=== PATIENT | female | born 1935 | race Caucasian/White ===

== ENCOUNTER → 2017-04-13 15:51 | Outpatient (CLI) | payer MEDICARE, OTHER, SELFPAY ==
--- NOTE | 2017-04-13 11:15 | LES_PTH ---
PATIENT: NELSON STROUD LOC: [facility] U#:[id number] AGE/SX: 89/F ROOM: RE04/13/[address]: Dr. Casey Smith MD : 1935 BED: DIS: SPEC #: [id number] RECD: 04/13/17 15:44 STATUS: JATINDER REGINE #: [id number] LONNY: 04/13/17 11:[address]: Casey Smith DEPT: SURGICAL PATHOLOGY RECD BY: Raul Chacon Tissues: Skin of eyelid, NOS Procedures: Surgery Specimen Level IV HEADER OPERATION: Elliptical excision biopsy, left upper arm PRE-OP DIAGNOSIS: Changing skin neoplasm TISSUE SUBMITTED: Left upper arm lesion biopsy MICROSCOPIC DIAGNOSIS Left upper arm lesion, biopsy: Basal cell carcinoma with focal area of ulceration and associated inflammation, incompletely excised. See comment. JEAN:roma 04/17/17 COMMENT The tumor is present at peripheral and deep margins of the specimen. Case has been reviewed in consultation with Dr. Mendez who concurs with the above diagnosis. IDC:AM MICROSCOPIC DESCRIPTION Slides are reviewed. GROSS DESCRIPTION Received is one container labeled with the patient's name and not further designated. The specimen consists of an irregular piece of velasco-white skin measuring 1.1 x 1 x 0.2 cm. The specimen is inked and submitted entirely in one cassette. It will be serially sectioned at the time of embedding. / SJ:rg 04/16/17 TC:0 CPT: 57661
== END ==
PROVIDERS: Family Provider Family Medicine; PCP Family Medicine; Visit Provider Family Medicine
DX: C44.619 Basal cell carcinoma of skin of left upper limb, including shoulder (principal)
CPT/HCPCS: 88305

== ENCOUNTER → 2017-09-18 08:11 | Outpatient (CLI) | payer MEDICARE, OTHER, SELFPAY ==
[2017-09-18 10:27] LABS: Hemoglobin A1c 7.4 % (4.2-6.3)
[2017-09-18 10:32] LABS: AST(SGOT) 23 U/L (15-37); Alanine Aminotransfer ALT/SGPT 29 U/L (13-56); Albumin, Serum 3.4 g/dL (3.2-5.0); Alkaline Phosphatase 76 U/L (45-117); Anion Gap 9 (5-15); BUN 17 mg/dL (7-18); BUN/Creat Ratio 20.1 RATIO (10-20); Bilirubin, Direct 0.13 mg/dL (0.00-0.30); Calcium,Total 9.1 mg/dL (8.5-10.1); Chloride 105 mmol/L (98-107); Cholesterol 246 mg/dL (200); Creatinine, Serum 0.84 mg/dL (0.55-1.02); EST Glomerular Filtration Rate 69 mL/min (>60); Est Glom Filt Rate - Afr Amer 83 mL/min (>60); Globulin 4.3 g/dL (2.2-4.2); Glucose 138 mg/dL (74-106); High Density Lipoprotein 37 mg/dL; Potassium 3.8 mmol/L (3.5-5.1); Protein, Total 7.7 g/dL (6.4-8.2); Sodium Level 139 mmol/L (136-145); Triglycerides 267 mg/dL; Very Low Density Lipoprotein 53 mg/dL (5-40)
[2017-09-18 14:37] LABS: Microalbumin,Random Urine 12.8 mg/L (NO RANGE EST.); Microalbumin:Creatinine Ratio 10.1 mg/g CRE (<30 mg/g CRE)
== END ==
PROVIDERS: Family Provider Family Medicine; PCP Family Medicine; Visit Provider Family Medicine
DX: E11.9 Type 2 diabetes mellitus without complications (principal); E78.5 Hyperlipidemia, unspecified; I10 Essential (primary) hypertension
CPT/HCPCS: 36415; 80048; 80061; 80076; 82043; 82570; 83036

== ENCOUNTER → 2018-03-18 08:52 | Outpatient (CLI) | payer MEDICARE, OTHER, SELFPAY ==
[2017-02-14 12:54] VITALS: BMI 33.6
[2018-03-18 10:44] LABS: Anion Gap 10 (5-15); BUN 18 mg/dL (7-18); BUN/Creat Ratio 22.2 RATIO (10-20); Calcium,Total 9.1 mg/dL (8.5-10.1); Chloride 106 mmol/L (98-107); Cholesterol 255 mg/dL (200); Creatinine, Serum 0.81 mg/dL (0.55-1.02); EST Glomerular Filtration Rate 72 mL/min (>60); Est Glom Filt Rate - Afr Amer 87 mL/min (>60); Glucose 173 mg/dL (74-106); High Density Lipoprotein 37 mg/dL; Potassium 3.8 mmol/L (3.5-5.1); Sodium Level 140 mmol/L (136-145); Triglycerides 272 mg/dL; Very Low Density Lipoprotein 54 mg/dL (5-40)
[2018-03-18 10:48] LABS: Hemoglobin A1c 8.1 % (4.2-6.3)
== END ==
PROVIDERS: Family Provider Family Medicine; PCP Family Medicine; Visit Provider Family Medicine
DX: E11.9 Type 2 diabetes mellitus without complications (principal); E78.5 Hyperlipidemia, unspecified; I10 Essential (primary) hypertension
CPT/HCPCS: 36415; 80048; 80061; 83036

== ENCOUNTER 2018-05-20 09:30 | Inpatient (IN) | payer MEDICARE, OTHER, SELFPAY ==
[2018-05-20] VITALS (34 sets, daily range): BP systolic 105–174; BP diastolic 58–83; PULSE 46–86; RESP 10–17; TEMP 36.7–36.8; O2SAT 97–100; BMI 34.7
--- NOTE | 2018-05-20 08:34 | PCM.PROGNOTE ---
Subjective: The patient is a 82-year-old female with a past medical history of hypertension, diabetes mellitus type 2, elevated cholesterol on new medication and hx of hysterectomy who presented to the stress lab this AM for an OP stress test. A code STEMI was called after the test started and the EKG showed changes in the inferior leads. She was transferred to the matlab developer for emergent cardiac catheterization by Dr. Heard. She is a life long non-smoker and there is a + FH of CAD in her father. Medical Necessity - Tobacco Use Smoking Status: Never smoker
--- NOTE | 2018-05-20 08:38 | PN_ITS ---
Subjective: The patient is a 82-year-old female with a past medical history of hypertension, diabetes mellitus type 2, elevated cholesterol on new medication and hx of hysterectomy who presented to the stress lab this AM for an OP stress test. A code STEMI was called after the test started and the EKG showed changes in the inferior leads. She was transferred to the cardiac cath rn for emergent cardiac catheterization by Dr. Heard. She is a life long non-smoker and there is a + FH of CAD in her father. Medical Necessity - Tobacco Use Smoking Status: Never smoker
--- NOTE | 2018-05-20 09:14 | EKG12_ITS ---
Test Reason : POST STEMI Blood Pressure : / mmHG Vent. Rate : 059 BPM Atrial Rate : 059 BPM P-R Int : 190 ms QRS Dur : 098 ms QT Int : 450 ms P-R-T Axes : 073 046 -31 degrees QTc Int : [address] & T wave abnormality, consider inferior ischemia Abnormal ECG No previous ECGs available Confirmed by ADRIANA YANES, LISANDRA ([id number]), mapping editor HARRIET SALAZAR ([id number]) on 05/24/2018 9:22:30 AM Referred By: Floyd Salazar Confirmed By:LISANDRA WRIGHT MD
--- NOTE | 2018-05-20 09:22 | PCM.CONS.C ---
Reason for Consult Date of Consultation: 05/20/18 Reason for Consultation: Acute EKG changes History of Present Illness: The patient is a 82 year old F with a history of hypertension who was sent by her primary physician for a routine stress test. She apparently had been having some throat discomfort which did not necessarily appear with exertion. She also had some shortness of breath when she bent forward. She did not have any dizziness or diaphoresis near syncope or syncope and did not have any exertional chest discomfort. She was evaluated prior to her undergoing the stress test and I reviewed her electrocardiogram with a nurse which demonstrated some nonspecific inferior changes. 2 minutes into her stress testing she developed ST elevation and the STEMI was called. The patient was placed back in the recumbent position and subsequently developed resolution of her EKG changes. The decision was made to take her to the cardiac catheterization lab immediately. [] Past Medical History Allergies/Adverse Reactions: Allergies Penicillins Allergy (Verified 02/14/17 12:53) Rash Tetanus Vaccines and Toxoid Allergy (Verified 02/14/17 12:53) Hives Home Medications: Ambulatory Orders Medication Instructions Recorded Hydrocodone Bitart/Apap 5-325 1 tab PO Q6H PRN PRN #10 tab 02/14/17 [Lohman 5MG-325MG] Surgical History: no surgical history Lives: Spouse/ Significant Other Smoking Status: Never smoker Alcohol: None Drugs: None Review of Systems - Review of Systems General: Denies: Fever, Night Sweats, Fatigue HEENT: Denies: Vision Change Cardiovascular: Reports: - - Throat discomfort. Denies: Chest Discomfort, Shortness of Breath, Orthopnea, PND, Peripheral Edema, Palpitations, Lightheadedness, Dizziness, Near Syncope, Syncope Respiratory: Denies: Cough, Sputum Production, Hemoptysis Gastrointestinal: Denies: Hematemesis, Hematochezia, Melena Genitourinary: Denies: Dysuria, Hematuria Muscoloskeletal: Denies: Myalgias Skin: Denies: Rash Neurological: Denies: Dizziness Psychiatric: Denies: Anxiety Endocrine: Denies: Unexplained Weight Loss Hematologic/ Lymphatic: Denies: Anemia Subjectve: Patient seen and evaluated. General: Awake, Alert, Oriented x 3 HEENT: PERRL, EOMI, Sclera Non Icteric Neck: Supple, Good ROM, No Lymph Node Enlargement Lungs: Clear to auscultation Cardiovascular: Regular Rhythm, Normal S1, Normal S2, No Murmurs, No Rubs, No Gallops Vascular: No Carotid Bruits, Normal Femoral Pulses, Normal Radial Pulses, Normal Dorsalis Pedal Pulse, Normal Posterior Tibial Pulses Abdomen: Bowel Sounds Present, Soft, Non Tender, No HSM, No Organomegaly Extremities: No Cyanosis, No Clubbing, No edema Musculoskeletal: No Erythema Skin: No Rashes Lymphatic: No Lymph Node Enlargement Neurological: No Focal Motor or Sensory Deficit Psych/Mental Status: Appropriate Rhythm: EKG: ECHO: Stress Test: Cardiac Cath: PCI: CT Surgery: Holter monitor: EPS: PPM: CXR: Chest CT Scan: Assessment/Plan 1. ST elevation myocardial infarction Patient presented to the noninvasive lab for an exercise stress test and developed an ST elevation myocardial infarction during the stress testing. The stress testing was aborted. The EKG pattern resolved. The patient was taken immediately to the cardiac catheterization lab. Patient was administered aspirin as well as Brilinta urgently The patient underwent cardiac catheterization which demonstrated a high-grade right coronary artery lesion which was the culprit and moderate disease noted in the left anterior descending artery. She underwent angioplasty and stenting of the right coronary artery dictated under separate cover. We will continue aggressive medical therapy with aspirin Continue Brilinta High intensity statin Low-dose beta-brynn Gera inhibitors Will address the left anterior descending artery lesion at a later date. Cardiac rehabilitation 2. Hypertension Controlled continue with the current medical therapy. Thank you for allowing me to participate in the care of your patient. Please don't hesitate to call if any issues arise
[2018-05-20 09:26] LABS: ACT Activated Clotting Time 324 sec (74-137)
--- NOTE | 2018-05-20 09:27 | CL.I_ITS ---
Patient Name: NELSON STROUD Study Date: 05/20/2018 Performing: Armin Heard MD Ht: 64 inches 162.56 cm : 1935 Wt: 190.2 lbs 86.18 kg Age: 82 Gender: female BSA: 1.91 PROCEDURE(S) PERFORMED WF10-JOT/COR/LV ZM19-UEP, JUJU AND/OR PTCA, ARTERY OR GRAFT, SINGLE VESSEL CLINICAL PROFILE AND CO-MORBIDITIES Heart Failure: None CAD Presentations: STEMI. Symptom onset Date/Time: 05/20/2018 08:04:00 CONCLUSIONS 99% Prox RCA 70% Prox Mid LAD LVEF 60% RECOMMENDATIONS ASA Indefinitley Brilinta for at least 12 months Possible staged PCI to LAD DESCRIPTION OF PROCEDURE The patient arrived to the procedure lab. The risks and benefits of the procedure as well as a full d escription of our services here and lack of surgical backup were fully explained to the patient and/o r their significant other prior to the catheterization. The Timeout was completed, verifying the claudia ect patient and procedure. The patient's procedural site was prepped and draped in the usual fashion. Local anesthetic was given subcutaneously to right radial region with Lidocaine 2%. Using a modified Seldinger technique, arterial access was obtained via the right radial artery, a 6Fr sheath was inse rted.. Left Coronary Artery selective angiography was performed in multiple views using a 5 Fr. 4.0 [place] catheter. Right Coronary Artery selective angiography was then performed in multiple views usin g a 5 Fr. 4.0 [place] catheter. Left Ventriculography was performed in BARKER projection using a 5 Fr. Pig tail catheter. LV to AO pullback pressures were then recorded Cortis JR4 Guide catheter was inserted and engaged into the RCA. Runthrough Guide wire was advanc ed to the RCA. Emerge 3.50 x 12 Balloon catheter was inserted. PTCA balloon inflated at 6 atms for 10 secs. PTCA balloon inflated at 10 atms for 15 secs. Angiogram performed post balloon dilatation. Res olute 4.0 x 18 Drug Eluting stent was inserted. Drug Eluting stent was advanced across the lesion in the right coronary, proximal. Angiogram performed pre stent deployment. Angiogram performed post sten t deployment. NC Emerge 4.5 x 15 Balloon catheter was inserted. Balloon catheter was advanced across lesion in the right coronary, proximal. Angiogram performed pre balloon dilatation. Angiogram perform ed post balloon dilatation. NC Emerge 5.0 x 8 Balloon catheter was inserted. Balloon catheter was adv anced across lesion in the right coronary, proximal. Angiogram performed pre balloon dilatation. Kaley ogram performed post balloon dilatation. Resolute 4.0 x 15 Drug Eluting stent was inserted. Drug Eluting stent was advanced across the lesion in the right coronary, mid. Angiogram per formed pre stent deployment. Angiogram performed post stent deployment. NC Emerge 5.0 x 8 Balloon cat heter was reinserted Balloon catheter was advanced across lesion in the right coronary, mid. Angiogra m performed post balloon dilatation. The arterial sheath was pulled and a TR Band was applied for h emostasis CORONARY ANGIOGRAPHY DOMINANCE: Right Dominant LEFT HEART ASSESSMENT Left Ventricular Ejection Fraction: by LV Gram 60 % LVEDP: 14 mmHg LEFT MAIN: Angiographically normal LEFT ANTERIOR DECENDING ARTERY: 70% Proximal Mid CIRCUMFLEX ARTERY: Mild luminal irregularities RIGHT CORONARY ARTERY: 99% Prox INTERVENTION INFORMATION LESION SITE: RCA (Proximal) Lesion Complexity: High/C, culprit lesion: Yes Pre Stenosis: 99 % Pre intervention CARRIE flow: 3 PROCEDURE: Drug Eluting Stent with pre and post dilatation Post Stenosis: 0 % Post intervention CARRIE flow: 3 Lesion Devices: Cordis 6 Fr JR4 100cm Guide Catheter Medtronic 6 Fr JR4.0 100cm Guide Catheter Terumo .014 Runthrough Extra Floppy 180cm straight Hong Sci EMERGE MR 3.50x12 BALLOON Medtronic Resolute RX JUJU 4.0x18 Hong Sci NC EMERGE MR 4.50x15 BALLOON Hong Sci NC EMERGE MR 5.00x08 BALLOON LESION SITE: RCA (Mid) Lesion Devices: Cordis 6 Fr JR4 100cm Guide Catheter Terumo .014 Runthrough Extra Floppy 180cm straight Hong Sci NC EMERGE MR 5.00x08 BALLOON Medtronic Resolute RX JUJU 4.0x15 COMPLICATIONS No Complications PROCEDURE MEDICATIONS Oxygen: 2 L/min via nasal cannula Angiomax 12.8 ml's bolus 05/20/2018 08:23:11 Angiomax 29.8 ml/hr @ 05/20/2018 08:28:26 Heparin given IA 05/20/2018 08:15:53 Nitro 200 mcg IC 05/20/2018 08:32:09 Verapamil 2.5mg, Ntg 100mcgs, 2000 units of Heparin given IA 05/20/2018 08:15:53 SUMMARY OF HEMODYNAMIC DATA Time AIR REST ECG 08:11:50 AO 143/74 (104) SA 08:17:53 LV 167/-3, 12 09:01:00 LV 179/-10, 14 09:01:07 LVp 132/30, 30 09:01:57 AOp 140/78 (66) 09:02:02 Signed By Armin Heard MD On 05/20/2018 09:26:59 Armin Heard MD
--- NOTE | 2018-05-20 09:28 | CON.PCM_ITS ---
Reason for Consult Date of Consultation: 05/20/18 Reason for Consultation: Acute EKG changes History of Present Illness: The patient is a 82 year old F with a history of hypertension who was sent by her primary physician for a routine stress test. She apparently had been having some throat discomfort which did not necessarily appear with exertion. She also had some shortness of breath when she bent forward. She did not have any dizziness or diaphoresis near syncope or syncope and did not have any exertional chest discomfort. She was evaluated prior to her undergoing the stress test and I reviewed her electrocardiogram with a nurse which demonstrated some nonspecific inferior changes. 2 minutes into her stress testing she developed ST elevation and the STEMI was called. The patient was placed back in the recumbent position and subsequently developed resolution of her EKG changes. The decision was made to take her to the cardiac catheterization lab immediately. [] Past Medical History Allergies/Adverse Reactions: Allergies Penicillins Allergy (Verified 02/14/17 12:53) Rash Tetanus Vaccines and Toxoid Allergy (Verified 02/14/17 12:53) Hives Home Medications: Ambulatory Orders Medication Instructions Recorded Hydrocodone Bitart/Apap 5-325 1 tab PO Q6H PRN PRN #10 tab 02/14/17 [Jarales 5MG-325MG] Surgical History: no surgical history Lives: Spouse/ Significant Other Smoking Status: Never smoker Alcohol: None Drugs: None Review of Systems - Review of Systems General: Denies: Fever, Night Sweats, Fatigue HEENT: Denies: Vision Change Cardiovascular: Reports: - - Throat discomfort. Denies: Chest Discomfort, Shortness of Breath, Orthopnea, PND, Peripheral Edema, Palpitations, Lightheadedness, Dizziness, Near Syncope, Syncope Respiratory: Denies: Cough, Sputum Production, Hemoptysis Gastrointestinal: Denies: Hematemesis, Hematochezia, Melena Genitourinary: Denies: Dysuria, Hematuria Muscoloskeletal: Denies: Myalgias Skin: Denies: Rash Neurological: Denies: Dizziness Psychiatric: Denies: Anxiety Endocrine: Denies: Unexplained Weight Loss Hematologic/ Lymphatic: Denies: Anemia Subjectve: Patient seen and evaluated. General: Awake, Alert, Oriented x 3 HEENT: PERRL, EOMI, Sclera Non Icteric Neck: Supple, Good ROM, No Lymph Node Enlargement Lungs: Clear to auscultation Cardiovascular: Regular Rhythm, Normal S1, Normal S2, No Murmurs, No Rubs, No Gallops Vascular: No Carotid Bruits, Normal Femoral Pulses, Normal Radial Pulses, Normal Dorsalis Pedal Pulse, Normal Posterior Tibial Pulses Abdomen: Bowel Sounds Present, Soft, Non Tender, No HSM, No Organomegaly Extremities: No Cyanosis, No Clubbing, No edema Musculoskeletal: No Erythema Skin: No Rashes Lymphatic: No Lymph Node Enlargement Neurological: No Focal Motor or Sensory Deficit Psych/Mental Status: Appropriate Rhythm: EKG: ECHO: Stress Test: Cardiac Cath: PCI: CT Surgery: Holter monitor: EPS: PPM: CXR: Chest CT Scan: Assessment/Plan 1. ST elevation myocardial infarction Patient presented to the noninvasive lab for an exercise stress test and developed an ST elevation myocardial infarction during the stress testing. The stress testing was aborted. The EKG pattern resolved. The patient was taken immediately to the cardiac catheterization lab. Patient was administered aspirin as well as Brilinta urgently The patient underwent cardiac catheterization which demonstrated a high-grade right coronary artery lesion which was the culprit and moderate disease noted in the left anterior descending artery. * She underwent angioplasty and stenting of the right coronary artery dictated under separate cover. * We will continue aggressive medical therapy with aspirin * Continue Brilinta * High intensity statin * Low-dose beta-brynn * Gera inhibitors * Will address the left anterior descending artery lesion at a later date. * Cardiac rehabilitation 2. Hypertension * Controlled continue with the current medical therapy. * * Thank you for allowing me to participate in the care of your patient. Please don't hesitate to call if any issues arise
[2018-05-20] MEDS: 0.9% Normal Saline 1,000 ML 150 ML IV (09:30)
--- NOTE | 2018-05-20 10:21 | PCM.HP.STD ---
Problem List (1) ST elevation (STEMI) myocardial infarction Status: Acute Qualifiers: Involved coronary artery: right coronary artery Qualified Code(s): I21.11 - ST elevation (STEMI) myocardial infarction involving right coronary artery (2) CAD (coronary artery disease) Status: Acute Qualifiers: Coronary Disease-Associated Artery/Lesion type: [place] artery (3) Post PTCA Status: Acute Comment: 2 stents to the RCA (4) DM type 2 (diabetes mellitus, type 2) Status: Chronic (5) HLD (hyperlipidemia) Status: Chronic (6) HTN (hypertension) Status: Chronic (7) Obesity (BMI 30.0-34.9) Status: Chronic History of Present Illness Date of Admission: 05/20/18 Chief Complaint: neck and throat pain with exertion radiating to the BL ears ans associated with SOB. The patient is a 82-year-old female with a past medical history of hypertension, diabetes mellitus type 2, HLD(takes Lipitor sporadically), venous insufficiency and hx of hysterectomy who presented to the stress lab this AM for an OP stress test. A code STEMI was called after the test started and the EKG showed changes in the inferior leads. She was transferred to the laboratory coordinator for emergent cardiac catheterization by Dr. Heard. She is a life long non-smoker and there is a + FH of CAD in her father. She has been getting pain in the neck/throat area for the past few months that starts when she walks outside.....she associates the pain with cold air but, the pain does not start until she has walked a piece and it is associated with SOB. The pain at times radiates to her ears. LVEF is 60% on the left ventriculogram Past Medical History Past Medical History (Chronic Problems): Chronic Problems DM type 2 (diabetes mellitus, type 2) (Chronic) HLD (hyperlipidemia) (Chronic) HTN (hypertension) (Chronic) Obesity (BMI 30.0-34.9) (Chronic) Allergies Penicillins Allergy (Verified 02/14/17 12:53) Rash Tetanus Vaccines and Toxoid Allergy (Verified 02/14/17 12:53) Hives Home Medications: Ambulatory Orders Medication Instructions Recorded Hydrocodone Bitart/Apap 5-325 1 tab PO Q6H PRN PRN #10 tab 02/14/17 [[place] 5MG-325MG] Surgical History: hysterectomy, tonsillectomy Psychiatric History: No pertinent psych hx INVENTORY REPRESENTATIVE History: No pertinent INVENTORY REPRESENTATIVE history Lives: Spouse/ Significant Other Smoking Status: Never smoker Tobacco Use: Non-smoker Alcohol: None Drugs: None - *Family History Paternal History Items: Heart Disease Review of Systems Constitutional: Denies: Chills, Fever, Weight Change Eyes: Denies: Blurred vision HEENT: Denies: Head Aches, Sinus Congestion, Sinus Drainage Cardiovascular: Reports: Edema, - - neck pain with exertion. Denies: Chest Pain, Heaviness, Light Headedness, Orthopnea, Palpitations, Paroxysmal Noc. Dyspnea, Syncope Respiratory: Reports: Shortness of breath upon exertion. Denies: Cough, Shortness of breath at rest, Sputum production Gastrointestinal: Denies: Abdominal Pain, Constipation, Diarrhea, Nausea, Vomiting Genitourinary: Denies: Dysuria Musculoskeletal: Denies: Arm Pain, Joint Pain, Joint Tenderness, Shoulder Pain Skin: Reports: Dryness. Denies: Jaundice, Rash, Wounds Neurological: Denies: Numbness, Tingling, Focal weakness Psychiatric: Denies: Anxiety, Depression, Homicidal Ideations, Suicidal Ideations Endocrine: Denies: Change in Body Habitus Hematologic/ Lymphatic: Denies: Easy Bruising, Easy Bleeding, Hx of blood clot VTE Information - Inpt Only VTE Present on Admission: No VTE Mechan Device Prophylaxis: SCD's, Knee High RISA Hose VTE Pharm Prophylaxis ordered?: Yes Patient Problems: Active and Suspected Problems ST elevation (STEMI) myocardial infarction (Acute) CAD (coronary artery disease) (Acute) Post PTCA (Acute) 2 stents to the RCA - Physical Exam General: Alert, Oriented x3, Cooperative, No apparent distress, Well developed, Well nourished HEENT: Atraumatic, PERRLA, EOMI, Normocephalic Oral: Dry Mucosa Neck: Supple, No JVD, Negative Carotid Bruits, No Nodes, Trachea Midline Lungs: Clear to auscultation, Normal air movement, No rhonchi, No wheeze, No rales Cardiovascular: Regular rate, No murmurs, Bradycardic - 56 on the monitor with SR Abdomen: Bowel Sounds Present, Soft, Non Tender, Non-Distended, - - No Bruits Extremities: No clubbing, No cyanosis, No edema, Capillary Refill Less than 3 Seconds, No Calf Tenderness, Peripheral Pulses Normal Skin: No rashes, No breakdown Musculoskeletal: No Tenderness to Palpation of Joints or Extremities Neurological: Cranial nerves II-XII grossly intact, Neuro grossly intact Psych/Mental Status: Normal Affect, Appropriate Vital Signs Temp Pulse Resp BP Pulse Ox 98.3 F 59 L 13 155/78 H 100 05/20/18 09:30 05/20/18 10:00 05/20/18 10:00 05/20/18 10:00 05/20/18 10:00 Oxygen Flow Rate (L/min) 2 Oxygen Delivery Method Nasal Cannula Weight: 196 lb 6.91 oz Body Mass Index (BMI) 34.7 Laboratory Tests Past 24 Hrs 05/20/18 08:01 Activated Clotting Time 324 H Assessment/Plan All Active Problems ST elevation (STEMI) myocardial infarction (Acute) CAD (coronary artery disease) (Acute) Post PTCA (Acute) Impressions 1. STEMI -inferior wall 2. 95% occlusion of the right coronary artery-status post PCI with 2 stents placed 3. DM II 4. HLD-noncompliant with Lipitor 5. HTN 6. Obesity Admitted to ICU post cath CMP, CBC and lipid panel ordered and not resulted yet. Check a mag. Continue dual antiplatelet agents for at least 1 year Continue Lipitor - pt is agreeable to daily usage and will consider a change to Crestor if any adverse effects Continue Metoprolol Add an JENNI if BP tolerates cardiac rehab consult check a HGBA1C Obtain recent lab and progress notes from Dr. Luis cordoba SSI Code Visit Inpatient E&M: 57486 Init Hosp L3
--- NOTE | 2018-05-20 10:26 | HP.PCM_ITS ---
Problem List (1) ST elevation (STEMI) myocardial infarction Status: Acute Qualifiers: Involved coronary artery: right coronary artery Qualified Code(s): I21.11 - ST elevation (STEMI) myocardial infarction involving right coronary artery (2) CAD (coronary artery disease) Status: Acute Qualifiers: Coronary Disease-Associated Artery/Lesion type: [place] artery (3) Post PTCA Status: Acute Comment: 2 stents to the RCA (4) DM type 2 (diabetes mellitus, type 2) Status: Chronic (5) HLD (hyperlipidemia) Status: Chronic (6) HTN (hypertension) Status: Chronic (7) Obesity (BMI 30.0-34.9) Status: Chronic History of Present Illness Date of Admission: 05/20/18 Chief Complaint: neck and throat pain with exertion radiating to the BL ears ans associated with SOB. The patient is a 82-year-old female with a past medical history of hypertension, diabetes mellitus type 2, HLD(takes Lipitor sporadically), venous insufficiency and hx of hysterectomy who presented to the stress lab this AM for an OP stress test. A code STEMI was called after the test started and the EKG showed changes in the inferior leads. She was transferred to the laborer demolition for emergent cardiac catheterization by Dr. Heard. She is a life long non-smoker and there is a + FH of CAD in her father. She has been getting pain in the neck/throat area for the past few months that starts when she walks outside.....she associates the pain with cold air but, the pain does not start until she has walked a piece and it is associated with SOB. The pain at times radiates to her ears. LVEF is 60% on the left ventriculogram Past Medical History Past Medical History (Chronic Problems): Chronic Problems DM type 2 (diabetes mellitus, type 2) (Chronic) HLD (hyperlipidemia) (Chronic) HTN (hypertension) (Chronic) Obesity (BMI 30.0-34.9) (Chronic) Allergies Penicillins Allergy (Verified 02/14/17 12:53) Rash Tetanus Vaccines and Toxoid Allergy (Verified 02/14/17 12:53) Hives Home Medications: Ambulatory Orders Medication Instructions Recorded Hydrocodone Bitart/Apap 5-325 1 tab PO Q6H PRN PRN #10 tab 02/14/17 [Agar 5MG-325MG] Surgical History: hysterectomy, tonsillectomy Psychiatric History: No pertinent psych hx FILER AND SANDER History: No pertinent FILER AND SANDER history Lives: Spouse/ Significant Other Smoking Status: Never smoker Tobacco Use: Non-smoker Alcohol: None Drugs: None - *Family History Paternal History Items: Heart Disease Review of Systems Constitutional: Denies: Chills, Fever, Weight Change Eyes: Denies: Blurred vision HEENT: Denies: Head Aches, Sinus Congestion, Sinus Drainage Cardiovascular: Reports: Edema, - - neck pain with exertion. Denies: Chest Pain, Heaviness, Light Headedness, Orthopnea, Palpitations, Paroxysmal Noc. Dyspnea, Syncope Respiratory: Reports: Shortness of breath upon exertion. Denies: Cough, Shortness of breath at rest, Sputum production Gastrointestinal: Denies: Abdominal Pain, Constipation, Diarrhea, Nausea, Vomiting Genitourinary: Denies: Dysuria Musculoskeletal: Denies: Arm Pain, Joint Pain, Joint Tenderness, Shoulder Pain Skin: Reports: Dryness. Denies: Jaundice, Rash, Wounds Neurological: Denies: Numbness, Tingling, Focal weakness Psychiatric: Denies: Anxiety, Depression, Homicidal Ideations, Suicidal Ideations Endocrine: Denies: Change in Body Habitus Hematologic/ Lymphatic: Denies: Easy Bruising, Easy Bleeding, Hx of blood clot VTE Information - Inpt Only VTE Present on Admission: No VTE Mechan Device Prophylaxis: SCD's, Knee High RISA Hose VTE Pharm Prophylaxis ordered?: Yes Patient Problems: Active and Suspected Problems ST elevation (STEMI) myocardial infarction (Acute) CAD (coronary artery disease) (Acute) Post PTCA (Acute) 2 stents to the RCA - Physical Exam General: Alert, Oriented x3, Cooperative, No apparent distress, Well developed, Well nourished HEENT: Atraumatic, PERRLA, EOMI, Normocephalic Oral: Dry Mucosa Neck: Supple, No JVD, Negative Carotid Bruits, No Nodes, Trachea Midline Lungs: Clear to auscultation, Normal air movement, No rhonchi, No wheeze, No rales Cardiovascular: Regular rate, No murmurs, Bradycardic - 56 on the monitor with SR Abdomen: Bowel Sounds Present, Soft, Non Tender, Non-Distended, - - No Bruits Extremities: No clubbing, No cyanosis, No edema, Capillary Refill Less than 3 Seconds, No Calf Tenderness, Peripheral Pulses Normal Skin: No rashes, No breakdown Musculoskeletal: No Tenderness to Palpation of Joints or Extremities Neurological: Cranial nerves II-XII grossly intact, Neuro grossly intact Psych/Mental Status: Normal Affect, Appropriate Vital Signs Temp Pulse Resp BP Pulse Ox 98.3 F 59 L 13 155/78 H 100 05/20/18 09:30 05/20/18 10:00 05/20/18 10:00 05/20/18 10:00 05/20/18 10:00 Oxygen Flow Rate (L/min) 2 Oxygen Delivery Method Nasal Cannula Weight: 196 lb 6.91 oz Body Mass Index (BMI) 34.7 Laboratory Tests Past 24 Hrs 05/20/18 08:01 Activated Clotting Time 324 H Assessment/Plan All Active Problems ST elevation (STEMI) myocardial infarction (Acute) CAD (coronary artery disease) (Acute) Post PTCA (Acute) Impressions 1. STEMI -inferior wall 2. 95% occlusion of the right coronary artery-status post PCI with 2 stents placed 3. DM II 4. HLD-noncompliant with Lipitor 5. HTN 6. Obesity Admitted to ICU post cath CMP, CBC and lipid panel ordered and not resulted yet. Check a mag. Continue dual antiplatelet agents for at least 1 year Continue Lipitor - pt is agreeable to daily usage and will consider a change to Crestor if any adverse effects Continue Metoprolol Add an JENNI if BP tolerates cardiac rehab consult check a HGBA1C Obtain recent lab and progress notes from Dr. Luis cordoba SSI Code Visit Inpatient E&M: 07598 Init Hosp L3
[2018-05-20 11:15] LABS: Bedside Glucose 184 mg/dL (70-110)
--- NOTE | 2018-05-20 11:28 | CRPHASE1 ---
Patient Data/Charges End Finder Forming Department:: Armin Heard PCP:: Casey Smith Date/Diagnosis #1:: 05/20/2018 PCI Refer Phase II:: Yes Phase II Referral:: [facility] Phase I Charge:: Level I - Education Risk Factors/Lifestyle Smoking Status: Never smoker Hx Hypertension: Yes Hx Diabetes Mellitus Type 2: Yes Hx Dyslipidemia: Yes Hx Obesity: Yes Height: 5 ft 3 in Weight:: 196 lb BMI: 34.7 Post-Menopausal: Yes ETOH: No Substance Abuse: No Phase I Education Given On:: [place], Nutrition, Antiplatelet medication, CHF, Smoking cessation, Diabetes - Type I, Diabetes - Type II Issues Affecting Care:: None Hospital Course Presenting Symptoms:: THROAT AD EAR PAIN Medical/Surgical History [place]:: Yes CAD:: Yes Pulmonary:: No COPD:: No Asthma:: No Diabetes Type II:: Yes Hypertension:: Yes Dyslipidemia:: Yes Arrhythmias:: No PE:: No DVT:: No PVD:: No Arthritis:: Yes - SOME GERD:: No Renal:: No Thyroid:: No Depression:: No Anxiety:: No CABG: No Discharge/Home/Social Eval Discharge Disposition: Home Marital Status:
--- NOTE | 2018-05-20 11:33 | CRPHASE1_ITS ---
Patient Data/Charges Print Decorator:: Armin Heard PCP:: Casey Smith Date/Diagnosis #1:: 05/20/2018 PCI Refer Phase II:: Yes Phase II Referral:: [facility] Phase I Charge:: Level I - Education Risk Factors/Lifestyle Smoking Status: Never smoker Hx Hypertension: Yes Hx Diabetes Mellitus Type 2: Yes Hx Dyslipidemia: Yes Hx Obesity: Yes Height: 5 ft 3 in Weight:: 196 lb BMI: 34.7 Post-Menopausal: Yes ETOH: No Substance Abuse: No Phase I Education Given On:: [place], Nutrition, Antiplatelet medication, CHF, Smoking cessation, Diabetes - Type I, Diabetes - Type II Issues Affecting Care:: None Hospital Course Presenting Symptoms:: THROAT AD EAR PAIN Medical/Surgical History [place]:: Yes CAD:: Yes Pulmonary:: No COPD:: No Asthma:: No Diabetes Type II:: Yes Hypertension:: Yes Dyslipidemia:: Yes Arrhythmias:: No PE:: No DVT:: No PVD:: No Arthritis:: Yes - SOME GERD:: No Renal:: No Thyroid:: No Depression:: No Anxiety:: No CABG: No Discharge/Home/Social Eval Discharge Disposition: Home Marital Status:
--- NOTE | 2018-05-20 11:34 | CRPH1.INSTRU ---
General Education CAD and cardiac anatomy and function:: Not instructed Explanation of diagnoses and procedures:: Not instructed Sign/Symptoms of HI:: Needs reinforcement Antiplatelet therapy: Patient communicates acknowledgment, Needs reinforcement Proper use of NTG-SL: Not instructed Emergency procedures and activation of EMS: Patient communicates acknowledgment, Family communicates acknowledgment Compliance of all prescribed medications: Patient communicates acknowledgment Smoking Patient Nicotine/Smoking Risk Factors Are:: Never smoked Dyslipidemia Patient Dyslipidemia Risk Factors Are:: Total Cholesterol - 255, Triglycerides - 272, HDL - 37, LDL - 164 Recommendations Include:: Lipid profile provided Dyslipidemia Response Code:: Not instructed Overweight/Obesity Patient Overweight/Obesity Risk Factors Are:: Obesity - > or = 30 Recommendations Include:: Weight loss of 5-10%, Reduced calorie diet, Exercise 5-7 times/week Overweight/Obesity:: Not instructed Hypertension Recommendations Include:: Maintain BP <130/85, BP <130/80 if diabetic, DASH dietary guidelines, Decrease/maintain normal body weight Hypertension:: Not instructed Heart Disease Heart Disease Response Code:: Not instructed Diabetes Patient Diabetes Risk Factors Are:: Elevated blood sugars Recommendations Include:: Maintain fasting blood sugars 70-110 md/dL, Maintain HgbA1c of 6% or less, Monitor blood sugar as prescribed, Diabetic dietary guidelines, Decrease/maintain body weight Diabetes:: Not instructed Metabolic Syndrome Patient Metabolic Syndrome Risk Factors Are [3 of 5]:: Waist circumference > 35 [female] or 40 [male], High triglyceride >150, Hypertension, Low HDL <40 [male] or < 50 [female] Metabolic Syndrome Response Code:: Not instructed Sedentary Sedentary Response Code:: Not instructed Stress Stress Response Code:: Not instructed
[2018-05-20 11:43] LABS: Hemoglobin A1c 7.6 % (4.2-6.3)
[2018-05-20] MEDS: Metoprolol Tartrate 25 MG Tablet 12.5 MG PO ×2 (12:53→21:05)
[2018-05-20] MEDS: Isosorbide Mononitrate 30 MG Tablet PO (12:54)
[2018-05-20] MEDS: Insulin Lispro 100 UNIT/ML INSULN.PEN SC ×3 (12:54→21:11)
[2018-05-20 16:11] LABS: Bedside Glucose 236 mg/dL (70-110)
--- NOTE | 2018-05-20 19:44 | STRESSREP_ITS ---
Stress Test Report Exercise myocardial perfusion stress test. 82-year-old lady with a history of intermittent chest pain. Medications: Hydrochlorothiazide and Actos. Resting EKG demonstrates normal sinus rhythm with a rate of [address] changes noted especially in the inferior leads. The patient exercised according to the regular Jeffy protocol for total duration of 1 minute and 49 seconds. There was intermittent nonsustained ventricular tachyarrhythmia noted the test was then terminated. The heart rate went [address] elevation now present in leads II, III and aVF V5 and V6 with reciprocal ST depression noted in 1 and aVL. The above was suggestive of an acute inferior wall myocardial infarction. An ST elevation myocardial infarction emergency was called and the patient was rushed emergently to the cardiac catheterization lab. The resting blood pressure 130/82 mmHg with a maximum blood pressure of 204/90 mmHg. At approximately 6 minutes into recovery the STs returned back to baseline with hyperacute T waves present in the inferolateral leads. Patient was chest pain- free when taken to the cardiac catheterization lab. Myocardial perfusion images. 11.9 mCi of technetium 99m sestamibi was injected at rest. Images were obtained. The resting images demonstrate a normal cardiac silhouette size with moderately reduced perfusion noted in the inferior wall. Conclusion: Reduced perfusion noted in the inferior wall Acute ST elevation myocardial injury pattern noted with spontaneous resolution.
[2018-05-20] MEDS: Atorvastatin Calcium 20 MG Tablet PO (21:12)
[2018-05-20] MEDS: TICAGRELOR 90 MG TABLET PO (21:12)
[2018-05-20 21:21] LABS: Bedside Glucose 196 mg/dL (70-110)
[2018-05-21] VITALS (30 sets, daily range): BP systolic 116–158; BP diastolic 53–81; PULSE 51–84; RESP 12–21; TEMP 36.4–36.8; O2SAT 93–100
[2018-05-21] MEDS: 0.9% NaCl Peripheral Flush Adult/Peds IV (04:09)
[2018-05-21 04:39] LABS: Hematocrit 38.5 % (37-47); Hemoglobin 12.4 g/dl (12.0-15.0); Mean Corp Hgb Conc 32.2 g/gl (32-36); Mean Corpuscular Hgb 30.1 pg (27.0-32.0); Mean Corpuscular Volume 93.4 fL (81-99); Mean Platelet Vol. 9.6 fl (6.2-12.0); Platelet Count 230 K/mm3 (150-450); RBC Distribution Width CV 14.6 % (11.6-14.6); RBC Distribution Width SD 47.7 fl (35.1-43.9); Red Blood Count 4.12 M/mm3 (4.2-5.4); White Blood Count 9.9 K/mm3 (4.4-11.0)
[2018-05-21 04:52] LABS: Scan Indicated on CBC? Y/N NO
[2018-05-21 05:11] LABS: ALB/GLOB Ratio 0.9 RATIO (0.9-2.4); AST(SGOT) 21 U/L (15-37); Alanine Aminotransfer ALT/SGPT 26 U/L (13-56); Albumin, Serum 3.1 g/dL (3.2-5.0); Alkaline Phosphatase 65 U/L (45-117); Anion Gap 10 (5-15); BUN 12 mg/dL (7-18); Calcium,Total 8.5 mg/dL (8.5-10.1); Chloride 106 mmol/L (98-107); Cholesterol 212 mg/dL (200); Creatinine, Serum 0.71 mg/dL (0.55-1.02); EST Glomerular Filtration Rate 84 mL/min (>60); Est Glom Filt Rate - Afr Amer 102 mL/min (>60); Globulin 3.6 g/dL (2.2-4.2); Glucose 141 mg/dL (74-106); High Density Lipoprotein 35 mg/dL; Potassium 2.8 mmol/L (3.5-5.1); Protein, Total 6.7 g/dL (6.4-8.2); Sodium Level 142 mmol/L (136-145); Triglycerides 301 mg/dL; Very Low Density Lipoprotein 60 mg/dL (5-40)
[2018-05-21 06:55] LABS: Bedside Glucose 150 mg/dL (70-110)
--- NOTE | 2018-05-21 07:20 | PCM.PROGNOTE ---
Patient Problems: Active and Suspected Problems ST elevation (STEMI) myocardial infarction (Acute) CAD (coronary artery disease) (Acute) Post PTCA (Acute) 2 stents to the RCA Subjective: The patient is an 82-year-old female who had an inferior wall ST elevation myocardial infarction on 05/20/2018 while on the treadmill. She was immediately taken to the [facility] and had 2 stents placed in the RCA. Postprocedure she was admitted to the intensive care unit. All events of the past 24 hours have been reviewed. Afebrile since admission Blood pressures are mildly elevated and since 3 AM have ranged from 139/62 156/55. She is 98-99% saturated on room air. CBC is unremarkable. Potassium is low at 2.8 today. Hemoglobin A1c was 7.6%. Triglycerides were 301 and the total cholesterol was 212 with an LDL of 117 and an HDL of 35. TELEMETRY: NSR with a rare PAC She reports that she had some shortness of breath last night that was transient. She is not coughing. She denies chest or neck pain. She has no nausea. Would like to get up and take a walk. Systolic blood pressures are mildly increased. - Physical Exam General: Alert, Oriented x3, Cooperative, No apparent distress Oral: Moist Mucosa Neck: Supple, No JVD, Trachea Midline Lungs: Clear to auscultation, No rhonchi, No wheeze, No rales, Diminished Cardiovascular: Regular rate, Regular Rhythm, Normal S1, Normal S2, No rub noted, No Gallop Abdomen: Bowel Sounds Present, Soft, Non Tender, Non-Distended Extremities: No clubbing, No cyanosis, No edema Skin: No rashes Psych/Mental Status: Normal Affect, Appropriate Vital Signs Temp Pulse Resp BP Pulse Ox 98.2 F 51 L 13 156/55 H 99 05/21/18 04:00 05/21/18 06:00 05/21/18 06:00 05/21/18 06:00 05/21/18 06:00 Oxygen Flow Rate (L/min) 2 Oxygen Delivery Method Room Air Weight: 187 lb 13.341 oz Body Mass Index (BMI) 34.7 Intake and Output for Last 24 Hours 05/19/18 05/20/18 05/21/18 23:59 23:59 23:59 Intake Total 2390 / 2390 110 / 110 Output Total 1450 / 1450 Balance 940 / 940 110 / 110 Laboratory Tests Past 24 Hrs 05/20/18 05/20/18 05/20/18 08:01 11:00 11:10 WBC RBC Hgb Hct MCV MCH MCHC RDW RDW Differential Plt Count MPV Activated Clotting Time 324 H Sodium Potassium Chloride Carbon Dioxide Anion Gap BUN Creatinine Estim Creat Clear Calc Est GFR (MDRD) Af Amer Est GFR (MDRD) Non-Af BUN/Creatinine Ratio Glucose Hemoglobin A1c 7.6 H Calcium Magnesium 2.0 Total Bilirubin AST ALT Alkaline Phosphatase Total Protein Albumin Globulin Albumin/Globulin Ratio Triglycerides Cholesterol LDL Cholesterol VLDL Cholesterol HDL Cholesterol 05/21/18 05/21/18 04:05 04:05 WBC 9.9 RBC 4.12 L Hgb 12.4 Hct 38.5 MCV 93.4 MCH 30.1 MCHC 32.2 RDW 14.6 RDW Differential 47.7 H Plt Count 230 MPV 9.6 Activated Clotting Time Sodium 142 Potassium 2.8 L Chloride 106 Carbon Dioxide 26.0 Anion Gap 10 BUN 12 Creatinine 0.71 Estim Creat Clear Calc 36.50 Est GFR (MDRD) Af Amer 102 Est GFR (MDRD) Non-Af 84 BUN/Creatinine Ratio 17.0 Glucose 141 H Hemoglobin A1c Calcium 8.5 Magnesium Total Bilirubin 0.70 AST 21 ALT 26 Alkaline Phosphatase 65 Total Protein 6.7 Albumin 3.1 L Globulin 3.6 Albumin/Globulin Ratio 0.9 Triglycerides 301 H Cholesterol 212 H LDL Cholesterol 117 VLDL Cholesterol 60 H HDL Cholesterol 35 L POC Glucose 05/21/18 05/20/18 05/20/18 06:45 21:11 15:51 POC Glucose 150 H 196 H 236 H 05/20/18 11:08 POC Glucose 184 H Medical Necessity - Tobacco Use Smoking Status: Never smoker Tobacco Use: Non-smoker Assessment/Plan All Active Problems ST elevation (STEMI) myocardial infarction (Acute) CAD (coronary artery disease) (Acute) Post PTCA (Acute) Impressions 1. STEMI -inferior wall 2. 95% occlusion of the right coronary artery-status post PCI with 2 stents placed 3. DM II 4. HLD-noncompliant with Lipitor 5. HTN 6. Obesity 7. Hypokalemia Supplement potassium Get a list of the meds she was taking at home Add an JENNI for better BP control Continue Brilinta, beta-brynn, nitrate atorvastatin. Ambulate today. Transfer to PCU Check BMP in the a.m. possible DC in the AM if everything remains stable still waiting for the medication reconciliation to start whatever she is taking for DM II
[2018-05-21] MEDS: Isosorbide Mononitrate 30 MG Tablet PO ×2 (09:39→12:50)
[2018-05-21] MEDS: Metoprolol Tartrate 25 MG Tablet 12.5 MG PO (09:39)
[2018-05-21] MEDS: TICAGRELOR 90 MG TABLET PO ×2 (09:39→21:10)
[2018-05-21] MEDS: Aspirin E.C. 81 MG Tablet PO (09:40)
--- NOTE | 2018-05-21 10:22 | CASEMGMT ---
RN CM Assessment Presentation: STEMI, 2 sents to RCA Intro role of CM and purpose of RN CM assessment. Pt is awake and able to participate in assessment. PCP: Dr. Smith Specialists: Cardiology Preferred Pharmacy: [facility] for this discharge. Pt may transfer scripts to [facility] in [place] later. Insurance: [facility]/[employer] Prescription Benefit: : BC/BS. Called to [facility]. Per their rep. Brillinta cost will be $24.00 for 90 day supply, and $28.00 for 30 day supply. Brillinta savings card given to pt for free 30 day supply. GRP: DODA BIN [id number] N A4 ID [id number] PH: LNOK: , Israel Chen Living Arrangements: Lives in condo @ independent living @ [facility]. No stairs. Pt states she is independent, takes care of her who has macular degeneration and is [place]. Pt drives, able to do own cooking, cleaning. Transportation: pt drives DME:none HHC: none DC PLAN: Home on discharge
[2018-05-21] MEDS: Insulin Lispro 100 UNIT/ML INSULN.PEN SC ×2 (11:29→16:56)
[2018-05-21 11:35] LABS: Bedside Glucose 188 mg/dL (70-110)
--- NOTE | 2018-05-21 11:43 | PCM.PN.CARD ---
Subjectve: No complaints. No chest or jaw pain. No neck pain. Ambulated this morning. Objective: Vital Signs Temp Pulse Resp BP Pulse Ox 98.1 F 63 19 H 158/74 H 99 05/21/18 08:00 05/21/18 10:00 05/21/18 10:00 05/21/18 10:00 05/21/18 10:00 Oxygen Flow Rate (L/min) 2 Oxygen Delivery Method Room Air Weight: 85.2 kg Body Mass Index (BMI) 34.7 Intake and Output for Last 24 Hours 05/19/18 05/20/18 05/21/18 23:59 23:59 23:59 Intake Total 2390 / 2390 110 / 110 Output Total 1450 / 1450 Balance 940 / 940 110 / 110 General: Healthy Appearing, Awake, Alert, Oriented x 3, No Acute Distress HEENT: Atraumatic, Normocephalic Oral: Moist Mucosa Neck: Supple Lungs: Clear to auscultation Cardiovascular: Regular Rhythm, Normal S1, Normal S2 Vascular: - - Right radial pulse 2+. Abdomen: Bowel Sounds Present, Soft Extremities: No edema Neurological: No Focal Motor or Sensory Deficit 05/20/18 11:10: Hemoglobin A1c 7.6 H 05/21/18 04:05: WBC 9.9, RBC 4.12 L, Hgb 12.4, Hct 38.5, MCV 93.4, MCH 30.1, MCHC 32.2, RDW 14.6, RDW Differential 47.7 H, Plt Count 230, MPV 9.6 05/21/18 04:05: Sodium 142, Potassium 2.8 L, Chloride 106, Carbon Dioxide 26.0, Anion Gap 10, BUN 12, Creatinine 0.71, Est GFR (MDRD) Af Amer 102, Est GFR (MDRD) Non-Af 84, BUN/Creatinine Ratio 17.0, Glucose 141 H, Calcium 8.5, Total Bilirubin 0.70, Triglycerides 301 H, Cholesterol 212 H, LDL Cholesterol 117, VLDL Cholesterol 60 H, HDL Cholesterol 35 L Rhythm: Normal sinus rhythm EKG: Normal sinus rhythm. Changes consistent with her recent inferior myocardial infarction ECHO: Stress Test: Cardiac Cath: PCI: CT Surgery: Holter monitor: EPS: PPM: CXR: Chest CT Scan: Medical Necessity - Tobacco Use Smoking Status: Never smoker Tobacco Use: Non-smoker Assessment/Plan 1. Acute inferior ST elevation myocardial infarction status post drug-eluting stent placement to the RCA. Stable. Asymptomatic. Continue medications. 2. Hypertension. Started on mahogany inhibitors today. Increase Imdur and metoprolol. 3. Coronary artery disease. See #1 above. Patient has residual lesion in her mid left anterior descending artery. Any medical treatment for now. Reevaluate as outpatient. 4. Dyslipidemia. Statins. 5. Diabetes mellitus. Transfer to stepdown. Discharge home in the morning if she continues to be stable. Follow-up with Dr. Umanzor in 1-2 weeks time after discharge home.
[2018-05-21] MEDS: Lisinopril 2.5 MG Tablet PO (12:50)
[2018-05-21 16:55] LABS: Bedside Glucose 187 mg/dL (70-110)
[2018-05-21] MEDS: Atorvastatin Calcium 20 MG Tablet 40 MG PO (21:10)
[2018-05-21] MEDS: Metoprolol Tartrate 25 MG Tablet PO (21:11)
[2018-05-21 21:21] LABS: Bedside Glucose 146 mg/dL (70-110)
[2018-05-22 01:00] VITALS: BP 156/118; PULSE 55; RESP 17; TEMP 37.1; O2SAT 96
[2018-05-22 04:00] VITALS: PULSE 52
[2018-05-22] MEDS: 0.9% NaCl Peripheral Flush Adult/Peds IV (05:22)
[2018-05-22 05:45] LABS: Anion Gap 10 (5-15); BUN 12 mg/dL (7-18); BUN/Creat Ratio 16.9 RATIO (10-20); Calcium,Total 8.6 mg/dL (8.5-10.1); Chloride 109 mmol/L (98-107); Creatinine, Serum 0.71 mg/dL (0.55-1.02); EST Glomerular Filtration Rate 84 mL/min (>60); Est Glom Filt Rate - Afr Amer 101 mL/min (>60); Estimated Creatinine Clearance 35.88 ml/min; Glucose 146 mg/dL (74-106); Potassium 3.9 mmol/L (3.5-5.1); Sodium Level 144 mmol/L (136-145)
[2018-05-22 06:36] LABS: Bedside Glucose 140 mg/dL (70-110)
[2018-05-22 06:49] VITALS: BP 183/71; PULSE 58; RESP 14; TEMP 36.9; O2SAT 98
--- NOTE | 2018-05-22 07:38 | PCM.DC ---
- Discharge Diagnoses Current Active Problems: Current Active and Chronic Problems ST elevation (STEMI) myocardial infarction (Acute) CAD (coronary artery disease) (Acute) Post PTCA (Acute) 2 stents to the RCA DM type 2 (diabetes mellitus, type 2) (Chronic) HLD (hyperlipidemia) (Chronic) HTN (hypertension) (Chronic) Obesity (BMI 30.0-34.9) (Chronic) You will use the following diet at home:: Calorie/Carbohydrate Controlled (specify 1200, 1400, etc), Cardiac Your food should be the consistency of: Regular Your liquids should be the consistency of: Regular/Thin Discharge Activity: - - It is OK to start a waqlking program and work up to 30 minutes 5-6 times a week. No hills initially May resume sexual activity in: 2 weeks Lifting Restrictions: no more than 10 pounds Call your doctor if your incision/area has: - - bleeding from the cath site, Discharge from the puncture site, Redness or increased warmth to touch around the puncture site at the wrist Call your doctor if you observe: Fever of 101 or Higher, Shortness of breath, Dizziness, Fainting spells, Swelling in the ankles, Chest pain Instructions: Ticagrelor Oral tablet Additional Instructions: 1. Take you medications exactly how they are prescribed. 2. The right coronary artery was 99% occluded and the applications coordinator placed 2 stents in the right coronary artery. There is also a 70% area of narrowing in the mid left anterior descending artery. To prevent further cardiac events in the future he will need to keep your blood pressure, blood sugars and cholesterol controlled. 3. you will need to have the cholesterol and a lipid panel checked in about 6 weeks since you will be taking a lipid lowering agent every night now. Pending Tests on Discharge: none Allergies/Adverse Reactions: Allergies Penicillins Allergy (Verified 02/14/17 12:53) Rash Tetanus Vaccines and Toxoid Allergy (Verified 02/14/17 12:53) Hives Medications to take at Discharge Hydrocodone Bitart/Apap 5-325 [Mobile 5/325] 1 tab PO Q6H PRN PRN #10 tab 02/14/17 Aspirin E.C. [Ecotrin] 81 mg PO DAILY@0800 tablet 05/22/18 Atorvastatin Calcium [Lipitor] 40 mg PO QHS #30 tablet 05/22/18 Isosorbide Mononitrate [Imdur] 60 mg PO DAILY #30 tablet 05/22/18 Lisinopril [Zestril] 5 mg PO DAILY #30 tablet 05/22/18 Metformin HCl [Glucophage] 500 mg PO BID #60 tablet 05/22/18 Metoprolol Tartrate [Lopressor (beta brynn)] 25 mg PO BID #60 tablet 05/22/18 Ticagrelor [Brilinta] 90 mg PO BID #60 tablet 05/22/18 The following prescriptions were given: Atorvastatin Calcium [Lipitor] 40 mg PO QHS #30 tablet Isosorbide Mononitrate [Imdur] 60 mg PO DAILY #30 tablet Lisinopril [Zestril] 5 mg PO DAILY #30 tablet Metformin HCl [Glucophage] 500 mg PO BID #60 tablet Metoprolol Tartrate [Lopressor (beta brynn)] 25 mg PO BID #60 tablet Ticagrelor [Brilinta] 90 mg PO BID #60 tablet Primary Care Physician: Casey Smith MD [Primary Care Provider] - Please follow up with your Primary Care Physician in: 5-7 days Test Results: Test results from this visit will be discussed in further detail at your follow-up appointment, if applicable. Please Follow Up With: Gregorio Umanzor MD When: 2 weeks Proposed Discharge Date: 05/22/18
--- NOTE | 2018-05-22 07:43 | DCINST_ITS ---
- Discharge Diagnoses Current Active Problems: Current Active and Chronic Problems ST elevation (STEMI) myocardial infarction (Acute) CAD (coronary artery disease) (Acute) Post PTCA (Acute) 2 stents to the RCA DM type 2 (diabetes mellitus, type 2) (Chronic) HLD (hyperlipidemia) (Chronic) HTN (hypertension) (Chronic) Obesity (BMI 30.0-34.9) (Chronic) You will use the following diet at home:: Calorie/Carbohydrate Controlled (specify 1200, 1400, etc), Cardiac Your food should be the consistency of: Regular Your liquids should be the consistency of: Regular/Thin Discharge Activity: - - It is OK to start a waqlking program and work up to 30 minutes 5-6 times a week. No hills initially May resume sexual activity in: 2 weeks Lifting Restrictions: no more than 10 pounds Call your doctor if your incision/area has: - - bleeding from the cath site, Discharge from the puncture site, Redness or increased warmth to touch around the puncture site at the wrist Call your doctor if you observe: Fever of 101 or Higher, Shortness of breath, Dizziness, Fainting spells, Swelling in the ankles, Chest pain Instructions: Ticagrelor Oral tablet Additional Instructions: 1. Take you medications exactly how they are prescribed. 2. The right coronary artery was 99% occluded and the ship laborer placed 2 stents in the right coronary artery. There is also a 70% area of narrowing in the mid left anterior descending artery. To prevent further cardiac events in the future he will need to keep your blood pressure, blood sugars and cholesterol controlled. 3. you will need to have the cholesterol and a lipid panel checked in about 6 weeks since you will be taking a lipid lowering agent every night now. Pending Tests on Discharge: none Allergies/Adverse Reactions: Allergies Penicillins Allergy (Verified 02/14/17 12:53) Rash Tetanus Vaccines and Toxoid Allergy (Verified 02/14/17 12:53) Hives Medications to take at Discharge Hydrocodone Bitart/Apap 5-325 [[place] 5/325] 1 tab PO Q6H PRN PRN #10 tab 02/14/17 Aspirin E.C. [Ecotrin] 81 mg PO DAILY@0800 tablet 05/22/18 Atorvastatin Calcium [Lipitor] 40 mg PO QHS #30 tablet 05/22/18 Isosorbide Mononitrate [Imdur] 60 mg PO DAILY #30 tablet 05/22/18 Lisinopril [Zestril] 5 mg PO DAILY #30 tablet 05/22/18 Metformin HCl [Glucophage] 500 mg PO BID #60 tablet 05/22/18 Metoprolol Tartrate [Lopressor (beta brynn)] 25 mg PO BID #60 tablet 05/22/18 Ticagrelor [Brilinta] 90 mg PO BID #60 tablet 05/22/18 The following prescriptions were given: Atorvastatin Calcium [Lipitor] 40 mg PO QHS #30 tablet Isosorbide Mononitrate [Imdur] 60 mg PO DAILY #30 tablet Lisinopril [Zestril] 5 mg PO DAILY #30 tablet Metformin HCl [Glucophage] 500 mg PO BID #60 tablet Metoprolol Tartrate [Lopressor (beta brynn)] 25 mg PO BID #60 tablet Ticagrelor [Brilinta] 90 mg PO BID #60 tablet Primary Care Physician: Casey Smith MD [Primary Care Provider] - Please follow up with your Primary Care Physician in: 5-7 days Test Results: Test results from this visit will be discussed in further detail at your follow- up appointment, if applicable. Please Follow Up With: Gregorio Umanzor MD When: 2 weeks Proposed Discharge Date: 05/22/18
[2018-05-22 07:47] VITALS: BP 173/71; PULSE 66; RESP 16; O2SAT 98
--- NOTE | 2018-05-22 07:48 | PCM.DC.SUM ---
Discharge Date and Diagnosis - Problem List Patient Problems: Active and Suspected Problems ST elevation (STEMI) myocardial infarction (Acute) CAD (coronary artery disease) (Acute) Post PTCA (Acute) 2 stents to the RCA Date of Admission: 05/20/18 Date of Discharge: 05/22/18 - Primary Discharge Diagnosis Active and Suspected Problems ST elevation (STEMI) myocardial infarction (Acute)- inferior wall CAD (coronary artery disease) (Acute)99% RCA and a 70% mid LAD Post PTCA (Acute) 2 stents to the RCA Hypokalemia - Secondary Discharge Diagnosis Chronic Problems DM type 2 (diabetes mellitus, type 2) (Chronic) HLD (hyperlipidemia) (Chronic) HTN (hypertension) (Chronic) Obesity (BMI 30.0-34.9) (Chronic) non-compliance with medications Hospital Course and Treatment Imaging Results: Laboratory Results - last 24 hr 05/21/18 05/21/18 05/21/18 11:26 16:50 21:06 Sodium Potassium Chloride Carbon Dioxide Anion Gap BUN Creatinine Estim Creat Clear Calc Est GFR (MDRD) Af Amer Est GFR (MDRD) Non-Af BUN/Creatinine Ratio Glucose Calcium POC Glucose 188 H 187 H 146 H 05/22/18 05/22/18 05:25 06:29 Sodium 144 Potassium 3.9 Chloride 109 H Carbon Dioxide 25.0 Anion Gap 10 BUN 12 Creatinine 0.71 Estim Creat Clear Calc 35.88 Est GFR (MDRD) Af Amer 101 Est GFR (MDRD) Non-Af 84 BUN/Creatinine Ratio 16.9 Glucose 146 H Calcium 8.6 POC Glucose 140 H [facility] Operations: None Procedures: Cardiac catheterization Summary of Care Provided: The patient is a 82-year-old female with a past medical history of hypertension, diabetes mellitus type 2, HLD(takes Lipitor sporadically), venous insufficiency and hx of hysterectomy who presented to the stress lab on 05/20/18 for an OP stress test. A code STEMI was called after the test started and the EKG showed changes/ST elevation in the inferior leads. She was transferred to the laborer tin can for emergent cardiac catheterization by Dr. Heard. Cardiac catheterization revealed a 99% occlusion of the proximal RCA and a 70% occlusion of the mid LAD. The left ventriculogram showed a 60% EF. 2 stents were placed in the right coronary artery and the patient was subsequently transferred to the intensive care unit. A lipid panel showed triglycerides of 301, total cholesterol of 212, LDL of 117 and HDL of 35. Hemoglobin A1c was 7.6%. She had no significant reperfusion dysrhythmia had an uneventful post-cath course. She was discharged home on 05/22/2018 with prescriptions for a beta-geovany, GERA inhibitor, nitrate, aspirin, Brilinta and Atorvastatin. She will follow up with Dr. Casey Smith in 5-[address] Umanzor in 2 weeks. She was seen by cardiac rehab prior to discharge. She may require a staged intervention to the mid LAD in the future PHYSICAL EXAM: GENERAL: alert, oriented X 3, Cooperative, NAD ORAL: moist mucosa, no mucosal lesions NECK: No JVD, supple, trachea midline LUNGS: CTA, symmetric chest expansion HEART: RRR, Normal S1 and S2, no rub, no gallop ABDOMEN: soft, NT, ND, BS present, no guarding with palpation EXTREMITIES: no edema, no cyanosis, no calf tenderness SKIN: No rashes, no breakdown NEUROLOGIC: no focal neurologic deficits PSYCH: appropriate, normal affect, pleasant This note was generated with d[employer]Hait[employer] dictation software. It may contain incorrect words, spelling, and punctuation that were not noted in checking the note before signing. Patient Problems: Active and Suspected Problems ST elevation (STEMI) myocardial infarction (Acute) CAD (coronary artery disease) (Acute) Post PTCA (Acute) 2 stents to the RCA - Physical Exam Vital Signs Temp Pulse Resp BP Pulse Ox 98.4 F 58 L 14 183/71 H 98 05/22/18 06:49 05/22/18 06:49 05/22/18 06:49 05/22/18 06:49 05/22/18 06:49 Oxygen Flow Rate (L/min) 2 Oxygen Delivery Method Room Air Weight: 188 lb 7.924 oz Body Mass Index (BMI) 34.7 Intake and Output for Last 24 Hours 05/20/18 05/21/18 05/22/18 23:59 23:59 23:59 Intake Total 2390 / 2390 810 / 810 240 / 240 Output Total 1450 / 1450 Balance 940 / 940 810 / 810 240 / 240 Laboratory Tests Past 24 Hrs 05/22/18 05:25 Sodium 144 Potassium 3.9 Chloride 109 H Carbon Dioxide 25.0 Anion Gap 10 BUN 12 Creatinine 0.71 Estim Creat Clear Calc 35.88 Est GFR (MDRD) Af Amer 101 Est GFR (MDRD) Non-Af 84 BUN/Creatinine Ratio 16.9 Glucose 146 H Calcium 8.6 POC Glucose 05/22/18 05/21/18 05/21/18 06:29 21:06 16:50 POC Glucose 140 H 146 H 187 H 05/21/18 11:26 POC Glucose 188 H Discharge Activity: - - It is OK to start a waqlking program and work up to 30 minutes 5-6 times a week. No hills initially May resume sexual activity in: 2 weeks Call your doctor if your incision/area has: - - bleeding from the cath site, Discharge from the puncture site, Redness or increased warmth to touch around the puncture site at the wrist Call your doctor if you observe: Fever of 101 or Higher, Shortness of breath, Dizziness, Fainting spells, Swelling in the ankles, Chest pain Home Medications: Medications to take at Discharge Hydrocodone Bitart/Apap 5-325 [[place] 5/325] 1 tab PO Q6H PRN PRN #10 tab 02/14/17 Aspirin E.C. [Ecotrin] 81 mg PO DAILY@0800 tablet 05/22/18 Atorvastatin Calcium [Lipitor] 40 mg PO QHS #30 tablet 05/22/18 Isosorbide Mononitrate [Imdur] 60 mg PO DAILY #30 tablet 05/22/18 Lisinopril [Zestril] 5 mg PO DAILY #30 tablet 05/22/18 Metformin HCl [Glucophage] 500 mg PO BID #60 tablet 05/22/18 Metoprolol Tartrate [Lopressor (beta geovany)] 25 mg PO BID #60 tablet 05/22/18 Ticagrelor [Brilinta] 90 mg PO BID #60 tablet 05/22/18 Following Prescrptions Were Given to Patient: Atorvastatin Calcium [Lipitor] 40 mg PO QHS #30 tablet Isosorbide Mononitrate [Imdur] 60 mg PO DAILY #30 tablet Lisinopril [Zestril] 5 mg PO DAILY #30 tablet Metformin HCl [Glucophage] 500 mg PO BID #60 tablet Metoprolol Tartrate [Lopressor (beta geovany)] 25 mg PO BID #60 tablet Ticagrelor [Brilinta] 90 mg PO BID #60 tablet Primary Care Physician: Casey Smith MD [Primary Care Provider] - Please follow up with your Primary Care Physician in: 5-7 days Please Follow Up With: Gregorio Umanzor MD When: 2 weeks Patient Instructions: Ticagrelor Oral tablet Disposition: Home Minutes spent on discharge:: 35 Patient Condition:: Good Medical Necessity - Tobacco Use Smoking Status: Never smoker Tobacco Use: Non-smoker Meaningful Use Info Meaningful Use Diagnoses (Choose all that apply): AMI - AMI Aspirin given w/in 24hrs of arrival?: Yes ASA at discharge?: Yes Statins at discharge?: Yes Gera/ARB at discharge?: Yes Beta Geovany at discharge?: Yes Done w/ Acute [place] measure.: Yes Code Visit Inpatient E&M: 31044 Disch Hosp
[2018-05-22 07:54] VITALS: PULSE 60
--- NOTE | 2018-05-22 07:55 | DS.PCM_ITS ---
Discharge Date and Diagnosis - Problem List Patient Problems: Active and Suspected Problems ST elevation (STEMI) myocardial infarction (Acute) CAD (coronary artery disease) (Acute) Post PTCA (Acute) 2 stents to the RCA Date of Admission: 05/20/18 Date of Discharge: 05/22/18 - Primary Discharge Diagnosis Active and Suspected Problems ST elevation (STEMI) myocardial infarction (Acute)- inferior wall CAD (coronary artery disease) (Acute)99% RCA and a 70% mid LAD Post PTCA (Acute) 2 stents to the RCA Hypokalemia - Secondary Discharge Diagnosis Chronic Problems DM type 2 (diabetes mellitus, type 2) (Chronic) HLD (hyperlipidemia) (Chronic) HTN (hypertension) (Chronic) Obesity (BMI 30.0-34.9) (Chronic) non-compliance with medications Hospital Course and Treatment Imaging Results: Laboratory Results - last 24 hr 05/21/18 05/21/18 05/21/18 11:26 16:50 21:06 Sodium Potassium Chloride Carbon Dioxide Anion Gap BUN Creatinine Estim Creat Clear Calc Est GFR (MDRD) Af Amer Est GFR (MDRD) Non-Af BUN/Creatinine Ratio Glucose Calcium POC Glucose 188 H 187 H 146 H 05/22/18 05/22/18 05:25 06:29 Sodium 144 Potassium 3.9 Chloride 109 H Carbon Dioxide 25.0 Anion Gap 10 BUN 12 Creatinine 0.71 Estim Creat Clear Calc 35.88 Est GFR (MDRD) Af Amer 101 Est GFR (MDRD) Non-Af 84 BUN/Creatinine Ratio 16.9 Glucose 146 H Calcium 8.6 POC Glucose 140 H [facility] Operations: None Procedures: Cardiac catheterization Summary of Care Provided: The patient is a 82-year-old female with a past medical history of hypert ension, diabetes mellitus type 2, HLD(takes Lipitor sporadically), venous insufficiency and hx of hysterectomy who presented to the stress lab on 05/20/18 for an OP stress test. A code STEMI was called after the test started and the EKG showed changes/ST elevation in the inferior leads. She was transferred to the industrial laborer for emergent cardiac catheterization by Dr. Heard. Cardiac catheterization revealed a 99% occlusion of the proximal RCA and a 70% occlusion of the mid LAD. The left ventriculogram showed a 60% EF. 2 stents were placed in the right coronary artery and the patient was subsequently transferred to the intensive care unit. A lipid panel showed triglycerides of 301, total cholesterol of 212, LDL of 117 and HDL of 35. Hemoglobin A1c was 7.6%. She had no significant reperfusion dysrhythmia had an uneventful post-cath course. She was discharged home on 05/22/2018 with prescriptions for a beta-geovany, GERA inhibitor, nitrate, aspirin, Brilinta and Atorvastatin. She will follow up with Dr. Casey Smith in 5-[address] Umanzor in 2 weeks. She was seen by cardiac rehab prior to discharge. She may require a staged intervention to the mid LAD in the future PHYSICAL EXAM: GENERAL: alert, oriented X 3, Cooperative, NAD ORAL: moist mucosa, no mucosal lesions NECK: No JVD, supple, trachea midline LUNGS: CTA, symmetric chest expansion HEART: RRR, Normal S1 and S2, no rub, no gallop ABDOMEN: soft, NT, ND, BS present, no guarding with palpation EXTREMITIES: no edema, no cyanosis, no calf tenderness SKIN: No rashes, no breakdown NEUROLOGIC: no focal neurologic deficits PSYCH: appropriate, normal affect, pleasant This note was generated with [employer] dictation software. It may contain incorrect words, spelling, and punctuation that were not noted in checking the note before signing. Patient Problems: Active and Suspected Problems ST elevation (STEMI) myocardial infarction (Acute) CAD (coronary artery disease) (Acute) Post PTCA (Acute) 2 stents to the RCA - Physical Exam Vital Signs Temp Pulse Resp BP Pulse Ox 98.4 F 58 L 14 183/71 H 98 05/22/18 06:49 05/22/18 06:49 05/22/18 06:49 05/22/18 06:49 05/22/18 06:49 Oxygen Flow Rate (L/min) 2 Oxygen Delivery Method Room Air Weight: 188 lb 7.924 oz Body Mass Index (BMI) 34.7 Intake and Output for Last 24 Hours 05/20/18 05/21/18 05/22/18 23:59 23:59 23:59 Intake Total 2390 / 2390 810 / 810 240 / 240 Output Total 1450 / 1450 Balance 940 / 940 810 / 810 240 / 240 Laboratory Tests Past 24 Hrs 05/22/18 05:25 Sodium 144 Potassium 3.9 Chloride 109 H Carbon Dioxide 25.0 Anion Gap 10 BUN 12 Creatinine 0.71 Estim Creat Clear Calc 35.88 Est GFR (MDRD) Af Amer 101 Est GFR (MDRD) Non-Af 84 BUN/Creatinine Ratio 16.9 Glucose 146 H Calcium 8.6 POC Glucose 05/22/18 05/21/18 05/21/18 06:29 21:06 16:50 POC Glucose 140 H 146 H 187 H 05/21/18 11:26 POC Glucose 188 H Discharge Activity: - - It is OK to start a waqlking program and work up to 30 minutes 5-6 times a week. No hills initially May resume sexual activity in: 2 weeks Call your doctor if your incision/area has: - - bleeding from the cath site, Discharge from the puncture site, Redness or increased warmth to touch around the puncture site at the wrist Call your doctor if you observe: Fever of 101 or Higher, Shortness of breath, Dizziness, Fainting spells, Swelling in the ankles, Chest pain Home Medications: Medications to take at Discharge Hydrocodone Bitart/Apap 5-325 [[place] 5/325] 1 tab PO Q6H PRN PRN #10 tab 02/14/17 Aspirin E.C. [Ecotrin] 81 mg PO DAILY@0800 tablet 05/22/18 Atorvastatin Calcium [Lipitor] 40 mg PO QHS #30 tablet 05/22/18 Isosorbide Mononitrate [Imdur] 60 mg PO DAILY #30 tablet 05/22/18 Lisinopril [Zestril] 5 mg PO DAILY #30 tablet 05/22/18 Metformin HCl [Glucophage] 500 mg PO BID #60 tablet 05/22/18 Metoprolol Tartrate [Lopressor (beta geovany)] 25 mg PO BID #60 tablet 05/22/18 Ticagrelor [Brilinta] 90 mg PO BID #60 tablet 05/22/18 Following Prescrptions Were Given to Patient: Atorvastatin Calcium [Lipitor] 40 mg PO QHS #30 tablet Isosorbide Mononitrate [Imdur] 60 mg PO DAILY #30 tablet Lisinopril [Zestril] 5 mg PO DAILY #30 tablet Metformin HCl [Glucophage] 500 mg PO BID #60 tablet Metoprolol Tartrate [Lopressor (beta geovany)] 25 mg PO BID #60 tablet Ticagrelor [Brilinta] 90 mg PO BID #60 tablet Primary Care Physician: Casey Smith MD [Primary Care Provider] - Please follow up with your Primary Care Physician in: 5-7 days Please Follow Up With: Gregorio Umanzor MD When: 2 weeks Patient Instructions: Ticagrelor Oral tablet Disposition: Home Minutes spent on discharge:: 35 Patient Condition:: Good Medical Necessity - Tobacco Use Smoking Status: Never smoker Tobacco Use: Non-smoker Meaningful Use Info Meaningful Use Diagnoses (Choose all that apply): AMI - AMI Aspirin given w/in 24hrs of arrival?: Yes ASA at discharge?: Yes Statins at discharge?: Yes Gera/ARB at discharge?: Yes Beta Geovany at discharge?: Yes Done w/ Acute [place] measure.: Yes Code Visit Inpatient E&M: 43227 Disch Hosp
[2018-05-22] MEDS: Lisinopril 2.5 MG Tablet PO (08:31)
[2018-05-22 08:32] VITALS: PULSE 66
[2018-05-22] MEDS: TICAGRELOR 90 MG TABLET PO (08:32)
[2018-05-22] MEDS: Aspirin E.C. 81 MG Tablet PO (08:32)
[2018-05-22] MEDS: Metoprolol Tartrate 25 MG Tablet PO (08:32)
[2018-05-22] MEDS: Isosorbide Mononitrate 60 MG Tablet PO (08:33)
--- NOTE | 2018-05-22 08:55 | PN.CARD_ITS ---
Subjectve: Patient seen and evaluated. Appears to be doing much better today. Objective: Vital Signs Temp Pulse Resp BP Pulse Ox 98.4 F 66 14 183/71 H 98 05/22/18 06:49 05/22/18 08:32 05/22/18 06:49 05/22/18 06:49 05/22/18 06:49 Oxygen Flow Rate (L/min) 2 Oxygen Delivery Method Room Air Weight: 188 lb 7.924 oz Body Mass Index (BMI) 34.7 Intake and Output for Last 24 Hours 05/20/18 05/21/18 05/22/18 23:59 23:59 23:59 Intake Total 2390 / 2390 810 / 810 240 / 240 Output Total 1450 / 1450 Balance 940 / 940 810 / 810 240 / 240 General: Awake, Alert, Oriented x 3 HEENT: PERRL, EOMI, Sclera Non Icteric Neck: Supple, Good ROM, No Lymph Node Enlargement Lungs: Clear to auscultation Cardiovascular: Regular Rhythm, Normal S1, Normal S2, No Murmurs, No Rubs, No Gallops Vascular: No Carotid Bruits, Normal Femoral Pulses, Normal Radial Pulses, Normal Dorsalis Pedal Pulse, Normal Posterior Tibial Pulses Abdomen: Bowel Sounds Present, Soft, Non Tender, No HSM, No Organomegaly Extremities: No Cyanosis, No Clubbing, No edema Neurological: No Focal Motor or Sensory Deficit 05/22/18 05:25: Sodium 144, Potassium 3.9, Chloride 109 H, Carbon Dioxide 25.0, Anion Gap 10, BUN 12, Creatinine 0.71, Est GFR (MDRD) Af Amer 101, Est GFR (MDRD) Non-Af 84, BUN/Creatinine Ratio 16.9, Glucose 146 H, Calcium 8.6 Rhythm: EKG: ECHO: Stress Test: Cardiac Cath: PCI: CT Surgery: Holter monitor: EPS: PPM: CXR: Chest CT Scan: Medical Necessity - Tobacco Use Smoking Status: Never smoker Tobacco Use: Non-smoker Assessment/Plan 1. ST elevation myocardial infarction Patient presented to the noninvasive lab for an exercise stress test and developed an ST elevation myocardial infarction during the stress testing. The stress testing was aborted. The EKG pattern resolved. The patient was taken immediately to the cardiac catheterization lab. Patient was administered aspirin as well as Brilinta urgently The patient underwent cardiac catheterization which demonstrated a high-grade right coronary artery lesion which was the culprit and moderate disease noted in the left anterior descending artery. * She underwent angioplasty and stenting of the right coronary artery dictated under separate cover. * We will continue aggressive medical therapy with aspirin * Continue Brilinta * High intensity statin * Low-dose beta-brynn * Gera inhibitors * Will address the left anterior descending artery lesion at a later date. * Cardiac rehabilitation 2. Hypertension * Controlled continue with the current medical therapy. * * * Patient can be discharged for outpatient follow-up. * Thank you for allowing me to participate in the care of your patient. Please don't hesitate to call if any issues arise
--- NOTE | 2018-05-22 09:24 | CASEMGMT ---
SW spoke w/pt in room, let her know that POA/LW are not on the chart, asked pt to bring them in if able. Pt states understanding. SEUN Baeza, CABLE TELEVISION ACCESS COORDINATOR
--- NOTE | 2018-05-22 10:00 | EKG12_ITS ---
Test Reason : AM EKG Blood Pressure : / mmHG Vent. Rate : 055 BPM Atrial Rate : 055 BPM P-R Int : 168 ms QRS Dur : 088 ms QT Int : 456 ms P-R-T Axes : 042 044 -30 degrees QTc Int : [address] & T wave abnormality, consider inferior ischemia Abnormal ECG When compared with ECG of 20-MAY-2018 09:34, MANUAL COMPARISON REQUIRED, DATA IS UNCONFIRMED Confirmed by JUDY CASTILLO ([id number]), tape editor MARIELLE JACOBSON ([id number]) on 05/27/2018 5:08:15 PM Referred By: Floyd Salazar Confirmed By:JUDY CASTILLO
== END 2018-05-22 10:00 | disposition home or self-care (01) | DRG 247 ==
LOC: ICU 15:20 → CVS 15:20
PROVIDERS: Internal Medicine Cardiovascular Disease; Admitting Provider Internal Medicine; Family Provider Family Medicine; PCP Family Medicine; Referring Provider Family Medicine; Visit Provider Internal Medicine
DX: I21.19 ST elevation (STEMI) myocardial infarction involving other coronary artery of inferior wall (principal); I25.10 Atherosclerotic heart disease of native coronary artery without angina pectoris; E78.5 Hyperlipidemia, unspecified; E87.6 Hypokalemia; E11.9 Type 2 diabetes mellitus without complications; I10 Essential (primary) hypertension; I87.2 Venous insufficiency (chronic) (peripheral); E66.9 Obesity, unspecified; Z91.14 Patient's other noncompliance with medication regimen; Z82.49 Family history of ischemic heart disease and other diseases of the circulatory system; Z68.34 Body mass index [BMI] 34.0-34.9, adult; Z79.84 Long term (current) use of oral hypoglycemic drugs
CPT/HCPCS: 78452; 80048; 80053; 80061; 82962; 83036; 83735; 85027; 85347; 92941; 93005; 93017; 93458; A9500; J7030; Q9967; A4216; C1725; C1769; C1874; C1887; C1894; C9606

== ENCOUNTER 2018-07-02 08:20 | Observation (INO) | payer MEDICARE, OTHER, SELFPAY ==
[2018-05-20 11:33] VITALS: BMI 34.7
[2018-06-07 10:43] VITALS: BMI 33.5
[2018-07-02] VITALS (10 sets, daily range): BP systolic 133–183; BP diastolic 52–108; PULSE 57–67; RESP 16–18; TEMP 36.4–37.3; O2SAT 97–98; BMI 33.3; BMI 31.9; BMI 32.0
--- NOTE | 2018-07-02 08:45 | RAD_ITS ---
STUDY: X-RAY CHEST REASON FOR EXAM: Female, 83 years old. Hypertension and left-sided jaw pain. TECHNIQUE: Single AP portable view of the chest. COMPARISON: Prior comparison studies are not available for review at this time. FINDINGS: Cardiac monitoring leads are present. The lungs are hyperexpanded with mild interstitial thickening present in both lungs. There is no demonstrated pleural abnormality. There is borderline cardiomegaly. Normal mediastinum and doc. Normal visualized pulmonary arteries. There is atherosclerotic calcification of the aortic arch with tortuosity. There is demineralization of the osseous structures. There are degenerative changes of both shoulders. There is no demonstrated abnormality of the visualized soft tissue structures of the upper abdomen. RAD/Chest 1 View (Portable) IMPRESSION: No radiographic evidence of acute cardiopulmonary disease. Electronically Signed: Shamika Salazar MD at 9:15 EDT , Service support ,
--- NOTE | 2018-07-02 08:59 | ED.VISSUMM ---
- ER Visit Summary Date of Service: 07/02/18 Chief Complaint: [Pain in the left ear and jaw] History of Present Illness: The patient is a 83 F [presents the emergency department with symptoms that started about 2 days ago. Patient states that she is concerned because she had a heart attack and 2 stents placed 6 weeks ago and at that time her symptoms were jaw and ear pain. Patient denies any chest pain or shortness of breath. She denies exertional dyspnea. She denies any trauma to her face. Patient has not had a fever. She has had a little bit of a nonproductive cough. Patient states pain is worse when opening her mouth and speaking. She denies any dental pain. Patient also with history of diabetes, hypertension, and high cholesterol.] Physical Examination: [HEENT-PERRLA, EOMI. Cranial nerves II through XII grossly intact. TMs clear. Mucous membranes moist. No adenopathy. Patient has some subtle fullness over the left parotid gland with tenderness to palpation it seems to reproduce her pain. Patient has pain with opening of her mouth. There is no erythema or cellulitis noted to the face. Patient has no tenderness on percussion of her teeth. Cardiovascular-regular rate and rhythm without murmur or ectopy Lungs-clear to auscultation, chest wall stable without crepitus or subcu emphysema Abdomen-normoactive bowel sounds, soft, nontender, no rebound or rigidity, no peritoneal signs. Extremities-intact ?4, normal range of motion, normal pulses, atraumatic ] Test Results: [EKG obtained on arrival shows sinus rhythm with a ventricular rate of 63 bpm with no acute I segment changes. CBC with additional 112.0, hemoglobin 14, hematocrit 42, placed 309. Chemistries unremarkable. Troponin is less than 0.015. Chest x-ray showed nothing acute.] Emergency Department Course and Treatment: [Patient had already taken Brilinta today. Etiology of patient's discomfort unclear however given her recent atypical presentation with coronary artery disease and recent stenting I did discuss case with cardiology on-call Dr. Casey Page. Patient will be admitted for cardiac rule out. In the differential would be an early parotitis or TMJ issue.] Treatment Plan: [Admit for further work-up and evaluation] Disposition: [Admit] Impression: [Anginal equivalent Left facial pain] This note was generated with Dragon dictation software. It may contain incorrect words, spelling, and punctuation that were not noted in review of the chart prior to signing ED Disposition - Plan for ED Patient: Referrals: Casey Smith MD [Primary Care Provider] -
[2018-07-02 09:02] LABS: Anion Gap 3 (5-15); BUN 13 mg/dL (7-18); BUN/Creat Ratio 15.7 RATIO (10-20); Chloride 105 mmol/L (98-107); Creatinine, Serum 0.83 mg/dL (0.55-1.02); EST Glomerular Filtration Rate 70 mL/min (>60); Est Glom Filt Rate - Afr Amer 85 mL/min (>60); Estimated Creatinine Clearance 43.23 ml/min; Glucose 170 mg/dL (74-106); Potassium 3.3 mmol/L (3.5-5.1); Sodium Level 137 mmol/L (136-145)
[2018-07-02 09:08] LABS: Absolute Lymphocyte Count 3.03 X10^3/ul (0.83-4.51); Absolute Neutrophil Count 7.8 X10^3/uL (2.0-7.7); Basophil# 0.03 X10^3/uL; Basophil% 0.3 % (0-1); Eosinophil# 0.15 X10^3/uL; Eosinophils% 1.3 % (0-5); Hematocrit 41.8 % (37-47); Hemoglobin 14.1 g/dl (12.0-15.0); Lymphocyte # 3.03 X10^3/ul (4.0); Lymphocyte % 25.3 % (19-41); Mean Corp Hgb Conc 33.7 g/gl (32-36); Mean Corpuscular Hgb 30.5 pg (27.0-32.0); Mean Corpuscular Volume 90.5 fL (81-99); Mean Platelet Vol. 10.2 fl (6.2-12.0); Monocyte# 0.94 X10^3/uL; Monocyte% 7.9 % (0-10); Neutrophil # 7.78 X10^3/uL (2.7-7.7); Neutrophil % 64.9 % (47-70); Platelet Count 309 K/mm3 (150-450); RBC Distribution Width CV 14.4 % (11.6-14.6); RBC Distribution Width SD 47.5 fl (35.1-43.9); Red Blood Count 4.62 M/mm3 (4.2-5.4)
[2018-07-02 09:09] LABS: Differential Indicated SCAN CRITERIA MET; POSITIVE COUNT YES; POSITIVE DIFFERENTIAL NO; POSITIVE MORPHOLOGY YES
[2018-07-02 09:52] LABS: Differential Comment SCANNED
--- NOTE | 2018-07-02 10:24 | EKG12_ITS ---
Test Reason : JAW PAIN Blood Pressure : / mmHG Vent. Rate : 063 BPM Atrial Rate : 063 BPM P-R Int : 176 ms QRS Dur : 088 ms QT Int : 432 ms P-R-T Axes : 067 023 019 degrees QTc Int : 442 ms Normal sinus rhythm Normal ECG Confirmed by JUDY CASTILLO ([id number]), electronic news gathering editor KERRIE AVALOS ([id number]) on 07/04/2018 10:56:02 AM Referred By: ROE Confirmed By:JUDY CASTILLO
[2018-07-02] MEDS: Metoprolol Tartrate 25 MG Tablet PO ×2 (11:51→21:58)
[2018-07-02] MEDS: Isosorbide Mononitrate 60 MG Tablet PO (11:52)
[2018-07-02] MEDS: TICAGRELOR 90 MG TABLET PO ×2 (11:52→21:57)
[2018-07-02] MEDS: Pioglitazone Hydrochloride 15 MG Tablet PO ×2 (11:52→21:57)
[2018-07-02] MEDS: Glimepiride 1 MG Tablet PO (11:52)
--- NOTE | 2018-07-02 11:52 | PCM.HP.STD ---
Problem List (1) Hyperlipidemia Status: Chronic (2) Essential (primary) hypertension Status: Chronic (3) History of coronary artery stent placement Status: Resolved Comment: YIK-NJI-Jgbb RCA w/ 4.0 x 18 mm Resolute and JUJU-Mid RCA w/ 4.0 x 15 mm Resolute 05/20/18 (4) Atherosclerosis of coronary artery of [place] heart without angina pectoris Status: Chronic Comment: GMT-BRC-Djli RCA w/ 4.0 x 18 mm Resolute and JUJU-Mid RCA w/ 4.0 x 15 mm Resolute 05/20/18 (5) ST elevation (STEMI) myocardial infarction Status: Chronic Qualifiers: Involved coronary artery: right coronary artery Qualified Code(s): I21.11 - ST elevation (STEMI) myocardial infarction involving right coronary artery (6) Left ear pain Status: Acute History of Present Illness Date of Admission: 07/02/18 Chief Complaint: Left ear/jaw pain The patient is a 83 year old F with recent history of PR about 6 weeks ago with 2 stents placed came with similar presentation of left ear pain, 5 to 6 x 10 intensity for last 2 days. During previous episodes of PR, she had left ear pain for which she had a treadmill nuclear stress test which resulted into V. tach, shortness of breath AND EKG CHANGES stress test for which patient had cardiac cath which revealed a 99% proximal RCA, 70% proximal/mid LAD 2 stents placed in the proximal and mid LAD. EF 60%. Patient denies any previous history of parotitis or abscess. She denies fever or chills. In ED, blood pressure is elevated 183/108 . Basic blood work done in ER shows K3.3, glucose 170 and mild leukocytosis 12,000 with left shift. EKG showed sinus bradycardia at [address]-T changes but no change from previous EKG. Old T wave inversion from May 28, 2018 [] Past Medical History Past Medical History (Chronic Problems): Chronic Problems (Last Reviewed 06/07/18 @ 11:32 by Gregorio Umanzor MD) Hyperlipidemia (Chronic) Essential (primary) hypertension (Chronic) Atherosclerosis of coronary artery of [place] heart without angina pectoris (Chronic) HVL-AFL-Axme RCA w/ 4.0 x 18 mm Resolute and JUJU-Mid RCA w/ 4.0 x 15 mm Resolute 05/20/18 ST elevation (STEMI) myocardial infarction (Chronic) Medical History: Medical History (Last Reviewed 06/07/18 @ 11:32 by Gregorio Umanzor MD) Hyperlipidemia (Chronic) E78.5 Essential (primary) hypertension (Chronic) I10 Atherosclerosis of coronary artery of [place] heart without angina pectoris (Chronic) I25.10 MNS-ODT-Xflv RCA w/ 4.0 x 18 mm Resolute and JUJU-Mid RCA w/ 4.0 x 15 mm Resolute 05/20/18 ST elevation (STEMI) myocardial infarction (Chronic) I21.3 Obesity E66.9 Type 2 diabetes mellitus Onset Date: 05/20/18 E11.9 Allergies Penicillins Allergy (Verified 07/02/18 08:26) Rash Tetanus Vaccines and Toxoid Allergy (Verified 07/02/18 08:26) Hives Home Medications: Ambulatory Orders Medication Instructions Recorded aspirin 81 mg tablet,delayed 81 mg PO DAILY@0800 #90 tab 06/07/18 release chlorthalidone 25 mg tablet 12.5 mg PO DAILY 06/07/18 losartan 25 mg tablet 12.5 mg PO DAILY 06/07/18 pioglitazone 15 mg tablet 15 mg PO BID tab 06/07/18 atorvastatin 40 mg tablet 40 mg PO QHS #180 tab 06/10/18 isosorbide mononitrate ER 60 mg 60 mg PO DAILY #90 tab 06/10/18 tablet,extended release 24 hr metoprolol tartrate 25 mg tablet 25 mg PO BID #180 tab 06/10/18 ticagrelor 90 mg tablet 90 mg PO BID #180 tab 06/10/18 Allopurinol [Zyloprim] 100 mg PO DAILYCM 07/02/18 Glimepiride [Amaryl] 1 mg PO DAILY 07/02/18 Surgical History: Surgical History (Last Reviewed 06/07/18 @ 11:32 by Gregorio Umanzor MD) History of coronary artery stent placement (Resolved) Onset Date: 05/20/18 Z95.5 NDP-JOV-Khzj RCA w/ 4.0 x 18 mm Resolute and JUJU-Mid RCA w/ 4.0 x 15 mm Resolute 05/20/18 History of hysterectomy Z90.710 History of tonsillectomy Z90.89 Surgical History: hysterectomy, tonsillectomy Psychiatric History: No pertinent psych hx 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 Denies: Head Aches, Sinus Congestion, Sinus Drainage Cardiovascular: Denies: Chest Pain, Chest Pressure, Chest Tightness, Palpitations Respiratory: Denies: Cough, Shortness of Breath, Shortness of breath at rest, Sputum production Gastrointestinal: Denies: Abdominal Pain, Nausea, Vomiting Genitourinary: Denies: Dysuria Musculoskeletal: Denies: Joint Pain, Joint Tenderness Skin: Denies: Rash, Wounds Neurological: Denies: Numbness, Tingling, Focal weakness Psychiatric: Denies: Anxiety, Depression, Homicidal Ideations, Suicidal Ideations Hematologic/ Lymphatic: Denies: Easy Bruising, Easy Bleeding VTE Information - Inpt Only VTE Present on Admission: No VTE Mechan Device Prophylaxis: None VTE Pharm Prophylaxis ordered?: Yes Patient Problems: Active and Suspected Problems (Last Reviewed 06/07/18 @ 11:32 by Gregorio Umanzor MD) Left ear pain (Acute) - Physical Exam General: Alert, Oriented x3, Cooperative HEENT: Atraumatic, PERRLA, EOMI, Normocephalic, TM's Clear, - - Mild retraction of left tympanic membrane. No ear discharge/pus. No appreciable middle ear effusion. Neck: Supple, No JVD, Negative Carotid Bruits Lungs: Clear to auscultation, Normal air movement Cardiovascular: Regular rate, Regular Rhythm, Normal S1, Normal S2, No murmurs Abdomen: Bowel Sounds Present, Soft, Non Tender Extremities: No edema, Capillary Refill Less than 3 Seconds Skin: No rashes, No breakdown Musculoskeletal: No Tenderness to Palpation of Joints or Extremities Neurological: Cranial nerves II-XII grossly intact Psych/Mental Status: Normal Affect, Appropriate Vital Signs Temp Pulse Resp BP Pulse Ox 98.0 F 57 L 16 178/81 H 98 07/02/18 10:57 07/02/18 10:57 07/02/18 10:57 07/02/18 10:57 07/02/18 10:57 Oxygen Delivery Method Room Air Weight: 186 lb 4.65 oz Body Mass Index (BMI) 31.9 Laboratory Tests Past 24 Hrs 07/02/18 07/02/18 08:30 08:30 WBC 12.0 H RBC 4.62 Hgb 14.1 Hct 41.8 MCV 90.5 MCH 30.5 MCHC 33.7 RDW 14.4 RDW Differential 47.5 H Plt Count 309 MPV 10.2 Immature Gran % (Auto) 0.300 Neut % (Auto) 64.9 Lymph % (Auto) 25.3 [place] % (Auto) 7.9 Eos % (Auto) 1.3 Baso % (Auto) 0.3 Absolute Neuts (auto) 7.8 H Absolute Lymphs (auto) 3.03 Total Counted Not Reportable Nucleated RBC % Cancelled Differential Comment SCANNED Absolute Retic Cancelled Sodium 137 Potassium 3.3 L Chloride 105 Carbon Dioxide 29.0 Anion Gap 3 L BUN 13 Creatinine 0.83 Estim Creat Clear Calc 43.23 Est GFR (MDRD) Af Amer 85 Est GFR (MDRD) Non-Af 70 BUN/Creatinine Ratio 15.7 Glucose 170 H Calcium 9.0 Troponin I < 0.015 Assessment/Plan All Active Problems (Last Reviewed 06/07/18 @ 11:32 by Gregorio Umanzor MD) Left ear pain (Acute) History of coronary artery stent placement (Resolved 05/20/18) The patient is a 83 year old F with recent history of PR about 6 weeks ago with 2 stents placed came with similar presentation of left ear pain, 5 to 6 x 10 intensity for last 2 days. During previous episodes of PR, she had left ear pain for which she had a treadmill nuclear stress test which resulted into V. tach, shortness of breath AND EKG CHANGES stress test for which patient had cardiac cath which revealed a 99% proximal RCA, 70% proximal/mid LAD 2 stents placed in the proximal and mid LAD. EF 60%. Patient denies any previous history of parotitis or abscess. She denies fever or chills. In ED, blood pressure is elevated 183/108 . Basic blood work done in ER shows K3.3, glucose 170 and mild leukocytosis 12,000 with left shift. EKG showed sinus bradycardia at [address]-T changes but no change from previous EKG. Old T wave inversion from May 28, 2018. Chest x-ray no acute cardiopulmonary disease. 1. Left ear/jaw pain most probably from acute parotitis: Patient is being admitted in PCU to rule out acute coronary syndrome. Serial troponin enzymes. If tach negative, treadmill nuclear stress test tomorrow morning. ER physician discussed with Dr. Page. 2. Most probably acute parotitis: Started on Levaquin and anti-inflammatory ibuprofen low dose. Will hold for CT scan of parotid as patient is going to have a stress test tomorrow morning. Will treat conservatively. 3. Coronary artery disease status post stents: Continue home cardiac medications. On aspirin, Brilinta, metoprolol, losartan and atorvastatin. 4. Diabetes mellitus type 2; continue Actos. Accu-Chek before meals and at bedtime and cover with NovoLog sliding 5. Other comorbidities include essential hypertension,Dyslipidemia: Home medications continued. Lipid profile for tomorrow am 6. DVT prophylaxis: On Lovenox 40 mg subcu daily. Laboratory Results 07/02/18 08:30: WBC 12.0 H, RBC 4.62, Hgb 14.1, Hct 41.8, MCV 90.5, MCH 30.5, MCHC 33.7, RDW 14.4, RDW Differential 47.5 H, Plt Count 309, MPV 10.2, Immature Gran % (Auto) 0.300, Neut % (Auto) 64.9, Lymph % (Auto) 25.3, [place] % (Auto) 7.9, Eos % (Auto) 1.3, Baso % (Auto) 0.3, Absolute Neuts (auto) 7.8 H, Absolute Lymphs (auto) 3.03, Total Counted Not Reportable, Nucleated RBC % Cancelled, Differential Comment SCANNED, Absolute Retic Cancelled 07/02/18 08:30: Sodium 137, Potassium 3.3 L, Chloride 105, Carbon Dioxide 29.0, Anion Gap 3 L, BUN 13, Creatinine 0.83, Estim Creat Clear Calc 43.23, Est GFR (MDRD) Af Amer 85, Est GFR (MDRD) Non-Af 70, BUN/Creatinine Ratio 15.7, Glucose 170 H, Calcium 9.0, Troponin I < 0.015 07/02/18 11:40: Troponin I Pending [] Active Medications Allopurinol (Zyloprim) 100 mg PO DAILYCM TIM Aspirin (Ecotrin) 81 mg PO DAILY@0800 [facility] Atorvastatin Calcium (Lipitor) 40 mg PO QHS [facility] Famotidine (Pepcid) 20 mg PO BID [facility] Glimepiride (Amaryl) 1 mg PO DAILY@0800 [facility] Last Admin: 07/02/18 11:52 Dose: 1 mg Levofloxacin (Levaquin Iv) 500 mg in 100 mls @ 100 mls/hr IV Q24 [facility] Ibuprofen (Motrin) 600 mg PO Q8 [facility] Stop: 07/04/18 12:04 Isosorbide Mononitrate (Imdur) 60 mg PO DAILY [facility] Last Admin: 07/02/18 11:52 Dose: 60 mg Losartan Potassium (Cozaar) 12.5 mg PO DAILY [facility] Metoprolol Tartrate (Lopressor (Beta Geovany)) 25 mg PO BID [facility] Last Admin: 07/02/18 11:51 Dose: 25 mg Nitroglycerin (Nitrostat) 0.4 mg SUBLINGUAL Q5M PRN PRN Reason: CHEST PAIN Pioglitazone HCl (Actos) 15 mg PO BID [facility] Last Admin: 07/02/18 11:52 Dose: 15 mg Sodium Chloride () 5 - 15 ml IV UD PRN PRN Reason: SALINE FLUSH Ticagrelor (Brilinta) 90 mg PO BID [facility] Last Admin: 07/02/18 11:52 Dose: 90 mg Clinical Impression(s) from Imaging Studies Chest X-Ray 07/02/18 08:45 IMPRESSION: No radiographic evidence of acute cardiopulmonary disease. Code Visit OBSV E&M: 13751 Initial observation care L3
--- NOTE | 2018-07-02 12:01 | HP.PCM_ITS ---
Problem List (1) Hyperlipidemia Status: Chronic (2) Essential (primary) hypertension Status: Chronic (3) History of coronary artery stent placement Status: Resolved Comment: NYF-KZU-Lbay RCA w/ 4.0 x 18 mm Resolute and JUJU-Mid RCA w/ 4.0 x 15 mm Resolute 05/20/18 (4) Atherosclerosis of coronary artery of [place] heart without angina pectoris Status: Chronic Comment: AHE-YXR-Iaai RCA w/ 4.0 x 18 mm Resolute and JUJU-Mid RCA w/ 4.0 x 15 mm Resolute 05/20/18 (5) ST elevation (STEMI) myocardial infarction Status: Chronic Qualifiers: Involved coronary artery: right coronary artery Qualified Code(s): I21.11 - ST elevation (STEMI) myocardial infarction involving right coronary artery (6) Left ear pain Status: Acute History of Present Illness Date of Admission: 07/02/18 Chief Complaint: Left ear/jaw pain The patient is a 83 year old F with recent history of [place] about 6 weeks ago with 2 stents placed came with similar presentation of left ear pain, 5 to 6 x 10 intensity for last 2 days. During previous episodes of [place], she had left ear pain for which she had a treadmill nuclear stress test which resulted into V. tach, shortness of breath AND EKG CHANGES stress test for which patient had cardiac cath which revealed a 99% proximal RCA, 70% proximal/mid LAD 2 stents placed in the proximal and mid LAD. EF 60%. Patient denies any previous history of parotitis or abscess. She denies fever or chills. In ED, blood pressure is elevated 183/108 . Basic blood work done in ER shows K3.3, glucose 170 and mild leukocytosis 12,000 with left shift. EKG showed sinus bradycardia at [address]-T changes but no change from previous EKG. Old T wave inversion from May 28, 2018 [] Past Medical History Past Medical History (Chronic Problems): Chronic Problems (Last Reviewed 06/07/18 @ 11:32 by Gregorio Umanzor MD) Hyperlipidemia (Chronic) Essential (primary) hypertension (Chronic) Atherosclerosis of coronary artery of [place] heart without angina pectoris (Chronic) [id number]-XYY-Hzna RCA w/ 4.0 x 18 mm Resolute and JUJU-Mid RCA w/ 4.0 x 15 mm Re solute 05/20/18 ST elevation (STEMI) myocardial infarction (Chronic) Medical History: Medical History (Last Reviewed 06/07/18 @ 11:32 by Gregorio Umanzor MD) Hyperlipidemia (Chronic) E78.5 Essential (primary) hypertension (Chronic) I10 Atherosclerosis of coronary artery of [place] heart without angina pectoris (Chronic) I25.10 SOW-OMJ-Rlyv RCA w/ 4.0 x 18 mm Resolute and JUJU-Mid RCA w/ 4.0 x 15 mm Resolute 05/20/18 ST elevation (STEMI) myocardial infarction (Chronic) I21.3 Obesity E66.9 Type 2 diabetes mellitus Onset Date: 05/20/18 E11.9 Allergies Penicillins Allergy (Verified 07/02/18 08:26) Rash Tetanus Vaccines and Toxoid Allergy (Verified 07/02/18 08:26) Hives Home Medications: Ambulatory Orders Medication Instructions Recorded aspirin 81 mg tablet,delayed 81 mg PO DAILY@0800 #90 tab 06/07/18 release chlorthalidone 25 mg tablet 12.5 mg PO DAILY 06/07/18 losartan 25 mg tablet 12.5 mg PO DAILY 06/07/18 pioglitazone 15 mg tablet 15 mg PO BID tab 06/07/18 atorvastatin 40 mg tablet 40 mg PO QHS #180 tab 06/10/18 isosorbide mononitrate ER 60 mg 60 mg PO DAILY #90 tab 06/10/18 tablet,extended release 24 hr metoprolol tartrate 25 mg tablet 25 mg PO BID #180 tab 06/10/18 ticagrelor 90 mg tablet 90 mg PO BID #180 tab 06/10/18 Allopurinol [Zyloprim] 100 mg PO DAILYCM 07/02/18 Glimepiride [Amaryl] 1 mg PO DAILY 07/02/18 Surgical History: Surgical History (Last Reviewed 06/07/18 @ 11:32 by Gregorio Umanzor MD) History of coronary artery stent placement (Resolved) Onset Date: 05/20/18 Z95.5 ZSH-VCD-Fllw RCA w/ 4.0 x 18 mm Resolute and JUJU-Mid RCA w/ 4.0 x 15 mm Resolute 05/20/18 History of hysterectomy Z90.710 History of tonsillectomy Z90.89 Surgical History: hysterectomy, tonsillectomy Psychiatric History: No pertinent psych hx 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 Denies: Head Aches, Sinus Congestion, Sinus Drainage Cardiovascular: Denies: Chest Pain, Chest Pressure, Chest Tightness, Palpitations Respiratory: Denies: Cough, Shortness of Breath, Shortness of breath at rest, Sputum production Gastrointestinal: Denies: Abdominal Pain, Nausea, Vomiting Genitourinary: Denies: Dysuria Musculoskeletal: Denies: Joint Pain, Joint Tenderness Skin: Denies: Rash, Wounds Neurological: Denies: Numbness, Tingling, Focal weakness Psychiatric: Denies: Anxiety, Depression, Homicidal Ideations, Suicidal Ideations Hematologic/ Lymphatic: Denies: Easy Bruising, Easy Bleeding VTE Information - Inpt Only VTE Present on Admission: No VTE Mechan Device Prophylaxis: None VTE Pharm Prophylaxis ordered?: Yes Patient Problems: Active and Suspected Problems (Last Reviewed 06/07/18 @ 11:32 by Gregorio Umanzor MD) Left ear pain (Acute) - Physical Exam General: Alert, Oriented x3, Cooperative HEENT: Atraumatic, PERRLA, EOMI, Normocephalic, TM's Clear, - - Mild retraction of left tympanic membrane. No ear discharge/pus. No appreciable middle ear effusion. Neck: Supple, No JVD, Negative Carotid Bruits Lungs: Clear to auscultation, Normal air movement Cardiovascular: Regular rate, Regular Rhythm, Normal S1, Normal S2, No murmurs Abdomen: Bowel Sounds Present, Soft, Non Tender Extremities: No edema, Capillary Refill Less than 3 Seconds Skin: No rashes, No breakdown Musculoskeletal: No Tenderness to Palpation of Joints or Extremities Neurological: Cranial nerves II-XII grossly intact Psych/Mental Status: Normal Affect, Appropriate Vital Signs Temp Pulse Resp BP Pulse Ox 98.0 F 57 L 16 178/81 H 98 07/02/18 10:57 07/02/18 10:57 07/02/18 10:57 07/02/18 10:57 07/02/18 10:57 Oxygen Delivery Method Room Air Weight: 186 lb 4.65 oz Body Mass Index (BMI) 31.9 Laboratory Tests Past 24 Hrs 07/02/18 07/02/18 08:30 08:30 WBC 12.0 H RBC 4.62 Hgb 14.1 Hct 41.8 MCV 90.5 MCH 30.5 MCHC 33.7 RDW 14.4 RDW Differential 47.5 H Plt Count 309 MPV 10.2 Immature Gran % (Auto) 0.300 Neut % (Auto) 64.9 Lymph % (Auto) 25.3 [place] % (Auto) 7.9 Eos % (Auto) 1.3 Baso % (Auto) 0.3 Absolute Neuts (auto) 7.8 H Absolute Lymphs (auto) 3.03 Total Counted Not Reportable Nucleated RBC % Cancelled Differential Comment SCANNED Absolute Retic Cancelled Sodium 137 Potassium 3.3 L Chloride 105 Carbon Dioxide 29.0 Anion Gap 3 L BUN 13 Creatinine 0.83 Estim Creat Clear Calc 43.23 Est GFR (MDRD) Af Amer 85 Est GFR (MDRD) Non-Af 70 BUN/Creatinine Ratio 15.7 Glucose 170 H Calcium 9.0 Troponin I < 0.015 Assessment/Plan All Active Problems (Last Reviewed 06/07/18 @ 11:32 by Gregorio Umanzor MD) Left ear pain (Acute) History of coronary artery stent placement (Resolved 05/20/18) The patient is a 83 year old F with recent history of [place] about 6 weeks ago with 2 stents placed came with similar presentation of left ear pain, 5 to 6 x 10 intensity for last 2 days. During previous episodes of [place], she had left ear pain for which she had a treadmill nuclear stress test which resulted into V. tach, shortness of breath AND EKG CHANGES stress test for which patient had cardiac cath which revealed a 99% proximal RCA, 70% proximal/mid LAD 2 stents placed in the proximal and mid LAD. EF 60%. Patient denies any previous history of parotitis or abscess. She denies fever or chills. In ED, blood pressure is elevated 183/108 . Basic blood work done in ER shows K3.3, glucose 170 and mild leukocytosis 12,000 with left shift. EKG showed sinus bradycardia at [address]-T changes but no change from previous EKG. Old T wave inversion from May 28, 2018. Chest x-ray no acute cardiopulmonary disease. 1. Left ear/jaw pain most probably from acute parotitis: Patient is being admitted in PCU to rule out acute coronary syndrome. Serial troponin enzymes. If tach negative, treadmill nuclear stress test tomorrow morning. ER physician discussed with Dr. Page. 2. Most probably acute parotitis: Started on Levaquin and anti-inflammatory ibuprofen low dose. Will hold for CT scan of parotid as patient is going to have a stress test tomorrow morning. Will treat conservatively. 3. Coronary artery disease status post stents: Continue home cardiac medications. On aspirin, Brilinta, metoprolol, losartan and atorvastatin. 4. Diabetes mellitus type 2; continue Actos. Accu-Chek before meals and at bedtime and cover with NovoLog sliding 5. Other comorbidities include essential hypertension,Dyslipidemia: Home medications continued. Lipid profile for tomorrow am 6. DVT prophylaxis: On Lovenox 40 mg subcu daily. Laboratory Results 07/02/18 08:30: WBC 12.0 H, RBC 4.62, Hgb 14.1, Hct 41.8, MCV 90.5, MCH 30.5, MCHC 33.7, RDW 14.4, RDW Differential 47.5 H, Plt Count 309, MPV 10.2, Immature Gran % (Auto) 0.300, Neut % (Auto) 64.9, Lymph % (Auto) 25.3, [place] % (Auto) 7.9, Eos % (Auto) 1.3, Baso % (Auto) 0.3, Absolute Neuts (auto) 7.8 H, Absolute Lymphs (auto) 3.03, Total Counted Not Reportable, Nucleated RBC % Cancelled, Differential Comment SCANNED, Absolute Retic Cancelled 07/02/18 08:30: Sodium 137, Potassium 3.3 L, Chloride 105, Carbon Dioxide 29.0, Anion Gap 3 L, BUN 13, Creatinine 0.83, Estim Creat Clear Calc 43.23, Est GFR (MDRD) Af Amer 85, Est GFR (MDRD) Non-Af 70, BUN/Creatinine Ratio 15.7, Glucose 170 H, Calcium 9.0, Troponin I < 0.015 07/02/18 11:40: Troponin I Pending [] Active Medications Allopurinol (Zyloprim) 100 mg PO DAILYCM TIM Aspirin (Ecotrin) 81 mg PO DAILY@0800 [facility] Atorvastatin Calcium (Lipitor) 40 mg PO QHS [facility] Famotidine (Pepcid) 20 mg PO BID [facility] Glimepiride (Amaryl) 1 mg PO DAILY@0800 [facility] Last Admin: 07/02/18 11:52 Dose: 1 mg Levofloxacin (Levaquin Iv) 500 mg in 100 mls @ 100 mls/hr IV Q24 [facility] Ibuprofen (Motrin) 600 mg PO Q8 [facility] Stop: 07/04/18 12:04 Isosorbide Mononitrate (Imdur) 60 mg PO DAILY [facility] Last Admin: 07/02/18 11:52 Dose: 60 mg Losartan Potassium (Cozaar) 12.5 mg PO DAILY [facility] Metoprolol Tartrate (Lopressor (Beta Geovany)) 25 mg PO BID [facility] Last Admin: 07/02/18 11:51 Dose: 25 mg Nitroglycerin (Nitrostat) 0.4 mg SUBLINGUAL Q5M PRN PRN Reason: CHEST PAIN Pioglitazone HCl (Actos) 15 mg PO BID [facility] Last Admin: 07/02/18 11:52 Dose: 15 mg Sodium Chloride () 5 - 15 ml IV UD PRN PRN Reason: SALINE FLUSH Ticagrelor (Brilinta) 90 mg PO BID [facility] Last Admin: 07/02/18 11:52 Dose: 90 mg Clinical Impression(s) from Imaging Studies Chest X-Ray 07/02/18 08:45 IMPRESSION: No radiographic evidence of acute cardiopulmonary disease. Code Visit OBSV E&M: 34127 Initial observation care L3
[2018-07-02] MEDS: Enoxaparin 40 MG/0.4 ML Syringe SC (13:24)
[2018-07-02] MEDS: Famotidine 20 MG Tablet PO (13:24)
[2018-07-02] MEDS: Ibuprofen 600 MG Tablet PO ×2 (13:32→21:56)
[2018-07-02] MEDS: levoFLOXacin IV 500 MG/100 ML BAG 100 MG IV (13:32)
--- NOTE | 2018-07-02 17:03 | PCM.CONS.C ---
Problem List (1) Left ear pain Status: Acute (2) CAD (coronary artery disease) Status: Acute (3) History of coronary artery stent placement Status: Resolved Comment: [id number] RCA w/ 4.0 x 18 mm Resolute and JUJU-Mid RCA w/ 4.0 x 15 mm Resolute 05/20/18 (4) Hyperlipidemia Status: Chronic (5) Essential (primary) hypertension Status: Chronic Reason for Consult Date of Consultation: 07/02/18 History of Present Illness: The patient is a 83 year old with a history of underlying recently diagnosed CAD status post exercise related acute ST segment elevation [place] status post RCA PCI superimposed on hyperlipidemia hypertension who now presents for evaluation of jaw discomfort. The patient states with her original symptoms she had neck burning as well as jaw discomfort/irritant discomfort. She noted that status post her PCI those symptoms appear to dissipate. She does not recall ever having chest discomfort, worsening shortness of breath/dyspnea, nausea, emesis, or diaphoresis. She notes that over the last 2 days she has had a relatively constant jaw/ear discomfort. She states this is been more so when she is actually chewing her food. It has not been associated with her previous neck discomfort or burning sensation or any other symptoms. She was unsure whether this was cardiac or noncardiac. She presented to the emergency department for further evaluation. She had a negative cardiac enzyme level and an ECG that demonstrated sinus rhythm with no acute ECG changes. There was a report that she was somewhat tender to palpation over the left jaw/ear area. She was placed in the PCU for further cardiovascular evaluation based on her recent history. Her evaluation is demonstrated a repeat troponin I level which is negative and her repeat ECG which demonstrated sinus rhythm/sinus bradycardia with no acute ECG changes. She voiced no other acute complaints. She states she has been taking her medication as prescribed. She notes that she was told she has a coronary artery that has a 70% narrowing that would have to be addressed either noninvasively or invasively at some point in time. [] Past Medical History Allergies/Adverse Reactions: Allergies Penicillins Allergy (Verified 07/02/18 08:26) Rash Tetanus Vaccines and Toxoid Allergy (Verified 07/02/18 08:26) Hives Home Medications: Ambulatory Orders Medication Instructions Recorded aspirin 81 mg tablet,delayed 81 mg PO DAILY@0800 #90 tab 06/07/18 release chlorthalidone 25 mg tablet 12.5 mg PO DAILY 06/07/18 losartan 25 mg tablet 12.5 mg PO DAILY 06/07/18 pioglitazone 15 mg tablet 15 mg PO BID tab 06/07/18 atorvastatin 40 mg tablet 40 mg PO QHS #180 tab 06/10/18 isosorbide mononitrate ER 60 mg 60 mg PO DAILY #90 tab 06/10/18 tablet,extended release 24 hr metoprolol tartrate 25 mg tablet 25 mg PO BID #180 tab 06/10/18 ticagrelor 90 mg tablet 90 mg PO BID #180 tab 06/10/18 Allopurinol [Zyloprim] 100 mg PO DAILYCM 07/02/18 Glimepiride [Amaryl] 1 mg PO DAILY 07/02/18 Past Medical History (Chronic Problems): Chronic Problems (Last Reviewed 06/07/18 @ 11:32 by Gregorio Umanzor MD) Hyperlipidemia (Chronic) Essential (primary) hypertension (Chronic) Atherosclerosis of coronary artery of [place] heart without angina pectoris (Chronic) [id number] RCA w/ 4.0 x 18 mm Resolute and JUJU-Mid RCA w/ 4.0 x 15 mm Resolute 05/20/18 ST elevation (STEMI) myocardial infarction (Chronic) Surgical History: hysterectomy, tonsillectomy Psychiatric History: No pertinent psych hx 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 - *Family History Paternal Family History: Family History (Last Reviewed 06/07/18 @ 11:32 by Gregorio Umanzor MD) Father Heart disease History Items: Heart Disease Smoking Status: Never smoker Review of Systems - Review of Systems General: Denies: Fever, Night Sweats, Fatigue HEENT: Reports: - - Jaw discomfort/irritant discomfort Cardiovascular: Denies: Chest Discomfort, Shortness of Breath, Orthopnea, PND, Peripheral Edema, Palpitations, Lightheadedness, Dizziness, Near Syncope, Syncope Respiratory: Denies: Cough, Sputum Production, Hemoptysis Gastrointestinal: Denies: Hematemesis, Hematochezia, Melena Genitourinary: Denies: Dysuria, Hematuria Skin: Denies: Rash Subjectve: This is an 83-year-old white female appears to be resting comfortably at the moment in no acute distress. Objective: Vital Signs Temp Pulse Resp BP Pulse Ox 98.0 F 66 16 178/81 H 98 07/02/18 10:57 07/02/18 11:51 07/02/18 10:57 07/02/18 10:57 07/02/18 10:57 Oxygen Delivery Method Room Air Weight: 186 lb 4.65 oz Body Mass Index (BMI) 31.9 General: Awake, Alert, Oriented x 3, Cooperative, No Acute Distress HEENT: Atraumatic, Normocephalic, PERRL, EOMI, Sclera Non Icteric Oral: Moist Mucosa Neck: Supple, Good ROM, No JVD Lungs: Clear to auscultation Cardiovascular: Regular Rhythm, Normal S1, Normal S2 Vascular: No Carotid Bruits Abdomen: Bowel Sounds Present, Soft, Non Tender Extremities: No Cyanosis, No Clubbing, No edema Neurological: No Focal Motor or Sensory Deficit Psych/Mental Status: Appropriate 07/02/18 08:30: WBC 12.0 H, RBC 4.62, Hgb 14.1, Hct 41.8, MCV 90.5, MCH 30.5, MCHC 33.7, RDW 14.4, RDW Differential 47.5 H, Plt Count 309, MPV 10.2, Immature Gran % (Auto) 0.300, Neut % (Auto) 64.9, Lymph % (Auto) 25.3, Greer % (Auto) 7.9, Eos % (Auto) 1.3, Baso % (Auto) 0.3, Absolute Neuts (auto) 7.8 H, Total Counted Not Reportable, Nucleated RBC % Cancelled 07/02/18 08:30: Sodium 137, Potassium 3.3 L, Chloride 105, Carbon Dioxide 29.0, Anion Gap 3 L, BUN 13, Creatinine 0.83, Est GFR (MDRD) Af Amer 85, Est GFR (MDRD) Non-Af 70, BUN/Creatinine Ratio 15.7, Glucose 170 H, Calcium 9.0, Troponin I < 0.015 07/02/18 11:40: Troponin I < 0.015 07/02/18 14:41: Troponin I < 0.015 Rhythm: Sinus rhythm EKG: Sinus rhythm; no acute ECG changes Stress Test: 05-20-18 Exercise myocardial perfusion stress test. 82-year-old lady with a history of intermittent chest pain. Medications: Hydrochlorothiazide and Actos. Resting EKG demonstrates normal sinus rhythm with a rate of [address] changes noted especially in the inferior leads. The patient exercised according to the regular Jeffy protocol for total duration of 1 minute and 49 seconds. There was intermittent nonsustained ventricular tachyarrhythmia noted the test was then terminated. The heart rate went [address] elevation now present in leads II, III and aVF V5 and V6 with reciprocal ST depression noted in 1 and aVL. The above was suggestive of an acute inferior wall myocardial infarction. An ST elevation myocardial infarction emergency was called and the patient was rushed emergently to the cardiac catheterization lab. The resting blood pressure 130/82 mmHg with a maximum blood pressure of 204/90 mmHg. At approximately 6 minutes into recovery the STs returned back to baseline with hyperacute T waves present in the inferolateral leads. Patient was chest pain-free when taken to the cardiac catheterization lab. Myocardial perfusion images. 11.9 mCi of technetium 99m sestamibi was injected at rest. Images were obtained. The resting images demonstrate a normal cardiac silhouette size with moderately reduced perfusion noted in the inferior wall. Conclusion: Reduced perfusion noted in the inferior wall Acute ST elevation myocardial injury pattern noted with spontaneous resolution. Cardiac Cath: 05-20-18 CORONARY ANGIOGRAPHY DOMINANCE: Right Dominant LEFT HEART ASSESSMENT Left Ventricular Ejection Fraction: by LV Gram 60 % LVEDP: 14 mmHg LEFT MAIN: Angiographically normal LEFT ANTERIOR DECENDING ARTERY: 70% Proximal Mid CIRCUMFLEX ARTERY: Mild luminal irregularities RIGHT CORONARY ARTERY: 99% Prox INTERVENTION INFORMATION LESION SITE: RCA (Proximal) Lesion Complexity: High/C, culprit lesion: Yes Pre Stenosis: 99 % Pre intervention CARRIE flow: 3 PROCEDURE: Drug Eluting Stent with pre and post dilatation Post Stenosis: 0 % Post intervention CARRIE flow: 3 LESION SITE: RCA (Mid) Lesion Devices: Cordis 6 Fr JR4 100cm Guide Catheter Terumo .014 Runthrough Extra Floppy 180cm straight Hong Sci NC EMERGE MR 5.00x08 BALLOON Medtronic Resolute RX JUJU 4.0x15 CXR: Preliminary evaluation: No acute cardiopulmonary disease process appreciated: Please see official report Assessment/Plan 1. Jaw/ear discomfort The patient has left jaw/ear discomfort. The etiology is unclear. Her symptoms are not identical to the symptoms she had prior to her previous diagnosis and subsequent intervention. She has voiced some intermittent tenderness to palpation in that area. The present time her noninvasive evaluation is been unremarkable with negative cardiac enzymes and no acute ECG changes. However there is still concern as to whether this could be cardiovascular based upon her previous presentation demonstrating symptoms in that general area although with associated neck discomfort/burning discomfort. The present time the patient is being followed. She will complete her cardiac enzymes. She will have follow-up ECG. It would not be unreasonable to perform an echocardiogram to assess her left ventricular wall motion and overall systolic function. If she remains symptomatically and hemodynamically stable without obvious objective markers and perhaps she can have an attempt at an exercise tolerance test/imaging study to evaluate symptoms, for ECG changes, and for any myocardial perfusion changes that would warrant a repeat trip to the cardiac catheterization laboratory. If her symptom complex changes or she develops objective changes with enzymes or ECGs, etc., then it would be reasonable to forego an exercise tolerance test and return to the cardiac catheterization laboratory. If over time her cardiac evaluation is unremarkable then she is to be considered for further noncardiac evaluation of her symptoms. 2. CAD status post STEMI status post RCA PTCA/stent The patient did have an exercise induced acute coronary syndrome event/STEMI which appeared to improve status post discontinuation of exercise. She was found to have angiographically significant appearing CAD with the RCA for which she underwent PTCA/stent. However she was noted to have underlying LAD disease as well. According to her and medical records available for review was felt at some point in time as she recuperates from initial event that her cardiovascular system would be further evaluated either noninvasively or invasively as deemed appropriate at this time. In the meantime she is going to continue medical management. She will continue evaluation as noted above. 3. Hyperlipidemia She will continue risk factor evaluation and care. 4. Hypertension Her blood pressures will be followed. She will continue medical management with adjustment as needed. Comment: The above was discussed with the patient and her spouse. This note was generated with [employer] software. It may contain incorrect words, spelling, and punctuation that were not noted in checking the note before signing.
--- NOTE | 2018-07-02 17:07 | CON.PCM_ITS ---
Problem List (1) Left ear pain Status: Acute (2) CAD (coronary artery disease) Status: Acute (3) History of coronary artery stent placement Status: Resolved Comment: [id number] RCA w/ 4.0 x 18 mm Resolute and JUJU-Mid RCA w/ 4.0 x 15 mm Resolute 05/20/18 (4) Hyperlipidemia Status: Chronic (5) Essential (primary) hypertension Status: Chronic Reason for Consult Date of Consultation: 07/02/18 History of Present Illness: The patient is a 83 year old with a history of underlying recently diagnosed CAD status post exercise related acute ST segment elevation [place] status post RCA PCI superimposed on hyperlipidemia hypertension who now presents for evaluation of jaw discomfort. The patient states with her original symptoms she had neck burning as well as jaw discomfort/irritant discomfort. She noted that status post her PCI those symptoms appear to dissipate. She does not recall ever having chest discomfort, worsening shortness of breath/dyspnea, nausea, emesis, or diaphoresis. She notes that over the last 2 days she has had a relatively constant jaw/ear discomfort. She states this is been more so when she is actually chewing her food. It has not been associated with her previous neck discomfort or burning sensation or any other symptoms. She was unsure whether this was cardiac or noncardiac. She presented to the emergency department for further evaluation. She had a negative cardiac enzyme level and an ECG that demonstrated sinus rhythm with no acute ECG changes. There was a report that she was somewhat tender to palpation over the left jaw/ear area. She was placed in the PCU for further cardiovascular evaluation based on her recent history. Her evaluation is demonstrated a repeat troponin I level which is negative and her repeat ECG which demonstrated sinus rhythm/sinus bradycardia with no acute ECG changes. She voiced no other acute complaints. She states she has been taking her medication as prescribed. She notes that she was told she has a coronary artery that has a 70% narrowing that would have to be addressed either noninvasively or invasively at some point in time. [] Past Medical History Allergies/Adverse Reactions: Allergies Penicillins Allergy (Verified 07/02/18 08:26) Rash Tetanus Vaccines and Toxoid Allergy (Verified 07/02/18 08:26) Hives Home Medications: Ambulatory Orders Medication Instructions Recorded aspirin 81 mg tablet,delayed 81 mg PO DAILY@0800 #90 tab 06/07/18 release chlorthalidone 25 mg tablet 12.5 mg PO DAILY 06/07/18 losartan 25 mg tablet 12.5 mg PO DAILY 06/07/18 pioglitazone 15 mg tablet 15 mg PO BID tab 06/07/18 atorvastatin 40 mg tablet 40 mg PO QHS #180 tab 06/10/18 isosorbide mononitrate ER 60 mg 60 mg PO DAILY #90 tab 06/10/18 tablet,extended release 24 hr metoprolol tartrate 25 mg tablet 25 mg PO BID #180 tab 06/10/18 ticagrelor 90 mg tablet 90 mg PO BID #180 tab 06/10/18 Allopurinol [Zyloprim] 100 mg PO DAILYCM 07/02/18 Glimepiride [Amaryl] 1 mg PO DAILY 07/02/18 Past Medical History (Chronic Problems): Chronic Problems (Last Reviewed 06/07/18 @ 11:32 by Gregorio Umanzor MD) Hyperlipidemia (Chronic) Essential (primary) hypertension (Chronic) Atherosclerosis of coronary artery of [place] heart without angina pectoris (Chronic) [id number] RCA w/ 4.0 x 18 mm Resolute and JUJU-Mid RCA w/ 4.0 x 15 mm Resolute 05/20/18 ST elevation (STEMI) myocardial infarction (Chronic) Surgical History: hysterectomy, tonsillectomy Psychiatric History: No pertinent psych 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 - *Family History Paternal Family History: Family History (Last Reviewed 06/07/18 @ 11:32 by Gregorio Umanzor MD) Father Heart disease History Items: Heart Disease Smoking Status: Never smoker Review of Systems - Review of Systems General: Denies: Fever, Night Sweats, Fatigue HEENT: Reports: - - Jaw discomfort/irritant discomfort Cardiovascular: Denies: Chest Discomfort, Shortness of Breath, Orthopnea, PND, Peripheral Edema, Palpitations, Lightheadedness, Dizziness, Near Syncope, Syncope Respiratory: Denies: Cough, Sputum Production, Hemoptysis Gastrointestinal: Denies: Hematemesis, Hematochezia, Melena Genitourinary: Denies: Dysuria, Hematuria Skin: Denies: Rash Subjectve: This is an 83-year-old white female appears to be resting comfortably at the moment in no acute distress. Objective: Vital Signs Temp Pulse Resp BP Pulse Ox 98.0 F 66 16 178/81 H 98 07/02/18 10:57 07/02/18 11:51 07/02/18 10:57 07/02/18 10:57 07/02/18 10:57 Oxygen Delivery Method Room Air Weight: 186 lb 4.65 oz Body Mass Index (BMI) 31.9 General: Awake, Alert, Oriented x 3, Cooperative, No Acute Distress HEENT: Atraumatic, Normocephalic, PERRL, EOMI, Sclera Non Icteric Oral: Moist Mucosa Neck: Supple, Good ROM, No JVD Lungs: Clear to auscultation Cardiovascular: Regular Rhythm, Normal S1, Normal S2 Vascular: No Carotid Bruits Abdomen: Bowel Sounds Present, Soft, Non Tender Extremities: No Cyanosis, No Clubbing, No edema Neurological: No Focal Motor or Sensory Deficit Psych/Mental Status: Appropriate 07/02/18 08:30: WBC 12.0 H, RBC 4.62, Hgb 14.1, Hct 41.8, MCV 90.5, MCH 30.5, MCHC 33.7, RDW 14.4, RDW Differential 47.5 H, Plt Count 309, MPV 10.2, Immature Gran % (Auto) 0.300, Neut % (Auto) 64.9, Lymph % (Auto) 25.3, Kimble % (Auto) 7.9, Eos % (Auto) 1.3, Baso % (Auto) 0.3, Absolute Neuts (auto) 7.8 H, Total Counted Not Reportable, Nucleated RBC % Cancelled 07/02/18 08:30: Sodium 137, Potassium 3.3 L, Chloride 105, Carbon Dioxide 29.0, Anion Gap 3 L, BUN 13, Creatinine 0.83, Est GFR (MDRD) Af Amer 85, Est GFR (MDRD) Non-Af 70, BUN/Creatinine Ratio 15.7, Glucose 170 H, Calcium 9.0, Troponin I < 0.015 07/02/18 11:40: Troponin I < 0.015 07/02/18 14:41: Troponin I < 0.015 Rhythm: Sinus rhythm EKG: Sinus rhythm; no acute ECG changes Stress Test: 05-20-18 Exercise myocardial perfusion stress test. 82-year-old lady with a history of intermittent chest pain. Medications: Hydrochlorothiazide and Actos. Resting EKG demonstrates normal sinus rhythm with a rate of [address] changes noted especially in the inferior leads. The patient exercised according to the regular Jeffy protocol for total duration of 1 minute and 49 seconds. There was intermittent nonsustained ventricular tachyarrhythmia noted the test was then terminated. The heart rate went [address] elevation now present in leads II, III and aVF V5 and V6 with reciprocal ST depression noted in 1 and aVL. The above was suggestive of an acute inferior wall myocardial infarction. An ST elevation myocardial infarction emergency was called and the patient was rushed emergently to the cardiac catheterization lab. The resting blood pressure 130/82 mmHg with a maximum blood pressure of 204/90 mmHg. At approximately 6 minutes into recovery the STs returned back to baseline with hyperacute T waves present in the inferolateral leads. Patient was chest pain- free when taken to the cardiac catheterization lab. Myocardial perfusion images. 11.9 mCi of technetium 99m sestamibi was injected at rest. Images were obtained. The resting images demonstrate a normal cardiac silhouette size with moderately reduced perfusion noted in the inferior wall. Conclusion: Reduced perfusion noted in the inferior wall Acute ST elevation myocardial injury pattern noted with spontaneous resolution. Cardiac Cath: 05-20-18 CORONARY ANGIOGRAPHY DOMINANCE: Right Dominant LEFT HEART ASSESSMENT Left Ventricular Ejection Fraction: by LV Gram 60 % LVEDP: 14 mmHg LEFT MAIN: Angiographically normal LEFT ANTERIOR DECENDING ARTERY: 70% Proximal Mid CIRCUMFLEX ARTERY: Mild luminal irregularities RIGHT CORONARY ARTERY: 99% Prox INTERVENTION INFORMATION LESION SITE: RCA (Proximal) Lesion Complexity: High/C, culprit lesion: Yes Pre Stenosis: 99 % Pre intervention CARRIE flow: 3 PROCEDURE: Drug Eluting Stent with pre and post dilatation Post Stenosis: 0 % Post intervention CARRIE flow: 3 LESION SITE: RCA (Mid) Lesion Devices: Cordis 6 Fr JR4 100cm Guide Catheter Terumo .014 Runthrough Extra Floppy 180cm straight Hong Sci NC EMERGE MR 5.00x08 BALLOON Medtronic Resolute RX JUJU 4.0x15 CXR: Preliminary evaluation: No acute cardiopulmonary disease process appreciated: Please see official report Assessment/Plan 1. Jaw/ear discomfort The patient has left jaw/ear discomfort. The etiology is unclear. Her symptoms are not identical to the symptoms she had prior to her previous diagnosis and subsequent intervention. She has voiced some intermittent tenderness to palp ation in that area. The present time her noninvasive evaluation is been unremarkable with negative cardiac enzymes and no acute ECG changes. However there is still concern as to whether this could be cardiovascular based upon her previous presentation demonstrating symptoms in that general area although with associated neck discomfort/burning discomfort. The present time the patient is being followed. She will complete her cardiac enzymes. She will have follow-up ECG. It would not be unreasonable to perform an echocardiogram to assess her left ventricular wall motion and overall systolic function. If she remains symptomatically and hemodynamically stable without obvious objective markers and perhaps she can have an attempt at an exercise tolerance test/imaging study to evaluate symptoms, for ECG changes, and for any myocardial perfusion changes that would warrant a repeat trip to the cardiac catheterization laboratory. If her symptom complex changes or she develops objective changes with enzymes or ECGs, etc., then it would be reasonable to forego an exercise tolerance test and return to the cardiac catheterization laboratory. If over time her cardiac evaluation is unremarkable then she is to be considered for further noncardiac evaluation of her symptoms. 2. CAD status post STEMI status post RCA PTCA/stent The patient did have an exercise induced acute coronary syndrome event/STEMI which appeared to improve status post discontinuation of exercise. She was found to have angiographically significant appearing CAD with the RCA for which she underwent PTCA/stent. However she was noted to have underlying LAD disease as well. According to her and medical records available for review was felt at some point in time as she recuperates from initial event that her cardiovascular system would be further evaluated either noninvasively or invasively as deemed appropriate at this time. In the meantime she is going to continue medical management. She will continue evaluation as noted above. 3. Hyperlipidemia She will continue risk factor evaluation and care. 4. Hypertension Her blood pressures will be followed. She will continue medical management with adjustment as needed. Comment: The above was discussed with the patient and her spouse. This note was generated with [employer] dictation software. It may contain incorrect words, spelling, and punctuation that were not noted in checking the note before signing.
[2018-07-02 17:32] LABS: Bedside Glucose 150 mg/dL (70-110)
[2018-07-02] MEDS: Chlorthalidone 50 MG Tablet 12.5 MG PO (18:50)
[2018-07-02] MEDS: Atorvastatin Calcium 40 MG Tablet PO (21:56)
[2018-07-02] MEDS: Losartan Potassium 50 MG Tablet PO (21:57)
[2018-07-02 23:01] LABS: Bedside Glucose 117 mg/dL (70-110)
[2018-07-03] VITALS (8 sets, daily range): BP systolic 142–183; BP diastolic 56–74; PULSE 50–71; RESP 16–18; TEMP 36.3–37.3; O2SAT 97–99
--- NOTE | 2018-07-03 04:48 | EKG12_ITS ---
Test Reason : AM EKG Blood Pressure : / mmHG Vent. Rate : 050 BPM Atrial Rate : 050 BPM P-R Int : 188 ms QRS Dur : 096 ms QT Int : 468 ms P-R-T Axes : 062 022 022 degrees QTc Int : 426 ms Sinus bradycardia Confirmed by CRISTIANE YANES, LINH ([id number]), loan expeditor HARRIET DUQUE ([id number] on 07/08/2018 3:35:50 PM Referred By: CHARLY Confirmed By:LINH SAUER MD
[2018-07-03 05:36] LABS: Hemoglobin 13.6 g/dl (12.0-15.0); International Normalized Ratio 1.1; Mean Corp Hgb Conc 33.2 g/gl (32-36); Mean Corpuscular Hgb 30.3 pg (27.0-32.0); Mean Corpuscular Volume 91.3 fL (81-99); Mean Platelet Vol. 9.5 fl (6.2-12.0); Platelet Count 236 K/mm3 (150-450); RBC Distribution Width CV 14.5 % (11.6-14.6); RBC Distribution Width SD 47.7 fl (35.1-43.9); Red Blood Count 4.49 M/mm3 (4.2-5.4); White Blood Count 8.8 K/mm3 (4.4-11.0)
[2018-07-03 05:37] LABS: Partial Thromboplast Time 31.1 Seconds (24.1-36.2)
[2018-07-03 05:46] LABS: Scan Indicated on CBC? Y/N NO
--- NOTE | 2018-07-03 05:55 | ECHOD_ITS ---
Reason For Study: CAD/ASHD Procedure This was a 2D Doppler, Color Flow transthoracic echocardiogram. The exam was of adequate technical quality. Exam performed portable in patient room. Left Ventricle Normal LV size. Left ventricular systolic function is normal. The estimated ejection fraction is 65 %. Diastolic function is indeterminate. No regional wall motion abnormalities noted. Right Ventricle Normal RV size. Normal systolic function. Atria The left atrium is mildly enlarged. Normal right atrium. No doppler evidence for ASD. Mitral Valve There is mild mitral annular calcification. Extension of the mitral annular calcification onto the posterior mitral valve leaflet. Mild (1+) mitral valve insufficiency. Tricuspid Valve Normal tricuspid valve. Trivial tricuspid valve insufficiency. Right ventricular systolic pressure estimated to be 26 mmHg. Aortic Valve Trisinus/trileaflet aortic valve. Mild diffuse aortic valve calcification. Pulmonic Valve The pulmonic valve is not well visualized. Trivial pulmonic valve insufficiency. Great Vessels Normal sized aortic root. Pericardium/Pleural No pericardial effusion. MMode/2D Measurements & Calculations LVIDd: 4.4 cm IVSd: 1.2 cm Ao root diam: 3.0 cm LVIDs: 2.4 cm LVPWd: 1.1 cm RVDd: 4.0 cm FS: 44.9 % LAV(MOD-bp): 58.1 ml LVAd ap4: 20.6 cm2 SV(MOD-sp4): 34.9 ml LAV(MOD-bp) Indexed: 30.6 ml/m2 EDV(MOD-sp4): 51.6 ml LAV(MOD-sp2): 64.3 ml EDV(sp4-el): 52.0 ml LAV(MOD-sp4): 47.9 ml LVAs ap4: 10.3 cm2 ESV(MOD-sp4): 16.7 ml ESV(sp4-el): 16.8 ml EF(MOD-sp4): 67.6 % EF(sp4-el): 67.6 % SV(sp4-el): 35.1 ml LA A4 area: 18.0 cm2 LA dimension(2D): 4.8 cm RA A4 area: 18.4 cm2 Doppler Measurements & Calculations MV E max butch: 77.0 cm/sec Lat Peak E' Butch: 6.5 cm/sec Med Peak E' Butch: 4.6 cm/sec MV A max butch: 83.4 cm/sec E/E' lat: 11.8 E/E' med: 16.6 MV E/A: 0.92 Ao V2 max: 191.3 cm/sec LV V1 max: 100.8 cm/sec PA V2 max: 97.3 cm/sec Ao max P.6 mmHg LV V1 max P.1 mmHg Ao V2 mean: 129.8 cm/sec Ao mean P.5 mmHg Ao V2 VTI: 47.8 cm TR max butch: 237.3 cm/sec TR max P.5 mmHg Interpretation Summary Left ventricular systolic function is normal. The estimated ejection fraction is 65 %. The left atrium is mildly enlarged. There is mild mitral annular calcification. Extension of the mitral annular calcification onto the posterior mitral valve leaflet. Mild (1+) mitral valve insufficiency. Trivial tricuspid valve insufficiency. Mild diffuse aortic valve calcification. Trivial pulmonic valve insufficiency. Right ventricular systolic pressure estimated to be 26 mmHg. Diastolic function is indeterminate. Ordering Physician: Casey Page Referring Physician: Casey Smith Performed By: Giselle Sanchez RDCS, RVT
--- NOTE | 2018-07-03 05:55 | EKG12_ITS ---
Test Reason : CP ADMIT Blood Pressure : / mmHG Vent. Rate : 058 BPM Atrial Rate : 058 BPM P-R Int : 180 ms QRS Dur : 086 ms QT Int : 440 ms P-R-T Axes : 056 017 011 degrees QTc Int : 431 ms Sinus bradycardia Otherwise normal ECG When compared with ECG of 22-MAY-2018 07:05, T wave inversion less evident in Inferior leads Confirmed by JUDY CASTILLO ([id number]), news video editor KERRIE AVALOS ([id number]) on 07/04/2018 11:21:43 AM Referred By: CHARLY Confirmed By:JUDY CASTILLO
[2018-07-03] MEDS: TICAGRELOR 90 MG TABLET PO (06:12)
[2018-07-03] MEDS: Ibuprofen 600 MG Tablet PO (06:12)
[2018-07-03] MEDS: Aspirin E.C. 81 MG Tablet PO (06:12)
[2018-07-03] MEDS: hydrALAZINE 20 MG/ML Vial 10 MG IV (06:12)
[2018-07-03 06:26] LABS: ALB/GLOB Ratio 0.8 RATIO (0.9-2.4); AST(SGOT) 22 U/L (15-37); Alanine Aminotransfer ALT/SGPT 27 U/L (13-56); Albumin, Serum 3.1 g/dL (3.2-5.0); Alkaline Phosphatase 80 U/L (45-117); Anion Gap 7 (5-15); BUN 15 mg/dL (7-18); BUN/Creat Ratio 17.8 RATIO (10-20); Chloride 110 mmol/L (98-107); Cholesterol 136 mg/dL (200); Creatinine, Serum 0.84 mg/dL (0.55-1.02); EST Glomerular Filtration Rate 69 mL/min (>60); Est Glom Filt Rate - Afr Amer 83 mL/min (>60); Estimated Creatinine Clearance 44.59 ml/min; Glucose 136 mg/dL (74-106); High Density Lipoprotein 37 mg/dL; Magnesium 1.9 mg/dL (1.6-2.6); Potassium 3.7 mmol/L (3.5-5.1); Protein, Total 7.1 g/dL (6.4-8.2); Sodium Level 142 mmol/L (136-145); Triglycerides 253 mg/dL; Very Low Density Lipoprotein 51 mg/dL (5-40)
[2018-07-03 06:36] LABS: Bedside Glucose 125 mg/dL (70-110)
[2018-07-03] MEDS: Chlorthalidone 50 MG Tablet 12.5 MG PO (09:47)
[2018-07-03] MEDS: Famotidine 20 MG Tablet PO (09:47)
[2018-07-03] MEDS: Allopurinol 100 MG Tablet PO (09:47)
[2018-07-03] MEDS: Pioglitazone Hydrochloride 15 MG Tablet PO (09:47)
[2018-07-03] MEDS: Metoprolol Tartrate 25 MG Tablet PO (09:47)
[2018-07-03] MEDS: Glimepiride 1 MG Tablet PO (09:48)
[2018-07-03] MEDS: Isosorbide Mononitrate 60 MG Tablet PO (09:48)
[2018-07-03] MEDS: levoFLOXacin IV 250 MG/50 ML BAG 50 MG IV (09:50)
--- NOTE | 2018-07-03 10:01 | STRESSREP_ITS ---
Stress Test Report Date: 07-03-18 Procedure: Exercise tolerance test/imaging study Indications: Jaw pain; CAD; status post STEMI; status post PCI Consent: Per the patient Procedure: The patient exercised on a Jeffy protocol for 1 minute and 18 seconds not completing Stage I achieving a peak heart rate of 112 bpm (81 % predicted maximal heart rate) with a peak blood pressure 152/78 mmHg and a peak MET capacity of 2 METs. The baseline ECG demonstrated sinus rhythm. The peak exercise ECG demonstrated no obvious ECG changes with a heart rate achieved. [There were no cardiac dysrhythmias pretest, during exercise, or recovery]. The functional capacity was considered decreased. There was [no complaint of chest discomfort during exercise or recovery]. The examination was discontinued secondary to dyspnea thought secondary to concerns of anxiety with no other associated symptoms with subsequent spontaneous resolution to baseline in recovery. Impression: 1. Technically inadequate (percent predicted maximal heart rate less than 85%) exercise tolerance test 2. Peak exercise ECG with no obvious ECG changes of the heart rate achieved 3. [There were no cardiac dysrhythmias pretest, during exercise, or recovery] 4. Pharmacologic (Regadenoson) evaluation pending Procedure: Pharmacologic stress nuclear imaging study Consent: Per the patient Procedure: The patient underwent pharmacologic (Regadenoson) evaluation with a peak heart rate of 94 beats per minute (68 %predicted maximal heart rate) and a peak blood pressure of 168/70 mmHg. The baseline ECG demonstrated normal sinus rhythm. The peak pharmacologic ECG demonstrated no obvious ECG changes. [There were no cardiac dysrhythmias pretest, during pharmacologic infusion, or recovery]. [There was no complaint of chest discomfort during pharmacologic infusion or recovery]. The examination was discontinued secondary to completion of protocol. Impression: 1. Pharmacologic (Regadenoson) evaluation 2. Peak pharmacologic ECG with no obvious ECG changes. 3. [There were no cardiac dysrhythmias pretest, during pharmacologic infusion, or recovery]. 4. Nuclear images pending Myocardial perfusion imaging study: Technique: The patient was injected with 11.9 millicuries of technetium 99m Cardiolite and subsequently rest SPECT Cardiolite nuclear imaging was obtained in the horizontal long, vertical long, and short axis views. The patient exercised on a Jeffy protocol for 1 minute and 18 seconds not completing Stage I achieving a peak heart rate of 112 bpm (81 % predicted maximal heart rate) with a peak blood pressure 152/78 mmHg and a peak MET capacity of 2 METs. The patient underwent pharmacologic (Regadenoson) evaluation with a peak heart rate of 94 beats per minute (68 %predicted maximal heart rate) and a peak blood pressure of 168/70 mmHg. The patient was injected with 34.2 millicuries of technetium 99m Cardiolite and subsequently stress SPECT Cardiolite nuclear imaging was obtained in the horizontal long, vertical long, and short axis views. A gated Cardiolite study at peak stress was obtained. Interpretation: Rest and stress SPECT Cardiolite nuclear imaging status post realignment, normalization, and attenuation correction demonstrate relative uniform tracer uptake and myocardial perfusion appearing within normal limits. [There is end systolic thickening and brightening]. [The gated Cardiolite study demonstrates myocardial thickening and inward wall motion]. The reported LVEF is 75 %. Impression: 1. [Rest and stress SPECT Cardiolite nuclear imaging demonstrate relative uniform tracer uptake and myocardial perfusion appearing within normal limits]. 2. The gated Cardiolite study reports an LVEF of 75 %. This note was generated with LiquidFrameworksation software. It may contain incorrect words, spelling, and punctuation that were not noted in checking the note before signing.
--- NOTE | 2018-07-03 10:33 | PCM.PN.CARD ---
Subjectve: The patient denies any additional acute symptoms. She is now status post an exercise tolerance test/imaging study without obvious adverse outcome. Objective: Vital Signs Temp Pulse Resp BP Pulse Ox 97.3 F L 59 L 16 142/56 H 99 07/03/18 09:51 07/03/18 09:51 07/03/18 09:51 07/03/18 09:51 07/03/18 09:51 Oxygen Delivery Method Room Air Weight: 186 lb 4.65 oz Body Mass Index (BMI) 31.9 Intake and Output for Last 24 Hours 07/01/18 07/02/18 07/03/18 23:59 23:59 23:59 Intake Total 600 / 600 Balance 600 / 600 General: Awake, Alert, Oriented x 3, Cooperative, No Acute Distress HEENT: Atraumatic, Normocephalic, PERRL, EOMI, Sclera Non Icteric Oral: Moist Mucosa Neck: Supple, Good ROM, No JVD Lungs: Clear to auscultation Cardiovascular: Regular Rhythm, Normal S1, Normal S2 Abdomen: Bowel Sounds Present, Soft Extremities: No edema Neurological: No Focal Motor or Sensory Deficit Psych/Mental Status: Anxious 07/02/18 11:40: Troponin I < 0.015 07/02/18 14:41: Troponin I < 0.015 07/03/18 05:13: WBC 8.8, RBC 4.49, Hgb 13.6, Hct 41.0, MCV 91.3, MCH 30.3, MCHC 33.2, RDW 14.5, RDW Differential 47.7 H, Plt Count 236, MPV 9.5 07/03/18 05:13: Sodium 142, Potassium 3.7, Chloride 110 H, Carbon Dioxide 25.0, Anion Gap 7, BUN 15, Creatinine 0.84, Est GFR (MDRD) Af Amer 83, Est GFR (MDRD) Non-Af 69, BUN/Creatinine Ratio 17.8, Glucose 136 H, Calcium 9.0, Magnesium 1.9, Total Bilirubin 0.60, Triglycerides 253 H, Cholesterol 136, LDL Cholesterol 48, VLDL Cholesterol 51 H, HDL Cholesterol 37 L 07/03/18 05:13: PT 14.0, INR 1.1, APTT 31.1 Rhythm: Sinus rhythm Stress Test: Stress Test Report Date: 4-24-19 Procedure: Exercise tolerance test/imaging study Indications: Jaw pain; CAD; status post STEMI; status post PCI Consent: Per the patient Procedure: The patient exercised on a Jeffy protocol for 1 minute and 18 seconds not completing Stage I achieving a peak heart rate of 112 bpm (81 % predicted maximal heart rate) with a peak blood pressure 152/78 mmHg and a peak MET capacity of 2 METs. The baseline ECG demonstrated sinus rhythm. The peak exercise ECG demonstrated no obvious ECG changes with a heart rate achieved. [There were no cardiac dysrhythmias pretest, during exercise, or recovery]. The functional capacity was considered decreased. There was [no complaint of chest discomfort during exercise or recovery]. The examination was discontinued secondary to dyspnea thought secondary to concerns of anxiety with no other associated symptoms with subsequent spontaneous resolution to baseline in recovery. Impression: 1. Technically inadequate (percent predicted maximal heart rate less than 85%) exercise tolerance test 2. Peak exercise ECG with no obvious ECG changes of the heart rate achieved 3. [There were no cardiac dysrhythmias pretest, during exercise, or recovery] 4. Pharmacologic (Regadenoson) evaluation pending Procedure: Pharmacologic stress nuclear imaging study Consent: Per the patient Procedure: The patient underwent pharmacologic (Regadenoson) evaluation with a peak heart rate of 94 beats per minute (68 %predicted maximal heart rate) and a peak blood pressure of 168/70 mmHg. The baseline ECG demonstrated normal sinus rhythm. The peak pharmacologic ECG demonstrated no obvious ECG changes. [There were no cardiac dysrhythmias pretest, during pharmacologic infusion, or recovery]. [There was no complaint of chest discomfort during pharmacologic infusion or recovery]. The examination was discontinued secondary to completion of protocol. Impression: 1. Pharmacologic (Regadenoson) evaluation 2. Peak pharmacologic ECG with no obvious ECG changes. 3. [There were no cardiac dysrhythmias pretest, during pharmacologic infusion, or recovery]. 4. Nuclear images pending Myocardial perfusion imaging study: Technique: The patient was injected with 11.9 millicuries of technetium 99m Cardiolite and subsequently rest SPECT Cardiolite nuclear imaging was obtained in the horizontal long, vertical long, and short axis views. The patient exercised on a Jeffy protocol for 1 minute and 18 seconds not completing Stage I achieving a peak heart rate of 112 bpm (81 % predicted maximal heart rate) with a peak blood pressure 152/78 mmHg and a peak MET capacity of 2 METs. The patient underwent pharmacologic (Regadenoson) evaluation with a peak heart rate of 94 beats per minute (68 %predicted maximal heart rate) and a peak blood pressure of 168/70 mmHg. The patient was injected with 34.2 millicuries of technetium 99m Cardiolite and subsequently stress SPECT Cardiolite nuclear imaging was obtained in the horizontal long, vertical long, and short axis views. A gated Cardiolite study at peak stress was obtained. Interpretation: Rest and stress SPECT Cardiolite nuclear imaging status post realignment, normalization, and attenuation correction demonstrate relative uniform tracer uptake and myocardial perfusion appearing within normal limits. [There is end systolic thickening and brightening]. [The gated Cardiolite study demonstrates myocardial thickening and inward wall motion]. The reported LVEF is 75 %. Impression: 1. [Rest and stress SPECT Cardiolite nuclear imaging demonstrate relative uniform tracer uptake and myocardial perfusion appearing within normal limits]. 2. The gated Cardiolite study reports an LVEF of 75 %. Medical Necessity - Tobacco Use Smoking Status: Never smoker Assessment/Plan 1. Jaw/ear discomfort The patient has left jaw/ear discomfort. The etiology is unclear. Her symptoms are not identical to the symptoms she had prior to her previous diagnosis and subsequent intervention. She has voiced some intermittent tenderness to palpation in that area. The present time her noninvasive evaluation is been unremarkable with negative cardiac enzymes and no acute ECG changes. The patient is now status post exercise tolerance test as noted above. The myocardial perfusion study does not demonstrate any obvious areas of stress-induced myocardial ischemia. Thus, at the present time, it does not appear the patient, based on this examination, requires additional evaluation with repeat diagnostic cardiac catheterization. She will need to continue risk factor modification medical therapy. She may need to be considered for further noncardiac evaluation of her aforementioned symptoms. 2. CAD status post STEMI status post RCA PTCA/stent The patient is continuing medical management. She is undergone noninvasive evaluation as noted above. Again it does not appear based on the aforementioned study that she requires repeat diagnostic cardiac catheterization at this time. An echocardiogram has been requested to evaluate the patient's left ventricular wall motion and systolic function which may help guide future evaluation/therapy, etc. 3. Hyperlipidemia She will continue risk factor evaluation and care. 4. Hypertension Her blood pressures will be followed. She will continue medical management with adjustment as needed. This note was generated with Active[employer]ation software. It may contain incorrect words, spelling, and punctuation that were not noted in checking the note before signing.
--- NOTE | 2018-07-03 11:10 | DCINST_ITS ---
- Discharge Diagnoses Current Active Problems: Current Active and Chronic Problems (Last Reviewed 06/07/18 @ 11:32 by Gregorio Umanzor MD) Left ear pain (Acute) CAD (coronary artery disease) (Acute) You will use the following diet at home:: Calorie/Carbohydrate Controlled (specify 1200, 1400, etc), Cardiac Your food should be the consistency of: Regular Your liquids should be the consistency of: Regular/Thin Discharge Activity: May Not Drive, May not drive while taking narcotic pain medications. Weight Bearing Status: Weight bearing as tolerated Call your doctor if you observe: Fever of 101 or Higher, Coldness, Increased Pain, Inability to have a bowel movement, Shortness of breath, Fainting spells, Swelling in the ankles, Chest pain Allergies/Adverse Reactions: Allergies Penicillins Allergy (Verified 07/02/18 08:26) Rash Tetanus Vaccines and Toxoid Allergy (Verified 07/02/18 08:26) Hives Medications to take at Discharge aspirin 81 mg tablet,delayed release 81 mg PO DAILY@0800 #90 tab 06/07/18 chlorthalidone 25 mg tablet 12.5 mg PO DAILY 06/07/18 losartan 25 mg tablet 12.5 mg PO DAILY 06/07/18 pioglitazone 15 mg tablet 15 mg PO BID tab 06/07/18 atorvastatin 40 mg tablet 40 mg PO QHS #180 tab 06/10/18 isosorbide mononitrate ER 60 mg tablet,extended release 24 hr 60 mg PO DAILY #90 tab 06/10/18 metoprolol tartrate 25 mg tablet 25 mg PO BID #180 tab 06/10/18 ticagrelor 90 mg tablet 90 mg PO BID #180 tab 06/10/18 Allopurinol [Zyloprim] 100 mg PO DAILYCM 07/02/18 Glimepiride [Amaryl] 1 mg PO DAILY 07/02/18 Ibuprofen [Motrin] 600 mg PO TID PRN PRN tablet 07/03/18 Levofloxacin [Levaquin] 500 mg PO DAILY #5 tablet 07/03/18 The following prescriptions were given: Levofloxacin [Levaquin] 500 mg PO DAILY #5 tablet Primary Care Physician: Casey Smith MD [Primary Care Provider] - Please follow up with your Primary Care Physician in: in 1-2 week Test Results: Test results from this visit will be discussed in further detail at your follow- up appointment, if applicable. Please Follow Up With: Chiki Parmar MD When: possible left parotitis Please Follow Up With: Gregorio Umanzor MD When: as scheduled
--- NOTE | 2018-07-03 11:12 | PCM.DC.SUM ---
Discharge Date and Diagnosis Date of Admission: 07/02/18 Date of Discharge: 07/03/18 - Primary Discharge Diagnosis Active and Suspected Problems (Last Reviewed 06/07/18 @ 11:32 by Gregorio Cowan MD) Left ear pain (Acute) CAD (coronary artery disease) (Acute) - Secondary Discharge Diagnosis Chronic Problems (Last Reviewed 06/07/18 @ 11:32 by Gregorio Cowan MD) Hyperlipidemia (Chronic) Essential (primary) hypertension (Chronic) Atherosclerosis of coronary artery of [place] heart without angina pectoris (Chronic) [id number] RCA w/ 4.0 x 18 mm Resolute and JUJU-Mid RCA w/ 4.0 x 15 mm Resolute 05/20/18 ST elevation (STEMI) myocardial infarction (Chronic) Hospital Course and Treatment Imaging Results: 07/03/18 05:55 Echo Complete [ECHO] AM (NON MEDS) Nuclear Stress Test - Chemical [NM] AM (NON MEDS) Operations: None Summary of Care Provided: [] The patient is a 83 year old F with recent history of NH about 6 weeks ago with 2 stents placed came with similar presentation of left ear pain, 5 to 6 x 10 intensity for last 2 days. During previous episodes of NH, she had left ear pain for which she had a treadmill nuclear stress test which resulted into V. tach, shortness of breath AND EKG CHANGES stress test for which patient had cardiac cath which revealed a 99% proximal RCA, 70% proximal/mid LAD 2 stents placed in the proximal and mid LAD. EF 60%. Patient denies any previous history of parotitis or abscess. She denies fever or chills. In ED, blood pressure is elevated 183/108 . Basic blood work done in ER shows K3.3, glucose 170 and mild leukocytosis 12,000 with left shift. EKG showed sinus bradycardia at [address]-T changes but no change from previous EKG. Old T wave inversion from May 28, 2018. Chest x-ray no acute cardiopulmonary disease. 1. Left ear/jaw pain most probably from acute parotitis: Patient is being admitted in PCU to rule out acute coronary syndrome. Serial troponin enzymes are negative. Furthermore 2. Most probably acute parotitis: Started on Levaquin and anti-inflammatory ibuprofen low dose. Patient symptom of left ear pain and left jaw pain has much improved with IV antibiotic Levaquin and ibuprofen. CT neck with contrast was not done because of stress test and also patient felt better. Patient was advised to follow-up with Dr. Chiki Parmar in 1 to 2 weeks to further evaluate the left parotid gland peripheral need imaging as an outpatient. 3. Coronary artery disease status post stents: Continue home cardiac medications. On aspirin, Brilinta, metoprolol, losartan and atorvastatin. 4. Diabetes mellitus type 2; continue Actos. Accu-Chek before meals and at bedtime and cover with NovoLog sliding 5. Other comorbidities include essential hypertension,Dyslipidemia: Home medications continued. Lipid profile reported as TG 253, total cholesterol 136, HDL 37. Patient on high intensity atorvastatin 40 g daily. 6. DVT prophylaxis: On Lovenox 40 mg subcu daily. Discharge medication reconciliation done. Discharge follow-up instructions completed. Discharge process discussed with the patient and all questions were answered to patient's satisfaction. patient advised to follow-up with ENT Dr. Parmar in 1 to 2 weeks. Follow with PCP in 1 to 2 weeks. Follow-up cardiology, Dr. cowan as a scheduled. Subjective: Patient does not have erythema, pain or swelling over left parotid gland. No fever or chills. No problem with chewing food or jaw movement. - Physical Exam General: Alert, Oriented x3, Cooperative HEENT: Atraumatic, PERRLA, EOMI, Normocephalic, - - Mild retraction of left tympanic membrane. No ear discharge/pus. No appreciable middle ear effusion. Mild tenderness over left parotid gland but no obvious fluctuation noticed Neck: Supple, No JVD, Negative Carotid Bruits Lungs: Clear to auscultation, Normal air movement, No rhonchi, No rales Cardiovascular: Regular rate, Regular Rhythm, Normal S1, No murmurs Abdomen: Bowel Sounds Present, Soft, Non Tender Extremities: No edema, Capillary Refill Less than 3 Seconds Skin: No rashes, No breakdown Musculoskeletal: No Tenderness to Palpation of Joints or Extremities Neurological: Cranial nerves II-XII grossly intact Psych/Mental Status: Normal Affect, Appropriate Vital Signs Temp Pulse Resp BP Pulse Ox 97.3 F L 59 L 16 142/56 H 99 07/03/18 09:51 07/03/18 09:51 07/03/18 09:51 07/03/18 09:51 07/03/18 09:51 Oxygen Delivery Method Room Air Weight: 186 lb 4.65 oz Body Mass Index (BMI) 31.9 Intake and Output for Last 24 Hours 07/01/18 07/02/18 07/03/18 23:59 23:59 23:59 Intake Total 600 / 600 Balance 600 / 600 Laboratory Tests Past 24 Hrs 07/02/18 07/02/18 07/03/18 11:40 14:41 05:13 WBC 8.8 RBC 4.49 Hgb 13.6 Hct 41.0 MCV 91.3 MCH 30.3 MCHC 33.2 RDW 14.5 RDW Differential 47.7 H Plt Count 236 MPV 9.5 PT INR APTT Sodium Potassium Chloride Carbon Dioxide Anion Gap BUN Creatinine Estim Creat Clear Calc Est GFR (MDRD) Af Amer Est GFR (MDRD) Non-Af BUN/Creatinine Ratio Glucose Calcium Magnesium Total Bilirubin AST ALT Alkaline Phosphatase Troponin I < 0.015 < 0.015 Total Protein Albumin Globulin Albumin/Globulin Ratio Triglycerides Cholesterol LDL Cholesterol VLDL Cholesterol HDL Cholesterol TSH 07/03/18 07/03/18 05:13 05:13 WBC RBC Hgb Hct MCV MCH MCHC RDW RDW Differential Plt Count MPV PT 14.0 INR 1.1 APTT 31.1 Sodium 142 Potassium 3.7 Chloride 110 H Carbon Dioxide 25.0 Anion Gap 7 BUN 15 Creatinine 0.84 Estim Creat Clear Calc 44.59 Est GFR (MDRD) Af Amer 83 Est GFR (MDRD) Non-Af 69 BUN/Creatinine Ratio 17.8 Glucose 136 H Calcium 9.0 Magnesium 1.9 Total Bilirubin 0.60 AST 22 ALT 27 Alkaline Phosphatase 80 Troponin I Total Protein 7.1 Albumin 3.1 L Globulin 4.0 Albumin/Globulin Ratio 0.8 L Triglycerides 253 H Cholesterol 136 LDL Cholesterol 48 VLDL Cholesterol 51 H HDL Cholesterol 37 L TSH 2.60 POC Glucose 07/03/18 07/02/18 07/02/18 06:20 22:20 16:59 POC Glucose 125 H 117 H 150 H Discharge Activity: May Not Drive, May not drive while taking narcotic pain medications. Weight Bearing Status: Weight bearing as tolerated Call your doctor if you observe: Fever of 101 or Higher, Coldness, Increased Pain, Inability to have a bowel movement, Shortness of breath, Fainting spells, Swelling in the ankles, Chest pain Home Medications: Medications to take at Discharge aspirin 81 mg tablet,delayed release 81 mg PO DAILY@0800 #90 tab 06/07/18 chlorthalidone 25 mg tablet 12.5 mg PO DAILY 06/07/18 losartan 25 mg tablet 12.5 mg PO DAILY 06/07/18 pioglitazone 15 mg tablet 15 mg PO BID tab 06/07/18 atorvastatin 40 mg tablet 40 mg PO QHS #180 tab 06/10/18 isosorbide mononitrate ER 60 mg tablet,extended release 24 hr 60 mg PO DAILY #90 tab 06/10/18 metoprolol tartrate 25 mg tablet 25 mg PO BID #180 tab 06/10/18 ticagrelor 90 mg tablet 90 mg PO BID #180 tab 06/10/18 Allopurinol [Zyloprim] 100 mg PO DAILYCM 07/02/18 Glimepiride [Amaryl] 1 mg PO DAILY 07/02/18 Ibuprofen [Motrin] 600 mg PO TID PRN PRN tablet 07/03/18 Levofloxacin [Levaquin] 500 mg PO DAILY #5 tablet 07/03/18 Following Prescrptions Were Given to Patient: Levofloxacin [Levaquin] 500 mg PO DAILY #5 tablet Primary Care Physician: Casey Smith MD [Primary Care Provider] - Please follow up with your Primary Care Physician in: in 1-2 week Please Follow Up With: Chiki Parmar MD When: possible left parotitis Please Follow Up With: Gregorio Cowan MD When: as scheduled Medical Necessity - Tobacco Use Smoking Status: Never smoker Meaningful Use Info Meaningful Use Diagnoses (Choose all that apply): None applicable Code Visit OBSV E&M: 82990 Observation care discharge
== END 2018-07-03 11:09 | disposition home or self-care (01) ==
LOC: ED 08:46 → PCU 10:09
PROVIDERS: Admitting Provider Internal Medicine; Emergency Provider Emergency Medicine; Family Provider Family Medicine; PCP Family Medicine; Visit Provider Internal Medicine
DX: H92.02 Otalgia, left ear (principal); I25.10 Atherosclerotic heart disease of native coronary artery without angina pectoris; R68.84 Jaw pain; I10 Essential (primary) hypertension; E11.9 Type 2 diabetes mellitus without complications; I25.2 Old myocardial infarction; Z95.5 Presence of coronary angioplasty implant and graft; E78.5 Hyperlipidemia, unspecified; R00.1 Bradycardia, unspecified; I70.0 Atherosclerosis of aorta; I08.1 Rheumatic disorders of both mitral and tricuspid valves; E66.9 Obesity, unspecified; Z68.32 Body mass index [BMI] 32.0-32.9, adult; Z71.3 Dietary counseling and surveillance; Z79.899 Other long term (current) drug therapy; Z79.82 Long term (current) use of aspirin; Z79.84 Long term (current) use of oral hypoglycemic drugs; R06.02 Shortness of breath
CPT/HCPCS: 36415; 71045; 78452; 80048; 80053; 80061; 82962; 83735; 84443; 84484; 85025; 85027; 85610; 85730; 93005; 93017; 93306; 96365; 96366; 96372; 96375; 99218; 99284; A9500; Q9957; A4216; G0378; J2785

== ENCOUNTER → 2018-08-29 08:11 | Outpatient (CLI) | payer MEDICARE, OTHER, SELFPAY ==
[2018-05-20 11:33] VITALS: BMI 34.7
[2018-08-02 09:27] VITALS: BMI 33.1
[2018-08-29 10:11] LABS: Anion Gap 11 (5-15); BUN 16 mg/dL (7-18); Calcium,Total 9.2 mg/dL (8.5-10.1); Chloride 106 mmol/L (98-107); Cholesterol 156 mg/dL (200); Creatinine, Serum 0.84 mg/dL (0.55-1.02); EST Glomerular Filtration Rate 69 mL/min (>60); Est Glom Filt Rate - Afr Amer 83 mL/min (>60); Glucose 156 mg/dL (74-106); High Density Lipoprotein 41 mg/dL; Potassium 3.5 mmol/L (3.5-5.1); Sodium Level 141 mmol/L (136-145); Triglycerides 250 mg/dL; Very Low Density Lipoprotein 50 mg/dL (5-40)
[2018-08-29 10:20] LABS: Hemoglobin A1c 7.3 % (4.2-6.3)
== END ==
PROVIDERS: Family Provider Family Medicine; PCP Family Medicine; Referring Provider Family Medicine; Visit Provider Family Medicine
DX: E11.9 Type 2 diabetes mellitus without complications (principal); I10 Essential (primary) hypertension; E78.5 Hyperlipidemia, unspecified
CPT/HCPCS: 36415; 80048; 80061; 83036

== ENCOUNTER 2019-02-15 17:44 | Inpatient (IN) | payer MEDICARE, OTHER, SELFPAY ==
[2018-05-20 11:33] VITALS: BMI 34.7
[2018-08-02 09:27] VITALS: BMI 33.1
[2019-02-15 17:45] VITALS: BP 217/91; PULSE 62; RESP 18; TEMP 35.7; O2SAT 98; BMI 34.0
--- NOTE | 2019-02-15 17:59 | CT_ITS ---
STUDY: CT ABDOMEN AND PELVIS WITHOUT CONTRAST REASON FOR EXAM: Female, 83 years old. Right flank pain for 2 days. Hematuria. History of kidney stones. RADIATION DOSAGE (If Supplied By Facility): CTDIvol = ( 016.31 ) mGy, DLP = ( 733.31 ) mGycm TECHNIQUE: Transaxial images were obtained from the dome of the diaphragm to the symphysis pubis without oral contrast, and without intravenous contrast. Sagittal and coronal images were reconstructed. Individualized dose optimization techniques were used for this CT. COMPARISON: None. FINDINGS: The visualized lung bases are unremarkable. Heart is mildly enlarged with coronary artery calcification. There is elongation of the right lobe of the liver consistent with a Jorge''s lobe. Normal gallbladder and extrahepatic biliary system. There are multiple benign calcified granulomata of the spleen. Normal pancreas. Normal bilateral adrenal glands. The right kidney is of normal size and cortical thickness. There is a bifid renal collecting system. The dilatation the upper pole calyces with mildly increased density. There is a dilated lower pole calyces with distention of the ureter to the urinary bladder without filling defect. The left kidney is of normal cortical thickness. There is a 3 mm nonobstructing calculus in the mid kidney. No hydronephrosis. Normal left ureter. A type I hiatal hernia. The stomach is otherwise unremarkable. Normal small intestine. Sigmoid diverticulosis without acute inflammatory change. The proximal colon is normal. There is non-visualization of the appendix. There is diffuse atherosclerotic calcification of the abdominal aorta, without a demonstrated aneurysm. Normal inferior vena cava. Normal retroperitoneum. Normal urinary bladder. Normal vaginal cuff. There is no pelvic lymphadenopathy. No free air or free fluid is seen within the peritoneal cavity. Normal abdominal wall. There are diffuse degenerative changes of the visualized lumbar spine. CT/Abdomen/Pelvis without Cont IMPRESSION: 1. Bifid right renal collecting system. There is hydronephrosis and ureterectasis to the urinary bladder without visualized filling defect. There is high density material within the dilated calyces and right upper pole proximal ureter. Question hemorrhage. This could be confirmed sonographically. 2. Nonobstructing left renal calculus.. 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 4. Splenic granulomata. 5. Degenerative changes of the lumbar spine. 6. Atherosclerotic changes of the aorta. 7. Status post hysterectomy. Electronically Signed: Armand Pack DO at 20:02 EST Tel [phone], Service support ,
[2019-02-15] MEDS: Ondansetron 4 MG/2 ML Vial IV (18:25)
[2019-02-15] MEDS: 0.9% Normal Saline 1,000 ML 125 ML IV (18:26)
[2019-02-15 18:27] LABS: Mucous, Urine 0 SEEN /hpf (<or=2+)
[2019-02-15] MEDS: Ketorolac 30 MG/ML Syringe 15 MG IV (18:28)
[2019-02-15 18:29] LABS: Basophil# 0.04 X10^3/uL; Basophil% 0.2 % (0-1); Eosinophil# 0.04 X10^3/uL; Eosinophils% 0.2 % (0-5); Hematocrit 41.4 % (37-47); Hemoglobin 13.8 g/dL (12.0-15.0); Lymphocyte % 15.4 % (19-41); Mean Corp Hgb Conc 33.3 g/dL (32-36); Mean Corpuscular Hgb 29.7 pg (27.0-32.0); Mean Corpuscular Volume 89.2 fL (81-99); Mean Platelet Vol. 9.7 fl (6.2-12.0); Monocyte# 1.08 X10^3/uL; Monocyte% 6.4 % (0-10); NRBC Flagged by Analyzer 0 % (0-5); Neutrophil # 13.02 X10^3/uL (2.7-7.7); Platelet Count 288 K/mm3 (150-450); RBC Distribution Width CV 14.5 % (11.6-14.6); RBC Distribution Width SD 47.7 fl (35.1-43.9); Red Blood Count 4.64 M/mm3 (4.2-5.4); White Blood Count 16.9 K/mm3 (4.4-11.0)
[2019-02-15] MEDS: Morphine 4 MG/ML Syringe IV (18:35)
[2019-02-15 18:37] LABS: Color, Urine Yellow (Yellow); Glucose, Dipstick Normal (Normal); Ketone-Dipstick Negative (Negative); Leukocyte Esterase-Dipstick 500 /ul (Negative); Nitrite-Dipstick Positive (Negative); Occult Blood-Urine 250 /ul (Negative); Protein-Dipstick 30 mg/dl (Negative); Urine Bilirubin Dipstick Negative (Negative); Urine Clarity Cloudy (Clear); Urine Urobilinogen Normal (Normal)
[2019-02-15 18:40] LABS: Amorphous Sediment 1+ URATE; Bacteria 1+ /hpf (None Seen); Red Blood Cells-Urine 50-100 SEEN /hpf (0-5); Squamous Epithelial Cells - UA 0-5 SEEN /hpf (5-10); White Blood Cells >100 SEEN /hpf (0-5)
[2019-02-15 18:51] LABS: ALB/GLOB Ratio 0.9 RATIO (0.9-2.4); AST(SGOT) 26 U/L (15-37); Alanine Aminotransfer ALT/SGPT 33 U/L (13-56); Albumin, Serum 3.9 g/dL (3.2-5.0); Alkaline Phosphatase 98 U/L (45-117); Anion Gap 8 (5-15); BUN 24 mg/dL (7-18); BUN/Creat Ratio 25.9 RATIO (10-20); Calcium,Total 9.2 mg/dL (8.5-10.1); Chloride 105 mmol/L (98-107); Creatinine, Serum 0.93 mg/dL (0.55-1.02); EST Glomerular Filtration Rate 62 mL/min (>60); Est Glom Filt Rate - Afr Amer 74 mL/min (>60); Estimated Creatinine Clearance 38.58 ml/min; Globulin 4.2 g/dL (2.2-4.2); Glucose 193 mg/dL (74-106); Potassium 3.2 mmol/L (3.5-5.1); Protein, Total 8.1 g/dL (6.4-8.2); Sodium Level 138 mmol/L (136-145)
[2019-02-15] MEDS: Ceftriaxone 1 GM/50 ML BAG IV (20:06)
[2019-02-15 20:07] VITALS: BP 167/60; PULSE 60; RESP 17; O2SAT 95
--- NOTE | 2019-02-15 20:12 | ED.DCSUM_ITS ---
- ER Visit Summary Date of Service: 02/15/19 Chief Complaint: [Flank pain] History of Present Illness: The patient is a 83 F [resents to the emergency department complaint of flank pain that started about 24 hours ago. Patient states it was initially in her right back and was mild initially. Patient now s tates the pain has migrated to the right lower quadrant and suprapubic region. Patient complains of some dysuria and thought there might be some blood in the urine. Patient denies any fever. She has not had a history of kidney stones. She is not on any blood thinners. She has a history of hypertension, high cholesterol, and coronary artery disease. Patient's had prior hysterectomy and appendectomy.] Patient rates the pain an 8 out of 10. Patient's had nausea and vomiting. Denies any diarrhea. Denies any blood in her stool or black tarry stools. Physical Examination: [HEENT-PERRLA, EOMI. Cranial nerves II through XII grossly intact. TMs clear. Mucous membranes moist. No adenopathy. Cardiovascular-regular rate and rhythm without murmur or ectopy Lungs-clear to auscultation, chest wall stable without crepitus or subcu emphysema Abdomen-normoactive bowel sounds, soft, nontender, no rebound or rigidity, no peritoneal signs. Extremities-intact ?4, normal range of motion, normal pulses, atraumatic] Test Results: [CBC with differential obtained showing a 16.9, hemoglobin 13.8, hematocrit 41, platelets 288. Chemistries unremarkable other than a slightly depressed potassium at 3.2. Urinalysis was positive for nitrites as well as greater than [address] flank showed bifid right renal collecting system with hydronephrosis and hydroureter.] Emergency Department Course and Treatment: [Urine cultures ordered. Patient was started on Rocephin IV. Patient was medicated with 50 mg of Toradol as well as morphine and Zofran.] Treatment Plan: [Admit] Disposition: [Admit] Impression: [Pyelonephritis] This note was generated with [employer] software. It may contain incorrect words, spelling, and punctuation that were not noted in review of the chart prior to signing ED Disposition - Plan for ED Patient: Referrals: Casey Smith MD [Primary Care Provider] -
--- NOTE | 2019-02-15 20:50 | HP.PCM_ITS ---
History of Present Illness Date of Admission: 02/15/19 Chief Complaint: Nausea/Vomiting The patient is a 83 year old F with a PMH as below presents with nausea and vomiting for few hours today. She states that she was feeling a little bit ill yesterday but not too bad and then today while she was driving back from [place] she had to throw up. She denies any significant abdominal pain that she did have some right-sided flank pain prior to presenting to the ER. No fevers or chills until she was in the ambulance on her way to the hospital. She has had just very slight burning with urination and urgency for the last few hours as well prior to presenting to the ER. In the ER she was found to have a leukocytosis of 16.9, and a UA that was grossly positive. There was no perinephric fat stranding on CT scan however. Past Medical History Past Medical History (Chronic Problems): Chronic Problems (Last Reviewed 08/02/18 @ 09:56 by Gregorio Umanzor MD) Hyperlipidemia (Chronic) Essential (primary) hypertension (Chronic) Atherosclerosis of coronary artery of [place] heart without angina pectoris (Chronic) [id number] RCA w/ 4.0 x 18 mm Resolute and JUJU-Mid RCA w/ 4.0 x 15 mm Resolute 05/20/18 ST elevation (STEMI) myocardial infarction (Chronic) Medical History: Medical History (Last Reviewed 08/02/18 @ 09:56 by Gregorio Umanzor MD) Hyperlipidemia (Chronic) E78.5 Essential (primary) hypertension (Chronic) I10 Atherosclerosis of coronary artery of [place] heart without angina pectoris (Chronic) I25.10 SYZ-RBM-Ehnn RCA w/ 4.0 x 18 mm Resolute and JUJU-Mid RCA w/ 4.0 x 15 mm Resolute 05/20/18 ST elevation (STEMI) myocardial infarction (Chronic) I21.3 Gout M10.9 Obesity E66.9 Type 2 diabetes mellitus Onset Date: 05/20/18 E11.9 Allergies Penicillins Allergy (Verified 08/02/18 09:27) Rash Tetanus Vaccines and Toxoid Allergy (Verified 08/02/18 09:27) Hives Home Medications: Ambulatory Orders Medication Instructions Recorded chlorthalidone 25 mg tablet 12.5 mg PO DAILY 06/07/18 pioglitazone 15 mg tablet 15 mg PO BID tab 06/07/18 Allopurinol [Zyloprim] 100 mg PO DINNER 07/02/18 Glimepiride [Amaryl] 1 mg PO LUNCH 07/02/18 Aspirin E.C. [Ecotrin] 81 mg PO DAILY@0800 02/15/19 Atorvastatin Calcium 40 mg PO QHS 02/15/19 Isosorbide Mononitrate [Imdur] 60 mg PO DAILY 02/15/19 Losartan Potassium 25 mg PO DINNER 02/15/19 Metoprolol Tartrate [Lopressor 25 mg PO BID 02/15/19 (beta brynn)] Ticagrelor [Brilinta] 90 mg PO BID 02/15/19 Surgical History: Surgical History (Last Reviewed 08/02/18 @ 09:56 by Gregorio Umanzor MD) History of coronary artery stent placement (Resolved) Onset Date: 05/20/18 Z95.5 LCF-PNP-Mznr RCA w/ 4.0 x 18 mm Resolute and JUJU-Mid RCA w/ 4.0 x 15 mm Resolute 05/20/18 History of hysterectomy Z90.710 History of tonsillectomy Z90.89 Surgical History: hysterectomy, tonsillectomy Psychiatric History: No pertinent psych hx 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 Denies: Fever, Weight Change HEENT: Denies: Head Aches, Sinus Congestion, Sinus Drainage Cardiovascular: Denies: Chest Pain, Palpitations Respiratory: Denies: Cough, Shortness of breath at rest, Sputum production Gastrointestinal: Denies: Abdominal Pain, Nausea, Vomiting Genitourinary: Reports: Dysuria, Urgency Musculoskeletal: Denies: Joint Pain, Joint Tenderness Skin: Denies: Rash, Wounds Neurological: Denies: Numbness, Tingling, Focal weakness Psychiatric: Denies: Anxiety, Depression Hematologic/ Lymphatic: Denies: Easy Bruising, Easy Bleeding VTE Information - Inpt Only VTE Present on Admission: No - Physical Exam Vitals/I&O's: Vital Signs Temp Pulse Resp BP Pulse Ox 96.3 F L 60 17 167/60 H 95 02/15/19 17:45 12/07/19 20:07 02/15/19 20:07 02/15/19 20:07 02/15/19 20:07 Oxygen Delivery Method Room Air Weight: 192 lb 3.889 oz Body Mass Index (BMI) 34.0 General: Alert, Oriented x3, Cooperative, No apparent distress HEENT: Atraumatic, PERRLA, EOMI, Normocephalic Oral: Moist Mucosa Neck: Supple, No JVD Lungs: Clear to auscultation, Normal air movement, No rhonchi, No wheeze, No rales, Diminished Cardiovascular: Regular rate, Regular Rhythm, Normal S1, Normal S2, No murmurs Abdomen: Soft, Non Tender, Non-Distended, No Hepato-splenomegaly Extremities: No edema, Capillary Refill Less than 3 Seconds Skin: No rashes, No breakdown Neurological: Neuro grossly intact, Sensory exam intact to light touch and pain Psych/Mental Status: Normal Affect, Appropriate Laboratory Results 02/15/19 18:18: WBC 16.9 H, RBC 4.64, Hgb 13.8, Hct 41.4, MCV 89.2, MCH 29.7, MCHC 33.3, RDW Std Deviation 47.7 H, RDW Coeff of Arvind 14.5, Plt Count 288, MPV 9.7, Immature Gran % (Auto) 0.800, Neut % (Auto) 77.0 H, Lymph % (Auto) 15.4 L, [place] % (Auto) 6.4, Eos % (Auto) 0.2, Baso % (Auto) 0.2, Absolute Neuts (auto) 13.0 H, Absolute Lymphs (auto) 2.60, Nucleated RBC % 0 02/15/19 18:18: Sodium 138, Potassium 3.2 L, Chloride 105, Carbon Dioxide 25.0, Anion Gap 8, BUN 24 H, Creatinine 0.93, Estim Creat Clear Calc 38.58, Est GFR (MDRD) Af Amer 74, Est GFR (MDRD) Non-Af 62, BUN/Creatinine Ratio 25.9 H, Glucose 193 H, Calcium 9.2, Total Bilirubin 0.60, AST 26, ALT 33, Alkaline Phosphatase 98, Total Protein 8.1, Albumin 3.9, Globulin 4.2, Albumin/Globulin Ratio 0.9 02/15/19 18:23: Urine Color Yellow, Urine Clarity Cloudy, Urine pH 5.0, Ur Sp ecific [place] 1.020, Urine Protein 30 H, Urine Glucose (UA) Normal, Urine Ketones Negative, Urine Occult Blood 250 H, Urine Nitrite Positive H, Urine Bilirubin Negative, Urine Urobilinogen Normal, Ur Leukocyte Esterase 500 H, Urine RBC 50-100 SEEN, Urine WBC >100 SEEN, Ur Squamous Epith Cells 0-5 SEEN, Amorphous Sediment 1+ URATE, Urine Bacteria 1+, Urine Mucus 0 SEEN Current Medications Sodium Chloride () 1,000 mls @ 125 mls/hr IV .Q8H TIM Last Admin: 02/15/19 18:26 Dose: 125 mls/hr Documented by: Assessment/Plan All Active Problems (Last Reviewed 08/02/18 @ 09:56 by Gregorio Umanzor MD) History of coronary artery stent placement (Resolved 05/20/18) Left ear pain (Resolved) 1. UTI -Urine cultures are pending, will continue with Rocephin -IV fluids -She denies any trauma to her flank if necessary can proceed with an renal ultrasound on Sunday for the possible hemorrhage -Hemoglobin is normal 2. CAD status post stent/HTN/HLD -Initially on presentation systolic blood pressure was over 200, now she is back down into the 120s -We will resume her aspirin and Plavix as well as her home blood pressure medication 3. DM 2 -Will hold her home blood sugar medications -We will monitor with Accu-Cheks AC at bedtime and provide sliding scale insulin DVT: Lovenox Code Visit Inpatient E&M: 79379 Init Hosp L2
[2019-02-15 21:18] VITALS: BP 167/60; PULSE 74; RESP 18
[2019-02-15 21:24] VITALS: BP 127/70; PULSE 58; RESP 18; TEMP 36.7; O2SAT 97; BMI 32.8
[2019-02-15 21:41] VITALS: BMI 32.8
[2019-02-15 22:42] VITALS: BP 127/70; PULSE 58
[2019-02-15] MEDS: Atorvastatin Calcium 40 MG Tablet PO (22:42)
[2019-02-15] MEDS: Metoprolol Tartrate 25 MG Tablet PO (22:42)
[2019-02-15] MEDS: Losartan Potassium 25 MG Tablet PO (22:42)
[2019-02-15] MEDS: Allopurinol 100 MG Tablet PO (22:43)
[2019-02-15] MEDS: TICAGRELOR 90 MG TABLET PO (22:43)
[2019-02-15 22:55] LABS: Bedside Glucose 154 mg/dL (70-110)
[2019-02-16] MEDS: 0.9% Normal Saline 1,000 ML 125 ML IV ×2 (00:54→09:22)
[2019-02-16] MEDS: Ondansetron 4 MG/2 ML Vial IV ×2 (02:26→13:09)
[2019-02-16] MEDS: 0.9% Saline Lock 10 ML Syringe IV (02:34)
[2019-02-16] MEDS: proMETHazine 25 MG/ML Syringe 6.25 MG IV (04:48)
[2019-02-16 05:10] VITALS: BP 184/83; PULSE 58; RESP 18; TEMP 37.1; O2SAT 97
[2019-02-16] MEDS: Acetaminophen 325 MG Tablet 650 MG PO (05:31)
[2019-02-16 06:45] VITALS: BP 192/78; PULSE 56
[2019-02-16] MEDS: Metoprolol Tartrate 25 MG Tablet PO ×2 (06:45→21:24)
[2019-02-16] MEDS: Insulin Lispro 100 UNIT/ML INSULN.PEN SC ×2 (06:53→11:51)
[2019-02-16 07:00] LABS: Bedside Glucose 178 mg/dL (70-110)
[2019-02-16 08:08] LABS: Absolute Lymphocyte Count 1.08 X10^3/uL (0.83-4.51); Basophil# 0.02 X10^3/uL; Basophil% 0.1 % (0-1); Hematocrit 38.6 % (37-47); Hemoglobin 12.5 g/dL (12.0-15.0); Lymphocyte # 1.08 X10^3/ul (4.0); Lymphocyte % 6.3 % (19-41); Mean Corp Hgb Conc 32.4 g/dL (32-36); Mean Corpuscular Hgb 29.2 pg (27.0-32.0); Mean Corpuscular Volume 90.2 fL (81-99); Mean Platelet Vol. 9.9 fl (6.2-12.0); Monocyte# 1.08 X10^3/uL; Monocyte% 6.3 % (0-10); NRBC Flagged by Analyzer 0 % (0-5); Neutrophil # 14.98 X10^3/uL (2.7-7.7); Neutrophil % 86.6 % (47-70); Platelet Count 239 K/mm3 (150-450); RBC Distribution Width CV 14.7 % (11.6-14.6); RBC Distribution Width SD 48.9 fl (35.1-43.9); Red Blood Count 4.28 M/mm3 (4.2-5.4); White Blood Count 17.3 K/mm3 (4.4-11.0)
[2019-02-16 08:21] LABS: Anion Gap 6 (5-15); BUN 23 mg/dL (7-18); BUN/Creat Ratio 24.2 RATIO (10-20); Calcium,Total 8.5 mg/dL (8.5-10.1); Chloride 108 mmol/L (98-107); Creatinine, Serum 0.95 mg/dL (0.55-1.02); EST Glomerular Filtration Rate 60 mL/min (>60); Est Glom Filt Rate - Afr Amer 72 mL/min (>60); Estimated Creatinine Clearance 37.77 ml/min; Glucose 172 mg/dL (74-106); Potassium 3.6 mmol/L (3.5-5.1); Sodium Level 138 mmol/L (136-145)
[2019-02-16] MEDS: Aspirin E.C. 81 MG Tablet PO (09:22)
[2019-02-16] MEDS: Chlorthalidone 50 MG Tablet 12.5 MG PO (09:23)
[2019-02-16] MEDS: TICAGRELOR 90 MG TABLET PO ×2 (09:23→21:24)
[2019-02-16] MEDS: Enoxaparin 40 MG/0.4 ML Syringe SC (09:25)
[2019-02-16] MEDS: Isosorbide Mononitrate 60 MG Tablet PO (09:25)
[2019-02-16 09:34] VITALS: BP 154/66; PULSE 58; RESP 18; TEMP 36.7; O2SAT 95
--- NOTE | 2019-02-16 11:51 | PN_ITS ---
Subjective: Complain of right renal colic starting from right lumbar/flank area radiating to the suprapubic or urethra started yesterday, 02/15. Denies fever or chills. Patient also had nausea which got better with antiemetics. Complain of hematuria 2 times, first was dark reddish urine and another was pinkish urine yesterday. No recent prior history of hematuria Patient has remote history of kidney stone which she passed spontaneously about 25 years ago. Denies any recent instrumentation or urethral catheterization. CT abdomen reviewed. Vitals/I&O's: Vital Signs Temp Pulse Resp BP Pulse Ox 98.1 F 58 L 18 154/66 H 95 02/16/19 09:34 02/16/19 09:34 02/16/19 09:34 02/16/19 09:34 02/16/19 09:34 Oxygen Delivery Method Room Air Weight: 184 lb 15.485 oz Body Mass Index (BMI) 32.8 Intake and Output for Last 24 Hours 02/14/19 02/15/19 02/16/19 23:59 23:59 23:59 Intake Total 50 / 450 2403.33 / 2403.33 Balance 50 / 450 2403.33 / 2403.33 General: Alert, Oriented x3, Cooperative HEENT: Atraumatic, PERRLA, EOMI, Normocephalic Neck: Supple, No JVD, Negative Carotid Bruits Lungs: Clear to auscultation, No rhonchi, No wheeze, No rales, Diminished Cardiovascular: Regular rate, Regular Rhythm, Normal S1, Normal S2, No murmurs Abdomen: Bowel Sounds Present, Soft, Tender - Tenderness present on the right renal angle. No obvious fullness noticed. No suprapubic tenderness. 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 Laboratory Results 02/15/19 18:18: WBC 16.9 H, RBC 4.64, Hgb 13.8, Hct 41.4, MCV 89.2, MCH 29.7, MCHC 33.3, RDW Std Deviation 47.7 H, RDW Coeff of Arvind 14.5, Plt Count 288, MPV 9.7, Immature Gran % (Auto) 0.800, Neut % (Auto) 77.0 H, Lymph % (Auto) 15.4 L, [place] % (Auto) 6.4, Eos % (Auto) 0.2, Baso % (Auto) 0.2, Absolute Neuts (auto) 13.0 H, Absolute Lymphs (auto) 2.60, Nucleated RBC % 0 02/15/19 18:18: Sodium 138, Potassium 3.2 L, Chloride 105, Carbon Dioxide 25.0, Anion Gap 8, BUN 24 H, Creatinine 0.93, Estim Creat Clear Calc 38.58, Est GFR (MDRD) Af Amer 74, Est GFR (MDRD) Non-Af 62, BUN/Creatinine Ratio 25.9 H, Glucose 193 H, Calcium 9.2, Total Bilirubin 0.60, AST 26, ALT 33, Alkaline Phosphatase 98, Total Protein 8.1, Albumin 3.9, Globulin 4.2, Albumin/Globulin Ratio 0.9 02/15/19 18:23: Urine Color Yellow, Urine Clarity Cloudy, Urine pH 5.0, Ur Specific [place] 1.020, Urine Protein 30 H, Urine Glucose (UA) Normal, Urine Ketones Negative, Urine Occult Blood 250 H, Urine Nitrite Positive H, Urine Bilirubin Negative, Urine Urobilinogen Normal, Ur Leukocyte Esterase 500 H, Urine RBC 50-100 SEEN, Urine WBC >100 SEEN, Ur Squamous Epith Cells 0-5 SEEN, Amorphous Sediment 1+ URATE, Urine Bacteria 1+, Urine Mucus 0 SEEN 02/15/19 22:40: POC Glucose 154 H 02/16/19 06:48: POC Glucose 178 H 02/16/19 07:53: WBC 17.3 H, RBC 4.28, Hgb 12.5, Hct 38.6, MCV 90.2, MCH 29.2, MCHC 32.4, RDW Std Deviation 48.9 H, RDW Coeff of Arvind 14.7 H, Plt Count 239, MPV 9.9, Immature Gran % (Auto) 0.700, Neut % (Auto) 86.6 H, Lymph % (Auto) 6.3 L, [place] % (Auto) 6.3, Eos % (Auto) 0.0, Baso % (Auto) 0.1, Absolute Neuts (auto) 15.0 H, Absolute Lymphs (auto) 1.08, Nucleated RBC % 0 02/16/19 07:53: Sodium 138, Potassium 3.6, Chloride 108 H, Carbon Dioxide 24.0, Anion Gap 6, BUN 23 H, Creatinine 0.95, Estim Creat Clear Calc 37.77, Est GFR (MDRD) Af Amer 72, Est GFR (MDRD) Non-Af 60, BUN/Creatinine Ratio 24.2 H, Glucose 172 H, Calcium 8.5 Current Medications Acetaminophen (Tylenol) 650 mg PO Q6H PRN PRN PRN Reason: Pain Score 1-3/Temp > 100.7 F Last Admin: 02/16/19 05:31 Dose: 650 mg Documented by: Allopurinol (Zyloprim) 100 mg PO DINNER [facility] Last Admin: 02/15/19 22:43 Dose: 100 mg Documented by: Aspirin (Ecotrin) 81 mg PO DAILY@0800 [facility] Last Admin: 02/16/19 09:22 Dose: 81 mg Documented by: Atorvastatin Calcium (Lipitor) 40 mg PO QHS [facility] Last Admin: 02/15/19 22:42 Dose: 40 mg Documented by: Chlorthalidone (Hygroton) 12.5 mg PO DAILY [facility] Last Admin: 02/16/19 09:23 Dose: 12.5 mg Documented by: Dextrose (D50w Syringe) 0 gm IV X1 PRN; Protocol PRN Reason: Hypoglycemia Enoxaparin Sodium (Lovenox) 40 mg SC DAILY [facility] Last Admin: 02/16/19 09:25 Dose: 40 mg Documented by: Glucagon () 1 mg IM .X1 PRN PRN Reason: Hypoglycemia Hydralazine HCl (Apresoline Iv) 10 mg IV Q4H PRN PRN PRN Reason: BLOOD PRESSURE Sodium Chloride () 1,000 mls @ 125 mls/hr IV .Q8H [facility] Last Infusion: 02/16/19 10:00 Dose: 125 mls/hr Documented by: Ceftriaxone Sodium 2 gm/ (Sodium Chloride) 50 mls @ 100 mls/hr IV Q24 [facility] Last Infusion: 02/16/19 09:55 Dose: Infused Documented by: Sodium Chloride () 250 mls @ 15 mls/hr IV .[id number] PRN PRN Reason: Saline Flush Insulin Human Lispro (Humalog Kwikpen (Bkc)) 0 unit SC ACHS [facility]; Protocol Last Admin: 02/16/19 06:53 Dose: 2 units Documented by: Isosorbide Mononitrate (Imdur) 60 mg PO DAILY [facility] Last Admin: 02/16/19 09:25 Dose: 60 mg Documented by: Losartan Potassium (Cozaar) 25 mg PO DINNER [facility] Last Admin: 02/15/19 22:42 Dose: 25 mg Documented by: Metoprolol Tartrate (Lopressor (Beta Geovany)) 25 mg PO BID [facility] Last Admin: 02/16/19 06:45 Dose: 25 mg Documented by: Ondansetron HCl (Zofran) 4 mg IV Q8H PRN PRN PRN Reason: NAUSEA/VOMITING Last Admin: 02/16/19 02:26 Dose: 4 mg Documented by: Promethazine HCl (Phenergan) 6.25 mg IV Q6H PRN PRN PRN Reason: NAUSEA/VOMITING Last Admin: 02/16/19 04:48 Dose: 6.25 mg Documented by: Sodium Chloride () 10 - 40 ml IV UD PRN PRN Reason: SALINE FLUSH Last Admin: 02/16/19 02:34 Dose: 10 ml Documented by: Ticagrelor (Brilinta) 90 mg PO BID [facility] Last Admin: 02/16/19 09:23 Dose: 90 mg Documented by: STROKE Vital Signs/Narrative: Vital Signs Temp Pulse Resp BP Pulse Ox 02/16/19 09:34 98.1 F 58 L 18 154/66 H 95 Medical Necessity - Tobacco Use Smoking Status: Never smoker Assessment/Plan All Active Problems (Last Reviewed 08/02/18 @ 09:56 by Gregorio Umanzor MD) History of coronary artery stent placement (Resolved 05/20/18) Left ear pain (Resolved) The patient is a 83 year old F with history of coronary artery disease was admitted with right renal flank pain along with nausea no vomiting for about 1 day prior to admission. No fever or chills. Complaint of low related symptoms of burning micturition, urgency and frequency prior to coming to ER. 1. UTI, possible cystitis with right-sided obstructive uropathy with hematuria: CT abdomen reviewed. This report is bifid right renal collecting system with hydronephrosis and ureterectasis to the urinary bladder without visualized filling defect. No perinephric fat infiltration reported. Also reported high density material within dilated calyces and right upper pole with question hemorrhage. Ultrasound kidneys and bladder ordered. On IV Rocephin. Discussed with urologist Dr. Coffman. She agreed to see the patient tomorrow a.m. In the meantime continue IV fluid. She had remote history of kidney stone about 25 years ago. -Repeat UA ordered as first UA showed positive microscopic hematuria RBC 5200 cells, 2+200 cells with nitrite and LE positive, 1+ urate and bacteria present. Proteinuria, 30. On IV ceftriaxone 2 g daily. Discontinue DVT prophylaxis Lovenox as patient is on already aspirin and Brilinta and triple antiplatelet anticoagulant medication can exacerbate bleeding. Currently hematuria is resolved. 2. CAD status post stent/HTN/HLD -Initially on presentation systolic blood pressure was over 200, now she is back down into the 120s Currently her blood pressure is 154/66 was 102/70 morning. On IV hydralazine as needed. Losartan dose increased 200 mg daily. On chlorthalidone 12.5 mg daily. -On aspirin and Plavix 3. DM 2 ?10 units subcutaneous at bedtime daily added. [place] is still elevated. -Continue Accu-Cheks AC at bedtime and provide sliding scale insulin DVT: Bilateral SCDs. Discontinue Lovenox Clinical Impression(s) from Imaging Studies Abdomen/Pelvis CT 02/15/19 17:59 IMPRESSION: 1. Bifid right renal collecting system. There is hydronephrosis and ureterectasis to the urinary bladder without visualized filling defect. There is high density material within the dilated calyces and right upper pole proximal ureter. Question hemorrhage. This could be confirmed sonographically. 2. Nonobstructing left renal calculus.. 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 4. Splenic granulomata. 5. Degenerative changes of the lumbar spine. 6. Atherosclerotic changes of the aorta. 7. Status post hysterectomy. 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 Laboratory Results 02/15/19 18:18: WBC 16.9 H, RBC 4.64, Hgb 13.8, Hct 41.4, MCV 89.2, MCH 29.7, MCHC 33.3, RDW Std Deviation 47.7 H, RDW Coeff of Arvind 14.5, Plt Count 288, MPV 9.7, Immature Gran % (Auto) 0.800, Neut % (Auto) 77.0 H, Lymph % (Auto) 15.4 L, [place] % (Auto) 6.4, Eos % (Auto) 0.2, Baso % (Auto) 0.2, Absolute Neuts (auto) 13.0 H, Absolute Lymphs (auto) 2.60, Nucleated RBC % 0 02/15/19 18:18: Sodium 138, Potassium 3.2 L, Chloride 105, Carbon Dioxide 25.0, Anion Gap 8, BUN 24 H, Creatinine 0.93, Estim Creat Clear Calc 38.58, Est GFR (MDRD) Af Amer 74, Est GFR (MDRD) Non-Af 62, BUN/Creatinine Ratio 25.9 H, Glucose 193 H, Calcium 9.2, Total Bilirubin 0.60, AST 26, ALT 33, Alkaline P hosphatase 98, Total Protein 8.1, Albumin 3.9, Globulin 4.2, Albumin/Globulin Ratio 0.9 02/15/19 18:23: Urine Color Yellow, Urine Clarity Cloudy, Urine pH 5.0, Ur Specific [place] 1.020, Urine Protein 30 H, Urine Glucose (UA) Normal, Urine Ketones Negative, Urine Occult Blood 250 H, Urine Nitrite Positive H, Urine Bilirubin Negative, Urine Urobilinogen Normal, Ur Leukocyte Esterase 500 H, Urine RBC 50-100 SEEN, Urine WBC >100 SEEN, Ur Squamous Epith Cells 0-5 SEEN, Amorphous Sediment 1+ URATE, Urine Bacteria 1+, Urine Mucus 0 SEEN 02/15/19 22:40: POC Glucose 154 H 02/16/19 06:48: POC Glucose 178 H 02/16/19 07:53: WBC 17.3 H, RBC 4.28, Hgb 12.5, Hct 38.6, MCV 90.2, MCH 29.2, MCHC 32.4, RDW Std Deviation 48.9 H, RDW Coeff of Arvind 14.7 H, Plt Count 239, MPV 9.9, Immature Gran % (Auto) 0.700, Neut % (Auto) 86.6 H, Lymph % (Auto) 6.3 L, [place] % (Auto) 6.3, Eos % (Auto) 0.0, Baso % (Auto) 0.1, Absolute Neuts (auto) 15.0 H, Absolute Lymphs (auto) 1.08, Nucleated RBC % 0 02/16/19 07:53: Sodium 138, Potassium 3.6, Chloride 108 H, Carbon Dioxide 24.0, Anion Gap 6, BUN 23 H, Creatinine 0.95, Estim Creat Clear Calc 37.77, Est GFR (MDRD) Af Amer 72, Est GFR (MDRD) Non-Af 60, BUN/Creatinine Ratio 24.2 H, G lucose 172 H, Calcium 8.5 Code Visit Inpatient E&M: 41234 Subs Hosp L2
[2019-02-16] MEDS: 0.9% Normal Saline 1,000 ML 999 ML IV (13:04)
[2019-02-16 15:24] VITALS: BP 175/80; PULSE 57; RESP 18; TEMP 36.4; O2SAT 98
[2019-02-16 15:45] LABS: Mucous, Urine 0 SEEN /hpf (<or=2+); Squamous Epithelial Cells - UA 0 SEEN /hpf (5-10)
[2019-02-16 15:47] LABS: Color, Urine Red (Yellow); Glucose, Dipstick Normal (Normal); Ketone-Dipstick 5 mg/dl (Negative); Leukocyte Esterase-Dipstick 100 /ul (Negative); Occult Blood-Urine 250 /ul (Negative); Protein-Dipstick 500 mg/dl (Negative); Specific Gravity, Urine 1.015 (1.002-1.030); Urine Bilirubin Dipstick Negative (Negative); Urine Clarity Cloudy (Clear); Urine Urobilinogen Normal (Normal)
[2019-02-16 15:53] LABS: Nitrite-Dipstick Positive (Negative)
[2019-02-16 15:58] LABS: Bacteria 1+ /hpf (None Seen)
[2019-02-16 16:03] LABS: White Blood Cells 50-100 SEEN /hpf (0-5)
[2019-02-16 16:06] LABS: Red Blood Cells-Urine > 100 SEEN /hpf (0-5)
[2019-02-16] MEDS: oxyCODONE 5 MG Tablet PO (16:26)
[2019-02-16] MEDS: Allopurinol 100 MG Tablet PO (16:31)
[2019-02-16] MEDS: Losartan Potassium 100 MG Tablet PO (16:32)
[2019-02-16 16:51] LABS: Bedside Glucose 137 mg/dL (70-110)
[2019-02-16] MEDS: 0.9% Normal Saline 1,000 ML 100 ML IV (20:29)
[2019-02-16 21:14] VITALS: BP 132/68; PULSE 62; RESP 18; TEMP 37; O2SAT 96
[2019-02-16 21:24] VITALS: BP 132/68; PULSE 62
[2019-02-16] MEDS: Atorvastatin Calcium 40 MG Tablet PO (21:24)
[2019-02-16 21:25] LABS: Bedside Glucose 140 mg/dL (70-110)
[2019-02-17 01:21] LABS: Bedside Glucose 183 mg/dL (70-110)
[2019-02-17 02:46] VITALS: BP 167/83; PULSE 68; RESP 18; TEMP 36.8; O2SAT 96
[2019-02-17 06:05] LABS: Absolute Lymphocyte Count 2.44 X10^3/uL (0.83-4.51); Absolute Neutrophil Count 7.8 X10^3/uL (2.0-7.7); Basophil# 0.03 X10^3/uL; Basophil% 0.3 % (0-1); Eosinophil# 0.08 X10^3/uL; Eosinophils% 0.7 % (0-5); Hemoglobin 11.8 g/dL (12.0-15.0); Lymphocyte # 2.44 X10^3/ul (4.0); Lymphocyte % 21.2 % (19-41); Mean Corp Hgb Conc 32.8 g/dL (32-36); Mean Corpuscular Hgb 30.2 pg (27.0-32.0); Mean Corpuscular Volume 92.1 fL (81-99); Mean Platelet Vol. 9.8 fl (6.2-12.0); Monocyte# 1.09 X10^3/uL; Monocyte% 9.5 % (0-10); NRBC Flagged by Analyzer 0 % (0-5); Neutrophil # 7.81 X10^3/uL (2.7-7.7); Neutrophil % 67.9 % (47-70); Platelet Count 212 K/mm3 (150-450); RBC Distribution Width CV 15.1 % (11.6-14.6); RBC Distribution Width SD 50.9 fl (35.1-43.9); Red Blood Count 3.91 M/mm3 (4.2-5.4); White Blood Count 11.5 K/mm3 (4.4-11.0)
[2019-02-17] MEDS: 0.9% Normal Saline 1,000 ML 100 ML IV (06:23)
[2019-02-17 06:30] LABS: Anion Gap 6 (5-15); BUN 14 mg/dL (7-18); Calcium,Total 8.5 mg/dL (8.5-10.1); Chloride 112 mmol/L (98-107); Creatinine, Serum 0.78 mg/dL (0.55-1.02); EST Glomerular Filtration Rate 75 mL/min (>60); Est Glom Filt Rate - Afr Amer 91 mL/min (>60); Estimated Creatinine Clearance 35.88 ml/min; Glucose 112 mg/dL (74-106); Sodium Level 144 mmol/L (136-145)
[2019-02-17 06:40] LABS: Bedside Glucose 116 mg/dL (70-110)
--- NOTE | 2019-02-17 07:36 | CT_ITS ---
STUDY: CT ABDOMEN AND PELVIS WITH AND WITHOUT CONTRAST REASON FOR EXAM: Female, 83 years old. Right-sided flank pain and hematuria. Right hydronephrosis. RADIATION DOSAGE (If Supplied By Facility): CTDIvol = ( 22.17 ) mGy, DLP = ( 3546.86 ) mGycm TECHNIQUE: Transaxial images were obtained from the dome of the diaphragm to the symphysis pubis without oral contrast. 100ML ISOVUE 370 was administered. Sagittal and coronal images were reconstructed. Individualized dose optimization techniques were used for this CT. COMPARISON: Comparison is made with prior study dated February 15, 2019. FINDINGS: New small bilateral pleural effusions with bibasilar atelectasis. Coronary artery calcification. Normal liver. Normal gallbladder and extrahepatic biliary system. There are multiple benign calcified granulomata of the spleen. Normal pancreas. Normal bilateral adrenal glands. No evidence of hydronephrosis at this time. Minimal residual dilatation of the right ureter down to the ureteropelvic junction. No obstructive calculus is seen. The previously seen hyperdensity within the right renal collecting system is not seen at this time. 3 mm nonobstructive calculus in the midpole calyx of the left kidney. Minimal dilatation of the left renal pelvis. Normal visualized stomach. Normal small intestine. There are multiple colonic diverticula consistent with diverticulosis. The appendix is visualized and appears normal. There is diffuse atherosclerotic calcification of the abdominal aorta, without a demonstrated aneurysm. Normal inferior vena cava. Normal retroperitoneum. Normal urinary bladder. There is absence of the uterus consistent with a prior hysterectomy. Normal abdominal wall. There are diffuse degenerative changes of the visualized lumbar spine. CT/CT Abd/Pelvis W/WO Contrast IMPRESSION: Minimal residual fullness of the left renal pelvis. Persistent right ureteral dilatation without a filling defect. Electronically Signed: Jose Underwood, at 9:11 EST , Service support ,
--- NOTE | 2019-02-17 07:38 | CON.PCM_ITS ---
Problem List (1) Hydronephrosis Status: Acute (2) Urinary tract infection Status: Acute Reason for Consult Date of Consultation: 02/17/19 Reason for Consultation: Right hydronephrosis, flank pain and urinary tract infection History of Present Illness: The patient is a 83 year old F who was admitted for nausea and vomiting for a few hours, evidence of urinary tract infection with dysuria and positive urinalysis, elevation of white blood count. She also had right-sided flank discomfort. Since admission, she has had intravenous fluid administration, supportive care and antibiotics. She has had resolution of her flank discomfort. This morning she has no nausea, vomiting or pain. She is on her way down to CT scan currently. Past Medical History Past Medical History (Chronic Problems): Chronic Problems (Last Reviewed 08/02/18 @ 09:56 by Gregorio Umanzor MD) Hyperlipidemia (Chronic) Essential (primary) hypertension (Chronic) Atherosclerosis of coronary artery of [place] heart without angina pectoris (Chronic) [id number] RCA w/ 4.0 x 18 mm Resolute and JUJU-Mid RCA w/ 4.0 x 15 mm Resolute 05/20/18 ST elevation (STEMI) myocardial infarction (Chronic) Medical History: Medical History (Last Reviewed 02/17/19 @ 08:08 by Aleah Coffman MD) Hyperlipidemia (Chronic) E78.5 Essential (primary) hypertension (Chronic) I10 Atherosclerosis of coronary artery of [place] heart without angina pectoris (Chronic) I25.10 [id number] RCA w/ 4.0 x 18 mm Resolute and JUJU-Mid RCA w/ 4.0 x 15 mm Resolute 05/20/18 ST elevation (STEMI) myocardial infarction (Chronic) I21.3 Gout M10.9 Obesity E66.9 Type 2 diabetes mellitus Onset Date: 05/20/18 E11.9 Allergies Penicillins Allergy (Verified 08/02/18 09:27) Rash Tetanus Vaccines and Toxoid Allergy (Verified 08/02/18 09:27) Hives Home Medications: Ambulatory Orders Medication Instructions Recorded chlorthalidone 25 mg tablet 12.5 mg PO DAILY 06/07/18 pioglitazone 15 mg tablet 15 mg PO BID tab 06/07/18 Allopurinol [Zyloprim] 100 mg PO DINNER 07/02/18 Glimepiride [Amaryl] 1 mg PO LUNCH 07/02/18 Aspirin E.C. [Ecotrin] 81 mg PO DAILY@0800 02/15/19 Atorvastatin Calcium 40 mg PO QHS 02/15/19 Isosorbide Mononitrate [Imdur] 60 mg PO DAILY 02/15/19 Losartan Potassium 25 mg PO DINNER 02/15/19 Metoprolol Tartrate [Lopressor 25 mg PO BID 02/15/19 (beta geovany)] Ticagrelor [Brilinta] 90 mg PO BID 02/15/19 Surgical History: Surgical History (Last Reviewed 08/02/18 @ 09:56 by Gregorio Umanzor MD) History of coronary artery stent placement (Resolved) Onset Date: 05/20/18 Z95.5 [id number]-[id number] RCA w/ 4.0 x 18 mm Resolute and JUJU-Mid RCA w/ 4.0 x 15 mm Resolute 05/20/18 History of hysterectomy Z90.710 History of tonsillectomy Z90.89 Surgical History: hysterectomy, tonsillectomy Psychiatric History: No pertinent psych hx 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 Smoking Status: Never smoker Alcohol: None Drugs: None - *Family History Paternal Family History: Family History (Last Reviewed 08/02/18 @ 09:56 by Gregorio Umanzor MD) Father Heart disease History Items: Heart Disease Review of Systems Constitutional: Reports: Chills Eyes: Denies: Vision Change HEENT: Denies: Visual Changes Cardiovascular: Denies: Chest Pain Respiratory: Denies: Shortness of Breath Gastrointestinal: Reports: Nausea, Vomiting, - - right flank pain Genitourinary: Reports: Dysuria, Urgency Musculoskeletal: Denies: Muscle pain Neurological: Denies: Confusion Patient Problems: Active and Suspected Problems (Last Reviewed 08/02/18 @ 09:56 by Gregorio Umanzor MD) Hydronephrosis (Acute) Urinary tract infection (Acute) - Physical Exam Vitals/I&O's: Vital Signs Temp Pulse Resp BP Pulse Ox 98.2 F 68 18 167/83 H 96 02/17/19 02:46 02/17/19 02:46 02/17/19 02:46 02/17/19 02:46 02/17/19 02:46 Oxygen Delivery Method Room Air Weight: 83.9 kg Body Mass Index (BMI) 32.8 Intake and Output for Last 24 Hours 02/15/19 02/16/19 02/17/19 23:59 23:59 23:59 Intake Total 50 / 450 5162.92 / 5762.92 2089 / 2089 Output Total 250 / 1150 2199 / 0 Balance 50 / 450 4912.92 / 4612.92 -110 / -110 General: Alert, Oriented x3, Cooperative, No apparent distress HEENT: Atraumatic, Normocephalic Oral: Moist Mucosa Neck: Trachea Midline Lungs: Normal air movement Cardiovascular: Regular rate Abdomen: Soft, Non Tender, Non-Distended Musculoskeletal: No Muscle Wasting Neurological: Cranial nerves II-XII grossly intact Psych/Mental Status: Normal Affect, Appropriate Comment: CT images reviewed. with normal Cr, will order CTU. 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77, Est GFR (MDRD) Af Amer 72, Est GFR (MDRD) Non-Af 60, BUN/Creatinine Ratio 24.2 H, Glucose 172 H, Calcium 8.5 02/16/19 11:49: POC Glucose 183 H 02/16/19 13:46: Urine Color Red, Urine Clarity Cloudy, Urine pH 5.0, Ur Specific [place] 1.015, Urine Protein 500 H, Urine Glucose (UA) Normal, Urine Ketones 5 H, Urine Occult Blood 250 H, Urine Nitrite Positive H, Urine Bilirubin Negative, Urine Urobilinogen Normal, Ur Leukocyte Esterase 100 H, Urine RBC > 100 SEEN, Urine WBC 50-100 SEEN, Ur Squamous Epith Cells 0 SEEN, Urine Bacteria 1+, Urine Mucus 0 SEEN 02/16/19 16:36: POC Glucose 137 H 02/16/19 21:09: POC Glucose 140 H 02/17/19 05:38: WBC 11.5 H, RBC 3.91 L, Hgb 11.8 L, Hct 36.0 L, MCV 92.1, MCH 30.2, MCHC 32.8, RDW Std Deviation 50.9 H, RDW Coeff of Arvind 15.1 H, Plt Count 212, MPV 9.8, Immature Gran % (Auto) 0.400, Neut % (Auto) 67.9, Lymph % (Auto) 21.2, [place] % (Auto) 9.5, Eos % (Auto) 0.7, Baso % (Auto) 0.3, Absolute Neuts (auto) 7.8 H, Absolute Lymphs (auto) 2.44, Nucleated RBC % 0 02/17/19 05:38: Sodium 144, Potassium 3.0 L, Chloride 112 H, Carbon Dioxide 26.0, Anion Gap 6, BUN 14, Creatinine 0.78, Estim Creat Clear Calc 35.88, Est GFR (MDRD) Af Amer 91, Est GFR (MDRD) Non-Af 75, BUN/Creatinine Ratio 18.0, Glucose 112 H, Calcium 8.5 02/17/19 06:06: POC Glucose 116 H Current Medications Acetaminophen (Tylenol) 650 mg PO Q6H PRN PRN PRN Reason: Pain Score 1-3/Temp > 100.7 F Last Admin: 02/16/19 05:31 Dose: 650 mg Documented by: Allopurinol (Zyloprim) 100 mg PO DINNER [facility] Last Admin: 02/16/19 16:31 Dose: 100 mg Documented by: Aspirin (Ecotrin) 81 mg PO DAILY@0800 [facility] Last Admin: 02/16/19 09:22 Dose: 81 mg Documented by: Atorvastatin Calcium (Lipitor) 40 mg PO QHS [facility] Last Admin: 02/16/19 21:24 Dose: 40 mg Documented by: Chlorthalidone (Hygroton) 12.5 mg PO DAILY [facility] Last Admin: 02/16/19 09:23 Dose: 12.5 mg Documented by: Dextrose (D50w Syringe) 0 gm IV X1 PRN; Protocol PRN Reason: Hypoglycemia Glucagon () 1 mg IM .X1 PRN PRN Reason: Hypoglycemia Hydralazine HCl (Apresoline Iv) 10 mg IV Q4H PRN PRN PRN Reason: SBP>180 OR DBP>100 Sodium Chloride () 1,000 mls @ 100 mls/hr IV .Q10H [facility] Last Admin: 02/17/19 06:23 Dose: 100 mls/hr Documented by: Ceftriaxone Sodium 2 gm/ (Sodium Chloride) 50 mls @ 100 mls/hr IV Q24 [facility] Last Infusion: 02/16/19 09:55 Dose: Infused Documented by: Sodium Chloride () 250 mls @ 15 mls/hr IV .[id number] PRN PRN Reason: Saline Flush Insulin Glargine (Lantus ([facility])) 10 units SC QHS [facility] Last Admin: 02/16/19 21:23 Dose: 10 units Documented by: Insulin Human Lispro (Humalog Kwikpen ([facility])) 0 unit SC ACHS [facility]; Protocol Last Admin: 02/17/19 06:19 Dose: Not Given Documented by: Isosorbide Mononitrate (Imdur) 60 mg PO DAILY [facility] Last Admin: 02/16/19 09:25 Dose: 60 mg Documented by: Losartan Potassium (Cozaar) 100 mg PO DINNER [facility] Last Admin: 02/16/19 16:32 Dose: 100 mg Documented by: Metoprolol Tartrate (Lopressor (Beta Geovany)) 25 mg PO BID [facility] Last Admin: 02/16/19 21:24 Dose: 25 mg Documented by: Morphine Sulfate () 2 mg IV Q3H PRN PRN PRN Reason: Pain Score 6-10/10 Ondansetron HCl (Zofran) 4 mg IV Q8H PRN PRN PRN Reason: NAUSEA/VOMITING Last Admin: 02/16/19 13:09 Dose: 4 mg Documented by: Oxycodone HCl (Oxyir) 5 mg PO Q4H PRN PRN PRN Reason: Pain Score 4-5/10 Last Admin: 02/16/19 16:26 Dose: 5 mg Documented by: Promethazine HCl (Phenergan) 6.25 mg IV Q6H PRN PRN PRN Reason: NAUSEA/VOMITING Last Admin: 02/16/19 04:48 Dose: 6.25 mg Documented by: Sodium Chloride () 10 - 40 ml IV UD PRN PRN Reason: SALINE FLUSH Last Admin: 02/16/19 02:34 Dose: 10 ml Documented by: Ticagrelor (Brilinta) 90 mg PO BID TIM Last Admin: 02/16/19 21:24 Dose: 90 mg Documented by: Assessment/Plan All Active Problems (Last Reviewed 08/02/18 @ 09:56 by Gregorio Umanzor MD) Hydronephrosis (Acute) Urinary tract infection (Acute) History of coronary artery stent placement (Resolved 05/20/18) Left ear pain (Resolved) 83 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 cancel renal u/s and proceed with CT urogram for further evaluation. will need cystoscopy, but this can be done as an outpatient. continue antibiotics for the urinary tract infection and await final culture report. Thank you for the consultation.
[2019-02-17 08:46] VITALS: BP 159/76; PULSE 72; RESP 18; TEMP 36.9; O2SAT 97
--- NOTE | 2019-02-17 09:35 | PN_ITS ---
Patient Problems: Active and Suspected Problems (Last Reviewed 02/17/19 @ 08:08 by Aleah Coffman MD) Hydronephrosis (Acute) Urinary tract infection (Acute) Subjective: Chief complaint: Follow-up after admission for acute cystitis, bifid right renal collecting system, right hydronephrosis. Patient seen and examined. No acute events overnight. She denies any more right flank pain. She denied urinary symptoms. She denied fever or chills. Her vital signs are stable. - Physical Exam Vitals/I&O's: Vital Signs Temp Pulse Resp BP Pulse Ox 98.2 F 68 18 167/83 H 96 02/17/19 02:46 02/17/19 02:46 02/17/19 02:46 02/17/19 02:46 02/17/19 02:46 Oxygen Delivery Method Room Air Weight: 184 lb 15.485 oz Body Mass Index (BMI) 32.8 Intake and Output for Last 24 Hours 02/15/19 02/16/19 02/17/19 23:59 23:59 23:59 Intake Total 50 / 450 5162.92 / 5762.92 0 / 2090 Output Total 250 / 1150 2200 / 2200 Balance 50 / 450 4912.92 / 4612.92 -110 / -110 General: Alert, Oriented x3, Cooperative, No apparent distress HEENT: Atraumatic, PERRLA, EOMI, Normocephalic Oral: Moist Mucosa, No Gingival or Mucosal Lesions/ Ulcerations Neck: Supple, No JVD, Negative Carotid Bruits, Trachea Midline, Thyroid Normal Size and Texture Lungs: Clear to auscultation, Normal air movement, No rhonchi, No wheeze, No rales, Diminished Cardiovascular: Regular rate, Regular Rhythm, Normal S1, Normal S2, PMI Normal Abdomen: Bowel Sounds Present, Soft, Non Tender, Non-Distended, No Hepato- splenomegaly Extremities: No clubbing, No cyanosis, No edema Skin: No rashes, No breakdown Lymphatic: No Cervical, Supraclavicular, or Inguinal Adenopathy Neurological: Cranial nerves II-XII grossly intact, Motor Exam 5/5 strength throughout Psych/Mental Status: Normal Affect, Appropriate, Alert and oriented to time, place, person, mood and affect Microbiology Past 72 Hours 02/15/19 18:23 Urine, Clean Catch 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1, MCH 30.2, MCHC 32.8, RDW Std Deviation 50.9 H, RDW Coeff of Arvind 15.1 H, Plt Count 212, MPV 9.8, Immature Gran % (Auto) 0.400, Neut % (Auto) 67.9, Lymph % (Auto) 21.2, [place] % (Auto) 9.5, Eos % (Auto) 0.7, Baso % (Auto) 0.3, Absolute Neuts (auto) 7.8 H, Absolute Lymphs (auto) 2.44, Nucleated RBC % 0 02/17/19 05:38: Sodium 144, Potassium 3.0 L, Chloride 112 H, Carbon Dioxide 26.0 , Anion Gap 6, BUN 14, Creatinine 0.78, Estim Creat Clear Calc 35.88, Est GFR (MDRD) Af Amer 91, Est GFR (MDRD) Non-Af 75, BUN/Creatinine Ratio 18.0, Glucose 112 H, Calcium 8.5 02/17/19 06:06: POC Glucose 116 H Clinical Impression(s) from Imaging Studies Abdomen/Pelvis CT 02/15/19 17:59 IMPRESSION: 1. Bifid right renal collecting system. There is hydronephrosis and ureterectasis to the urinary bladder without visualized filling defect. There is high density material within the dilated calyces and right upper pole proximal ureter. Question hemorrhage. This could be confirmed sonographically. 2. Nonobstructing left renal calculus.. 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 4. Splenic granulomata. 5. Degenerative changes of the lumbar spine. 6. Atherosclerotic changes of the aorta. 7. Status post hysterectomy. Electronically Signed: Armand Pack DO at 20:02 EST Tel [phone], Service support , Abdomen/Pelvis CT 02/17/19 07:36 IMPRESSION: Minimal residual fullness of the left renal pelvis. Persistent right ureteral dilatation without a filling defect. Electronically Signed: Jose Underwood, at 9:11 EST , Service support , Current Medications Acetaminophen (Tylenol) 650 mg PO Q6H PRN PRN PRN Reason: Pain Score 1-3/Temp > 100.7 F Last Admin: 02/16/19 05:31 Dose: 650 mg Documented by: Allopurinol (Zyloprim) 100 mg PO DINNER [facility] Last Admin: 02/16/19 16:31 Dose: 100 mg Documented by: Aspirin (Ecotrin) 81 mg PO DAILY@0800 [facility] Last Admin: 02/16/19 09:22 Dose: 81 mg Documented by: Atorvastatin Calcium (Lipitor) 40 mg PO QHS [facility] Last Admin: 02/16/19 21:24 Dose: 40 mg Documented by: Chlorthalidone (Hygroton) 12.5 mg PO DAILY [facility] Last Admin: 02/16/19 09:23 Dose: 12.5 mg Documented by: Dextrose (D50w Syringe) 0 gm IV X1 PRN; Protocol PRN Reason: Hypoglycemia Glucagon () 1 mg IM .X1 PRN PRN Reason: Hypoglycemia Hydralazine HCl (Apresoline Iv) 10 mg IV Q4H PRN PRN PRN Reason: SBP>180 OR DBP>100 Sodium Chloride () 1,000 mls @ 100 mls/hr IV .Q10H [facility] Last Admin: 02/17/19 06:23 Dose: 100 mls/hr Documented by: Ceftriaxone Sodium 2 gm/ (Sodium Chloride) 50 mls @ 100 mls/hr IV Q24 [facility] Last Infusion: 02/16/19 09:55 Dose: Infused Documented by: Sodium Chloride () 250 mls @ 15 mls/hr IV .[id number] PRN PRN Reason: Saline Flush Insulin Glargine (Lantus (Bk)) 10 units SC QHS [facility] Last Admin: 02/16/19 21:23 Dose: 10 units Documented by: Insulin Human Lispro (Humalog Kwikpen ([facility])) 0 unit SC ACHS [facility]; Protocol Last Admin: 02/17/19 06:19 Dose: Not Given Documented by: Isosorbide Mononitrate (Imdur) 60 mg PO DAILY [facility] Last Admin: 02/16/19 09:25 Dose: 60 mg Documented by: Losartan Potassium (Cozaar) 100 mg PO DINNER [facility] Last Admin: 02/16/19 16:32 Dose: 100 mg Documented by: Metoprolol Tartrate (Lopressor (Beta Geovany)) 25 mg PO BID [facility] Last Admin: 02/16/19 21:24 Dose: 25 mg Documented by: Morphine Sulfate () 2 mg IV Q3H PRN PRN PRN Reason: Pain Score 6-10/10 Ondansetron HCl (Zofran) 4 mg IV Q8H PRN PRN PRN Reason: NAUSEA/VOMITING Last Admin: 02/16/19 13:09 Dose: 4 mg Documented by: Oxycodone HCl (Oxyir) 5 mg PO Q4H PRN PRN PRN Reason: Pain Score 4-5/10 Last Admin: 02/16/19 16:26 Dose: 5 mg Documented by: Promethazine HCl (Phenergan) 6.25 mg IV Q6H PRN PRN PRN Reason: NAUSEA/VOMITING Last Admin: 02/16/19 04:48 Dose: 6.25 mg Documented by: Sodium Chloride () 10 - 40 ml IV UD PRN PRN Reason: SALINE FLUSH Last Admin: 02/16/19 02:34 Dose: 10 ml Documented by: Ticagrelor (Brilinta) 90 mg PO BID [facility] Last Admin: 02/16/19 21:24 Dose: 90 mg Documented by: Medical Necessity - Tobacco Use Smoking Status: Never smoker Assessment/Plan All Active Problems (Last Reviewed 02/17/19 @ 08:08 by Aleah Coffman MD) Hydronephrosis (Acute) Urinary tract infection (Acute) History of coronary artery stent placement (Resolved 05/20/18) Left ear pain (Resolved)
[2019-02-17] MEDS: Aspirin E.C. 81 MG Tablet PO (09:58)
[2019-02-17] MEDS: 0.9% Saline Lock 10 ML Syringe IV (09:59)
[2019-02-17] MEDS: Isosorbide Mononitrate 60 MG Tablet PO (10:00)
[2019-02-17] MEDS: Chlorthalidone 50 MG Tablet 12.5 MG PO (10:00)
[2019-02-17 10:20] VITALS: PULSE 78
[2019-02-17] MEDS: Metoprolol Tartrate 25 MG Tablet PO (10:20)
[2019-02-17 13:06] LABS: Bedside Glucose 151 mg/dL (70-110)
--- NOTE | 2019-02-17 13:35 | DCINST_ITS ---
- Discharge Diagnoses Current Active Problems: Current Active and Chronic Problems (Last Reviewed 02/17/19 @ 08:08 by Aleah Coffman MD) Hydronephrosis (Acute) Urinary tract infection (Acute) You will use the following diet at home:: Calorie/Carbohydrate Controlled (specify 1200, 1400, etc) - 1800 ciro., Cardiac Your food should be the consistency of: Regular Discharge Activity: Return to Normal Activity Weight Bearing Status: Weight bearing as tolerated Call your doctor if you observe: Fever of 101 or Higher, Shortness of breath, Dizziness, Fainting spells, Chest pain, Increased palpitations (irregular heartbeat), Uncontrolled pain Allergies/Adverse Reactions: Allergies Penicillins Allergy (Verified 08/02/18 09:27) Rash Tetanus Vaccines and Toxoid Allergy (Verified 08/02/18 09:27) Hives Medications to take at Discharge chlorthalidone 25 mg tablet 12.5 mg PO DAILY 06/07/18 pioglitazone 15 mg tablet 15 mg PO BID tab 06/07/18 Allopurinol [Zyloprim] 100 mg PO DINNER 07/02/18 Glimepiride [Amaryl] 1 mg PO LUNCH 07/02/18 Aspirin E.C. [Ecotrin] 81 mg PO DAILY@0800 02/15/19 Atorvastatin Calcium 40 mg PO QHS 02/15/19 Isosorbide Mononitrate [Imdur] 60 mg PO DAILY 02/15/19 Losartan Potassium 25 mg PO DINNER 02/15/19 Metoprolol Tartrate [Lopressor (beta brynn)] 25 mg PO BID 02/15/19 Ticagrelor [Brilinta] 90 mg PO BID 02/15/19 Cefdinir [Omnicef [equiv]] 300 mg PO Q12H #14 cap 02/17/19 The following prescriptions were given: Cefdinir [Omnicef [equiv]] 300 mg PO Q12H #14 cap Prescription Printed Primary Care Physician: Casey Smith MD [Primary Care Provider] - Please follow up with your Primary Care Physician in: 2 weeks. Test Results: Test results from this visit will be discussed in further detail at your follow- up appointment, if applicable. Please Follow Up With: Aleah Coffman MD When: 1 weeks.
[2019-02-17] MEDS: TICAGRELOR 90 MG TABLET PO (13:49)
[2019-02-17 14:01] VITALS: BP 149/79; PULSE 65; RESP 16; TEMP 36.7; O2SAT 98
--- NOTE | 2019-02-17 14:10 | CASEMGMT ---
RN CM Face to Face with patient for initial transition planning/care coordination assessment. RN CM introduced self and role at [facility]. Patient lying in bed, alert and oriented, and daughter at bedside. Patient willing to participate in assessment and is able to answer all questions appropriately. Care providers, pharmacy, and demographics verified. Patient wishes to discharge home, denies need for home health at this time. Patient states she has no further needs or concerns at this time. CM to follow for discharge planning needs that may arise. PCP: Luis Specialists: Erna rn rehabilitation; Meghna Urologist Preferred Pharmacy: [facility] Insurance: [facility] Prescription Benefit: yes Living Will/HPOA: yes, on file LNOK: , daughter, son Living Arrangements: [facility] with no steps to enter. Patient independent at home. Transportation: self, family DME/HHC: Patient has tub bench, raised toilet, cane, walker, rollator, grab bars. Patient denies previous HHC or SNF. Disposition Plan: Patient to discharge home with family support and follow-up plans in place. Ava SAINZ, RN, CM
--- NOTE | 2019-02-17 14:11 | CHAPLAIN ---
Type of Pastoral Visit _x__ Initial Visit ___ Follow-up Visit ___ On-call Visit ___ General Patient Visit ___ Spiritual Assessment ___ Family Conference ___ Bereavement ___ Rapid Response ___ Code Blue ___ Other (describe below) Pastoral Care Referral From _x__ Patient ___ Family ___ Nurse ___ Physician ___ Center Maker Hand ___ Help Desk Team Leader ___ Other (describe below) Sacrament/Intervention _x__ Active listening ___ Anointing ___ [facility] ___ Bereavement ___ Communion _x__ Chrystal exploration ___ _x__ Life review _x__ Prayer ___ Reconciliation ___ Sacrament of Sick _x__ Supportive presence ___ Wedding ___ Other (describe below) Pastoral Comments
--- NOTE | 2019-02-17 14:28 | PCM.DC.SUM ---
Discharge Date and Diagnosis - Problem List Patient Problems: Active and Suspected Problems (Last Reviewed 02/17/19 @ 08:08 by Aleah Coffman MD) Hydronephrosis (Acute) Urinary tract infection (Acute) Date of Admission: 02/15/19 Date of Discharge: 02/17/19 - Primary Discharge Diagnosis Active and Suspected Problems (Last Reviewed 02/17/19 @ 08:08 by Aleah Coffman MD) #1 E. coli acute cystitis/pyelonephritis. #2 right hydronephrosis, resolved. #3 persistent right ureteral dilatation. - Secondary Discharge Diagnosis Chronic Problems (Last Reviewed 02/17/19 @ 08:08 by Aleah Coffman MD) Hyperlipidemia (Chronic) Essential (primary) hypertension (Chronic) History of coronary artery stent placement (Chronic 05/20/18) [id number] RCA w/ 4.0 x 18 mm Resolute and JUJU-Mid RCA w/ 4.0 x 15 mm Resolute 05/20/18 Atherosclerosis of coronary artery of [place] heart without angina pectoris (Chronic) TPN-PSD-Eonj RCA w/ 4.0 x 18 mm Resolute and JUJU-Mid RCA w/ 4.0 x 15 mm Resolute 05/20/18 ST elevation (STEMI) myocardial infarction (Chronic) Hospital Course and Treatment Imaging Results: 02/17/19 07:36 CT Abd/Pelvis W/WO Contrast [CT] Routine Clinical Impression(s) from Imaging Studies Abdomen/Pelvis CT 02/15/19 17:59 IMPRESSION: 1. Bifid right renal collecting system. There is hydronephrosis and ureterectasis to the urinary bladder without visualized filling defect. There is high density material within the dilated calyces and right upper pole proximal ureter. Question hemorrhage. This could be confirmed sonographically. 2. Nonobstructing left renal calculus.. 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 4. Splenic granulomata. 5. Degenerative changes of the lumbar spine. 6. Atherosclerotic changes of the aorta. 7. Status post hysterectomy. Electronically Signed: Armand Pack DO at 20:02 EST Tel [phone], Service support , Abdomen/Pelvis CT 02/17/19 07:36 IMPRESSION: Minimal residual fullness of the left renal pelvis. Persistent right ureteral dilatation without a filling defect. Electronically Signed: Jose Underwood, at 9:11 EST , Service support , Dr. Coffman, urology. Operations: None Procedures: None Summary of Care Provided: Patient seen and examined on the day of discharge and to be to be stable to be discharged home. She has normal symptoms, no right flank pain. Denies urinary symptoms. Denied fever or chills. Her vital signs are stable. The patient is a 83 year old F patient admitted because of right flank pain and she was found to have acute cystitis with acute pyelonephritis and also found to have right hydronephrosis on CT scan abdomen that was done on admission. Urinalysis revealed cloudy urine, positive for nitrite, more than 100 RBCs and there was 50-100 WBCs and 1+ bacteria. On admission, CT scan abdomen and pelvis without contrast done and revealed Bifid right renal collecting system with right hydronephrosis and nonobstructing left kidney stone. Patient was treated with IV fluids and IV antibiotics. She did have leukocytosis on admission and with IV antibiotic, patient remained afebrile throughout the stay and her white blood cell count returned back almost back to normal. Urine culture revealed E. coli that was pansensitive. Urology consulted and recommended CT scan abdomen and pelvis with and without contrast which was done and revealed minimal residual fullness of the left renal pelvis and persistent right ureteral dilatation without evidence of filling defects. Patient had no more symptoms and she has been urinating normally. Her kidney function was normal. After discussion with urology, decision was made to discharge patient home today on oral antibiotics and plan to follow-up with urology for probable cystoscopy as outpatient. Patient discharged home in a stable condition, discharged on cefdinir 300 mg p.o. twice daily for 7 days of treatment, plan to follow-up with urology in 1 week, follow-up with PCP in 2 weeks. Patient Problems: Active and Suspected Problems (Last Reviewed 02/17/19 @ 08:08 by Aleah Coffman MD) Hydronephrosis (Acute) Urinary tract infection (Acute) - Physical Exam Vitals/I&O's: Vital Signs Temp Pulse Resp BP Pulse Ox 98.0 F 65 16 149/79 H 98 02/17/19 14:01 02/17/19 14:01 02/17/19 14:01 02/17/19 14:01 02/17/19 14:01 Oxygen Delivery Method Room Air Weight: 184 lb 15.485 oz Body Mass Index (BMI) 32.8 Intake and Output for Last 24 Hours 02/15/19 02/16/19 02/17/19 23:59 23:59 23:59 Intake Total 50 / 450 5162.92 / 5762.92 2140 / 2140 Output Total 250 / 1150 2200 / 2200 Balance 50 / 450 4912.92 / 4612.92 -60 / -60 General: Alert, Oriented x3, Cooperative, No apparent distress HEENT: Atraumatic, PERRLA, EOMI, Normocephalic Oral: Moist Mucosa, No Gingival or Mucosal Lesions/ Ulcerations Neck: Supple, No JVD, Negative Carotid Bruits, Trachea Midline, Thyroid Normal Size and Texture Lungs: Clear to auscultation, Normal air movement, No rhonchi, No wheeze, No rales, Diminished Cardiovascular: Regular rate, Regular Rhythm, Normal S1, Normal S2, PMI Normal Abdomen: Bowel Sounds Present, Soft, Non Tender, Non-Distended, No Hepato-splenomegaly Extremities: No clubbing, No cyanosis, No edema Skin: No rashes, No breakdown Lymphatic: No Cervical, Supraclavicular, or Inguinal Adenopathy Neurological: Cranial nerves II-XII grossly intact, Neuro grossly intact Psych/Mental Status: Normal Affect, Appropriate Microbiology Past 72 Hours 02/15/19 18:23 Urine, Clean Catch Urine Culture - Final Escherichia coli Laboratory Results 02/16/19 11:49: POC Glucose 183 H 02/16/19 13:46: Urine Color Red, Urine Clarity Cloudy, Urine pH 5.0, Ur Specific [place] 1.015, Urine Protein 500 H, Urine Glucose (UA) Normal, Urine Ketones 5 H, Urine Occult Blood 250 H, Urine Nitrite Positive H, Urine Bilirubin Negative, Urine Urobilinogen Normal, Ur Leukocyte Esterase 100 H, Urine RBC > 100 SEEN, Urine WBC 50-100 SEEN, Ur Squamous Epith Cells 0 SEEN, Urine Bacteria 1+, Urine Mucus 0 SEEN 02/16/19 16:36: POC Glucose 137 H 02/16/19 21:09: POC Glucose 140 H 02/17/19 05:38: WBC 11.5 H, RBC 3.91 L, Hgb 11.8 L, Hct 36.0 L, MCV 92.1, MCH 30.2, MCHC 32.8, RDW Std Deviation 50.9 H, RDW Coeff of Arvind 15.1 H, Plt Count 212, MPV 9.8, Immature Gran % (Auto) 0.400, Neut % (Auto) 67.9, Lymph % (Auto) 21.2, [place] % (Auto) 9.5, Eos % (Auto) 0.7, Baso % (Auto) 0.3, Absolute Neuts (auto) 7.8 H, Absolute Lymphs (auto) 2.44, Nucleated RBC % 0 02/17/19 05:38: Sodium 144, Potassium 3.0 L, Chloride 112 H, Carbon Dioxide 26.0, Anion Gap 6, BUN 14, Creatinine 0.78, Estim Creat Clear Calc 35.88, Est GFR (MDRD) Af Amer 91, Est GFR (MDRD) Non-Af 75, BUN/Creatinine Ratio 18.0, Glucose 112 H, Calcium 8.5 02/17/19 06:06: POC Glucose 116 H 02/17/19 13:00: POC Glucose 151 H Current Medications Acetaminophen (Tylenol) 650 mg PO Q6H PRN PRN PRN Reason: Pain Score 1-3/Temp > 100.7 F Last Admin: 02/16/19 05:31 Dose: 650 mg Documented by: Allopurinol (Zyloprim) 100 mg PO DINNER [facility] Last Admin: 02/16/19 16:31 Dose: 100 mg Documented by: Aspirin (Ecotrin) 81 mg PO DAILY@0800 [facility] Last Admin: 02/17/19 09:58 Dose: 81 mg Documented by: Atorvastatin Calcium (Lipitor) 40 mg PO QHS [facility] Last Admin: 02/16/19 21:24 Dose: 40 mg Documented by: Chlorthalidone (Hygroton) 12.5 mg PO DAILY [facility] Last Admin: 02/17/19 10:00 Dose: 12.5 mg Documented by: Dextrose (D50w Syringe) 0 gm IV X1 PRN; Protocol PRN Reason: Hypoglycemia Glucagon () 1 mg IM .X1 PRN PRN Reason: Hypoglycemia Hydralazine HCl (Apresoline Iv) 10 mg IV Q4H PRN PRN PRN Reason: SBP>180 OR DBP>100 Ceftriaxone Sodium 2 gm/ (Sodium Chloride) 50 mls @ 100 mls/hr IV Q24 [facility] Last Infusion: 02/17/19 10:29 Dose: Infused Documented by: Sodium Chloride () 250 mls @ 15 mls/hr IV .[id number] PRN PRN Reason: Saline Flush Insulin Glargine (Lantus ([facility])) 10 units SC QHS [facility] Last Admin: 02/16/19 21:23 Dose: 10 units Documented by: Insulin Human Lispro (Humalog Kwikpen ([facility])) 0 unit SC ACHS [facility]; Protocol Last Admin: 02/17/19 13:01 Dose: Not Given Documented by: Isosorbide Mononitrate (Imdur) 60 mg PO DAILY [facility] Last Admin: 02/17/19 10:00 Dose: 60 mg Documented by: Losartan Potassium (Cozaar) 100 mg PO DINNER [facility] Last Admin: 02/16/19 16:32 Dose: 100 mg Documented by: Metoprolol Tartrate (Lopressor (Beta Geovany)) 25 mg PO BID [facility] Last Admin: 02/17/19 10:20 Dose: 25 mg Documented by: Morphine Sulfate () 2 mg IV Q3H PRN PRN PRN Reason: Pain Score 6-10/10 Ondansetron HCl (Zofran) 4 mg IV Q8H PRN PRN PRN Reason: NAUSEA/VOMITING Last Admin: 02/16/19 13:09 Dose: 4 mg Documented by: Oxycodone HCl (Oxyir) 5 mg PO Q4H PRN PRN PRN Reason: Pain Score 4-5/10 Last Admin: 02/16/19 16:26 Dose: 5 mg Documented by: Promethazine HCl (Phenergan) 6.25 mg IV Q6H PRN PRN PRN Reason: NAUSEA/VOMITING Last Admin: 02/16/19 04:48 Dose: 6.25 mg Documented by: Sodium Chloride () 10 - 40 ml IV UD PRN PRN Reason: SALINE FLUSH Last Admin: 02/17/19 09:59 Dose: 10 ml Documented by: Ticagrelor (Brilinta) 90 mg PO BID [facility] Last Admin: 02/17/19 13:49 Dose: 90 mg Documented by: Discharge Activity: Return to Normal Activity Weight Bearing Status: Weight bearing as tolerated Call your doctor if you observe: Fever of 101 or Higher, Shortness of breath, Dizziness, Fainting spells, Chest pain, Increased palpitations (irregular heartbeat), Uncontrolled pain Home Medications: Medications to take at Discharge chlorthalidone 25 mg tablet 12.5 mg PO DAILY 06/07/18 pioglitazone 15 mg tablet 15 mg PO BID tab 06/07/18 Allopurinol [Zyloprim] 100 mg PO DINNER 07/02/18 Glimepiride [Amaryl] 1 mg PO LUNCH 07/02/18 Aspirin E.C. [Ecotrin] 81 mg PO DAILY@0800 02/15/19 Atorvastatin Calcium 40 mg PO QHS 02/15/19 Isosorbide Mononitrate [Imdur] 60 mg PO DAILY 02/15/19 Losartan Potassium 25 mg PO DINNER 02/15/19 Metoprolol Tartrate [Lopressor (beta geovany)] 25 mg PO BID 02/15/19 Ticagrelor [Brilinta] 90 mg PO BID 02/15/19 Cefdinir [Omnicef [equiv]] 300 mg PO Q12H #14 cap 02/17/19 Following Prescrptions Were Given to Patient: Cefdinir [Omnicef [equiv]] 300 mg PO Q12H #14 cap Prescription Printed Primary Care Physician: Casey Smith MD [Primary Care Provider] - Please follow up with your Primary Care Physician in: 2 weeks. Please Follow Up With: Aleha Coffman MD When: Sunday Disposition: Home Minutes spent on discharge:: 28 Patient Condition:: Stable Medical Necessity - Tobacco Use Smoking Status: Never smoker Meaningful Use Info Meaningful Use Diagnoses (Choose all that apply): None applicable Code Visit Inpatient E&M: 03682 Disch Hosp
--- NOTE | 2019-02-18 14:44 | CASEMGMT ---
Case Management DC F/u Call: DC Date: 02/17/19 DC Diagnosis: #1 E. coli acute cystitis/pyelonephritis. #2 right hydronephrosis, resolved. #3 persistent right ureteral dilatation. DC Disposition: Home Lace/Strata: 12/12 Called patient listed home number in demographics, patient answered and this writer producer introduced self and role. Patient states she is doing great, filled out [employer] cards today. Had a question regarding her not having a BM since Sunday she believes and usually goes daily-inquiring about what to take or how long to wait. This writer producer discussed/educated on fluid intake, and foods high in fiber, mobility to increase bowel motility. Patient states was receiving pain medication in the hospital and this writer producer educated on how that can slow bowel motility. Advised to call PCP and discuss appropriate OTC stool softners to take and schedule a f/u appointment. Also discussed can s/w pharmacist regarding OTC stool softners where she purchases from. Denies dicomfort/cramping/bloating from lack of BM at this time. Confirmed has a f/u appointment with Urology 02/24/19 at 1100. Confirmed has been taking her DC rx PO abx. Denies any issues, concerns, or questions with [facility], medications, or f/u. Thanked patient for choosing care at [facility] and ended conversation. Delano Maria RNCM
== END 2019-02-17 14:47 | disposition home or self-care (01) | DRG 690 ==
LOC: ED 18:18 → MS3 20:41
PROVIDERS: Internal Medicine; Admitting Provider Family Medicine; Emergency Provider Emergency Medicine; Family Provider Family Medicine; PCP Family Medicine; Visit Provider Hospitalist
DX: N30.01 Acute cystitis with hematuria (principal); N13.30 Unspecified hydronephrosis; N10 Acute pyelonephritis; I25.10 Atherosclerotic heart disease of native coronary artery without angina pectoris; E78.5 Hyperlipidemia, unspecified; I10 Essential (primary) hypertension; E11.9 Type 2 diabetes mellitus without complications; Q62.8 Other congenital malformations of ureter; B96.20 Unspecified Escherichia coli [E. coli] as the cause of diseases classified elsewhere; N28.82 Megaloureter; Z79.84 Long term (current) use of oral hypoglycemic drugs; Z87.442 Personal history of urinary calculi; I25.2 Old myocardial infarction; Z95.5 Presence of coronary angioplasty implant and graft
CPT/HCPCS: 36415; 74176; 74178; 80048; 80053; 81001; 82962; 85025; 87077; 87086; 87088; 87186; 97161; 97165; 99284; J7030; Q9967; A4216; J0696; J2405

== ENCOUNTER → 2019-04-30 16:47 | Outpatient (CLI) | payer MEDICARE, OTHER, SELFPAY ==
[2018-05-20 11:33] VITALS: BMI 34.7
[2019-04-30 18:04] LABS: Absolute Lymphocyte Count 3.05 X10^3/uL (0.83-4.51); Basophil# 0.05 X10^3/uL; Basophil% 0.5 % (0-1); Eosinophil# 0.15 X10^3/uL; Eosinophils% 1.5 % (0-5); Hematocrit 39.9 % (37-47); Hemoglobin 12.8 g/dL (12.0-15.0); Lymphocyte # 3.05 X10^3/ul (4.0); Lymphocyte % 30.4 % (19-41); Mean Corp Hgb Conc 32.1 g/dL (32-36); Mean Corpuscular Hgb 29.2 pg (27.0-32.0); Mean Corpuscular Volume 90.9 fL (81-99); Monocyte# 0.72 X10^3/uL; Monocyte% 7.2 % (0-10); NRBC Flagged by Analyzer 0 % (0-5); Neutrophil # 6.01 X10^3/uL (2.7-7.7); Neutrophil % 59.9 % (47-70); Platelet Count 281 K/mm3 (150-450); RBC Distribution Width CV 14.9 % (11.6-14.6); RBC Distribution Width SD 49.5 fl (35.1-43.9); Red Blood Count 4.39 M/mm3 (4.2-5.4)
[2019-04-30 18:31] LABS: ALB/GLOB Ratio 0.9 RATIO (0.9-2.4); AST(SGOT) 22 U/L (15-37); Alanine Aminotransfer ALT/SGPT 37 U/L (13-56); Albumin, Serum 3.6 g/dL (3.2-5.0); Alkaline Phosphatase 100 U/L (45-117); Anion Gap 5 (5-15); BUN 24 mg/dL (7-18); BUN/Creat Ratio 23.1 RATIO (10-20); Calcium,Total 9.4 mg/dL (8.5-10.1); Chloride 110 mmol/L (98-107); Creatinine, Serum 1.04 mg/dL (0.55-1.02); EST Glomerular Filtration Rate 54 mL/min (>60); Est Glom Filt Rate - Afr Amer 65 mL/min (>60); Globulin 4.2 g/dL (2.2-4.2); Glucose 93 mg/dL (74-106); Potassium 3.2 mmol/L (3.5-5.1); Protein, Total 7.8 g/dL (6.4-8.2); Sodium Level 142 mmol/L (136-145); Thyroid Stim Hormone (TSH) 3.59 uIU/mL (0.358-3.74)
== END ==
PROVIDERS: PCP Family Medicine; Referring Provider Family Medicine; Visit Provider Family Medicine
DX: R06.02 Shortness of breath (principal); I10 Essential (primary) hypertension
CPT/HCPCS: 36415; 80053; 84443; 85025

== ENCOUNTER → 2019-05-21 10:44 | Outpatient (CLI) | payer MEDICARE, OTHER, SELFPAY ==
[2018-05-20 11:33] VITALS: BMI 34.7
[2019-05-21 12:37] LABS: Anion Gap 6 (5-15); BUN 21 mg/dL (7-18); BUN/Creat Ratio 18.1 RATIO (10-20); Calcium,Total 9.4 mg/dL (8.5-10.1); Chloride 109 mmol/L (98-107); Creatinine, Serum 1.16 mg/dL (0.55-1.02); EST Glomerular Filtration Rate 47 mL/min (>60); Est Glom Filt Rate - Afr Amer 57 mL/min (>60); Glucose 173 mg/dL (74-106); Potassium 3.6 mmol/L (3.5-5.1); Sodium Level 141 mmol/L (136-145)
== END ==
PROVIDERS: PCP Family Medicine; Referring Provider Family Medicine; Visit Provider Family Medicine
DX: E87.6 Hypokalemia (principal)
CPT/HCPCS: 36415; 80048

== ENCOUNTER → 2019-07-31 08:49 | Outpatient (CLI) | payer MEDICARE, OTHER, SELFPAY ==
[2018-05-20 11:33] VITALS: BMI 34.7
[2019-07-24 10:30] VITALS: BMI 32.2
[2019-07-31 10:32] LABS: Anion Gap 7 (5-15); BUN 15 mg/dL (7-18); BUN/Creat Ratio 17.4 RATIO (10-20); Calcium,Total 9.2 mg/dL (8.5-10.1); Chloride 110 mmol/L (98-107); Cholesterol 135 mg/dL (200); Creatinine, Serum 0.86 mg/dL (0.55-1.02); EST Glomerular Filtration Rate 67 mL/min (>60); Est Glom Filt Rate - Afr Amer 81 mL/min (>60); Glucose 137 mg/dL (74-106); High Density Lipoprotein 44 mg/dL; Potassium 3.6 mmol/L (3.5-5.1); Sodium Level 142 mmol/L (136-145); Triglycerides 158 mg/dL; Very Low Density Lipoprotein 32 mg/dL (5-40)
== END ==
PROVIDERS: PCP Family Medicine; Referring Provider Family Medicine; Visit Provider Family Medicine
DX: E11.9 Type 2 diabetes mellitus without complications (principal)
CPT/HCPCS: 36415; 80048; 80061

== ENCOUNTER 2019-09-22 00:17 | Inpatient (IN) | payer MEDICARE, OTHER, SELFPAY ==
[2018-05-20 11:33] VITALS: BMI 34.7
[2019-07-24 10:30] VITALS: BMI 32.2
[2019-09-22] VITALS (37 sets, daily range): BP systolic 116–220; BP diastolic 43–133; PULSE 32–81; RESP 13–22; TEMP 36.2–37.1; O2SAT 95–100; BMI 31.6; BMI 31.4
--- NOTE | 2019-09-22 00:26 | EKG12_ITS ---
Test Reason : REPEAT Blood Pressure : / mmHG Vent. Rate : 032 BPM Atrial Rate : 032 BPM P-R Int : 000 ms QRS Dur : 100 ms QT Int : 546 ms P-R-T Axes : 066 027 026 degrees QTc Int : 398 ms Third Degree Heart Block Nonspecific ST abnormality Abnormal ECG Confirmed by ADRIANA YANES, LISANDRA ([id number]), mapping editor KERRIE AVALOS ([id number]) on 09/22/2019 1:18:07 PM Referred By: LIZZIE Confirmed By:LISANDRA WRIGHT MD
--- NOTE | 2019-09-22 00:27 | ED.VIS.GEN ---
History of Present Illness Chief Complaint: Shortness of Breath Narrative: Patient presenting for evaluation secondary to shortness of breath. Patient has an underlying history of coronary artery disease with 2 stents in the past. Patient states that over the course of the last couple of weeks she has been dealing with exertional dyspnea and some fatigue. She does state that she has been having some lower extremity swelling. Patient states that when she becomes short of breath, she stops to rest she has improvement. Patient denies that she is had any chest pain with this. She does occasionally have some nausea. No vomiting, fevers, diarrhea, sick contacts. Patient tells me that she has a history of a slow heart rate. She denies any DVT or PE risk factors, or history of such. Review of systems otherwise negative. Past Medical History - Allergies and Home Meds Allergies/Adverse Reactions: Allergies Penicillins Allergy (Verified 07/24/19 10:32) Rash Tetanus Vaccines and Toxoid Allergy (Verified 07/24/19 10:32) Hives Primary Care Physician: Casey Smith MD [Primary Care Provider] - Prior records reviewed: Yes Past Medical History: - - Coronary artery disease, diabetes, hypertension Surgical History: hysterectomy, tonsillectomy Smoking Status: Never smoker - Family History Paternal Family History: Family History (Last Reviewed 07/24/19 @ 10:[address] Gregorio Umanzor MD) Father Heart disease Family History: Reports: Heart Disease Review of Systems All systems negative except as indicated General: Denies: Chills, Fever, Sweats Eyes: Denies: Visual changes - bilaterally, Diplopia ENT: Denies: Rhinorrhea, Sore throat Cardiovascular: Denies: Chest pain, Palpitations Respiratory: Reports: Dyspnea, Dyspnea on exertion Gastrointestinal: Denies: Abdominal pain, Nausea, Vomiting, Diarrhea, Melena, Hematochezia Genitourinary: Denies: Dysuria, Hematuria, Frequency Musculoskeletal: Reports: Swelling Skin: Denies: Rash, Wounds Neurological: Denies: Headache, Weakness, Numbness Physical Exam Vital Signs/Narrative: Vital Signs Temp Pulse Resp BP Pulse Ox 09/22/19 00:19 98.3 F 40 L 16 189/133 H 98 09/22/19 00:17 98.3 F 37 L 16 189/133 H 100 Inital Vital Signs reviewed: Yes General: Well nourished, Well developed, Obese, No Acute Distress Head: Normocephalic, Atraumatic Eyes: Perrl, EOMI ENT: Moist mucous membranes, No rhinorrhea Neck: Supple, Nontender Cardiovascular: Regular rhythm, No murmurs, Bradycardia, - - 2+ radial, 2+ DP pulses bilaterally symmetric Respiratory: No distress, CTA bilaterally, Chest nontender Abdomen: Soft, Nontender, Nondistended, Normal bowel sounds Back: Nontender, Normal Inspection Extremities: Nontender, Edema Skin: Normal color, No rash Neurological: Alert, Oriented x3, Cranial nerves II-XII grossly intact, Normal Strength, Normal Sensation Psychological: Normal affect, Normal Mood Diagnostic/Tx/Re-eval - Rhythm Strip Rhythm Strip: Third-degree heart block with a rate of 32 - EKG Initial EKG Interpretation: - - Sinus bradycardia with a ventricular rate of 38. Isoelectric ST segments normal T waves. U waves appear to be present in leads II, III, aVF and across the precordium. No apparent evidence of an AV block. Follow-up EKG Interpretation: - - Third-degree heart block with a ventricular rate of 32, isoelectric ST segments normal T waves - Medical Decision Making Patient presented secondary to shortness of breath. On physical exam she was noted to have a slow heart rate. Patient's initial EKG did not seem to demonstrate a block, but rather seemed as if there were U waves was sinus bradycardia. CBC chemistry troponin unremarkable. Chest x-ray by my personal review as well as radiology unremarkable. Review of the patient's telemetry seems to show evidence of a heart block, repeat EKG demonstrates third-degree heart block with dissociation of the P waves and QRS complexes. I believe that the patient requires admission. She has stable blood pressure at this time, normal mentation she does not require pacing or pressors. Patient will be admitted for cardiology evaluation, and determination whether or not she needs to cease her beta-brynn versus get a pacemaker. - Critical Care Time Critical care time (excluding procedures): 30-74 minutes ED Disposition - Plan for ED Patient: Disposition: Acute Care Hospital [facility] Diagnosis: Third degree heart block
--- NOTE | 2019-09-22 00:40 | RAD_ITS ---
STUDY: X-RAY CHEST REASON FOR EXAM: Female, 84 years old. HYPERTENSION, DIZZINESS, FEET SWELLING TECHNIQUE: PA and lateral COMPARISON: 07/02/2018. FINDINGS: The lungs demonstrate no focal lung consolidative change. There is no demonstrated pleural abnormality. Normal size heart. Normal mediastinum and doc. Normal visualized pulmonary arteries. There is atherosclerotic calcification of the aortic arch with tortuosity. There are diffuse degenerative changes of the visualized thoracic spine. Normal visualized ribs, clavicles, and shoulders. There is no demonstrated abnormality of the visualized soft tissue structures of the upper abdomen. RAD/Chest PA and Lateral IMPRESSION: No focal lung consolidative changes or interval change. Electronically Signed: Gerald Palacios, at 1:19 EDT Tel , Service support ,
[2019-09-22 00:43] LABS: Absolute Lymphocyte Count 4.37 X10^3/uL (0.83-4.51); Absolute Neutrophil Count 6.1 X10^3/uL (2.0-7.7); Basophil# 0.04 X10^3/uL; Basophil% 0.3 % (0-1); Eosinophil# 0.14 X10^3/uL; Eosinophils% 1.2 % (0-5); Hematocrit 42.1 % (37-47); Hemoglobin 13.9 g/dL (12.0-15.0); Lymphocyte # 4.37 X10^3/ul (4.0); Mean Corpuscular Hgb 29.9 pg (27.0-32.0); Mean Corpuscular Volume 90.5 fL (81-99); Monocyte% 9.3 % (0-10); NRBC Flagged by Analyzer 0 % (0-5); Neutrophil # 6.11 X10^3/uL (2.7-7.7); Neutrophil % 51.7 % (47-70); Platelet Count 300 K/mm3 (150-450); RBC Distribution Width CV 14.9 % (11.6-14.6); Red Blood Count 4.65 M/mm3 (4.2-5.4); White Blood Count 11.8 K/mm3 (4.4-11.0)
[2019-09-22 01:03] LABS: Anion Gap 8 (5-15); BUN 23 mg/dL (7-18); BUN/Creat Ratio 24.3 RATIO (10-20); Calcium,Total 9.4 mg/dL (8.5-10.1); Chloride 108 mmol/L (98-107); Creatinine, Serum 0.95 mg/dL (0.55-1.02); EST Glomerular Filtration Rate 60 mL/min (>60); Est Glom Filt Rate - Afr Amer 72 mL/min (>60); Estimated Creatinine Clearance 37.12 ml/min; Glucose 123 mg/dL (74-106); Magnesium 2.2 mg/dL (1.6-2.6); Potassium 4.3 mmol/L (3.5-5.1); Sodium Level 139 mmol/L (136-145)
--- NOTE | 2019-09-22 01:44 | PCM.HP.STD ---
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 Diabetes mellitus complication status: with other specified complication Qualified Code(s): E11.69 - Type 2 diabetes mellitus with other specified complication (2) Third degree heart block Status: Acute (3) Atherosclerosis of coronary artery of [place] heart without angina pectoris Status: Chronic Qualifiers: Coronary Disease-Associated Artery/Lesion type: [place] artery Qualified Code(s): I25.10 - Atherosclerotic heart disease of [place] coronary artery without angina pectoris (4) History of coronary artery stent placement Status: Chronic Comment: EOO-YKJ-Xefl RCA w/ 4.0 x 18 mm Resolute and JUJU-Mid RCA w/ 4.0 x 15 mm Resolute 05/20/18 (5) Essential (primary) hypertension Status: Chronic (6) Hyperlipidemia Status: Chronic Qualifiers: Hyperlipidemia type: unspecified Qualified Code(s): E78.5 - Hyperlipidemia, unspecified History of Present Illness Date of Admission: 09/22/19 Chief Complaint: Dizziness- 3-4 days The patient is a 84 year old F with past medical history of CAD status post stent, hypertension, type II DM, hyperlipidemia, comes in with complaints of dizziness and shortness of breath ongoing for 3 to 4 days. Patient states that she has chronic longstanding dizziness, worse anytime she bends to pick weeds in her garden. She denies that there has been any change to her medications. She has been on a beta-blockers for a long time. She noted that her heart rate through be slow. In the last 3 to 4 days, she is felt dizzy with any exertion as well as feeling short of breath. She denies having chest pain or PND. She has orthopnea. Vitals in the ED shows temperature of 90 8.3F, heart rate 37, blood pressure 189/133, respiratory to 16, SPO2 100% on room air. Admitting blood work shows WBC 11.8, Hb 13.9, Plt 300, Na 139, K 4.3, Cl 108, Co2 23, BUN 23, Cr 0.95, Mg 2.2, Troponin 0.015, BNpep 542.5. Chest x-ray shows no acute abnormality. Past Medical History Past Medical History (Chronic Problems): Chronic Problems (Last Reviewed 07/24/19 @ 10:[address] Gregorio Umanzor MD) DM type 2 (diabetes mellitus, type 2) (Chronic) Atherosclerosis of coronary artery of [place] heart without angina pectoris (Chronic) ST elevation (STEMI) myocardial infarction (Chronic 05/20/18) History of coronary artery stent placement (Chronic 05/20/18) [id number] RCA w/ 4.0 x 18 mm Resolute and JUJU-Mid RCA w/ 4.0 x 15 mm Resolute 05/20/18 Essential (primary) hypertension (Chronic) Hyperlipidemia (Chronic) Medical History: Medical History (Last Reviewed 07/24/19 @ 10:[address] Gregorio Umanzor MD) Atherosclerosis of coronary artery of [place] heart without angina pectoris (Chronic) I25.10 ST elevation (STEMI) myocardial infarction (Chronic) Onset Date: 05/20/18 I21.3 Essential (primary) hypertension (Chronic) I10 Hyperlipidemia (Chronic) E78.5 Gout M10.9 Obesity E66.9 Type 2 diabetes mellitus Onset Date: 05/20/18 E11.9 Hydronephrosis Onset Date: 02/2019 N13.30 Allergies Penicillins Allergy (Verified 07/24/19 10:32) Rash Tetanus Vaccines and Toxoid Allergy (Verified 07/24/19 10:32) Hives Home Medications: Ambulatory Orders Medication Instructions Recorded chlorthalidone 25 mg tablet 12.5 mg PO DAILY 06/07/18 pioglitazone 15 mg tablet 15 mg PO BID tab 06/07/18 Allopurinol [Zyloprim] 100 mg PO DINNER 07/02/18 Aspirin E.C. [Ecotrin] 81 mg PO DAILY@0800 02/15/19 isosorbide mononitrate 60 mg 60 mg PO DAILY #90 tab 05/19/19 tablet,extended release 24 hr metoprolol tartrate 25 mg tablet 25 mg PO BID #180 tab 05/19/19 ticagrelor 90 mg tablet 90 mg PO BID #180 tab 05/19/19 glimepiride 2 mg tablet 2 mg PO DAILY tab 07/24/19 losartan 25 mg tablet 25 mg PO DINNER tab 07/24/19 potassium chloride 10 mEq 10 meq PO DAILY tab 07/24/19 tablet,extended release atorvastatin 40 mg tablet 40 mg PO QHS #90 tab 08/18/19 Surgical History: Surgical History (Last Reviewed 07/24/19 @ 10:[address] 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 Gregorio Umanzor MD) Father Heart disease History Items: Heart Disease Maternal Family History: Family History (Last Reviewed 07/24/19 @ 10:[address] Gregorio Umanzor MD) Father Heart disease History Items: No pertinent history Review of Systems Constitutional: Reports: Fatigue. Denies: Anorexia, Chills, Fever, Malaise, Weakness, Weight Change Eyes: Denies: Blurred vision, Cataracts, Conjunctivae Inflammation, Pain, Redness, Vision Change HEENT: Denies: Difficulty Hearing, Difficulty Swallowing, Head Aches, Hearing Changes, Sinus Congestion, Sinus Drainage, Sore Throat Cardiovascular: Reports: Light Headedness, Orthopnea. Denies: Chest Pain, Claudication, Heaviness, Palpitations, Paroxysmal Noc. Dyspnea, Syncope Respiratory: Reports: Shortness of breath upon exertion. Denies: Cough, Hemoptysis, Shortness of breath at rest, Sputum production Gastrointestinal: Denies: Abdominal Pain, Nausea, Vomiting Genitourinary: Denies: Dysuria Gynecological: Denies: Breast symptoms, Excessively long or heavy periods Musculoskeletal: Denies: Joint Pain, Joint stiffness, Joint swelling, Joint Tenderness Skin: Denies: Rash, Wounds Neurological: Denies: Numbness, Tingling, Focal weakness Psychiatric: Denies: Anxiety, Depression, Homicidal Ideations, Suicidal Ideations Hematologic/ Lymphatic: Denies: Easy Bruising, Easy Bleeding VTE Information - Inpt Only VTE Present on Admission: No VTE Pharm Prophylaxis ordered?: Yes Patient Problems: Active and Suspected Problems (Last Reviewed 07/24/19 @ 10:[address] Gregorio Umanzor MD) Third degree heart block (Acute) - Physical Exam Vitals/I&O's: Vital Signs Temp Pulse Resp BP Pulse Ox 98.3 F 33 L 16 201/72 H 98 09/22/19 00:19 09/22/19 01:17 09/22/19 01:17 09/22/19 01:17 09/22/19 01:17 Oxygen Delivery Method Room Air Weight: 81.1 kg Body Mass Index (BMI) 31.6 General: Alert, Oriented x3, Cooperative, No apparent distress HEENT: Atraumatic, PERRLA, EOMI, Normocephalic Oral: Moist Mucosa Neck: Supple Lungs: Clear to auscultation, Normal air movement Cardiovascular: Regular rate, Regular Rhythm, Normal S1, Normal S2, No murmurs Abdomen: Bowel Sounds Present, Soft, Non Tender, Non-Distended, No Hepato-splenomegaly Extremities: No edema Skin: No rashes Musculoskeletal: No Tenderness to Palpation of Joints or Extremities Lymphatic: No Cervical, Supraclavicular, or Inguinal Adenopathy Neurological: Cranial nerves II-XII grossly intact, Neuro grossly intact Psych/Mental Status: Normal Affect, Appropriate Laboratory Results 09/22/19 00:28: WBC 11.8 H, RBC 4.65, Hgb 13.9, Hct 42.1, MCV 90.5, MCH 29.9, MCHC 33.0, RDW Std Deviation 49.0 H, RDW Coeff of Arvind 14.9 H, Plt Count 300, MPV 10.0, Immature Gran % (Auto) 0.500, Neut % (Auto) 51.7, Lymph % (Auto) 37.0, [place] % (Auto) 9.3, Eos % (Auto) 1.2, Baso % (Auto) 0.3, Absolute Neuts (auto) 6.1, Absolute Lymphs (auto) 4.37, Nucleated RBC % 0 09/22/19 00:28: Sodium 139, Potassium 4.3, Chloride 108 H, Carbon Dioxide 23.0, Anion Gap 8, BUN 23 H, Creatinine 0.95, Estim Creat Clear Calc 37.12, Est GFR (MDRD) Af Amer 72, Est GFR (MDRD) Non-Af 60, BUN/Creatinine Ratio 24.3 H, Glucose 123 H, Calcium 9.4, Magnesium 2.2, Troponin I < 0.015 09/22/19 00:28: B-Natriuretic Peptide Pending Assessment/Plan All Active Problems (Last Reviewed 07/24/19 @ 10:[address] Gregorio Umanzor MD) Third degree heart block (Acute) Urinary tract infection (Resolved) 84 year old F with past medical history of CAD status post stent, hypertension, type II DM, hyperlipidemia, comes in with complaints of dizziness and shortness of breath ongoing for 3 to 4 days. 1. Dizziness secondary to 3rd degree AV block, stable vitals. Patient is on metoprolol. EKG confirms above. Tropx1 negative. Mg 2.2 Will admit to ICU, cardiology consulted, hold metoprolol, trend troponins, check TSH 2. Hypertension, uncontrolled, likely secondary to physiologic stress response to 3rd degree AV block Systolic blood pressure more than 200. Metoprolol and chlorthalidone on hold We will continue to monitor with hydralazine as needed 3. Type II DM, on oral hypoglycemics, will continue same with insulin sliding scale 4. CAD status post stents, no signs of acute ST-T changes 5. DVT prophylaxis with Lovenox subcu 6. CODE STATUS?DNR CCA, no intubation I discussed goals of care with patient. I went on to explain in details the various types of CODE STATUS-full code, DNR CCA, DNR CC. She has a DNR but needed explanation of the differences between DNR CCA and DNR CC. She opted for DNR CCA. Time spent discussing CODE STATUS 16 minutes Inpatient E&M: 25388 Init Hosp L3 Procedures: 09257 Advncd Care Plan 30 Min
--- NOTE | 2019-09-22 01:57 | ED.RN ---
EUGENE CATRACHITA, PT'S DAUGHTER CELL PHONE [phone], EUGENE IS PICKING PT'S SPOUSE AND WILL BE STAYING AT [facility] [phone].
[2019-09-22 02:13] LABS: BNP,B-Type NATRIURETIC PEPTIDE 542.5 pg/mL (0-100)
--- NOTE | 2019-09-22 02:22 | EKG12_ITS ---
Test Reason : CP Blood Pressure : / mmHG Vent. Rate : 038 BPM Atrial Rate : 038 BPM P-R Int : 182 ms QRS Dur : 084 ms QT Int : 526 ms P-R-T Axes : 066 017 021 degrees QTc Int : 418 ms Marked sinus bradycardia ; 2:1 Heart Block Abnormal ECG Confirmed by ADRIANA YANES, LISANDRA ([id number]), editor news KERRIE AVALOS ([id number]) on 09/22/2019 1:17:32 PM Referred By: LIZZIE Confirmed By:LISANDRA WRIGHT MD
[2019-09-22] MEDS: Atropine Sulfate 1 MG/10 ML Syringe IV (03:23)
[2019-09-22] MEDS: Furosemide 20 MG/2 ML VIAL IV (03:23)
[2019-09-22 03:34] LABS: AST(SGOT) 50 U/L (15-37); Alanine Aminotransfer ALT/SGPT 45 U/L (13-56); Albumin, Serum 3.6 g/dL (3.2-5.0); Alkaline Phosphatase 95 U/L (45-117); Bilirubin, Direct 0.09 mg/dL (0.00-0.30); Globulin 4.9 g/dL (2.2-4.2); Protein, Total 8.5 g/dL (6.4-8.2); Thyroid Stim Hormone (TSH) 6.45 uIU/mL (0.358-3.74)
[2019-09-22 05:17] LABS: Absolute Neutrophil Count 6.9 X10^3/uL (2.0-7.7); Basophil# 0.05 X10^3/uL; Basophil% 0.4 % (0-1); Eosinophil# 0.09 X10^3/uL; Eosinophils% 0.8 % (0-5); Hematocrit 42.6 % (37-47); Hemoglobin 13.7 g/dL (12.0-15.0); Lymphocyte % 30.9 % (19-41); Mean Corp Hgb Conc 32.2 g/dL (32-36); Mean Corpuscular Hgb 29.8 pg (27.0-32.0); Mean Corpuscular Volume 92.8 fL (81-99); Mean Platelet Vol. 9.8 fl (6.2-12.0); Monocyte# 0.78 X10^3/uL; Monocyte% 6.9 % (0-10); NRBC Flagged by Analyzer 0 % (0-5); Neutrophil # 6.85 X10^3/uL (2.7-7.7); Neutrophil % 60.6 % (47-70); Platelet Count 246 K/mm3 (150-450); RBC Distribution Width CV 15.2 % (11.6-14.6); RBC Distribution Width SD 51.4 fl (35.1-43.9); Red Blood Count 4.59 M/mm3 (4.2-5.4); White Blood Count 11.3 K/mm3 (4.4-11.0)
[2019-09-22 05:52] LABS: ALB/GLOB Ratio 0.7 RATIO (0.9-2.4); AST(SGOT) 32 U/L (15-37); Alanine Aminotransfer ALT/SGPT 38 U/L (13-56); Albumin, Serum 3.2 g/dL (3.2-5.0); Alkaline Phosphatase 87 U/L (45-117); Anion Gap 10 (5-15); BUN 20 mg/dL (7-18); BUN/Creat Ratio 23.2 RATIO (10-20); Calcium,Total 9.1 mg/dL (8.5-10.1); Chloride 108 mmol/L (98-107); Creatinine, Serum 0.86 mg/dL (0.55-1.02); EST Glomerular Filtration Rate 67 mL/min (>60); Est Glom Filt Rate - Afr Amer 81 mL/min (>60); Free T3 2.8 pg/mL (2.18-3.98); Globulin 4.6 g/dL (2.2-4.2); Glucose 126 mg/dL (74-106); Potassium 3.1 mmol/L (3.5-5.1); Protein, Total 7.8 g/dL (6.4-8.2); Sodium Level 139 mmol/L (136-145); T4 Free Direct 1.29 ng/dL (0.76-1.46)
--- NOTE | 2019-09-22 08:09 | PCM.CONS.C ---
Reason for Consult Date of Consultation: 09/22/19 Reason for Consultation: Dizziness History of Present Illness: She is a pleasant 84-year-old lady who presents to the emergency room with dizziness and she felt her blood pressure was high. She has noted over the last couple of weeks that her pulse has been low. She has not had any syncopal episodes. In the emergency room she was noted to be in an AV dissociated rhythm and was admitted to the intensive care unit and cardiology consulted. As you probably remember she was undergoing a stress test when she developed ST elevation. This was in May 2018. She was taken immediately to the cardiac catheterization lab and underwent a cardiac catheterization which demonstrated a 70% proximal left anterior descending artery lesion, circumflex artery with mild disease, right coronary artery which was a large dominant vessel with a 99% proximal stenosis. She had a successful proximal and mid right coronary artery stenting with a 4.0 x 18 mm and a 4.0 x 15 mm drug-eluting stent placed. She underwent a follow-up myocardial perfusion stress test in June 2018 with no evidence of ischemia. She had been on a low-dose beta-brynn. She has not had any chest pain no paroxysmal nocturnal dyspnea or pedal edema and remains fairly active. Past Medical History Allergies/Adverse Reactions: Allergies Penicillins Allergy (Verified 07/24/19 10:32) Rash Tetanus Vaccines and Toxoid Allergy (Verified 07/24/19 10:32) Hives Home Medications: Ambulatory Orders Medication Instructions Recorded chlorthalidone 25 mg tablet 12.5 mg PO DAILY 06/07/18 pioglitazone 15 mg tablet 15 mg PO BID tab 06/07/18 Allopurinol [Zyloprim] 100 mg PO DINNER 07/02/18 Aspirin E.C. [Ecotrin] 81 mg PO DAILY@0800 02/15/19 isosorbide mononitrate 60 mg 60 mg PO DAILY #90 tab 05/19/19 tablet,extended release 24 hr metoprolol tartrate 25 mg tablet 25 mg PO BID #180 tab 05/19/19 ticagrelor 90 mg tablet 90 mg PO BID #180 tab 05/19/19 glimepiride 2 mg tablet 2 mg PO DAILY tab 07/24/19 losartan 25 mg tablet 25 mg PO DINNER tab 07/24/19 potassium chloride 10 mEq 10 meq PO DAILY tab 07/24/19 tablet,extended release atorvastatin 40 mg tablet 40 mg PO QHS #90 tab 08/18/19 Past Medical History (Chronic Problems): Chronic Problems (Last Reviewed 07/24/19 @ 10:[address] 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 Gregorio Umanzor MD) Father Heart disease History Items: Heart Disease Maternal Family History: Family History (Last Reviewed 07/24/19 @ 10:[address] Gregorio Umanzor MD) Father Heart disease History Items: No pertinent history Lives: Spouse/ Significant Other Smoking Status: Never smoker Tobacco Use: Non-smoker Alcohol: None Drugs: None Review of Systems - Review of Systems General: Denies: Fever, Night Sweats, Fatigue HEENT: Denies: Vision Change Cardiovascular: Reports: Lightheadedness, Dizziness. Denies: Chest Discomfort, Shortness of Breath, Orthopnea, PND, Peripheral Edema, Palpitations, Near Syncope, Syncope Respiratory: Denies: Cough, Sputum Production, Hemoptysis Gastrointestinal: Denies: Hematemesis, Hematochezia, Melena Genitourinary: Denies: Dysuria, Hematuria Skin: Denies: Rash Neurological: Reports: Dizziness Psychiatric: Denies: Anxiety Endocrine: Denies: Excessive Sweating Hematologic/ Lymphatic: Denies: Anemia Subjectve: Pleasant lady in no distress at this time Objective: Vital Signs Temp Pulse Resp BP Pulse Ox 97.6 F L 34 L 19 H 138/78 H 100 09/22/19 04:00 09/22/19 06:00 09/22/19 06:00 09/22/19 06:00 09/22/19 07:17 Oxygen Delivery Method Room Air Weight: 177 lb 0.499 oz Body Mass Index (BMI) 31.4 Intake and Output for Last 24 Hours 09/20/19 09/21/19 09/22/19 23:59 23:59 23:59 Intake Total 120 / 120 Output Total 1350 / 1350 Balance -1230 / -1230 General: Awake, Alert, Oriented x 3 HEENT: PERRL, EOMI, Sclera Non Icteric Neck: Supple, Good ROM, No Lymph Node Enlargement Lungs: Clear to auscultation Cardiovascular: Regular Rhythm, Normal S1, Normal S2, No Murmurs, No Rubs, No Gallops Vascular: No Carotid Bruits, Normal Femoral Pulses, Normal Radial Pulses, Normal Dorsalis Pedal Pulse, Normal Posterior Tibial Pulses Abdomen: Bowel Sounds Present, Soft, Non Tender, No HSM, No Organomegaly Extremities: No Cyanosis, No Clubbing, No edema Musculoskeletal: No Erythema Skin: No Rashes Lymphatic: No Lymph Node Enlargement Neurological: No Focal Motor or Sensory Deficit 09/22/19 00:28: WBC 11.8 H, RBC 4.65, Hgb 13.9, Hct 42.1, MCV 90.5, MCH 29.9, MCHC 33.0, Plt Count 300, MPV 10.0, Immature Gran % (Auto) 0.500, Neut % (Auto) 51.7, Lymph % (Auto) 37.0, [place] % (Auto) 9.3, Eos % (Auto) 1.2, Baso % (Auto) 0.3, Absolute Neuts (auto) 6.1, Nucleated RBC % 0 09/22/19 00:28: Sodium 139, Potassium 4.3, Chloride 108 H, Carbon Dioxide 23.0, Anion Gap 8, BUN 23 H, Creatinine 0.95, Est GFR (MDRD) Af Amer 72, Est GFR (MDRD) Non-Af 60, BUN/Creatinine Ratio 24.3 H, Glucose 123 H, Calcium 9.4, Magnesium 2.2, Troponin I < 0.015 09/22/19 00:28: B-Natriuretic Peptide 542.5 H 09/22/19 00:28: Total Bilirubin 0.70, Direct Bilirubin 0.09 09/22/19 05:10: Sodium 139, Potassium 3.1 L, Chloride 108 H, Carbon Dioxide 21.0, Anion Gap 10, BUN 20 H, Creatinine 0.86, Est GFR (MDRD) Af Amer 81, Est GFR (MDRD) Non-Af 67, BUN/Creatinine Ratio 23.2 H, Glucose 126 H, Calcium 9.1, Total Bilirubin 0.60, Troponin I < 0.015 09/22/19 05:10: WBC 11.3 H, RBC 4.59, Hgb 13.7, Hct 42.6, MCV 92.8, MCH 29.8, MCHC 32.2, Plt Count 246, MPV 9.8, Immature Gran % (Auto) 0.400, Neut % (Auto) 60.6, Lymph % (Auto) 30.9, [place] % (Auto) 6.9, Eos % (Auto) 0.8, Baso % (Auto) 0.4, Absolute Neuts (auto) 6.9, Nucleated RBC % 0 Rhythm: EKG: Sinus rhythm with AV dissociated rhythm ECHO: Preserved ejection fraction Stress Test: Cardiac Cath: PCI: CT Surgery: Holter monitor: EPS: PPM: CXR: Chest CT Scan: Assessment/Plan 1. Symptomatic third-degree heart block At this time it appears that she does have evidence of A-V dissociation suggestive of the above. This may be causing her dizziness. I do not think that her low dose of beta-brynn can be discontinued and completely solve her issues. I would therefore recommend that she undergoes a permanent pacemaker implantation. The risk benefits and alternatives have been explained to her she understands and agrees to proceed. We will perform later today. 2. Coronary artery disease She appears to be stable with respect to the above. Plan will be to continue aspirin, temporarily hold the ticagrelor and resume the beta-brynn after the pacemaker has been placed. 3. Hypertension Her blood pressure appears to be elevated at this time which is likely a stress reaction to her bradycardia. This will be treated after her pacemaker has been inserted. Her previous echocardiogram had demonstrated preserved ejection fraction. Estimated pulmonary systolic pressure of 26 mmHg was noted. Thank you for allowing me to participate in the care of your patient. Please don't hesitate to call if any issues arise. Addendum: Dual-chamber permanent pacemaker placed without incident today. Set at DDD 70
--- NOTE | 2019-09-22 08:30 | NURSING ---
UPDATED DAUGHTER EUGENE ON PLAN FOR PATIENT TO HAVE PACEMAKER INSERTION, UPDATED ON PLAN OF CARE AND PATIENT STATUS AT 0830 VIA TELEPHONE
[2019-09-22] MEDS: Pioglitazone Hydrochloride 15 MG Tablet PO ×2 (08:44→21:40)
[2019-09-22] MEDS: 0.9% Saline Lock 10 ML Syringe IV (08:44)
[2019-09-22] MEDS: Glimepiride 2 MG Tablet PO (08:44)
[2019-09-22] MEDS: 0.9% Normal Saline 1,000 ML 60 ML IV ×2 (08:44→21:40)
[2019-09-22] MEDS: Aspirin E.C. 81 MG Tablet PO (08:44)
[2019-09-22] MEDS: Isosorbide Mononitrate 60 MG Tablet PO (08:45)
[2019-09-22 12:00] LABS: Bedside Glucose 118 mg/dL (70-110)
[2019-09-22 12:30] LABS: M R Staph aureus DNA By PCR Negative (Negative); Probe Check PASS; Specimen Processing Control PASS
--- NOTE | 2019-09-22 13:22 | NURSING ---
1230 Manoj tender labor RN at bedside taking patient down for pacemaker placement
--- NOTE | 2019-09-22 13:31 | CASEMGMT ---
RN CM attempted to complete RN CM assessment at this time. Patient is currently out of the room and in a procedure. CM will attempt to complete assessment at later time.
--- NOTE | 2019-09-22 14:14 | CL.IE_ITS ---
Patient: NELSON STROUD Study Date: 09/22/2019 Performing: Gregorio Umanzor MD : [id number] Age: 84 Gender: female PROCEDURES PERFORMED [id number] PACER INSERT+DUAL LEADS INDICATIONS Atrioventricular (AV) block PROCEDURE DETAILS The patient was brought to the Catheterization Lab in the postabsorptive nonsedated state. [facility] was obtained prior to the procedure. Local anesthetic was given subcutaneously to the le ft upper chest area with Lidocaine 2%. Access was achieved and a guidewire was advanced into the left subclavian vein. Incision was made to the left upper chest. PPM ventricular lead was inserted / posi tioned to right ventricular. The sheath was then removed. PPM ventricular lead testing performed. PPM ventricular lead testing performed. PPM atrial lead was inserted / positioned to the right atrial ap pendage. The sheath was then removed. PPM atrial lead testing performed. The Atrial lead sutured in p lace with 2-0 Silk. The Ventricular PM lead sutured in place with 2-0 Silk. Device pocket was irrigat ed with antibiotic-bacitracin. PPM generator was attached to the lead(s) and inserted into the pocket . Subcutaneous closure was completed with 3-0 Vicryl. Skin closure was completed with 4-0 Vicryl. The patient tolerated the procedure well. Estimated Blood Loss: < 10 mls IMPLANTED / EX-PLANTED DEVICES IMPLANTED DEVICE(S): PPM Ventricular lead - Marketing Proposal Specialist: [employer], Model # 7741 , Serial # [id number] PPM Atrial lead - Marketing Proposal Specialist: [employer], Model # 7740 , Serial # [id number] PPM Generator - Marketing Proposal Specialist: [employer], Model # L111 , Serial # [id number] DEVICE PARAMETERS ATRIAL LEAD PARAMETERS: P wave- 3.0 (mV) Current- 1.5 (mA) threshold- 0.9 (V) impedence- 602 (OHMS) 10V test, no diaphragmatic capture VENTRICULAR LEAD PARAMETERS: R wave- 10.0 (mV) Current- 1.0 (mA) threshold- 0.8 (V) impedence- 861 (OHMS) 10V test, no diaphragmatic capture DEVICE PARAMETERS: Mode- DDD Lower rate- 70 Upper rate- 120 CONCLUSIONS / RECOMMENDATIONS Device Conclusions: Successful implantation of a dual chamber pacemaker Device Recommendations: Follow up with Primary Care Physician PROCEDURE MEDICATIONS Fentanyl 50 mcg IV Versed 1 mg IV Versed 1 mg IV Versed 1 mg IV Oxygen: 2 L/min via nasal cannula Antibiotic given in appropriate timeframe. Signed By Gregorio Umanzor MD On 09/22/2019 14:13:26 Gregorio Umanzor MD
[2019-09-22 16:06] LABS: Bedside Glucose 86 mg/dL (70-110)
--- NOTE | 2019-09-22 16:44 | PCM.HOSP.N ---
Hospitalist Note Patient was seen and examined briefly in the ICU today, she underwent implantation of a VVI pacemaker due to third-degree AV block. At this time, patient is paced at a rate of 70, she has no complaints to this examiner. Lungs were clear, patient is alert and oriented x3, heart rate and rhythm was regular (paced). Patient will be reevaluated tomorrow.
[2019-09-22] MEDS: Allopurinol 100 MG Tablet PO (17:27)
[2019-09-22] MEDS: Losartan Potassium 25 MG Tablet PO (17:27)
[2019-09-22] MEDS: Atorvastatin Calcium 40 MG Tablet PO (21:40)
[2019-09-22 21:45] LABS: Bedside Glucose 114 mg/dL (70-110)
[2019-09-23] VITALS (15 sets, daily range): BP systolic 108–180; BP diastolic 53–105; PULSE 72–94; RESP 11–21; TEMP 36.4–36.6; O2SAT 95–100
[2019-09-23] MEDS: hydrALAZINE 20 MG/ML Vial 5 MG IV (01:05)
[2019-09-23] MEDS: 0.9% Saline Lock 10 ML Syringe IV (01:07)
[2019-09-23] MEDS: Ondansetron 4 MG/2 ML Vial IV (02:18)
[2019-09-23] MEDS: oxyCODONE 5 MG Tablet PO (02:18)
--- NOTE | 2019-09-23 05:55 | RAD_ITS ---
STUDY: X-RAY CHEST REASON FOR EXAM: Female, 84 years old. S/P PACEMAKER INSERTION -- TO R/O PNEUMOTHORAX TECHNIQUE: Frontal and lateral views of the chest. Images were obtained in inspiratory and expiratory phase.. COMPARISON: 09/22/2019. FINDINGS: There is an atrioventricular pacemaker which has been inserted via left subclavian approach. There is no demonstrated pneumothorax. The lungs are clear and expanded. There is no demonstrated pleural abnormality. Normal size heart. Normal mediastinum and doc. Normal visualized pulmonary arteries. There is atherosclerotic calcification of the aortic arch. There are multilevel degenerative changes of the visualized thoracic spine. There is no demonstrated abnormality of the visualized soft tissue structures of the upper abdomen. RAD/Chest 3 View IMPRESSION: Status post pacemaker insertion. No evidence for acute cardiopulmonary pathology. No demonstrated pneumothorax. Electronically Signed: Chance Powell MD at 4:19 EDT , Service support ,
--- NOTE | 2019-09-23 08:38 | PN.CARD_ITS ---
Subjectve: Patient seen and evaluated. Appears to be doing well this morning. No complaints. Objective: Vital Signs Temp Pulse Resp BP Pulse Ox 98 F 83 18 135/62 H 96 09/23/19 08:00 09/23/19 08:00 09/23/19 08:00 09/23/19 08:00 09/23/19 08:00 Oxygen Delivery Method Room Air Weight: 179 lb 14.355 oz Body Mass Index (BMI) 31.4 Intake and Output for Last 24 Hours 09/21/19 09/22/19 09/23/19 23:59 23:59 23:59 Intake Total 2142 / 2142 716 / 716 Output Total 2800 / 2800 1550 / 1550 Balance -658 / -658 -834 / -834 General: Awake, Alert, Oriented x 3 HEENT: PERRL, EOMI, Sclera Non Icteric Neck: Supple, Good ROM, No Lymph Node Enlargement Lungs: Clear to auscultation Cardiovascular: Regular Rhythm, Normal S1, Normal S2, No Murmurs, No Rubs, No Gallops Rhythm: EKG: ECHO: Stress Test: Cardiac Cath: PCI: CT Surgery: Holter monitor: EPS: PPM: CXR: Chest CT Scan: Medical Necessity - Tobacco Use Smoking Status: Never smoker Tobacco Use: Non-smoker Assessment/Plan 1. Symptomatic third-degree heart block * At this time it appears that she does have evidence of A-V dissociation suggestive of the above. * She underwent placement of a permanent pacemaker which has been checked today and has been noted to be functioning well chest x-ray does not demonstrate any significant abnormalities. 2. Coronary artery disease * She appears to be stable with respect to the above. * Plan will be to continue aspirin, temporarily hold the ticagrelor and resume the beta-brynn after the pacemaker has been placed. * 3. Hypertension * Her blood pressure appears to be elevated at this time which is likely a stress reaction to her bradycardia. * This will be treated after her pacemaker has been inserted. * Her previous echocardiogram had demonstrated preserved ejection fraction. Estimated pulmonary systolic pressure of 26 mmHg was noted. * * Thank you for allowing me to participate in the care of your patient. Please don't hesitate to call if any issues arise. * Will discharge for outpatient follow-up.
--- NOTE | 2019-09-23 08:41 | DCINST_ITS ---
Discharge Diet: No Restrictions Discharge Activity: May Not Drive Call your doctor if your incision/area has: Continuous Slow Oozing, Sudden Increased Bleeding, Increased Pain/ Swelling, Increased Redness, Foul Smelling Discharge, Swelling at the incision site Call your doctor if you observe: Fever of 101 or Higher, Shortness of breath, Dizziness, Fainting spells, Swelling in the ankles, Chest pain, Prolonged hiccoughing, Increased palpitations (irregular heartbeat) Suture Line Care: Avoid Pulling/Pushing, Avoid Pinching/Bending Cleanse incision/area with: Keep Dressing Clean & Dry Additional Dressing/Incision Instructions:: When dressing is removed, wash and dry incision. Keep covered with a light bandage if it is rubbing against your clothing. Do not cover the incision with an airtight bandage. Change the bandage daily. Do not remove steri strips. The strips will fall off on their own. Additional Instructions: Signs and Symptoms to Report to Your Doctor at Once - call your doctor's office or Doctor's Registry ([phone]) Call 911 or go to the nearest Emergency Department if you feel you need urgent care. *Infection (fever, increased redness or swelling at the incision site, drainage from the incision increased pain at the pacemaker site) *Shortness of breath *Dizziness *Fainting spells *Swelling in the ankles *Chest pain *Prolonged hiccoughing *Increased palpitaitons (irregular heartbeat) Medications: Take your pain medication as directed. Refer to your discharge instruction sheet for a list of medications you are to take. Allergies/Adverse Reactions: Allergies Penicillins Allergy (Verified 07/24/19 10:32) Rash Tetanus Vaccines and Toxoid Allergy (Verified 07/24/19 10:32) Hives Medications to take at Discharge chlorthalidone 25 mg tablet 12.5 mg PO DAILY 06/07/18 pioglitazone 15 mg tablet 15 mg PO BID tab 06/07/18 Allopurinol [Zyloprim] 100 mg PO DINNER 07/02/18 Aspirin E.C. [Ecotrin] 81 mg PO DAILY@0800 02/15/19 isosorbide mononitrate 60 mg tablet,extended release 24 hr 60 mg PO DAILY #90 tab 05/19/19 metoprolol tartrate 25 mg tablet 25 mg PO BID #180 tab 05/19/19 ticagrelor 90 mg tablet 90 mg PO BID #180 tab 05/19/19 glimepiride 2 mg tablet 2 mg PO DAILY tab 07/24/19 losartan 25 mg tablet 25 mg PO DINNER tab 07/24/19 potassium chloride 10 mEq tablet,extended release 10 meq PO DAILY tab 07/24/19 atorvastatin 40 mg tablet 40 mg PO QHS #90 tab 08/18/19 Primary Care Physician: Casey Smith MD [Primary Care Provider] - Test Results: Test results from this visit will be discussed in further detail at your follow- up appointment, if applicable. When: [facility] , at 11am Proposed Discharge Date: 09/23/19
[2019-09-23] MEDS: Isosorbide Mononitrate 60 MG Tablet PO (08:46)
[2019-09-23] MEDS: Glimepiride 2 MG Tablet PO (08:46)
[2019-09-23] MEDS: Pioglitazone Hydrochloride 15 MG Tablet PO (08:46)
[2019-09-23] MEDS: Aspirin E.C. 81 MG Tablet PO (08:46)
[2019-09-23] MEDS: Enoxaparin 30 MG/0.3 ML Syringe SC (08:47)
[2019-09-23 08:50] LABS: Bedside Glucose 114 mg/dL (70-110)
--- NOTE | 2019-09-23 11:00 | CASEMGMT ---
RN CM Face to Face with patient for initial transition planning/care coordination assessment. RN CM introduced self and role at [facility]. Patient sitting at edge of bed, alert and oriented. Patient willing to participate in assessment and is able to answer all questions appropriately. Care providers, pharmacy, and demographics verified. Patient wishes to discharge home, denies need for home health at this time. Patient states she has no further needs or concerns at this time. CM to follow for discharge planning needs that may arise. 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 Patient states she is independent at home. Transportation: self, daughter DME/HHC: Patient states she has a walker at home. Denies HHC. Disposition Plan: Patient to discharge home with family support and follow-up plans in place. Ava SAINZ, RN, CM
[2019-09-23 11:13] LABS: Anion Gap 9 (5-15); BUN 15 mg/dL (7-18); BUN/Creat Ratio 16.3 RATIO (10-20); Calcium,Total 8.3 mg/dL (8.5-10.1); Chloride 106 mmol/L (98-107); Creatinine, Serum 0.92 mg/dL (0.55-1.02); EST Glomerular Filtration Rate 62 mL/min (>60); Est Glom Filt Rate - Afr Amer 75 mL/min (>60); Estimated Creatinine Clearance 38.33 ml/min; Glucose 186 mg/dL (74-106); Magnesium 1.9 mg/dL (1.6-2.6); Potassium 3.6 mmol/L (3.5-5.1); Sodium Level 138 mmol/L (136-145)
--- NOTE | 2019-09-23 13:03 | DCINST_ITS ---
- Discharge Diagnoses Current Active Problems: Current Active and Chronic Problems (Last Reviewed 07/24/19 @ 10:[address] Gregorio Umanzor MD) Third degree heart block (Acute) DM type 2 (diabetes mellitus, type 2) (Chronic) You will use the following diet at home:: Calorie/Carbohydrate Controlled (specify 1200, 1400, etc) - 1800 ciro Your food should be the consistency of: Regular Your liquids should be the consistency of: Regular/Thin Discharge Activity: May Not Drive Call your doctor if your incision/area has: Continuous Slow Oozing, Sudden Increased Bleeding, Increased Pain/ Swelling, Increased Redness, Foul Smelling Discharge, Swelling at the incision site Call your doctor if you observe: Fever of 101 or Higher, Shortness of breath, Dizziness, Fainting spells, Swelling in the ankles, Chest pain, Prolonged hiccoughing, Increased palpitations (irregular heartbeat) Suture Line Care: Avoid Pulling/Pushing, Avoid Pinching/Bending Cleanse incision/area with: Keep Dressing Clean & Dry Additional Dressing/Incision Instructions:: When dressing is removed, wash and dry incision. Keep covered with a light bandage if it is rubbing against your clothing. Do not cover the incision with an airtight bandage. Change the bandage daily. Do not remove steri strips. The strips will fall off on their own. Allergies/Adverse Reactions: Allergies Penicillins Allergy (Verified 07/24/19 10:32) Rash Tetanus Vaccines and Toxoid Allergy (Verified 07/24/19 10:32) Hives Medications to take at Discharge chlorthalidone 25 mg tablet 12.5 mg PO DAILY 06/07/18 pioglitazone 15 mg tablet 15 mg PO BID tab 06/07/18 Allopurinol [Zyloprim] 100 mg PO DINNER 07/02/18 Aspirin E.C. [Ecotrin] 81 mg PO DAILY@0800 02/15/19 isosorbide mononitrate 60 mg tablet,extended release 24 hr 60 mg PO DAILY #90 tab 05/19/19 metoprolol tartrate 25 mg tablet 25 mg PO BID #180 tab 05/19/19 ticagrelor 90 mg tablet 90 mg PO BID #180 tab 05/19/19 glimepiride 2 mg tablet 2 mg PO DAILY tab 07/24/19 losartan 25 mg tablet 25 mg PO DINNER tab 07/24/19 potassium chloride 10 mEq tablet,extended release 10 meq PO DAILY tab 07/24/19 atorvastatin 40 mg tablet 40 mg PO QHS #90 tab 08/18/19 Primary Care Physician: Casey Smith MD [Primary Care Provider] - Please follow up with your Primary Care Physician in: in 2 weeks Test Results: Test results from this visit will be discussed in further detail at your follow- up appointment, if applicable. When: [facility] , at 11am Proposed Discharge Date: 09/23/19
--- NOTE | 2019-09-23 16:15 | DS.PCM_ITS ---
Discharge Date and Diagnosis Date of Admission: 09/22/19 Date of Discharge: 09/23/19 - Primary Discharge Diagnosis Acute Problems: #1 third-degree AV block #2 essential hypertension #3 hypokalemia #4 type 2 diabetes #5 coronary artery disease #6 hyperlipidemia - Secondary Discharge Diagnosis Chronic Problems: Chronic Problems (Last Updated 09/23/19 @ 14:50 by Sharon Smyth) Presence of cardiac pacemaker (Chronic) DM type 2 (diabetes mellitus, type 2) (Chronic) Atherosclerosis of coronary artery of [place] heart without angina pectoris (Chronic) ST elevation (STEMI) myocardial infarction (Chronic 05/20/18) History of coronary artery stent placement (Chronic 05/20/18) [id number] RCA w/ 4.0 x 18 mm Resolute and JUJU-Mid RCA w/ 4.0 x 15 mm Resolute 05/20/18 Essential (primary) hypertension (Chronic) Hyperlipidemia (Chronic) Hospital Course and Treatment Operations: None Procedures: - - AV sequential pacemaker implantation Summary of Care Provided: The patient is a 84 year old F who was seen in the emergency room at [facility] with a chief complaint of shortness of breath. She denied any chest pain. Work-up in the emergency room included an EKG which showed the presence of a third-degree heart block with a rate of approximately 38, CBC was normal, chemistry panel showed an elevated BUN of 20 and a potassium of 3.1. Troponin was unremarkable. Chest x-ray showed no evidence of congestive heart failure. Cardiology was contacted and the case was reviewed with cardiology, patient was admitted to the ICU and seen by cardiology, cardiology felt that the patient warranted implantation of a permanent pacemaker. On 09/22/2019, patient underwent implantation of an AV sequential pacemaker-she tolerated the procedure well and there were no complications. Patient had oral potassium replacement during her hospital stay. Patient was seen and examined in the ICU on 09/23/2019: On examination she saw eared in good health and spirits, she does not appear to be in any distress. Vital signs as documented. Skin warm and dry and without overt rashes. Neck without JVD, thyroid appears normal, trachea is midline, neck is supple. Lungs clear, normal air movement was noted. Heart exam notable for regular rhythm, normal sounds and absence of murmurs, rubs or gallops. Abdomen unremarkable and without evidence of organomegaly, masses, or abdominal aortic enlargement, bowel sounds are present in all 4 quadrants, no abdominal tenderness was noted. Extremities nonedematous, no cyanosis was noted, no clubbing was noted. Neuro: Cranial nerves II through XII are grossly intact, no focal motor deficits were noted, sensation to light touch and pinprick is intact, motor exam 5/5 throughout. Psych: Patient is alert and oriented x3, she does not appear anxious or depressed, she does not appear agitated. Patient was discharged to home in stable condition on 09/23/2019. - Physical Exam Vitals/I&O's: Vital Signs Temp Pulse Resp BP Pulse Ox 97.6 F L 85 13 126/62 H 98 09/23/19 15:52 09/23/19 15:52 09/23/19 15:52 09/23/19 15:52 09/23/19 15:52 Oxygen Delivery Method Room Air Weight: 81.6 kg Body Mass Index (BMI) 31.4 Intake and Output for Last 24 Hours 09/21/19 09/22/19 09/23/19 23:59 23:59 23:59 Intake Total 2142 / 2142 1596 / 1596 Output Total 2800 / 2800 2150 / 2150 Balance -658 / -658 -554 / -554 Laboratory Results 09/22/19 21:38: POC Glucose 114 H 09/23/19 08:43: POC Glucose 114 H 09/23/19 10:50: Sodium 138, Potassium 3.6, Chloride 106, Carbon Dioxide 23.0, Anion Gap 9, BUN 15, Creatinine 0.92, Estim Creat Clear Calc 38.33, Est GFR (MDRD) Af Amer 75, Est GFR (MDRD) Non-Af 62, BUN/Creatinine Ratio 16.3, Glucose 186 H, Calcium 8.3 L, Magnesium 1.9 Discharge Diet: No Restrictions Discharge Activity: May Not Drive Call your doctor if your incision/area has: Continuous Slow Oozing, Sudden Increased Bleeding, Increased Pain/ Swelling, Increased Redness, Foul Smelling Discharge, Swelling at the incision site Call your doctor if you observe: Fever of 101 or Higher, Shortness of breath, Dizziness, Fainting spells, Swelling in the ankles, Chest pain, Prolonged hiccoughing, Increased palpitations (irregular heartbeat) Suture Line Care: Avoid Pulling/Pushing, Avoid Pinching/Bending Cleanse incision/area with: Keep Dressing Clean & Dry Additional Dressing/Incision Instructions:: When dressing is removed, wash and dry incision. Keep covered with a light bandage if it is rubbing against your clothing. Do not cover the incision with an airtight bandage. Change the bandage daily. Do not remove steri strips. The strips will fall off on their own. Home Medications: Medications to take at Discharge chlorthalidone 25 mg tablet 12.5 mg PO DAILY 06/07/18 pioglitazone 15 mg tablet 15 mg PO BID tab 06/07/18 Allopurinol [Zyloprim] 100 mg PO DINNER 07/02/18 Aspirin E.C. [Ecotrin] 81 mg PO DAILY@0800 02/15/19 isosorbide mononitrate 60 mg tablet,extended release 24 hr 60 mg PO DAILY #90 tab 05/19/19 metoprolol tartrate 25 mg tablet 25 mg PO BID #180 tab 05/19/19 ticagrelor 90 mg tablet 90 mg PO BID #180 tab 05/19/19 glimepiride 2 mg tablet 2 mg PO DAILY tab 07/24/19 losartan 25 mg tablet 25 mg PO DINNER tab 07/24/19 potassium chloride 10 mEq tablet,extended release 10 meq PO DAILY tab 07/24/19 atorvastatin 40 mg tablet 40 mg PO QHS #90 tab 08/18/19 Primary Care Physician: Casey Smith MD [Primary Care Provider] - Please follow up with your Primary Care Physician in: in 2 weeks When: [facility] , at 11am Additional Instructions: Signs and Symptoms to Report to Your Doctor at Once - call your doctor's office or Doctor's Registry ([phone]) Call 911 or go to the nearest Emergency Department if you feel you need urgent care. *Infection (fever, increased redness or swelling at the incision site, drainage from the incision increased pain at the pacemaker site) *Shortness of breath *Dizziness *Fainting spells *Swelling in the ankles *Chest pain *Prolonged hiccoughing *Increased palpitaitons (irregular heartbeat) Medications: Take your pain medication as directed. Refer to your discharge instruction sheet for a list of medications you are to take. Disposition: Home Minutes spent on discharge:: 31 Patient Condition:: Stable Medical Necessity - Tobacco Use Smoking Status: Never smoker Tobacco Use: Non-smoker Meaningful Use Info Meaningful Use Diagnoses (Choose all that apply): None applicable Inpatient E&M: 79129 Disch Hosp
== END 2019-09-23 15:47 | disposition home or self-care (01) | DRG 244 ==
LOC: ED 01:41 → ICU 01:51
PROVIDERS: Internal Medicine Cardiovascular Disease; Admitting Provider Internal Medicine; Emergency Provider Emergency Medicine; PCP Family Medicine; Visit Provider Internal Medicine
DX: I44.2 Atrioventricular block, complete (principal); I25.10 Atherosclerotic heart disease of native coronary artery without angina pectoris; I10 Essential (primary) hypertension; E87.6 Hypokalemia; E78.5 Hyperlipidemia, unspecified; E11.9 Type 2 diabetes mellitus without complications; Z66 Do not resuscitate; I25.2 Old myocardial infarction; Z95.5 Presence of coronary angioplasty implant and graft; Z79.84 Long term (current) use of oral hypoglycemic drugs; Z79.82 Long term (current) use of aspirin; Z79.02 Long term (current) use of antithrombotics/antiplatelets; Z79.899 Other long term (current) drug therapy
CPT/HCPCS: 33208; 71046; 71047; 80048; 80053; 80076; 82962; 83735; 83880; 84439; 84443; 84481; 84484; 85025; 87641; 93005; 97802; 99152; 99153; 99251; 99285; J7030; J7050; A4216; C1894; G0463; J1940; J2405

== ENCOUNTER → 2020-01-23 08:02 | Outpatient (CLI) | payer MEDICARE, OTHER, SELFPAY ==
[2018-05-20 11:33] VITALS: BMI 34.7
[2019-09-22 02:37] VITALS: BMI 31.4
[2020-01-23 10:13] LABS: Anion Gap 5 (5-15); BUN 19 mg/dL (7-18); BUN/Creat Ratio 23.8 RATIO (10-20); Calcium,Total 9.2 mg/dL (8.5-10.1); Chloride 108 mmol/L (98-107); Cholesterol 179 mg/dL (200); EST Glomerular Filtration Rate 73 mL/min (>60); Est Glom Filt Rate - Afr Amer 88 mL/min (>60); Glucose 137 mg/dL (74-106); High Density Lipoprotein 43 mg/dL; Potassium 3.5 mmol/L (3.5-5.1); Sodium Level 141 mmol/L (136-145); Thyroid Stim Hormone (TSH) 3.15 uIU/mL (0.358-3.74); Triglycerides 246 mg/dL; Very Low Density Lipoprotein 49 mg/dL (5-40)
== END ==
PROVIDERS: PCP Family Medicine; Referring Provider Family Medicine; Visit Provider Family Medicine
DX: I10 Essential (primary) hypertension (principal); E03.9 Hypothyroidism, unspecified
CPT/HCPCS: 36415; 80048; 80061; 84443

== ENCOUNTER → 2020-03-22 15:03 | Outpatient (CLI) | payer MEDICARE, OTHER, SELFPAY ==
[2018-05-20 11:33] VITALS: BMI 34.7
[2020-01-26 13:01] VITALS: BMI 32.1
--- NOTE | 2020-03-22 15:09 | RAD_ITS ---
STUDY: X-RAY - RIGHT KNEE REASON FOR EXAM: Female, 84 years old. RIGHT KNEE PAIN TECHNIQUE: 3 view(s) of the knee. COMPARISON: 02/14/2017 FINDINGS: Normal visualized distal femur. Normal visualized proximal tibia and fibula. Normal proximal tibiofibular articulation. There is moderate degenerative arthrosis of the medial femorotibial compartment with moderate joint space narrowing. There is mild degenerative arthrosis of the lateral femorotibial compartment. There is mild degenerative arthrosis of the patellofemoral articulation. The soft tissue structures are unremarkable. RAD/Knee 3 Views IMPRESSION: Degenerative arthrosis. Electronically Signed: Hoang Garcia MD at 15:45 EST Tel , Service support ,
== END ==
PROVIDERS: PCP Family Medicine; Referring Provider Family Medicine; Visit Provider Family Medicine
DX: M17.11 Unilateral primary osteoarthritis, right knee (principal)
CPT/HCPCS: 73562

== ENCOUNTER → 2020-06-10 13:36 | Outpatient (CLI) | payer MEDICARE, OTHER, SELFPAY ==
[2018-05-20 11:33] VITALS: BMI 34.7
[2020-01-26 13:01] VITALS: BMI 32.1
[2020-06-10 15:14] LABS: Anion Gap 8 (5-15); BUN 23 mg/dL (7-18); Calcium,Total 9.3 mg/dL (8.5-10.1); Chloride 103 mmol/L (98-107); Creatinine, Serum 0.88 mg/dL (0.55-1.02); EST Glomerular Filtration Rate 65 mL/min (>60); Est Glom Filt Rate - Afr Amer 78 mL/min (>60); Glucose 118 mg/dL (74-106); Potassium 3.3 mmol/L (3.5-5.1); Sodium Level 140 mmol/L (136-145)
== END ==
PROVIDERS: PCP Family Medicine; Referring Provider Family Medicine; Visit Provider Family Medicine
DX: R60.9 Edema, unspecified (principal)
CPT/HCPCS: 36415; 80048

== ENCOUNTER → 2021-01-25 08:10 | Outpatient (CLI) | payer MEDICARE, OTHER, SELFPAY ==
[2018-05-20 11:33] VITALS: BMI 34.7
[2021-01-25 10:31] LABS: ALB/GLOB Ratio 0.7 RATIO (0.9-2.4); AST(SGOT) 21 U/L (15-37); Alanine Aminotransfer ALT/SGPT 25 U/L (13-56); Albumin, Serum 3.1 g/dL (3.2-5.0); Alkaline Phosphatase 88 U/L (45-117); Anion Gap 7 (5-15); BUN 21 mg/dL (7-18); BUN/Creat Ratio 24.6 RATIO (10-20); Chloride 105 mmol/L (98-107); Cholesterol 155 mg/dL (200); Creatinine, Serum 0.85 mg/dL (0.55-1.02); EST Glomerular Filtration Rate 67 mL/min (>60); Est Glom Filt Rate - Afr Amer 81 mL/min (>60); Globulin 4.3 g/dL (2.2-4.2); Glucose 138 mg/dL (74-106); High Density Lipoprotein 44 mg/dL; Potassium 3.2 mmol/L (3.5-5.1); Protein, Total 7.4 g/dL (6.4-8.2); Sodium Level 139 mmol/L (136-145); Triglycerides 214 mg/dL; Very Low Density Lipoprotein 43 mg/dL (5-40)
== END ==
PROVIDERS: PCP Family Medicine; Referring Provider Family Medicine; Visit Provider Family Medicine
DX: E78.5 Hyperlipidemia, unspecified (principal)
CPT/HCPCS: 36415; 80053; 80061

== ENCOUNTER 2021-04-18 14:45 | Outpatient (CLI) | payer MEDICARE, OTHER, SELFPAY ==
[2018-05-20 11:33] VITALS: BMI 34.7
--- NOTE | 2021-04-18 14:51 | CT_ITS ---
EXAM: CT ABDOMEN AND PELVIS WITH INTRAVENOUS CONTRAST : 1935 CLINICAL INDICATION: PELVIC/ABD MASS TECHNIQUE: Helically acquired images were obtained of the abdomen and pelvis with intravenous contrast. This CT exam was performed using one or more of the following dose reduction techniques: automated exposure control, adjustment of the mA and/or kV according to patient size, and/or use of iterative reconstruction technique. This report was created using [employer] report generation technology. CONTRAST: Oral Tamp; IV Readi-CAT Tamp; 100mL Isovue-300 COMPARISON: None. FINDINGS: LOWER THORAX: Unremarkable. Lung bases are clear. No cardiomegaly. No significant pericardial effusion. ABDOMEN: LIVER: Unremarkable. Homogeneous. No focal mass. GALLBLADDER AND BILE DUCTS: Unremarkable. No calcified gallstones. No gallbladder distention or wall edema. No intra- or extrahepatic biliary ductal dilation. PANCREAS: Unremarkable. No focal cystic or solid mass. SPLEEN: Unremarkable. Normal size without focal cystic or solid mass. ADRENALS: Unremarkable. No nodules. KIDNEYS AND URETERS: Nonobstructive 3 mm left renal stone. Small parapelvic left renal cysts. No specific follow-up recommended. STOMACH AND BOWEL: Unremarkable. No stomach or bowel distention. No focal inflammatory change. PELVIS: APPENDIX: No evidence of acute appendicitis. BLADDER: Urinary bladder is contracted. REPRODUCTIVE: Uterus is absent. ABDOMEN and PELVIS: INTRAPERITONEAL SPACE: No pelvic mass or fluid collection. No free air. BONES/JOINTS: Unremarkable. No suspicious lytic or blastic abnormality. SOFT TISSUES: Unremarkable. No discrete abdominal or pelvic wall hernia. VASCULATURE: Unremarkable. Abdominal aorta is non-dilated. LYMPH NODES: Unremarkable. No enlarged lymph nodes. CT/Abdomen/Pelvis WITH Contrast IMPRESSION: 1. No acute abdominal or pelvic abnormality. 2. No evidence of mass. 3. Nonobstructive 3 mm left renal stone. Individualized dose optimization techniques were used for this CT. at 1209 Reported and signed by: Clarence Britton MD Electronically Signed: Clarence Britton MD at 12:08 EST ,
[2021-04-18 15:06] LABS: CREATININE FINGERSTICK 0.9 mg/dL (0.55-1.02); EGFR FINGERSTICK > 60.0000 mL/min (>60)
== END 2021-04-18 23:59 | disposition home or self-care (01) ==
LOC: CT 14:47
PROVIDERS: PCP Family Medicine; Referring Provider Obstetrics & Gynecology; Visit Provider Obstetrics & Gynecology
DX: D17.9 Benign lipomatous neoplasm, unspecified (principal); L72.3 Sebaceous cyst; N20.0 Calculus of kidney
CPT/HCPCS: 74177; Q9967

== ENCOUNTER → 2021-07-04 | Outpatient (CLI) | payer MEDICARE, OTHER, SELFPAY ==
[2018-05-20 11:33] VITALS: BMI 34.7
[2021-07-04 10:47] LABS: Anion Gap 7 (5-15); BUN 20 mg/dL (7-18); Calcium,Total 8.9 mg/dL (8.5-10.1); Chloride 106 mmol/L (98-107); Cholesterol 163 mg/dL (200); Creatinine, Serum 0.91 mg/dL (0.55-1.02); EST Glomerular Filtration Rate 63 mL/min (>60); Est Glom Filt Rate - Afr Amer 76 mL/min (>60); Glucose 130 mg/dL (74-106); High Density Lipoprotein 49 mg/dL; Potassium 3.2 mmol/L (3.5-5.1); Sodium Level 140 mmol/L (136-145); Triglycerides 161 mg/dL; Very Low Density Lipoprotein 32 mg/dL (5-40)
[2021-07-04 10:51] LABS: Microalbumin,Random Urine 33.3 mg/L (NO RANGE EST.); Microalbumin:Creatinine Ratio 8.6 mg/g CRE (<30 mg/g CRE)
== END | disposition home or self-care (01) ==
LOC: MTLAB 08:50
PROVIDERS: PCP Family Medicine; Referring Provider Family Medicine; Visit Provider Family Medicine
DX: E11.9 Type 2 diabetes mellitus without complications (principal)
CPT/HCPCS: 36415; 80048; 80061; 82043; 82570

== ENCOUNTER → 2021-11-23 | Outpatient (CLI) | payer MEDICARE, OTHER, SELFPAY ==
[2018-05-20 11:33] VITALS: BMI 34.7
--- NOTE | 2021-11-23 11:55 | RAD_ITS ---
STUDY: XR Chest 2 Views 11/23/2021 12:00 PM REASON FOR EXAM: Female, 86 years old. CHEST PAIN PÉREZ COMPARISON: 09/23/2019 TECHNIQUE: XR Chest 2 Views FINDINGS: There is no demonstrated pleural abnormality. There is a left sided pacemaker battery pack. Normal heart size. Normal mediastinum. Normal doc. Prominent appearing increased interstitial lung markings. Normal visualized pulmonary arteries. There is atherosclerotic calcification of the aortic arch with tortuosity. There are diffuse degenerative changes of the visualized thoracic spine. There is degenerative osteoarthritis of the bilateral shoulders. There is no demonstrated abnormality of the visualized soft tissue structures of the upper abdomen. RAD/Chest PA and Lateral IMPRESSION: There are no acute findings. Electronically Signed: Lit Armenta MD at 16:50 EDT ,
[2021-11-23 13:08] LABS: Absolute Neutrophil Count 5.7 X10^3/uL (2.0-7.7); Basophil# 0.05 X10^3/uL; Basophil% 0.6 % (0-1); Eosinophil# 0.12 X10^3/uL; Eosinophils% 1.4 % (0-5); Hematocrit 38.3 % (37-47); Hemoglobin 12.5 g/dL (12.0-15.0); Lymphocyte % 23.4 % (19-41); Mean Corp Hgb Conc 32.6 g/dL (32-36); Mean Corpuscular Hgb 29.8 pg (27.0-32.0); Mean Corpuscular Volume 91.4 fL (81-99); Mean Platelet Vol. 9.5 fl (6.2-12.0); Monocyte# 0.65 X10^3/uL; Monocyte% 7.6 % (0-10); NRBC Flagged by Analyzer 0 % (0-5); Neutrophil # 5.68 X10^3/uL (2.7-7.7); Neutrophil % 66.4 % (47-70); Platelet Count 322 K/mm3 (150-450); RBC Distribution Width CV 15.6 % (11.6-14.6); RBC Distribution Width SD 52.2 fl (35.1-43.9); Red Blood Count 4.19 M/mm3 (4.2-5.4); White Blood Count 8.6 K/mm3 (4.4-11.0)
[2021-11-23 13:27] LABS: BNP,B-Type NATRIURETIC PEPTIDE 132.4 pg/mL (0-100)
[2021-11-23 13:57] LABS: Anion Gap 8 (5-15); BUN 29 mg/dL (7-18); BUN/Creat Ratio 31.4 RATIO (10-20); Calcium,Total 9.5 mg/dL (8.5-10.1); Chloride 106 mmol/L (98-107); Creatinine, Serum 0.92 mg/dL (0.55-1.02); EST Glomerular Filtration Rate 61 mL/min (>60); Est Glom Filt Rate - Afr Amer 74 mL/min (>60); Glucose 124 mg/dL (74-106); Potassium 3.7 mmol/L (3.5-5.1); Sodium Level 138 mmol/L (136-145); Thyroid Stim Hormone (TSH) 2.29 uIU/mL (0.358-3.74)
== END | disposition home or self-care (01) ==
PROVIDERS: PCP Family Medicine; Referring Provider Physician Assistant Medical; Visit Provider Physician Assistant Medical
DX: R06.09 Other forms of dyspnea (principal); E78.5 Hyperlipidemia, unspecified
CPT/HCPCS: 36415; 71046; 80048; 83880; 84443; 85025

== ENCOUNTER → 2021-12-07 | Outpatient (CLI) | payer MEDICARE, OTHER, SELFPAY ==
[2018-05-20 11:33] VITALS: BMI 34.7
--- NOTE | 2021-12-07 12:53 | ECHOD_ITS ---
Reason For Study: DYSPNEA/SOB Procedure This was a 2D Doppler, Color Flow transthoracic echocardiogram. Exam performed in department. Left Ventricle Normal LV size. Left ventricular systolic function is normal. The estimated ejection fraction is 55 %. No regional wall motion abnormalities noted. Right Ventricle Normal RV size. ICD or pacer leads identified within the right ventricle. Normal systolic function. Atria The left atrium is mildly enlarged. The right atrium is mildly enlarged. Mitral Valve There is mild mitral annular calcification. Mild (1+) eccentric mitral valve insufficiency. Tricuspid Valve Normal tricuspid valve. Mild (1+) tricuspid valve insufficiency. Pulmonary artery systolic pressure is 32 mmHg. Aortic Valve Trisinus/trileaflet aortic valve. Mild focal aortic valve calcification. Pulmonic Valve Normal pulmonic valve. Great Vessels Normal aortic root. The pulmonary artery is normal size. Normal inferior vena cava. Pericardium/Pleural No pericardial effusion. MMode/2D Measurements & Calculations LVIDd: 4.2 cm IVSd: 1.2 cm Ao root diam: 2.9 cm LVIDs: 3.5 cm LVPWd: 0.96 cm FS: 17.7 % LAV(MOD-sp4): 74.3 ml LVAd ap4: 23.2 cm2 SV(MOD-sp4): 37.6 ml LVLd ap4: 6.7 cm EDV(MOD-sp4): 67.9 ml EDV(sp4-el): 68.5 ml LVAs ap4: 14.3 cm2 LVLs ap4: 5.9 cm ESV(MOD-sp4): 30.2 ml ESV(sp4-el): 29.2 ml EF(MOD-sp4): 55.5 % EF(sp4-el): 57.4 % SV(sp4-el): 39.3 ml LA A4 area: 23.0 cm2 LA dimension(2D): 4.4 cm RA A4 area: 21.9 cm2 Time Measurements MV dec time: 0.15 sec Doppler Measurements & Calculations MV E max butch: 78.2 cm/sec Lat Peak E' Butch: 6.4 cm/sec MV V2 max: 95.3 cm/sec MV A max butch: 59.5 cm/sec E/E' lat: 12.2 MV max P.6 mmHg MV E/A: 1.3 MV V2 mean: 56.6 cm/sec MV mean P.4 mmHg MV V2 VTI: 29.2 cm Ao V2 max: 170.2 cm/sec LV V1 max: 81.9 cm/sec MV dec slope: 527.3 cm/sec2 Ao max P.6 mmHg LV V1 max P.7 mmHg Ao V2 mean: 123.1 cm/sec LV V1 mean P.7 mmHg Ao mean P.9 mmHg LV V1 mean: 61.6 cm/sec Ao V2 VTI: 40.0 cm LV V1 VTI: 20.3 cm PA V2 max: 88.8 cm/sec TR max butch: 268.4 cm/sec TR max P.8 mmHg ECHO/Echo Complete Interpretation Summary Normal LV size. Left ventricular systolic function is normal. The estimated ejection fraction is 55 %. There is mild mitral annular calcification. Mild (1+) eccentric mitral valve insufficiency. Mild (1+) tricuspid valve insufficiency. Ordering Physician: Anjali Reeder Referring Physician: Anjali Reeder Performed By: Rika Samuel RCS
== END | disposition home or self-care (01) ==
PROVIDERS: PCP Family Medicine; Referring Provider Physician Assistant Medical; Visit Provider Physician Assistant Medical
DX: I25.10 Atherosclerotic heart disease of native coronary artery without angina pectoris (principal); R06.02 Shortness of breath
CPT/HCPCS: 93306

== ENCOUNTER → 2022-04-12 | Outpatient (CLI) | payer MEDICARE, OTHER, SELFPAY ==
[2018-05-20 11:33] VITALS: BMI 34.7
--- NOTE | 2022-04-12 09:44 | STE_ITS ---
Reason For Study: Dyspnea Stress Results Protocol: Dobutamine Stress Echo Maximum Predicted HR: 135 bpm Target HR: 115 bpm % Maximum Predicted HR: 53 % Heart Stage Duration Rate BP Dose Comment (mm:ss) (bpm) Baseline 70 138/65 Patient denies chest pain Patient complains of slight shortness of breath. Denies chest Stage 1 3:31 70 141/6410.00pain Stage 2 3:00 70 123/6020.00Patient denies chest pain Stage 3 3:00 70 167/6430.00Atropine 0.25 mg IV given. Patient denies chest pain Atropine 0.25 mg IV given. Patient complains of shortness of Stage 4 2:51 71 159/5840.00breath, weakness and cramping in arms. Denies chest pain. Recovery 70 142/73 patient denies chest pain Stress Duration: 12:22 mm:ss Maximum Stress HR: 71 bpm Baseline Echocardiogram Findings Stress Echo Wall motion Data Resting WM Intermediate WM Stress WM ECHO/Stress Test Echo w/o Contrast Interpretation Summary This a dobutamine stress echocardiogram. 86-year-old lady with a history of coronary artery disease status post permanen t pacemaker implantation. Stress echocardiogram. Resting echocardiogram demonstrated overall preserved left ventricular systolic function estimated ejection fraction of 55% with segmental wall motion abnormality involving the b sylvia inferior wall with near akinesis. The rest of the prasad appear to be normally marizol. Re sting heart rate was 71 bpm with a ventricular paced rhythm and resting blood pressure is 138/65 mmH g. Dobutamine was infused starting at 10 mcg/kg/min increasing in 3-minute x 2 maximum of 40 mcg/ kg/min. 0.5 mg of atropine was given and 0.25 mg atropine aliquots. Continuous EKG monitoring was performed. The maximum heart rate attained was 84 bpm which was 62% of max impacted heart rate the maximum workload was 1 metabolic equivalent. Results: At low-dose there was thickening of all prasad except for the inferior basal wal l and at peak dose there was improvement in left ventricular ejection fraction estimated at 70% wi th contraction of all prasad except for the basal inferior wall which appeared to be akinetic. The abo ve is suggestive of a previously infarcted basal inferior wall. Conclusion: Dobutamine stress echocardiogram with evidence of a prior basal inferior infarc t. No ischemia noted. Ordering Physician: Anjali Reeder Referring Physician: Anjali Reeder Performed By: Rika Samuel RCS
== END | disposition home or self-care (01) ==
PROVIDERS: PCP Family Medicine; Referring Provider Physician Assistant Medical; Visit Provider Physician Assistant Medical
DX: R06.09 Other forms of dyspnea (principal); R06.02 Shortness of breath
CPT/HCPCS: 93017; 93350; J7040; Q9957; A4216; C8928

== ENCOUNTER → 2022-06-24 | Outpatient (CLI) | payer MEDICARE, OTHER, SELFPAY ==
[2018-05-20 11:33] VITALS: BMI 34.7
[2022-06-24 10:14] LABS: Anion Gap 6 (5-15); BUN 30 mg/dL (7-18); BUN/Creat Ratio 24.2 RATIO (10-20); Calcium,Total 9.2 mg/dL (8.5-10.1); Chloride 108 mmol/L (98-107); Creatinine, Serum 1.24 mg/dL (0.55-1.02); EST Glomerular Filtration Rate 44 mL/min (>60); Est Glom Filt Rate - Afr Amer 53 mL/min (>60); Glucose 185 mg/dL (74-106); Potassium 4.3 mmol/L (3.5-5.1); Sodium Level 138 mmol/L (136-145)
== END | disposition home or self-care (01) ==
LOC: LAB 09:09
PROVIDERS: PCP Family Medicine; Referring Provider Physician Assistant Medical; Visit Provider Physician Assistant Medical
DX: R60.9 Edema, unspecified (principal); R06.09 Other forms of dyspnea
CPT/HCPCS: 36415; 80048

== ENCOUNTER → 2022-07-19 | Outpatient (CLI) | payer MEDICARE, OTHER, SELFPAY ==
[2018-05-20 11:33] VITALS: BMI 34.7
[2022-07-19 18:35] LABS: Anion Gap 7 (5-15); BUN 30 mg/dL (7-18); BUN/Creat Ratio 25.4 RATIO (10-20); Calcium,Total 9.1 mg/dL (8.5-10.1); Chloride 110 mmol/L (98-107); Creatinine, Serum 1.18 mg/dL (0.55-1.02); EST Glomerular Filtration Rate 46 mL/min (>60); Est Glom Filt Rate - Afr Amer 56 mL/min (>60); Glucose 154 mg/dL (74-106); Potassium 3.7 mmol/L (3.5-5.1); Sodium Level 141 mmol/L (136-145)
[2022-07-19 20:27] LABS: BNP,B-Type NATRIURETIC PEPTIDE 236.2 pg/mL (0-100)
== END | disposition home or self-care (01) ==
PROVIDERS: PCP Family Medicine; Visit Provider Family Medicine
DX: R06.02 Shortness of breath (principal); R60.9 Edema, unspecified
CPT/HCPCS: 36415; 80048; 83880

== ENCOUNTER → 2022-08-25 | Outpatient (CLI) | payer MEDICARE, OTHER, SELFPAY ==
[2018-05-20 11:33] VITALS: BMI 34.7
[2022-08-25 15:53] LABS: Anion Gap 8 (5-15); BUN 23 mg/dL (7-18); BUN/Creat Ratio 23.4 RATIO (10-20); Calcium,Total 9.3 mg/dL (8.5-10.1); Chloride 107 mmol/L (98-107); Creatinine, Serum 0.98 mg/dL (0.55-1.02); EST Glomerular Filtration Rate 57 mL/min (>60); Est Glom Filt Rate - Afr Amer 69 mL/min (>60); Glucose 138 mg/dL (74-106); Potassium 3.6 mmol/L (3.5-5.1); Sodium Level 141 mmol/L (136-145)
== END | disposition home or self-care (01) ==
LOC: MFPLAB 11:34
PROVIDERS: PCP Family Medicine; Visit Provider Family Medicine
DX: R60.9 Edema, unspecified (principal)
CPT/HCPCS: 36415; 80048

== ENCOUNTER → 2022-09-28 | Outpatient (CLI) | payer MEDICARE, OTHER, SELFPAY ==
[2018-05-20 11:33] VITALS: BMI 34.7
[2022-09-28 12:52] LABS: Anion Gap 6 (5-15); BUN 27 mg/dL (7-18); BUN/Creat Ratio 24.5 RATIO (10-20); Calcium,Total 9.1 mg/dL (8.5-10.1); Chloride 107 mmol/L (98-107); EST Glomerular Filtration Rate 50 mL/min (>60); Est Glom Filt Rate - Afr Amer 61 mL/min (>60); Glucose 154 mg/dL (74-106); Potassium 3.7 mmol/L (3.5-5.1); Sodium Level 139 mmol/L (136-145)
== END | disposition home or self-care (01) ==
LOC: MFPLAB 10:40
PROVIDERS: PCP Family Medicine; Visit Provider Family Medicine
DX: R60.9 Edema, unspecified (principal)
CPT/HCPCS: 36415; 80048

== ENCOUNTER → 2022-12-28 | Outpatient (CLI) | payer MEDICARE, OTHER, SELFPAY ==
[2018-05-20 11:33] VITALS: BMI 34.7
[2022-12-28 16:06] LABS: Anion Gap 9 (5-15); BUN 30 mg/dL (7-18); Chloride 108 mmol/L (98-107); Creatinine, Serum 1.07 mg/dL (0.55-1.02); EST Glomerular Filtration Rate 52 mL/min (>60); Est Glom Filt Rate - Afr Amer 62 mL/min (>60); Glucose 117 mg/dL (74-106); Potassium 3.3 mmol/L (3.5-5.1); Sodium Level 142 mmol/L (136-145)
[2022-12-28 19:51] LABS: Hemoglobin A1c 6.5 % (3.8-5.6)
== END | disposition home or self-care (01) ==
LOC: MFPLAB 11:13
PROVIDERS: PCP Family Medicine; Visit Provider Family Medicine
DX: E11.9 Type 2 diabetes mellitus without complications (principal); R60.9 Edema, unspecified
CPT/HCPCS: 36415; 80048; 83036

== ENCOUNTER → 2023-03-07 | Outpatient (CLI) | payer MEDICARE, OTHER, SELFPAY ==
[2018-05-20 11:33] VITALS: BMI 34.7
--- NOTE | 2023-03-07 16:52 | RAD_ITS ---
INDICATION: Diminished right lung field, sob EXAMINATION/TECHNIQUE: X-RAY - XR Chest 2 Views COMPARISON: 11/23/2021. FINDINGS: Central pulmonary venous congestion Tortuous and calcified thoracic aorta. The heart is moderate enlarged. Left-sided cardiac device. Small to moderate right pleural effusion. Degenerative changes of the thoracic spine. RAD/Chest PA and Lateral IMPRESSION: Moderate cardiomegaly with central pulmonary venous congestion and small to moderate right pleural effusion. Cannot rule out underlying consolidation in the right lung base. Electronically Signed: Gerald Canas MD at 20:34 EST ,
== END | disposition home or self-care (01) ==
PROVIDERS: PCP Family Medicine; Referring Provider Nurse Practitioner Family; Visit Provider Nurse Practitioner Family
DX: R06.09 Other forms of dyspnea (principal)
CPT/HCPCS: 71046

== ENCOUNTER → 2023-03-15 | Outpatient (CLI) | payer MEDICARE, OTHER, SELFPAY ==
[2018-05-20 11:33] VITALS: BMI 34.7
--- NOTE | 2023-03-15 12:29 | RAD_ITS ---
STUDY: X-RAY CHEST REASON FOR EXAM: Female, 87 years old. Right pleural effusion. TECHNIQUE: Frontal and lateral views of the chest. COMPARISON: March 07, 2023 FINDINGS: Cardiomegaly with dual lead cardiac pacer, aortic tortuosity with calcification and prominent central pulmonary artery unchanged. Mild hyperinflation with large right pleural effusion, unchanged. No abnormality of the visualized soft tissue structures of the upper abdomen. RAD/Chest PA and Lateral IMPRESSION: Stable chest with no acute superimposed findings. Electronically Signed: Issa Miller MD at 13:49 EST ,
[2023-03-15 13:30] LABS: Absolute Lymphocyte Count 1.51 X10^3/uL (0.83-4.51); Absolute Neutrophil Count 7.2 X10^3/uL (2.0-7.7); Basophil# 0.03 X10^3/uL; Basophil% 0.3 % (0-1); Eosinophil# 0.06 X10^3/uL; Eosinophils% 0.6 % (0-5); Hemoglobin 10.5 g/dL (12.0-15.0); Lymphocyte # 1.51 X10^3/ul (0.83-4.51); Mean Corp Hgb Conc 30.9 g/dL (32-36); Mean Corpuscular Hgb 27.2 pg (27.0-32.0); Mean Corpuscular Volume 88.1 fL (81-99); Mean Platelet Vol. 9.4 fl (6.2-12.0); Monocyte# 0.63 X10^3/uL; Monocyte% 6.7 % (0-10); NRBC Flagged by Analyzer 0 % (0-5); Neutrophil # 7.19 X10^3/uL (2.7-7.7); Platelet Count 292 K/mm3 (150-450); RBC Distribution Width CV 16.1 % (11.6-14.6); RBC Distribution Width SD 52.1 fl (35.1-43.9); Red Blood Count 3.86 M/mm3 (4.2-5.4); White Blood Count 9.5 K/mm3 (4.4-11.0)
[2023-03-15 14:08] LABS: BNP,B-Type NATRIURETIC PEPTIDE 291.6 pg/mL (0-100)
[2023-03-15 14:09] LABS: Anion Gap 6 (5-15); BUN 25 mg/dL (7-18); BUN/Creat Ratio 22.7 RATIO (10-20); Calcium,Total 9.5 mg/dL (8.5-10.1); Chloride 106 mmol/L (98-107); EST Glomerular Filtration Rate 50 mL/min (>60); Est Glom Filt Rate - Afr Amer 61 mL/min (>60); Glucose 137 mg/dL (74-106); Potassium 3.6 mmol/L (3.5-5.1); Sodium Level 141 mmol/L (136-145)
== END | disposition home or self-care (01) ==
LOC: RAD 12:26
PROVIDERS: PCP Family Medicine; Referring Provider Nurse Practitioner Family; Visit Provider Nurse Practitioner Family
DX: R06.09 Other forms of dyspnea (principal); R60.9 Edema, unspecified; E78.5 Hyperlipidemia, unspecified
CPT/HCPCS: 36415; 71046; 80048; 83880; 85025

== ENCOUNTER → 2023-03-19 | Outpatient (CLI) | payer MEDICARE, OTHER, SELFPAY ==
[2018-05-20 11:33] VITALS: BMI 34.7
[2023-03-19 15:25] LABS: Hematocrit 34.6 % (37-47); Hemoglobin 10.7 g/dL (12.0-15.0); Mean Corp Hgb Conc 30.9 g/dL (32-36); Mean Corpuscular Hgb 26.6 pg (27.0-32.0); Mean Corpuscular Volume 86.1 fL (81-99); Mean Platelet Vol. 9.2 fl (6.2-12.0); Platelet Count 335 K/mm3 (150-450); RBC Distribution Width CV 15.9 % (11.6-14.6); RBC Distribution Width SD 49.8 fl (35.1-43.9); Red Blood Count 4.02 M/mm3 (4.2-5.4); White Blood Count 9.8 K/mm3 (4.4-11.0)
[2023-03-19 15:56] LABS: Anion Gap 7 (5-15); BUN 30 mg/dL (7-18); BUN/Creat Ratio 25.4 RATIO (10-20); Calcium,Total 9.2 mg/dL (8.5-10.1); Chloride 103 mmol/L (98-107); Creatinine, Serum 1.18 mg/dL (0.55-1.02); EST Glomerular Filtration Rate 46 mL/min (>60); Est Glom Filt Rate - Afr Amer 56 mL/min (>60); Glucose 132 mg/dL (74-106); Potassium 3.6 mmol/L (3.5-5.1); Sodium Level 137 mmol/L (136-145)
== END | disposition home or self-care (01) ==
LOC: LAB 14:39
PROVIDERS: PCP Family Medicine; Referring Provider Nurse Practitioner Family; Visit Provider Nurse Practitioner Family
DX: Z51.81 Encounter for therapeutic drug level monitoring (principal); Z79.01 Long term (current) use of anticoagulants; Z79.899 Other long term (current) drug therapy
CPT/HCPCS: 36415; 80048; 85027

== ENCOUNTER → 2023-07-02 | Outpatient (CLI) | payer MEDICARE, OTHER, SELFPAY ==
[2018-05-20 11:33] VITALS: BMI 34.7
[2023-07-02 15:55] LABS: Anion Gap 5 (5-15); BUN 33 mg/dL (7-18); BUN/Creat Ratio 23.7 RATIO (10-20); Calcium,Total 9.2 mg/dL (8.5-10.1); Chloride 106 mmol/L (98-107); Cholesterol 129 mg/dL (200); Creatinine, Serum 1.39 mg/dL (0.55-1.02); EST Glomerular Filtration Rate 38 mL/min (>60); Est Glom Filt Rate - Afr Amer 46 mL/min (>60); Glucose 123 mg/dL (74-106); High Density Lipoprotein 53 mg/dL; Sodium Level 138 mmol/L (136-145); Triglycerides 121 mg/dL; Very Low Density Lipoprotein 24 mg/dL (5-40)
[2023-07-02 17:55] LABS: Hemoglobin A1c 6.5 % (3.8-5.6)
== END | disposition home or self-care (01) ==
LOC: MFPLAB 11:28
PROVIDERS: PCP Family Medicine; Visit Provider Family Medicine
DX: E11.9 Type 2 diabetes mellitus without complications (principal); R60.9 Edema, unspecified
CPT/HCPCS: 36415; 80048; 80061; 83036

== ENCOUNTER → 2023-07-20 | Outpatient (CLI) | payer MEDICARE, OTHER, SELFPAY ==
[2018-05-20 11:33] VITALS: BMI 34.7
--- NOTE | 2023-07-20 15:39 | RAD_ITS ---
INDICATION: CHF EXAMINATION/TECHNIQUE: X-RAY - XR Chest 2 Views COMPARISON: March 15, 2023 FINDINGS: LINES/DEVICES: None. LUNGS: Right basilar infiltrate and mild effusion. Probable granuloma in the left apex. No pneumothorax. MEDIASTINUM AND CARDIOVASCULAR STRUCTURES: Cardiac silhouette not enlarged. Central airways and mediastinal contour are unremarkable. BONES AND SOFT TISSUES: Unremarkable. RAD/Chest PA and Lateral IMPRESSION: Right basilar infiltrate/atelectasis and mild effusion. Electronically Signed: Gómez Mckeon DO at 19:56 EDT ,
[2023-07-20 17:44] LABS: Absolute Lymphocyte Count 2.21 X10^3/uL (0.83-4.51); Absolute Neutrophil Count 7.3 X10^3/uL (2.0-7.7); Basophil# 0.05 X10^3/uL; Basophil% 0.5 % (0-1); Eosinophil# 0.07 X10^3/uL; Eosinophils% 0.7 % (0-5); Hematocrit 30.9 % (37-47); Lymphocyte # 2.21 X10^3/ul (0.83-4.51); Lymphocyte % 20.9 % (19-41); Mean Corp Hgb Conc 29.1 g/dL (32-36); Mean Corpuscular Hgb 23.3 pg (27.0-32.0); Mean Corpuscular Volume 80.1 fL (81-99); Mean Platelet Vol. 9.3 fl (6.2-12.0); Monocyte# 0.88 X10^3/uL; Monocyte% 8.3 % (0-10); NRBC Flagged by Analyzer 0 % (0-5); Neutrophil # 7.31 X10^3/uL (2.7-7.7); Neutrophil % 69.2 % (47-70); Platelet Count 353 K/mm3 (150-450); RBC Distribution Width CV 17.5 % (11.6-14.6); RBC Distribution Width SD 50.9 fl (35.1-43.9); Red Blood Count 3.86 M/mm3 (4.2-5.4); White Blood Count 10.6 K/mm3 (4.4-11.0)
[2023-07-20 17:57] LABS: Anion Gap 8 (5-15); BUN 38 mg/dL (7-18); BUN/Creat Ratio 25.2 RATIO (10-20); Calcium,Total 9.4 mg/dL (8.5-10.1); Chloride 103 mmol/L (98-107); Creatinine, Serum 1.51 mg/dL (0.55-1.02); EST Glomerular Filtration Rate 35 mL/min (>60); Est Glom Filt Rate - Afr Amer 42 mL/min (>60); Glucose 149 mg/dL (74-106); Sodium Level 137 mmol/L (136-145)
[2023-07-20 18:01] LABS: BNP,B-Type NATRIURETIC PEPTIDE 339.7 pg/mL (0-100)
== END | disposition home or self-care (01) ==
LOC: MTLAB 15:38
PROVIDERS: PCP Family Medicine; Referring Provider Family Medicine; Visit Provider Family Medicine
DX: I50.9 Heart failure, unspecified (principal)
CPT/HCPCS: 36415; 71046; 80048; 83880; 85025

== ENCOUNTER → 2023-08-20 | Outpatient (CLI) | payer MEDICARE, OTHER, SELFPAY ==
[2018-05-20 11:33] VITALS: BMI 34.7
[2023-08-20 16:03] LABS: Absolute Lymphocyte Count 2.08 X10^3/uL (0.83-4.51); Absolute Neutrophil Count 5.5 X10^3/uL (2.0-7.7); Basophil# 0.04 X10^3/uL; Basophil% 0.5 % (0-1); Eosinophil# 0.15 X10^3/uL; Eosinophils% 1.8 % (0-5); Hematocrit 29.8 % (37-47); Hemoglobin 8.7 g/dL (12.0-15.0); Lymphocyte # 2.08 X10^3/ul (0.83-4.51); Lymphocyte % 24.6 % (19-41); Mean Corp Hgb Conc 29.2 g/dL (32-36); Mean Corpuscular Volume 78.8 fL (81-99); Monocyte# 0.67 X10^3/uL; Monocyte% 7.9 % (0-10); NRBC Flagged by Analyzer 0 % (0-5); Neutrophil % 64.8 % (47-70); Platelet Count 333 K/mm3 (150-450); RBC Distribution Width SD 51.6 fl (35.1-43.9); Red Blood Count 3.78 M/mm3 (4.2-5.4); White Blood Count 8.5 K/mm3 (4.4-11.0)
[2023-08-20 16:56] LABS: Anion Gap 6 (5-15); BUN 32 mg/dL (7-18); BUN/Creat Ratio 22.4 RATIO (10-20); Calcium,Total 9.5 mg/dL (8.5-10.1); Chloride 105 mmol/L (98-107); Creatinine, Serum 1.43 mg/dL (0.55-1.02); EST Glomerular Filtration Rate 37 mL/min (>60); Est Glom Filt Rate - Afr Amer 45 mL/min (>60); Ferritin 9 ng/mL (8-252); Glucose 115 mg/dL (74-106); Iron 20 ug/dL (50-170); Iron Binding Capacity,Total 566 ug/dL (250-450); Potassium 4.1 mmol/L (3.5-5.1); Sodium Level 137 mmol/L (136-145)
[2023-08-22 08:12] LABS: Transferrin 446 mg/dL (149-313)
== END | disposition home or self-care (01) ==
LOC: LAB 15:22
PROVIDERS: PCP Family Medicine; Referring Provider Nurse Practitioner Family; Visit Provider Nurse Practitioner Family
DX: D64.9 Anemia, unspecified (principal); I44.2 Atrioventricular block, complete; Z51.81 Encounter for therapeutic drug level monitoring; Z79.899 Other long term (current) drug therapy; Z95.5 Presence of coronary angioplasty implant and graft; I10 Essential (primary) hypertension; E78.5 Hyperlipidemia, unspecified
CPT/HCPCS: 36415; 80048; 82728; 83540; 83550; 84466; 85025

== ENCOUNTER → 2024-01-02 | Outpatient (CLI) | payer MEDICARE, OTHER, SELFPAY ==
[2018-05-20 11:33] VITALS: BMI 34.7
[2024-01-02 15:44] LABS: ALB/GLOB Ratio 0.8 RATIO (0.9-2.4); AST(SGOT) 28 U/L (15-37); Alanine Aminotransfer ALT/SGPT 25 U/L (13-56); Albumin, Serum 3.4 g/dL (3.2-5.0); Alkaline Phosphatase 107 U/L (45-117); Anion Gap 7 (5-15); BUN 36 mg/dL (7-18); BUN/Creat Ratio 27.3 RATIO (10-20); Calcium,Total 9.2 mg/dL (8.5-10.1); Chloride 104 mmol/L (98-107); Cholesterol 138 mg/dL (200); Creatinine, Serum 1.32 mg/dL (0.55-1.02); EST Glomerular Filtration Rate 40 mL/min (>60); Est Glom Filt Rate - Afr Amer 49 mL/min (>60); Globulin 4.1 g/dL (2.2-4.2); Glucose 116 mg/dL (74-106); High Density Lipoprotein 55 mg/dL; Potassium 3.9 mmol/L (3.5-5.1); Protein, Total 7.5 g/dL (6.4-8.2); Sodium Level 138 mmol/L (136-145); Triglycerides 110 mg/dL; Very Low Density Lipoprotein 22 mg/dL (5-40)
== END | disposition home or self-care (01) ==
LOC: MFPLAB 11:43
PROVIDERS: PCP Family Medicine; Visit Provider Family Medicine
DX: E11.9 Type 2 diabetes mellitus without complications (principal)
CPT/HCPCS: 36415; 80053; 80061

== ENCOUNTER → 2024-02-29 | Outpatient (CLI) | payer MEDICARE, OTHER, SELFPAY ==
[2018-05-20 11:33] VITALS: BMI 34.7
[2024-02-29 16:07] LABS: Anion Gap 8 (5-15); BUN 36 mg/dL (7-18); Calcium,Total 9.4 mg/dL (8.5-10.1); Chloride 102 mmol/L (98-107); EST Glomerular Filtration Rate 35 mL/min (>60); Est Glom Filt Rate - Afr Amer 42 mL/min (>60); Glucose 141 mg/dL (74-106); Potassium 3.9 mmol/L (3.5-5.1); Sodium Level 136 mmol/L (136-145)
== END | disposition home or self-care (01) ==
LOC: MFPLAB 12:16
PROVIDERS: PCP Family Medicine; Referring Provider Family Medicine; Visit Provider Family Medicine
DX: M25.473 Effusion, unspecified ankle (principal)
CPT/HCPCS: 36415; 80048

== ENCOUNTER → 2024-05-19 | Outpatient (CLI) | payer MEDICARE, OTHER, SELFPAY ==
[2018-05-20 11:33] VITALS: BMI 34.7
--- NOTE | 2024-05-19 14:57 | RAD_ITS ---
EXAM: XR Right Shoulder Complete, 2 or More Views CLINICAL INDICATION: TECHNIQUE: Two or more views of the right shoulder. COMPARISON: No relevant prior studies available. FINDINGS: BONES/JOINTS: Moderate degenerative changes of the acromioclavicular and glenohumeral joints. No acute fracture. No dislocation. SOFT TISSUES: Unremarkable. RAD/Shoulder min 2 Views IMPRESSION: Degenerative changes as above. Reading Location: [facility] [place]
[2024-05-19 18:08] LABS: Hemoglobin A1c 6.8 % (<=5.6)
[2024-05-19 18:11] LABS: Anion Gap 15 (5-15); BUN 32 mg/dL (4-19); BUN/Creat Ratio 24.4 RATIO (10-20); Calcium,Total 9.8 mg/dL (7.6-11.0); Carbon Dioxide 20.9 mmol/L (21.0-32.0); Chloride 100 mmol/L (98-108); Cholesterol 132 mg/dL (<=200); EST Glomerular Filtration Rate 40 (>60); Glucose 123 mg/dL (70-99); High Density Lipoprotein 59 mg/dL; Low Density Lipoprotein Calc. 49 mg/dL; Potassium 4.3 mmol/L (3.3-5.1); Pro- Brain NATRIURETIC PEPTIDE 1703 pg/mL (<=1800); Sodium Level 136 mmol/L (133-145); Triglycerides 120 mg/dL; Very Low Density Lipoprotein 24 mg/dL (5-40); cholesterol:hdl ratio screen 2.24
[2024-05-19 19:02] LABS: Microalbumin,Random Urine < 12.0 mg/L (NO RANGE EST.); Microalbumin:Creatinine Ratio UNABLE TO CALCULATE mg/g CRE
== END | disposition home or self-care (01) ==
LOC: MTLAB 14:56
PROVIDERS: PCP Family Medicine; Referring Provider Family Medicine; Visit Provider Family Medicine
DX: I50.9 Heart failure, unspecified (principal); E11.9 Type 2 diabetes mellitus without complications; R60.9 Edema, unspecified; M25.511 Pain in right shoulder
CPT/HCPCS: 36415; 73030; 80048; 80061; 82043; 82570; 83036; 83880

== ENCOUNTER → 2024-07-02 | Outpatient (CLI) | payer MEDICARE, OTHER, SELFPAY ==
[2018-05-20 11:33] VITALS: BMI 34.7
[2024-07-02 15:53] LABS: Anion Gap 12 (5-15); BUN 36 mg/dL (4-19); BUN/Creat Ratio 28.3 RATIO (10-20); Calcium,Total 9.4 mg/dL (7.6-11.0); Carbon Dioxide 23.5 mmol/L (21.0-32.0); Chloride 101 mmol/L (98-108); Creatinine, Serum 1.27 mg/dL (0.70-1.20); EST Glomerular Filtration Rate 41 (>60); Glucose 126 mg/dL (70-99); Potassium 3.8 mmol/L (3.3-5.1); Sodium Level 136 mmol/L (133-145)
== END | disposition home or self-care (01) ==
LOC: MFPLAB 11:18
PROVIDERS: PCP Family Medicine; Referring Provider Family Medicine; Visit Provider Family Medicine
DX: R60.9 Edema, unspecified (principal)
CPT/HCPCS: 36415; 80048

== ENCOUNTER → 2024-07-09 | Outpatient (CLI) | payer MEDICARE, OTHER, SELFPAY ==
[2018-05-20 11:33] VITALS: BMI 34.7
--- NOTE | 2024-07-09 15:17 | RAD_ITS ---
PROCEDURE: KNEE 4 OR MORE VIEWS 07/09/2024 REASON FOR EXAM: PAIN TECHNIQUE: 4 views of the left knee FINDINGS: Bones: No fracture. No suspicious bone lesion. Joints: Moderate degenerative changes. Effusion: No effusion. Soft tissues: Soft tissues are unremarkable. Other: RAD/Knee 4 or More Views IMPRESSION: DEGENERATIVE OSTEOARTHROSIS. NO ACUTE FINDINGS. Reading Location: [id number]
== END | disposition home or self-care (01) ==
LOC: MTRAD 15:15
PROVIDERS: PCP Family Medicine; Referring Provider Family Medicine; Visit Provider Family Medicine
DX: M25.562 Pain in left knee (principal)
CPT/HCPCS: 73564

== ENCOUNTER → 2024-10-02 | Outpatient (CLI) | payer MEDICARE, OTHER, SELFPAY ==
[2018-05-20 11:33] VITALS: BMI 34.7
[2024-10-02 12:59] LABS: Anion Gap 13 (5-15); BUN 40 mg/dL (4-19); BUN/Creat Ratio 29.3 RATIO (10-20); Calcium,Total 9.5 mg/dL (7.6-11.0); Carbon Dioxide 24.0 mmol/L (21.0-32.0); Chloride 97 mmol/L (98-108); Glucose 143 mg/dL (70-99); Potassium 4.3 mmol/L (3.3-5.1)
== END | disposition home or self-care (01) ==
LOC: MFPLAB 10:47
PROVIDERS: PCP Family Medicine; Referring Provider Family Medicine; Visit Provider Family Medicine
DX: I50.9 Heart failure, unspecified (principal)
CPT/HCPCS: 36415; 80048

== ENCOUNTER → 2024-10-07 | Outpatient (CLI) | payer MEDICARE, OTHER, SELFPAY ==
[2018-05-20 11:33] VITALS: BMI 34.7
--- NOTE | 2024-10-07 15:39 | ECHOD_ITS ---
Reason For Study Reason For Study: DYSPNEA/SOB Procedure This was a 2D Doppler, Color Flow transthoracic echocardiogram. Exam performed in department. Left Ventricle Normal LV size. Left ventricular systolic function is normal. The estimated ejection fraction is 58 %. No regional wall motion abnormalities noted. Right Ventricle Normal RV size. Normal systolic function. Atria The left atrium is mildly enlarged. The right atrium is mildly enlarged. Mitral Valve There is moderate mitral annular calcification. Mild-Moderate (1-2+) eccentric mitral valve insufficiency. Tricuspid Valve Normal tricuspid valve. Mild (1+) tricuspid valve insufficiency. Pulmonary artery systolic pressure is 40 mmHg. Pulmonic Valve Normal pulmonic valve. Great Vessels Normal aortic root. The pulmonary artery is normal size. The inferior vena cava is dilated. Pericardium/Pleural No pericardial effusion. MMode/2D Measurements & Calculations LVIDd: 4.7 cm IVSd: 1.1 cm Ao root diam: 3.3 cm LVIDs: 3.2 cm LVPWd: 1.0 cm RVDd: 3.3 cm FS: 31.7 % LAV(MOD-bp): 85.7 ml LVAd ap4: 19.0 cm2 LVAd ap2: 21.6 cm2 LAV(MOD-bp) Indexed: 46.3 ml/m2 LVLd ap4: 5.4 cm LVLd ap2: 5.7 cm LAV(MOD-sp2): 82.8 ml EDV(MOD-sp4): 58.7 ml EDV(MOD-sp2): 68.0 ml LAV(MOD-sp4): 82.3 ml EDV(sp4-el): 57.2 ml EDV(sp2-el): 69.7 ml LVAs ap4: 11.3 cm2 LVAs ap2: 13.3 cm2 LVLs ap4: 4.6 cm LVLs ap2: 5.3 cm ESV(MOD-sp4): 23.2 ml ESV(MOD-sp2): 29.0 ml ESV(sp4-el): 23.5 ml ESV(sp2-el): 28.7 ml EF(MOD-sp4): 60.4 % EF(MOD-sp2): 57.4 % EF(sp4-el): 58.9 % SV(MOD-sp4): 35.5 ml SV(MOD-sp2): 39.0 ml SV(sp4-el): 33.7 ml SI(MOD-sp4): 19.2 ml/m2 SI(MOD-sp2): 21.1 ml/m2 LA A4 area: 24.9 cm2 LA dimension(2D): 4.8 cm RA A4 area: 21.8 cm2 TAPSE: 1.7 cm Time Measurements MV dec time: 0.15 sec Doppler Measurements & Calculations MV E max butch: 107.0 cm/sec Lat Peak E' Butch: 15.9 cm/sec Med Peak E' Butch: 8.5 cm/sec MV A max butch: 36.9 cm/sec E/E' lat: 6.7 E/E' med: 12.6 MV E/A: 2.9 MV V2 max: 114.7 cm/sec MV P1/2t max butch: 123.1 cm/sec Ao V2 max: 179.4 cm/sec MV max P.3 mmHg MV P1/2t: 57.7 msec Ao max P.9 mmHg MV V2 mean: 51.4 cm/sec Ao V2 mean: 122.4 cm/sec MV mean P.3 mmHg MV dec slope: 625.1 cm/sec2 Ao mean P.6 mmHg MV V2 VTI: 23.9 cm MVA(P1/2t): 3.8 cm2 Ao V2 VTI: 35.2 cm AV (velocity ratio): 0.43 LV V1 max: 71.1 cm/sec MR max butch: 503.5 cm/sec PA V2 max: 102.5 cm/sec LV V1 max P.0 mmHg MR max P.4 mmHg PA V2 mean: 67.0 cm/sec LV V1 mean P.1 mmHg MR mean butch: 396.7 cm/sec LV V1 mean: 49.1 cm/sec MR mean P.6 mmHg LV V1 VTI: 15.1 cm MR VTI: 155.6 cm TR max butch: 303.2 cm/sec TR max P.8 mmHg ECHO/Echo Complete Interpretation Summary Normal LV size. Left ventricular systolic function is normal. The estimated ejection fraction is 58 %. Pulmonary artery systolic pressure is 40 mmHg. Mild-Moderate (1-2+) eccentric mitral valve insufficiency. Ordering Physician: Gregorio Umanzor Referring Physician: aCsey Smith Performed By: Yajaira Bingham, RDCS, RVT
--- OUTSIDE RECORDS SUMMARY | 2024-10-07 23:06 | XMS RPT_ITS | CCD ---
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 Casey Smith Primary Care Provider Dr. Gregorio Umanzor Attending Provider Dr. Gregorio Umanzor Referring Provider Dr. Casey Smith Referring Provider Sharon Smyth Attending Provider Unavailable Dr. Casey Smith Primary Care Provider Dr. Casey Smith Referring Provider Dr. Gregorio Umanzor Attending Provider KHAI Jain Attending Provider Dr. Casey Smith Primary Care Provider Dr. Casey Smith Referring Provider Dr. Gregorio Umanzor Attending Provider KHAI Jain Attending Provider Dr. Casey Smith Primary Care Provider Dr. Gregorio Umanzor Attending Provider Dr. Casey Smith Referring Provider Roof COMPOSITOR APPRENTICE, COMPOSITOR APPRENTICE-C Floyd Crouch Attending Provider Dr. Casey Smith Primary Care Provider Dr. Casey Smith Referring Provider Roof COMPOSITOR APPRENTICE, COMPOSITOR APPRENTICE-C Floyd Crouch Attending Provider Dr. Gregorio Umanzor Attending Provider Dr. Casey Smith MD Primary Care Provider Dr. Casey Smith MD Attending Provider [phone] Luis YANES, Dr. Peña Referring Provider [phone] Erna YANES, Dr. Perkins Attending Provider [phone] Luis YANES, Dr. Peña Primary Care Provider [phone] Luis YANES, Dr. Peña Attending Provider Luis YANES, Dr. Peña Referring Provider Sharon Smyth Attending Provider Unavailable Luis YANES, Dr. Peña Primary Care Provider [phone] Erna YANES, Dr. Perkins Attending Provider [phone] Luis YANES, Dr. Peña Primary Care Provider [phone] Luis YANES, Dr. Peña Attending Provider [phone] Luis YANES, Dr. Peña Referring Provider [phone] Luis, Casey Primary Care Unavailable Smith, Casey Attending Unavailable Smith, Casey Primary Care Unavailable Erna, [place] Attending Unavailable Smith, Casey Primary Care Unavailable Erna, [place] Attending Unavailable Smith, Casey Primary Care Unavailable Smith, Casey Referring Unavailable Smith, Casey Attending Unavailable Smith, Casey Primary Care Unavailable Smith, Casey Referring Unavailable Smith, Casey Attending Unavailable Smith, Casey Primary Care Unavailable Smith, Casey Referring Unavailable Smith, Casey Attending Unavailable Smith, Casey Referring Unavailable Smith, Casey Primary Care Unavailable Smith, Casey Attending Unavailable Erna, [place] Referring Unavailable Smith, Casey Primary Care Unavailable Erna, [place] Attending Unavailable Smith, Caesy Primary Care Unavailable Erna, Gregorio Attending Unavailable Smith, Casey Primary Care Unavailable Smith, Casey Referring Unavailable Erna, Gregorio Attending Unavailable Smith, Casey Referring Unavailable Smith, Casey Primary Care Unavailable Erna, [place] Attending Unavailable Smith, Casey Primary Care Unavailable Erna, Gregorio Attending Unavailable Erna, [place] Attending Unavailable Smith, Casey Primary Care Unavailable Smith, Casey Primary Care Unavailable Erna, Gregorio Attending Unavailable Smith, Casey Primary Care Unavailable Smith, Casey Referring Unavailable Smith, Casey Attending Unavailable Erna , Dr. Perkins Referring Provider Allergies Allergy Classification Reported Allergen(s) Allergy Type Date of Onset Reaction(s) Facility (13 sources) Penicillins; Translations: [Penicillins] Allergy to substance 11-23-2020 Rash [facility] (13 sources) Tetanus Vaccines and Toxoid; Translations: [Tetanus Vaccines and Toxoid] Allergy to substance 11-23-2020 Hives [facility] Medications Current Medications Medication Drug Class(es) Dates Sig (Normalized) Sig (Original) allopurinol 100 mg oral tablet (12 sources) Xanthine Oxidase Inhibitor Start: 07-02-2018 take 1 tablet by mouth at dinner Allopurinol 100 MG tablet Active 100 mg PO WITH DINNER July 02, 2018 12:00am gout atorvastatin 40 mg oral tablet (20 sources) HMG-CoA Reductase Inhibitor Start: 07-21-2024 End: 07-22-2024 take 1 tablet by mouth once daily Atorvastatin 40 mg tablet Active 40 mg PO daily 90 July 22, 2024 12:01pm Start: 06-10-2018 End: 01-26-2020 take 1 tablet by mouth at bedtime Atorvastatin 40 mg tablet Discontinued 40 mg PO AT BEDTIME 90 3 August 18, 2019 8:07am January 26, 2020 2:00pm cholesterol Start: 06-10-2018 End: 07-21-2024 take 1 tablet by mouth every other day Atorvastatin 40 mg tablet Discontinued 40 mg PO .QOD 45 3 July 30, 2023 10:24am July 21, 2024 1:49pm Start: 2018 End: 06-10-2018 take 2 tablets by mouth at bedtime Atorvastatin 20 mg tablet Discontinued 40 mg PO AT BEDTIME 30 June 07, 2018 11:36am June 10, 2018 9:21am Start: 2018 End: 06-10-2018 take 40 mg by mouth at bedtime Atorvastatin Discontinu ed 40 MG PO AT BEDTIME June 07, 2018 11:36am June 10, 2018 9:21am ferrous sulfate 325 mg oral tablet (5 sources) Start: 08-21-2023 take 1 tablet by mouth once daily Ferrous Sulfate 325 mg (65 mg iron) tablet Active 325 mg PO DAILY 30 August 21, 2023 12:00am furosemide 40 mg oral tablet (20 sources) Loop Diuretic Start: 03-07-2023 take 1 tablet by mouth twice daily Furosemide (Lasix) 40 mg tablet Active 40 mg PO TWICE A DAY 180 3 March 07, 2023 5:07pm Start: 06-26-2022 End: 03-07-2023 Furosemide (Lasix) 40 mg tab let Discontinued 20 mg PO DAILY 30 June 26, 2022 5:02pm March 07, 2023 5:08pm Start: 06-06-2022 End: 06-26-2022 take 1 tablet by mouth once daily Furosemide (Lasix) 40 mg tablet Discontinued 40 mg PO DAILY 30 June 06, 2022 12:00am June 26, 2022 5:03pm glimepiride 2 mg oral tablet (20 sources) Sulfonylurea Start: 06-06-2022 take 1 mg by mouth once daily Glimepiride Active 1 MG PO DAILY June 06, 2022 11:19am Start: 07-24-2019 End: 06-06-2022 take 1 mg by mouth once daily Glimepiride 2 mg tablet Active 1 mg PO DAILY June 06, 2022 11:19am Start: 07-02-2018 End: 07-24-2019 take 1 tablet by mouth at lunch Glimepiride 1 MG table t Discontinued 1 mg PO WITH LUNCH July 02, 2018 12:00am July 24, 2019 10:35am blood glucose Metoprolol (20 sources) beta-Adrenergic Geovany Start: 04-30-2023 Metopr olol Tartrate 25 mg tablet Active 0 .ROUTE .COMPLEX 180 3 April 30, 2023 11:29am TAKE 1 TABLET TWICE A DAY FOR HYPERTENSION Start: 04-30-2023 Metoprolol Tar trate 25 mg tablet Active 0 .ROUTE .COMPLEX 180 April 30, 2023 11:29am TAKE 1 TABLET TWICE A DAY FOR HYPERTENSION Start: 04-30-2023 Metoprolol Tar trate Active 0 .ROUTE .COMPLEX 180 April 30, 2023 11:29am TAKE 1 TABLET TWICE A DAY FOR HYPERTENSION Start: 03-15-2023 End: 04-30-2023 take 1 tablet by mouth twice daily Metoprolol Tartrate 25 mg tablet Discontinued 25 mg PO TWICE A DAY March 15, 2023 12:33pm April 30, 2023 11:30am Start: 05-04-2022 End: 03-15-2023 Metoprolol Tartrate 25 mg ta blet Discontinued 0 .ROUTE .COMPLEX 180 3 May 04, 2022 10:49am March 15, 2023 12:34pm TAKE 1 TABLET TWICE A DAY FOR HYPERTENSION Start: 05-04-2022 End: 03-15-2023 Metoprolol Tartrate 25 mg ta blet Discontinued 0 .ROUTE .COMPLEX 180 May 04, 2022 10:49am March 15, 2023 12:34pm TAKE 1 TABLET TWICE A DAY FOR HYPERTENSION Start: 05-04-2022 End: 03-15-2023 Metoprolol Tartrate Disconti nued 0 .ROUTE .COMPLEX 180 May 04, 2022 10:49am March 15, 2023 12:34pm TAKE 1 TABLET TWICE A DAY FOR HYPERTENSION Start: 05-04-2022 End: 03-15-2023 Metoprolol Tartrate Disconti nued 0 .ROUTE .COMPLEX 180 May 04, 2022 9:49am March 15, 2023 11:34am TAKE 1 TABLET TWICE A DAY FOR HYPERTENSION Start: 05-04-2022 Metoprolol Tar trate Active 0 .ROUTE .COMPLEX 180 May 04, 2022 10:49am TAKE 1 TABLET TWICE A DAY FOR HYPERTENSION Start: 2018 End: 05-04-2022 take 1 tablet by mouth twice daily Metoprolol Tartrate 25 mg tablet Discontinued 25 mg PO TWICE A DAY 180 May 09, 2021 9:09am May 04, 2022 10:49am HTN pioglitazone 15 mg oral tablet (12 sources) Peroxisome Proliferator Receptor alpha Agonist, Peroxisome Proliferator Receptor gamma Agonist, Thiazolidinedione Start: 06-07-2018 take 1 tablet by mouth twice daily Pioglitazone 15 mg tablet Active 15 mg PO TWICE A DAY June 07, 2018 12:00am blood glucose spironolactone 50 mg oral tablet (20 sources) Aldosterone Antagonist Start: 07-21-2024 take 1 tablet by mouth once daily Spironolactone 50 mg tablet Active 50 mg PO DAILY 90 July 21, 2024 2:29pm Start: 03-07-2023 End: 07-21-2024 take 1 tablet by mouth once daily Spironolactone 25 mg tablet Discontinued 25 mg PO DAILY 90 March 06, 2024 10:07am July 21, 2024 2:31pm Start: 06-06-2022 End: 06-26-2022 take 1 tablet by mouth once daily Spironolactone 25 mg tablet Discontinued 25 mg PO DAILY 30 June 06, 2022 12:00am June 26, 2022 5:02pm Completed/Discontinued Medications Medication Drug Class(es) Dates Sig (Normalized) Sig (Original) acetaminophen 325 mg / HYDROcodone bitartrate 5 mg oral tablet (12 sources) Opioid Agonist Start: 02-14-2017 End: 06-07-2018 Hydrocodone-Acetami nophen 1 TABLET tablet Discontinued 1 {tbl} PO EVERY 6 HOURS NEEDED as needed for Pain 10 February 14, 2017 1:00am June 07, 2018 10:49am Start: 02-14-2017 End: 06-07-2018 take 1 tablet by mouth every six hours as needed Hydrocodone-Acetaminophen Discontinued 1 TABLET PO EVERY 6 HOURS NEEDED February 14, 2017 1:00am June 07, 2018 10:49am apixaban 5 mg oral tablet (20 sources) Factor Xa Inhibitor Start: 04-17-2022 End: 03-19-2024 take 1 tablet by mouth twice daily Apixaban (Eliquis) 5 mg tablet Discontinued 5 mg PO TWICE A DAY 180 March 26, 2023 10:06am March 19, 2024 4:04pm aspirin 81 mg delayed release oral tablet (20 sources) Platelet Aggregation Inhibitor, Nonsteroidal Anti-inflammatory Drug Start: 2018 End: 02-15-2019 take 1 tablet by mouth once daily Aspirin 81 mg tablet,delayed release (DR/EC) Discontinued 81 mg PO DAILY@0800 90 June 07, 2018 11:36am February 15, 2019 10:35pm cefdinir 300 mg oral capsule (12 sources) Cephalosporin Antibacterial Start: 02-17-2019 End: 07-24-2019 take 1 capsule by mouth every twelve hours Cefdinir 300 MG capsule Discontinued 300 mg PO Q12H February 17, 2019 1:00am July 24, 2019 10:35am chlorthalidone 25 mg oral tablet (20 sources) Thiazide-like Diuretic Start: 01-04-2022 End: 06-06-2022 take 1 tablet by mouth once daily Chlorthalidone 25 mg tablet Discontinued 25 mg PO DAILY 90 January 04, 2022 11:38am June 06, 2022 11:47am Start: 06-07-2018 End: 01-04-2022 Chlorthalidone 25 mg tablet Discontinued 12.5 mg PO DAILY June 07, 2018 12:00am January 04, 2022 11:39am blood pressure Start: 06-07-2018 End: 01-04-2022 take 12.5 mg by mouth once daily Chlorthalidone Discontinued 12.5 MG PO DAILY June 07, 2018 12:00am January 04, 2022 11:39am 24 hr isosorbide mononitrate 60 mg extended release oral tablet (20 sources) Nitrate Vasodilator Start: 04-03-2022 End: 03-10-2024 take 1 tablet by mouth twice daily, then take 1 tablet by mouth every twenty-four hours Isosorbide Mononitrate 60 mg tablet extended release 24 hr Discontinued 60 mg PO TWICE A DAY 180 3 March 06, 2024 10:08am March 10, 2024 9:56am for blood pressure Start: 2018 End: 04-03-2022 take 1 tablet by mouth once daily, then take 1 tablet by mouth every twenty-four hours Isosorbide Mononitrate 60 mg tablet extended release 24 hr Discontinued 60 mg PO DAILY 90 3 May 09, 2021 9:09am April 03, 2022 12:17pm HTN levoFLOXacin 500 mg oral tablet (12 sources) Quinolone Antimicrobial Start: 07-03-2018 End: 08-02-2018 take 1 tablet by mouth once daily Levofloxacin 500 MG tablet Discontinued 500 mg PO DAILY 5 0 July 03, 2018 12:00am August 02, 2018 9:40am lisinopril 5 mg oral tablet (12 sources) Angiotensin Converting Enzyme Inhibitor Start: 2018 End: 06-07-2018 take 1 tablet by mouth once daily Lisinopril 5 MG tablet Discontinued 5 mg PO DAILY 30 0 2018 12:00am June 07, 2018 10:49am losartan potassium 25 mg oral tablet (20 sources) Angiotensin 2 Receptor Geovany Start: 08-02-2018 End: 06-17-2024 take 1 tablet by mouth once daily in the evening Losartan 25 mg tablet Discontinued 25 mg PO EVERY EVENING 90 3 June 25, 2023 8:06am June 17, 2024 7:54am for blood pressure Start: 06-07-2018 End: 08-02-2018 Losartan (Cozaar) 25 mg tabl et Discontinued 12.5 mg PO DAILY June 07, 2018 12:00am August 02, 2018 10:00am metFORMIN hydrochloride 500 mg oral tablet (12 sources) Biguanide Start: 2018 End: 06-07-2018 take 1 tablet by mouth twice daily Metformin 500 MG tablet Discontinued 500 mg PO TWICE A DAY 60 0 2018 12:00am June 07, 2018 10:49am potassium chloride 20 meq extended release oral tablet (20 sources) Start: 03-19-2023 End: 07-21-2024 take 1 tablet by mouth once daily Potassium Chloride 20 mEq tablet extended release Discontinued 20 meq PO DAILY 90 3 March 19, 2023 5:27pm July 21, 2024 2:29pm low potassium Start: 03-07-2023 End: 03-07-2023 Potassium Chloride 20 mEq ta blet extended release Discontinued 20 meq PO .PRN as needed for low potassium 90 3 March 07, 2023 1:00am March 07, 2023 5:17pm Start: 07-24-2019 End: 06-06-2022 take 1 tablet by mouth once daily as needed Potassium Chloride 10 mEq tablet extended release Discontinued 10 meq PO DAILY as needed November 23, 2020 11:22am June 06, 2022 11:47am ticagrelor 90 mg oral tablet (20 sources) Start: 02-23-2020 End: 04-17-2022 take 1 tablet by mouth twice daily Ticagrelor (Brilinta) 90 mg tablet Discontinued 90 mg PO TWICE A DAY 180 3 March 24, 2022 9:53am April 17, 2022 12:01pm Start: 02-11-2020 End: 02-11-2020 take 1 tablet by mouth twice daily Ticagrelor 90 mg tablet Discontinued 90 mg PO TWICE A DAY 1 0 February 11, 2020 1:28pm February 11, 2020 1:28pm Please DISCONTINUE, DO NOT SHIP Start: 2018 End: 01-27-2020 take 1 tablet by mouth twice daily Ticagrelor 90 mg tablet Discontinued 90 mg PO TWICE A DAY 180 3 May 19, 2019 9:37am January 27, 2020 4:38pm blood thinner Problems Active Problems Problem Classification Problem Date Documented Date Episodic/Chronic Acute myocardial infarction (12 sources) Myocardial infarction; Translations: [ST elevation (STEMI) myocardial infarction of unspecified site] Onset: 05-20-2018 10-12-2020 Chronic Cardiac dysrhythmias (20 sources) Atrial flutter; Translations: [Unspecified atrial flutter] Onset: 07-29-2024 Chronic Conduction disorders (20 sources) Complete atrioventricular block; Translations: [Atrioventricular block, complete] Onset: 07-29-2024 Chronic Congestive heart failure; nonhypertensive (9 sources) Symptomatic congestive heart failure; Translations: [Heart failure, unspecified] Onset: 05-29-2024 07-21-2024 Chronic Coronary atherosclerosis and other heart disease (20 sources) Coronary arteriosclerosis; Translations: [Atherosclerotic heart disease of [place] coronary artery without angina pectoris] 02-15-2019 Chronic Deficiency and other anemia (5 sources) Anemia; Translations: [Anemia, unspecified] 08-20-2023 Episodic Diabetes mellitus without complication (13 sources) Type 2 diabetes mellitus; Translations: [Type 2 diabetes mellitus without complications] Onset: 01-23-2024 10-12-2020 Chronic Disorders of lipid metabolism (20 sources) Hyperlipidemia; Translations: [Hyperlipidemia, unspecified] Chronic Essential hypertension (20 sources) Essential hypertension; Translations: [Essential (primary) hypertension] Chronic Other aftercare (3 sources) Patient encounter status; Translations: [Encounter for therapeutic drug level monitoring] 03-19-2023 Episodic Other aftercare (8 sources) Long-term current use of anticoagulant; Translations: [intermediate manager (current) use of anticoagulants] 03-19-2023 Episodic Other aftercare (9 sources) Long-term current use of diuretic; Translations: [Encounter for therapeutic drug level monitoring] 03-19-2023 Episodic Other lower respiratory disease (11 sources) Dyspnea on exertion; Translations: [Other forms of dyspnea] 11-23-2021 Episodic Other lower respiratory disease (7 sources) Other forms of dyspnea; Translations: [Other respiratory abnormalities] Onset: 09-23-2024 Episodic Other non-traumatic joint disorders (1 source) Pain in left knee; Translations: [Pain in left knee] Onset: 07-15-2024 Episodic Residual codes; unclassified (10 sources) Edema; Translations: [Edema, unspecified] 06-06-2022 Episodic Residual codes; unclassified (8 sources) Edema, unspecified; Translations: [Edema] Onset: 07-07-2024 06-06-2022 Episodic Urinary tract infections (12 sources) Urinary tract infectious disease; Translations: [Urinary tract infection, site not specified] 09-22-2019 Episodic Past or Other Problems Problem Classification Problem Date Documented Da te Episodic/Chronic Coronary atherosclerosis and other heart disease (8 sources) Presence of coronary angioplasty implant and graft; Translations: [Percutaneous transluminal coronary angioplasty status] Onset: 05-20-2018 Episodic Other non-traumatic joint disorders (1 source) Effusion, unspecified ankle; Translations: [Effusion, unspecified ankle] Onset: 03-27-2024 Episodic Results Test Name Value Interpretation Reference Range Facility Anion gap in Serum or Plasma Ordered By: Casey Smith on 10-02-2024 Anion gap [Moles/Vol] 13 mmol/L - [facility] BUN/creatinine ratioOrdered By: Casey Smith on 10-02-2024 Urea nitrogen/Creatinine [Mass ratio] 29.3 mg/mg High 12-29 [facility] Basic Metabolic Profile (BMP )on 10-02-2024 BUN/CRE 29.[address] [facility] Comment on above: Performed By: #### L [id number] #### [facility] [address] [place], [address] Calcium [Mass/Vol] 9.5 mg/dL Normal 7.6-11.0 [facility] Comment on above: Performed By: #### L [id number] #### [facility] [address] [place], [address] Chloride [Moles/Vol] 97 mmol/L Low 98-108 [facility] Comment on above: Performed By: #### L [id number] #### [facility] [address] [place], [address] CO2 [Moles/Vol] 24.0 mmol/L Normal 21.0-32.0 [facility] Comment on above: Performed By: #### L [id number] #### [facility] [address] [place], [address] Creatinine [Mass/Vol] 1.37 mg/dL High 0.70-1.20 [facility] Comment on above: Performed By: #### L [id number] #### [facility] [address] [place], [address] GAP 13 Normal 5-15 [facility] Comment on above: Performed By: #### L [id number] #### [facility] [address] [place], [address] GFR/1.73 sq M.predicted among non-blacks MDRD (S/P/Bld) [Vol rate/Area] 37 mL/min/{1.73_m2} Low >60 [facility] Comment on above: Result Comment: mL/m in/1.73m2 CKD-EPI Creatinine Equation (2020) Performed By: #### L 500.2500 #### [facility] [address] [place], [address] Glucose [Mass/Vol] 143 mg/dL High 70-99 [facility] Comment on above: Performed By: #### L [id number] #### [facility] [address] [place], [address] Potassium [Moles/Vol] 4.3 mmol/L Normal 3.3-5.1 [facility] Comment on above: Performed By: #### L [id number] #### [facility] [address] [place], [address] Sodium [Moles/Vol] 134 mmol/L Normal 133-145 [facility] Comment on above: Performed By: #### L [id number] #### [facility] [address] [place], [address] Urea nitrogen [Mass/Vol] 40 mg/dL High 4-19 [facility] Comment on above: Performed By: #### L 500.2500 #### [facility] [address] [place], [address] Carbon dioxide, total [Moles /volume] in Central venous bloodOrdered By: Casey Smith on 10-02-2024 CO2 [Moles/Vol] 24.0 mmol/L 21.0-32.0 [facility] Chloride assayOrdered By: Khai Smith on 10-02-2024 Chloride [Moles/Vol] 97 mmol/L Low 98-108 [facility] Glomerular filtration rate ( GFR) estimation/1.73 sq m using serum, plasma, or whole bOrdered By: Casey Smith on 10-02-2024 GFR/1.73 sq M.predicted among non-blacks MDRD (S/P/Bld) [Vol rate/Area] 37 mL/min/{1.73_m2} Low >60 [facility] Comment on above: mL/min/1.73m2 CKD-EP I Creatinine Equation (2020) Potassium measurement (mass/ volume)Ordered By: Casey Smith on 10-02-2024 Potassium (Unsp spec) [Mass/Vol] 4.3 mmol/L 3.3-5.1 [facility] Serum creatinine measurement (mass/volume)Ordered By: Casey Smith on 10-02-2024 Creatinine [Mass/Vol] 1.37 mg/dL High 0.70-1.20 [facility] Serum glucose measurement (m ass/volume)Ordered By: Casey Smith on 10-02-2024 Glucose [Mass/Vol] 143 mg/dL High 70-99 [facility] Serum or plasma calcium sheila urement (mass/volume)Ordered By: Casey Smith on 10-02-2024 Calcium [Mass/Vol] 9.5 mg/dL 7.6-11.0 [facility] Serum or plasma urea nitroge n measurement (mass/volume)Ordered By: Casey Smith on 10-02-2024 Urea nitrogen [Mass/Vol] 40 mg/dL High 4-19 [facility] Sodium levelOrdered By: Casey Smith on 10-02-2024 Sodium [Moles/Vol] 134 mmol/L 133-145 [facility] Cardiology Visit Reporton Cardiology Visit Report [facility] [address] [place], [place] [id number] OFFICE VISIT Date of Service: 07/21/24 MR#: [id number] Acct: [id number] Name: NELSON STROUD Rep #: [id number] : 1935 Provider: Dr. Gregorio Umanzor MD Age/Sex: 89/F Location: [facility] Status: Signed HPI HPI History of Present Illness Details: Nelson Stroud is an 89 year old lady who presents for a cardiovascular follow up. While she was undergoing a stress test in [address] elevation.??? She was taken to the [facility] and underwent urgent heart catheterization which demonstrated a 70% proximal left anterior descending artery lesion, circumflex artery with mild disease, right coronary artery which was a large dominant vessel with a 99% proximal stenosis. She had a successful proximal and mid right coronary artery stenting with a 4.0 x 18 mm and a 4.0 x 15 mm drug-eluting stent placed. She also has a history of hypertension.??? In September of 2023 she presented with shortness of breath she was noted to be in complete heart block and needed a permanent pacemaker implanted. She denies chest, arm, jaw, or neck discomfort. She denies palpitations. She states bilateral lower extremity edema in her feet or ankle. She states her Lasix improves her edema. She denies claudication. She states shortness of breath with activity. She denies shortness of breath at rest, orthopnea, or PND. She denies chronic cough. She denies significant, sudden weight gain. She states lightheadedness when standing too quickly. She denies dizziness, near-syncope, or syncope. She denies blood in urine, blood in stool, or epistaxis. He denies fever with chills. She denies myalgia. She denies fatigue. Her exercise level has remained stable. Intake Vital Signs 03/07/23 15:39 08/20/23 13:52 07/21/24 13:44 Height 5 ft 3 in 5 ft 3 in 5 ft 3 in Weight: 197 lb BMI 34.9 BP 114/69 Blood Pressure Location Lt brachial Position Sitting Respiration 16 Pulse 70 Pulse Source Monitor Intake Visit Reasons: 1 Y FU PPM f/u @ 2:30 Analysis Consultant Required: No Accompanied by: Significant Other Is patient in pain?: No Allergies Penicillins Allergy (Verified 07/21/24 13:48) Rash Tetanus Vaccines and Toxoid Allergy (Verified 07/21/24 13:48) Hives Medications ???Medication ???Instructions ???Recorded ???Confirmed ???Type pioglitazone 15 mg tablet 15 mg PO BID blood glucose 9 07/21/24 History allopurinol 100 mg tablet 100 mg PO DINNER gout 07/02/1803/05 History aspirin 81 mg tablet,delayed 81 mg PO DAILY@0800 heart health 1 04/18/18 07/21/24 History release glimepiride 2 mg tablet 1 mg PO DAILY 06/06/22 07/21/24 Hi story furosemide 40 mg tablet (Lasix) 40 mg PO BID #180 tabs 03/07/23 Rx metoprolol tartrate 25 mg tablet See Rx Instructions .Route 4 07/21/24 Rx .COMPLEX #180 tabs ferrous sulfate 325 mg (65 mg 325 mg PO DAILY #30 tabs 08/21/23 07/21/24 Rx iron) tablet isosorbide mononitrate 60 mg 60 mg PO BID for blood pressure 07/21/24 Rx tablet,extended release 24 hr #180 TABLETS apixaban 5 mg tablet (Eliquis) 5 mg PO BID #180 tabs 03/19/2403/05 Rx losartan 25 mg tablet 25 mg PO QPM for blood pressure 07/21/24 Rx #90 TABLETS atorvastatin 40 mg tablet 40 mg PO QDAY 07/21/24 07/21/24 Hi story spironolactone 50 mg tablet 50 mg PO DAILY #90 TABLETS 5 07/21/24 Rx Have you fallen in the past year?: No PFSH Medical History Presence of cardiac pacemaker DM type 2 (diabetes mellitus, type 2) Hydronephrosis (02/2019) Gout Atherosclerosis of coronary artery of [place] heart without angina pectoris Essential (primary) hypertension Hyperlipidemia Obesity Type 2 diabetes mellitus (05/20/18) ST elevation (STEMI) myocardial infarction (05/20/18) Surgical History History of hysterectomy History of tonsillectomy History of coronary artery stent placement (05/20/18) Family History Father Heart disease Social History Smoking Status: Never smoker alcohol intake: never substance use type: does not use caffeine: No ROS Const Const: Negative for fatigue, weakness, headache(s), daytime sleepiness or difficulty sleeping ENT ENT: Negative for headache(s), dizziness or Nosebleed/epistaxis Cardio Chest Pain: No Palpitations: No Edema: Bilateral (BLE) Resp Respiratory: Positive for SOB with activity (has increased); Negative for SOB at rest, SOB orthopnea SOB lying down or Cough GI GI: Negative nausea, vomiting or heartburn Neuro Neuro: P (more content not included)... Normal [facility] Pacemaker Checkon 07-21-2024 Pacemaker Check [facility] [address] [place] [address]. [address] [place] [address] Pacemaker Check Date of Service: 07/21/241336 MR#: [id number] Acct: [id number] Name: NELSON STROUD Rep #: [id number] : 1935 From: Sharon Smyth Age/Sex: 89/F Location: [facility] Status: Signed Billing Codes PM Device Codes: 48528 PM Dev Prog Eval, Dual Assessment and Plan Assessment and Plan (1) Presence of cardiac pacemaker: Status: Chronic (2) Third degree heart block: Status: Acute (3) Atrial flutter: Status: Acute Qualifiers: Atrial flutter type: unspecified Qualified Code(s): I48.92 - Unspecified atrial flutter 07/21/24 1338 Date Sharon Smyth Cosigner Signature: Date (if applicable) CC: Normal [facility] Knee 4 or More Viewson 07-[address] [facility] Imaging Services [address] [place], [place] [id number] Knee 4 or More Views MR#: [id number] Acct: [id number] Name: NELSON STROUD Rep #: [id number] : 1935 F 89 From: Hoang Garcia MD PCP: Dr. Casey Smith MD Status: REG CLI Study: Knee 4 or More Views Date of Exam: 07/09/24 Exam# [id number] Ordering Dr: Casey Smith MD PROCEDURE: KNEE 4 OR MORE VIEWS 07/09/2024 REASON FOR EXAM: PAIN TECHNIQUE: 4 views of the left knee FINDINGS: Bones: No fracture. No suspicious bone lesion. Joints: Moderate degenerative changes. Effusion: No effusion. Soft tissues: Soft tissues are unremarkable. Other: RAD/Knee 4 or More Views IMPRESSION: DEGENERATIVE OSTEOARTHROSIS. NO ACUTE FINDINGS. Reading Location: [facility] CC: Dr. Casey Smith MD [employer] Equipment Erector: Signed Normal [facility] Anion gap in Serum or Plasma Ordered By: Casey Smith on 07-02-2024 Anion gap [Moles/Vol] 12 mmol/L 5-15 [facility] BUN/creatinine ratioOrdered By: Casey Smith on 07-02-2024 Urea nitrogen/Creatinine [Mass ratio] 28.3 mg/mg High 10-20 [facility] Basic Metabolic Profile (BMP )on 07-02-2024 BUN/CRE 28.3 RATIO High - [facility] Comment on above: Order Comment: VROMP Performed By: #### L 500.2500 #### [facility] [address] [place], [place], [id number] Calcium [Mass/Vol] 9.4 mg/dL Normal 7.6-11.0 [facility] Comment on above: Order Comment: VROMP Performed By: #### L 500.2500 #### [facility] [address] [place], [address] Chloride [Moles/Vol] 101 mmol/L Normal 98-108 [facility] Comment on above: Order Comment: VROMP Performed By: #### L 500.2500 #### [facility] [address] [place], [address] CO2 [Moles/Vol] 23.5 mmol/L Normal 21.0-32.0 [facility] Comment on above: Order Comment: VROMP Performed By: #### L 500.2500 #### [facility] [address] [place], [address] Creatinine [Mass/Vol] 1.27 mg/dL High 0.70-1.20 [facility] Comment on above: Order Comment: VROMP Performed By: #### L 500.2500 #### [facility] [address] [place], [address] GAP 12 Normal 5-15 [facility] Comment on above: Order Comment: VROMP Performed By: #### L 500.2500 #### [facility] [address] [place], [address] GFR/1.73 sq M.predicted among non-blacks MDRD (S/P/Bld) [Vol rate/Area] 41 mL/min/{1.73_m2} Low >60 [facility] Comment on above: Order Comment: VROMP Result Comment: mL/m in/1.73m2 CKD-EPI Creatinine Equation (2020) Performed By: #### L 500.2500 #### [facility] [address] [place], [address] Glucose [Mass/Vol] 126 mg/dL High 70-99 [facility] Comment on above: Order Comment: VROMP Performed By: #### L 500.2500 #### [facility] [address] [place], [address] Potassium [Moles/Vol] 3.8 mmol/L Normal 3.3-5.1 [facility] Comment on above: Order Comment: VROMP Performed By: #### L 500.2500 #### [facility] [address] [place], [address] Sodium [Moles/Vol] 136 mmol/L Normal 133-145 [facility] Comment on above: Order Comment: VROMP Performed By: #### L 500.2500 #### [facility] [address] [place], [address] Urea nitrogen [Mass/Vol] 36 mg/dL High 4-19 [facility] Comment on above: Order Comment: VROMP Performed By: #### L 500.2500 #### [facility] [address] [place], [address] Carbon dioxide, total [Moles /volume] in Central venous bloodOrdered By: Casey Smith on 07-02-2024 CO2 [Moles/Vol] 23.5 mmol/L 21.0-32.0 [facility] Chloride assayOrdered By: Khai Smith on 07-02-2024 Chloride [Moles/Vol] 101 mmol/L 98-108 [facility] Glomerular filtration rate ( GFR) estimation/1.73 sq m using serum, plasma, or whole bOrdered By: Casey Smith on 07-02-2024 GFR/1.73 sq M.predicted among non-blacks MDRD (S/P/Bld) [Vol rate/Area] 41 mL/min/{1.73_m2} Low >60 [facility] Comment on above: mL/min/1.73m2 CKD-EP I Creatinine Equation (2020) Potassium measurement (mass/ volume)Ordered By: Casey Smith on 07-02-2024 Potassium (Unsp spec) [Mass/Vol] 3.8 mmol/L 3.3-5.1 [facility] Serum creatinine measurement (mass/volume)Ordered By: Casey Smith on 07-02-2024 Creatinine [Mass/Vol] 1.27 mg/dL High 0.70-1.20 [facility] Serum glucose measurement (m ass/volume)Ordered By: Casey Smith on 07-02-2024 Glucose [Mass/Vol] 126 mg/dL High 70-99 [facility] Serum or plasma calcium sheila urement (mass/volume)Ordered By: Casey Smith on 07-02-2024 Calcium [Mass/Vol] 9.4 mg/dL 7.6-11.0 [facility] Serum or plasma urea nitroge n measurement (mass/volume)Ordered By: Casey Smith on 07-02-2024 Urea nitrogen [Mass/Vol] 36 mg/dL High 4-19 [facility] Sodium levelOrdered By: Casey Smith on 07-02-2024 Sodium [Moles/Vol] 136 mmol/L 133-145 [facility] Albumin DL <= 20 mg/L (U) [M ass/Vol]Ordered By: Casey Smith on 05-19-2024 Urine Random Microalbumin < 12.0 mg/L NO RANGE EST. [facility] Anion gap in Serum or Plasma Ordered By: Casey Smith on 05-19-2024 Anion gap [Moles/Vol] 15 mmol/L 5-15 [facility] BUN/creatinine ratioOrdered By: Casey Smith on 05-19-2024 Urea nitrogen/Creatinine [Mass ratio] 24.4 mg/mg High 12-29 [facility] Basic Metabolic Profile (BMP )on 05-19-2024 BUN/CRE 24.4 RATIO High 12-29 [facility] Comment on above: Performed By: #### L 502.0250, L501.9985, L500.2500, L500.4100, L503.7505 #### [facility] [address] [place], [place], [id number] Calcium [Mass/Vol] 9.8 mg/dL Normal 7.6-11.0 [facility] Comment on above: Performed By: #### L 502.0250, L501.9985, L500.2500, L500.4100, L503.7505 #### [facility] [address] [place], [address] Chloride [Moles/Vol] 100 mmol/L Normal 98-108 [facility] Comment on above: Performed By: #### L 502.0250, L501.9985, L500.2500, L500.4100, L503.7505 #### [facility] [address] [place], [address] CO2 [Moles/Vol] 20.9 mmol/L Low 21.0-32.0 [facility] Comment on above: Performed By: #### L 502.0250, L501.9985, L500.2500, L500.4100, L503.7505 #### [facility] [address] [place], [address] Creatinine [Mass/Vol] 1.30 mg/dL High 0.70-1.20 [facility] Comment on above: Performed By: #### L 502.0250, L501.9985, L500.2500, L500.4100, L503.7505 #### [facility] [address] [place], [address] GAP 15 Normal 5-15 [facility] Comment on above: Performed By: #### L 502.0250, L501.9985, L500.2500, L500.4100, L503.7505 #### [facility] [address] [place], [address] GFR/1.73 sq M.predicted among non-blacks MDRD (S/P/Bld) [Vol rate/Area] 40 mL/min/{1.73_m2} Low >60 [facility] Comment on above: Result Comment: mL/m in/1.73m2 CKD-EPI Creatinine Equation (2020) Performed By: #### L 502.0250, L501.9985, L500.2500, L500.4100, L503.7505 #### [facility] [address] [place], [address] Glucose [Mass/Vol] 123 mg/dL High 70-99 [facility] Comment on above: Performed By: #### L 502.0250, L501.9985, L500.2500, L500.4100, L503.7505 #### [facility] [address] [place], [address] Potassium [Moles/Vol] 4.3 mmol/L Normal 3.3-5.1 [facility] Comment on above: Performed By: #### L 502.0250, L501.9985, L500.2500, L500.4100, L503.7505 #### [facility] [address] [place], [address] Sodium [Moles/Vol] 136 mmol/L Normal 133-145 [facility] Comment on above: Performed By: #### L 502.0250, L501.9985, L500.2500, L500.4100, L503.7505 #### [facility] [address] [place], [address] Urea nitrogen [Mass/Vol] 32 mg/dL High 4-19 [facility] Comment on above: Performed By: #### L 502.0250, L501.9985, L500.2500, L500.4100, L503.7505 #### [facility] [address] [place], [address] Calculated very low density lipoprotein (VLDL) cholesterol measurementOrdered By: Casey Smith on 05-19-2024 Calculated very low density lipoprotein (VLDL) cholesterol measurement 24 mg/dL 5-40 [facility] VLDL Cholesterol 24 mg/dL 5-40 [facility] Carbon dioxide, total [Moles /volume] in Central venous bloodOrdered By: Casey Smith on 05-19-2024 CO2 [Moles/Vol] 20.9 mmol/L Low 21.0-32.0 [facility] Chloride assayOrdered By: Khai Smith on 05-19-2024 Chloride [Moles/Vol] 100 mmol/L 98-108 [facility] Creatinine Unsp time (U) [Ma ss/Vol]Ordered By: Casey Smith on 05-19-2024 Creatinine (U) [Mass/Vol] 64.00 mg/dL 28-217 [facility] GFR/1.73 sq M.predicted norbert g non-blacks MDRD (S/P/Bld) [Vol rate/Area]Ordered By: Casey Smith on 05-19-2024 Estimated GFR (MDRD) Non-Af Amer 40 Low >60 [facility] Comment on above: mL/min/1.73m2 CKD-EP I Creatinine Equation (2020) Glomerular filtration rate ( GFR) estimation/1.73 sq m using serum, plasma, or whole bOrdered By: Casey Smith on 05-19-2024 GFR/1.73 sq M.predicted among non-blacks MDRD (S/P/Bld) [Vol rate/Area] 40 mL/min/{1.73_m2} Low >60 [facility] Comment on above: mL/min/1.73m2 CKD-EP I Creatinine Equation (2020) Hemoglobin A1con 05-19-2024 HbA1c (Bld) [Mass fraction] 6.8 % Normal <=5.6 [facility] Comment on above: Performed By: #### L 502.0250, L501.9985, L500.2500, L500.4100, L503.7505 #### [facility] [address] [place] [address], [id number] Hemoglobin A1c percentageOrd ered By: Casey Smith on 05-19-2024 HbA1c (Bld) [Mass fraction] 6.8 % >5.7 [facility] L503.7505on 05-19-2024 Natriuretic peptide B (Bld) [Mass/Vol] 1703 pg/mL Normal <=1800 [facility] Comment on above: Result Comment: Hear t Failure Unlikely: < 300 pg/mL Heart Failure Likely < 50 Years: > 450 pg/mL 50-75 Years: > 900 pg/mL >75 Years: > 1800 pg/mL Performed By: #### L 502.0250, L501.9985, L500.2500, L500.4100, L503.7505 ####[facility] [address] [place], [address] LDL calc ser/plasOrdered By: Casey Smith on 05-19-2024 Cholesterol in LDL [Mass/Vol] 49 mg/dL [facility] Comment on above: Vhoylryaqz=671-993 m g/dL & Higher Uwli=728 mg/dL or greater LDL Cholesterol, Calculated 49 mg/dL [facility] Comment on above: Ihppcesixb=114-651 m g/dL & Higher Hwcw=127 mg/dL or greater Laboratory - Chemistry and C hemistry - challengeOrdered By: Casey Smith on 05-19-2024 Natriuretic peptide B (Bld) [Mass/Vol] 1703 pg/mL <1800 [facility] Comment on above: Heart Failure Unlike ly: < 300 pg/mLHeart Failure Likely< 50 Years: > 450 pg/mL50-75 Years: > 900 pg/mL>75 Years: > 1800 pg/mL Lipid Profileon 05-19-2024 CHOL:HDL 2.24 Normal [facility] Comment on above: Performed By: #### L 502.0250, L501.9985, L500.2500, L500.4100, L503.7505 #### [facility] [address] [place], [address] Cholesterol [Mass/Vol] 132 mg/dL Normal <=200 [facility] Comment on above: Result Comment: Chol esterol level, Desirable <200 mg/dL Borderline high cholesterol 200-239 mg/dL High cholesterol >=240 mg/dL Recommendations of the NCEP Adult Treatment Panel for the following risk-cutoff thresholds for the [place] population. Performed By: #### L 502.0250, L501.9985, L500.2500, L500.4100, L503.7505 #### [facility] [address] [place], [address] Cholesterol in HDL [Mass/Vol] 59 mg/dL Normal [facility] Comment on above: Result Comment: Judi onal Cholesterol Education Program (NCEP) guidelines: <40 mg/dL: Low HDL-cholesterol (major risk factor for CHD) >= 60 mg/dL: High HDL-cholesterol (negative risk factor for CHD) HDL-cholesterol is affected by a number of factors, e.g. smoking, exercise, hormones, sex and age. Performed By: #### L 502.0250, L501.9985, L500.2500, L500.4100, L503.7505 #### [facility] [address] [place], [address] Cholesterol in LDL [Mass/Vol] 49 mg/dL Normal [facility] Comment on above: Result Comment: Bord etuywl=786-343 mg/dL Higher Elcj=433 mg/dL or greater Performed By: #### L 502.0250, L501.9985, L500.2500, L500.4100, L503.7505 #### [facility] [address] [place], [address] Cholesterol in VLDL [Mass/Vol] 24 mg/dL Normal 5-40 [facility] Comment on above: Performed By: #### L 502.0250, L501.9985, L500.2500, L500.4100, L503.7505 #### [facility] [address] [place], [address] Triglyceride [Mass/Vol] 120 mg/dL Normal [facility] Comment on above: Result Comment: The drugs N-Acetylcysteine and Metamizole may falsely depress this assay. Normal range: <150 mg/dL Borderline High: 150-199 mg/dL High: 200-499 mg/dL Very High: >500 mg/dL Performed By: #### L 502.0250, L501.9985, L500.2500, L500.4100, L503.7505 #### [facility] [address] [place], [address] Microalb:Creat Ratio,Random URon 05-19-2024 Creatinine [Mass/Vol] 64.00 mg/dL Normal 28-217 [facility] Comment on above: Performed By: #### L 502.0250, L501.9985, L500.2500, L500.4100, L503.7505 ####[facility] [address] [place], [address] MALB:CREAT UNABLE TO CALCULATE Normal [facility] Comment on above: Performed By: #### L 502.0250, L501.9985, L500.2500, L500.4100, L503.7505 ####[facility] [address] [place], [address] MICROALBUMIN,UR < 12.0 Normal NO RANGE EST. [facility] Comment on above: Performed By: #### L 502.0250, L501.9985, L500.2500, L500.4100, L503.7505 ####[facility] [address] [place], [address] Microalbumin/creat ratio urO rdered By: Casey Smith on 05-19-2024 Urine Microalbumin/Creatinine Ratio UNABLE TO CALCULATE mg/g CRE [facility] Urine microalbumin/creatinine ratio measurement UNABLE TO CALCULATE mg/g CRE [facility] Potassium (Unsp spec) [Mass/ Vol]Ordered By: Casey Smith on 05-19-2024 Potassium [Moles/Vol] 4.3 mmol/L 3.3-5.1 [facility] Potassium measurement (mass/ volume)Ordered By: Casey Smith on 05-19-2024 Potassium (Unsp spec) [Mass/Vol] 4.3 mmol/L 3.3-5.1 [facility] Random urine creatinine sheila urement (mass/volume)Ordered By: Casey Smith on 05-19-2024 Creatinine Unsp time (U) [Mass/Vol] 64.00 mg/dL [facility] Screening total cholesterol/ high density lipoprotein (HDL) cholesterol ratioOrdered By: Casey Smith on 05-19-2024 Cholesterol.total/Gardenia sterol in HDL [Mass ratio] 2.24 {ratio} [facility] Serum creatinine measurement (mass/volume)Ordered By: Casey Smith on 05-19-2024 Creatinine [Mass/Vol] 1.30 mg/dL High 0.70-1.20 [facility] Serum glucose measurement (m ass/volume)Ordered By: Casey Smith on 05-19-2024 Glucose [Mass/Vol] 123 mg/dL High 70-99 [facility] Serum or plasma calcium sheila urement (mass/volume)Ordered By: Casey Smith on 05-19-2024 Calcium [Mass/Vol] 9.8 mg/dL 7.6-11.0 [facility] Serum or plasma cholesterol in HDL measurement (mass/volume)Ordered By: Casey Smith on 05-19-2024 Cholesterol in HDL [Mass/Vol] 59 mg/dL >40 [facility] Comment on above: National Cholesterol Education Program (NCEP) guidelines:<40 mg/dL: Low HDL-cholesterol (major risk factor for CHD)>= 60 mg/dL: High HDL-cholesterol (negative risk factor for CHD)HDL-cholesterol is affected by a number of factors, e.g. smoking, exercise, hormones, sex and age. Serum or plasma cholesterol measurement (mass/volume)Ordered By: Casey Smith on 05-19-2024 Cholesterol [Mass/Vol] 132 mg/dL <201 [facility] Comment on above: Cholesterol level, D esirable <200 mg/dLBorderline high cholesterol 200-239 mg/dLHigh cholesterol >=240 mg/dLRecommendations of the NCEP Adult Treatment Panel for the following risk-cutoff thresholds for the [place] population. Serum or plasma urea nitroge n measurement (mass/volume)Ordered By: Casey Smith on 05-19-2024 Urea nitrogen [Mass/Vol] 32 mg/dL High 4-19 [facility] Shoulder min 2 Viewson 05-[address] [facility] Imaging Services [address], [place] [id number] (819) Shoulder min 2 Views MR#: [id number] Acct: [id number] Name: NELSON STROUD Rep #: [id number] : 1935 F 88 From: Yadiel Buitrago MD PCP: Dr. Casey Smith MD Status: REG CLI Study: Shoulder min 2 Views Date of Exam: 05/19/24 Exam# [id number] Ordering Dr: Casey Smith MD EXAM: XR Right Shoulder Complete, 2 or More Views CLINICAL INDICATION: TECHNIQUE: Two or more views of the right shoulder. COMPARISON: No relevant prior studies available. FINDINGS: BONES/JOINTS: Moderate degenerative changes of the acromioclavicular and glenohumeral joints. No acute fracture. No dislocation. SOFT TISSUES: Unremarkable. RAD/Shoulder min 2 Views IMPRESSION: Degenerative changes as above. Reading Location: [facility] CC: Dr. Casey Smith MD [employer] Erector: Signed Normal [facility] Sodium levelOrdered By: Casey Smith on 05-19-2024 Sodium [Moles/Vol] 136 mmol/L 133-145 [facility] Triglycerides measurementOrd ered By: Casey Smith on 05-19-2024 Triglyceride [Mass/Vol] 120 mg/dL <199 [facility] Comment on above: The drugs N-Acetylcy steine and Metamizole may falsely depress this assay. Normal range: <150 mg/dLBorderline High: 150-199 mg/dLHigh: 200-499 mg/dLVery High: >500 mg/dL Urine albumin measurement [facility] detection limit of 20 mg/L or less (mass/volume)Ordered By: Casey Smith on 05-19-2024 Albumin DL <= 20 mg/L (U) [Mass/Vol] < 12.0 mg/L NO RANGE EST. [facility] Basic Metabolic Profile (BMP )on 02-29-2024 BUN/CRE 24.0 RATIO High 12-29 [facility] Comment on above: Performed By: #### L 500.2500 #### [facility] [address] [place], [place], [id number] CA,Total 9.4 mg/dL Normal 8.5-10.1 [facility] Comment on above: Performed By: #### L 500.2500 #### [facility] [address] [place], [address] Chloride [Moles/Vol] 102 mmol/L Normal 98-107 [facility] Comment on above: Performed By: #### L 500.2500 #### [facility] [address] [place], [address] CO2 [Moles/Vol] 26.0 mmol/L Normal 21.0-32.0 [facility] Comment on above: Performed By: #### L 500.2500 #### [facility] [address] [place], [address] Creatinine [Mass/Vol] 1.50 mg/dL High 0.55-1.02 [facility] Comment on above: Result Comment: The validity of the calculated GFR GFRAA in patients over 70 years has not been determined. Clinical correlation is essential. Performed By: #### L 500.2500 #### [facility] [address] [place], [address] EST GFR - AA 42 mL/min Low >60 [facility] Comment on above: Result Comment: Afri can Citizen Of [place] GFR Calc Performed By: #### L 500.2500 #### [facility] [address] [place], [address] GAP 8 Normal 5-15 [facility] Comment on above: Performed By: #### L 500.2500 #### [facility] [address] [place], [address] GFR/1.73 sq M.predicted among non-blacks MDRD (S/P/Bld) [Vol rate/Area] 35 mL/min/{1.73_m2} Low >60 [facility] Comment on above: Result Comment: Non- GFR Calc Performed By: #### L 500.2500 #### [facility] [address] [place], [address] Glucose [Mass/Vol] 141 mg/dL High 74-106 [facility] Comment on above: Result Comment: Fast ing Glucose result greater than or equal to 126 mg/dL suggests DIABETES MELLITUS per A.D.A. criteria. Performed By: #### L 500.2500 #### [facility] [address] [place], [address] Potassium [Moles/Vol] 3.9 mmol/L Normal 3.5-5.1 [facility] Comment on above: Performed By: #### L 500.2500 #### [facility] [address] [place], [address] Sodium [Moles/Vol] 136 mmol/L Normal 136-145 [facility] Comment on above: Performed By: #### L 500.2500 #### [facility] [address] [place], [address] Urea nitrogen [Mass/Vol] 36 mg/dL High 7-18 [facility] Comment on above: Performed By: #### L 500.2500 #### [facility] [address] [place], [address] Blood urea nitrogen (BUN)/cr eatinine ratioOrdered By: Casey Smith on 02-29-2024 Urea nitrogen/Creatinine [Mass ratio] 24.0 mg/mg High 10-20 [facility] Carbon dioxide measurementOr dered By: Casey Smith on 02-29-2024 CO2 [Moles/Vol] 26.0 mmol/L 21.0-32.0 [facility] Chloride measurementOrdered By: Casey Smith on 02-29-2024 Chloride [Moles/Vol] 102 mmol/L 98-107 [facility] Estimated glomerular filtrat ion rate (GFR) AmericanOrdered By: Casey Smith on 02-29-2024 Estimated GFR (MDRD) Amer 42 mL/min Low >60 [facility] Comment on above: GFR Calc Glomerular filtration rate ( GFR) estimationOrdered By: Casey Smith on 02-29-2024 Estimated GFR (MDRD) Non-Af Amer 35 mL/min Low >60 [facility] Comment on above: Non- GFR Calc Glucose measurementOrdered B y: Casey Smith on 02-29-2024 Glucose [Mass/Vol] 141 mg/dL High 74-106 [facility] Comment on above: Fasting Glucose resu lt greater than or equal to 126 mg/dL suggests DIABETES MELLITUS per A.D.A. criteria. Potassium measurementOrdered By: Casey Smith on 02-29-2024 Potassium [Moles/Vol] 3.9 mmol/L 3.5-5.1 [facility] Serum anion gap measurementO rdered By: Casey Smith on 02-29-2024 Anion gap [Moles/Vol] 8 mmol/L 5-15 [facility] Serum or plasma calcium sheila urement (mass/volume)Ordered By: Casey Smith on 02-29-2024 Calcium [Mass/Vol] 9.4 mg/dL 8.5-10.1 [facility] Serum or plasma creatinine m easurement (mass/volume)Ordered By: Casey Smith on 02-29-2024 Creatinine [Mass/Vol] 1.50 mg/dL High 0.55-1.02 [facility] Comment on above: The validity of the calculated GFR & GFRAA in patients over 70 years has not been determined. Clinical correlation is essential. Serum or plasma urea nitroge n measurement (mass/volume)Ordered By: Casey Smith on 02-29-2024 Urea nitrogen [Mass/Vol] 36 mg/dL High 7-18 [facility] Sodium levelOrdered By: Casey Smith on 02-29-2024 Sodium [Moles/Vol] 136 mmol/L 136-145 [facility] Comprehensive Metabolic Prof ilon 01-02-2024 Albumin [Mass/Vol] 3.4 g/dL Normal 3.2-5.0 [facility] Comment on above: Performed By: #### L [id number], [id number] #### [facility] [address] [place], [address] Albumin/Globulin [Mass ratio] 0.8 {ratio} Low 0.9-2.4 [facility] Comment on above: Performed By: #### [id number], [id number] #### [facility] [address] [place], [address] ALK P 107 U/L Normal 45-117 [facility] Comment on above: Performed By: #### L [id number], [id number] #### [facility] [address] [place], [address] ALT [Catalytic activity/Vol] 25 U/L Normal 13-56 [facility] Comment on above: Performed By: #### L [id number], [id number] #### [facility] [address] [place], [address] AST [Catalytic activity/Vol] 28 U/L Normal 15-37 [facility] Comment on above: Performed By: #### L [id number], [id number] #### [facility] [address] [place], [address] Bilirubin [Mass/Vol] 0.60 mg/dL Normal 0.20-1.00 [facility] Comment on above: Result Comment: For patients on eltrombopag therapy, use of Dimension [place] TBIL is not recommended. Performed By: #### L [id number], [id number] #### [facility] [address] [place], [address] BUN/CRE 27.3 RATIO High 10-20 [facility] Comment on above: Performed By: #### L [id number], [id number] #### [facility] [address] [place], [address] CA,Total 9.2 mg/dL Normal 8.5-10.1 [facility] Comment on above: Performed By: #### L [id number], [id number] #### [facility] [address] [place], [address] Chloride [Moles/Vol] 104 mmol/L Normal 98-107 [facility] Comment on above: Performed By: #### L [id number], [id number] #### [facility] [address] [place], [address] CO2 [Moles/Vol] 27.0 mmol/L Normal 21.0-32.0 [facility] Comment on above: Performed By: #### L [id number], [id number] #### [facility] [address] [place], [address] Creatinine [Mass/Vol] 1.32 mg/dL High 0.55-1.02 [facility] Comment on above: Result Comment: The validity of the calculated GFR GFRAA in patients over 70 years has not been determined. Clinical correlation is essential. Performed By: #### L [id number], [id number] #### [facility] [address] [place], [address] EST GFR - AA 49 mL/min Low >60 [facility] Comment on above: Result Comment: Afri can Citizen Of [place] GFR Calc Performed By: #### L [id number], [id number] #### [facility] [address] [place], [address] GAP 7 Normal 5-15 [facility] Comment on above: Performed By: #### L [id number], [id number] #### [facility] [address] [place], [address] GFR/1.73 sq M.predicted among non-blacks MDRD (S/P/Bld) [Vol rate/Area] 40 mL/min/{1.73_m2} Low >60 [facility] Comment on above: Result Comment: Non- GFR Calc Performed By: #### L [id number], [id number] #### [facility] [address] [place], [address] Globulin (S) [Mass/Vol] 4.1 g/dL Normal 2.2-4.2 [facility] Comment on above: Performed By: #### L [id number], [id number] #### [facility] [address] [place], [address] Glucose [Mass/Vol] 116 mg/dL High 74-106 [facility] Comment on above: Result Comment: Fast ing Glucose result from 100 to 125 mg/dL suggests IMPAIRED HOMEOSTASIS per A.D.A. criteria. Performed By: #### L [id number], L500.4100 #### [facility] [address] [place], [address] Potassium [Moles/Vol] 3.9 mmol/L Normal 3.5-5.1 [facility] Comment on above: Performed By: #### L [id number], [id number] #### [facility] [address] [place], [address] Sodium [Moles/Vol] 138 mmol/L Normal 136-145 [facility] Comment on above: Performed By: #### L [id number], [id number] #### [facility] [address] [place], [address] T PROT 7.5 g/dL Normal 6.4-8.2 [facility] Comment on above: Performed By: #### L [id number], [id number] #### [facility] [address] [place], [address] Urea nitrogen [Mass/Vol] 36 mg/dL High 7-18 [facility] Comment on above: Performed By: #### L [id number], [id number] #### [facility] [address] [place], [address] Lipid Profileon 01-02-2024 Cholesterol [Mass/Vol] 138 mg/dL Normal 200 [facility] Comment on above: Result Comment: <200 mg/dL Desirable 200-240 mg/dL Borderline >240 mg/dL High Risk Performed By: #### L [id number], [id number] #### [facility] [address] [place], [address] Cholesterol in HDL [Mass/Vol] 55 mg/dL Normal [facility] Comment on above: Result Comment: The drugs N-Acetylcysteine and Metamizole may falsely depress this assay. Reference Range HDL <40 mg/dL Low HDL Cholesterol HDL >or= 60 mg/dL High HDL Cholesterol Performed By: #### L [id number], L500.4100 #### [facility] [address] [place], [address] Cholesterol in LDL [Mass/Vol] 61 mg/dL Normal 0-130 [facility] Comment on above: Performed By: #### L [id number], [id number] #### [facility] [address] [place], [address] Cholesterol in VLDL [Mass/Vol] 22 mg/dL Normal 5-40 [facility] Comment on above: Performed By: #### L [id number], [id number] #### [facility] [address] [place], [address] Triglyceride [Mass/Vol] 110 mg/dL Normal [facility] Comment on above: Result Comment: The drugs N-Acetylcysteine and Metamizole may falsely depress this assay. Serum Triglycerides Reference Interval Normal <150 mg/dL Borderline high 150 - 199 mg/dL High 200 - 499 mg/dL Very High > or = 500 mg/dL Performed By: #### L [id number], [id number] #### [facility] [address] [place], [address] Basophil percentageOrdered B y: Casey Smith on 07-02-2023 Chloride [Moles/Vol] 106 mmol/L 98-107 [facility] Cholesterol [Mass/Vol] 129 mg/dL <200 [facility] Comment on above: <200 mg/dL Desirable 200-240 mg/dL Borderline >240 mg/dL High Risk Glucose [Mass/Vol] 123 mg/dL 74-106 [facility] Comment on above: Fasting Glucose resu lt from 100 to 125 mg/dL suggests IMPAIRED HOMEOSTASIS per A.D.A. criteria. Potassium [Moles/Vol] 4.0 mmol/L 3.5-5.1 [facility] Sodium [Moles/Vol] 138 mmol/L 136-145 [facility] Triglyceride [Mass/Vol] 121 mg/dL <199 [facility] Comment on above: The drugs N-Acetylcy steine and Metamizole may falsely depress this assay.Serum Triglycerides Reference Interval Normal <150 mg/dL Borderline high 150 - 199 mg/dL High 200 - 499 mg/dL Very High > or = 500 mg/dL Laboratory - Chemistry and C hemistry - challengeOrdered By: Casey Smith on 07-02-2023 Cholesterol in HDL [Mass/Vol] 53 mg/dL >40 [facility] Comment on above: The drugs N-Acetylcy steine and Metamizole may falsely depress this assay. Reference Range HDL <40 mg/dL Low HDL Cholesterol HDL >or= 60 mg/dL High HDL Cholesterol Cholesterol in LDL [Mass/Vol] 52 mg/dL 0-130 [facility] CO2 [Moles/Vol] 27.0 mmol/L 21.0-32.0 [facility] Urea nitrogen/Creatinine [Mass ratio] 23.7 mg/mg 10-20 [facility] No Panel InformationOrdered By: Casey Smith on 07-02-2023 Estimated GFR (MDRD) Amer 46 mL/min >60 [facility] Comment on above: GFR Calc Estimated GFR (MDRD) Non-Af Amer 38 mL/min >60 [facility] Comment on above: Non- GFR Calc VLDL Cholesterol 24 mg/dL 5-40 [facility] Serum or plasma calcium sheila urement (mass/volume)Ordered By: Casey Smith on 07-02-2023 Calcium [Mass/Vol] 9.2 mg/dL 8.5-10.1 [facility] Serum or plasma creatinine m easurement (mass/volume)Ordered By: Casey Smith on 07-02-2023 Creatinine [Mass/Vol] 1.39 mg/dL 0.55-1.02 [facility] Comment on above: The validity of the calculated GFR & GFRAA in patients over 70 years has not been determined. Clinical correlation is essential. Serum or plasma urea nitroge n measurement (mass/volume)Ordered By: Casey Smith on 07-02-2023 Urea nitrogen [Mass/Vol] 33 mg/dL 7-18 [facility] Thin prep Papanicolaou smear with manual screeningOrdered By: Casey Smith on 07-02-2023 Thin prep Papanicolaou smear with manual screening 5 5-15 [facility] Whole blood hemoglobin A1c/t otal hemoglobin ratio (mass fraction)Ordered By: Casey Smith on 07-02-2023 HbA1c (Bld) [Mass fraction] 6.5 % 3.8-5.6 [facility] Comment on above: Normal < 5.7 % Predi abetic 5.7 - 6.4 % Diabetic >or= 6.5 % Please note range changes. Basophil percentageOrdered B y: Floyd Sanchez on 03-19-2023 Chloride [Moles/Vol] 103 mmol/L 98-107 [facility] Glucose [Mass/Vol] 132 mg/dL 74-106 [facility] Comment on above: Fasting Glucose resu lt greater than or equal to 126 mg/dL suggests DIABETES MELLITUS per A.D.A. criteria. Potassium [Moles/Vol] 3.6 mmol/L 3.5-5.1 [facility] Sodium [Moles/Vol] 137 mmol/L 136-145 [facility] WBC (Bld) [#/Vol] 9.8 10*3/uL 4.4-11.0 [facility] Blood erythrocytes count (nu mber/volume)Ordered By: Floyd Sanchez on 03-19-2023 RBC (Bld) [#/Vol] 4.02 10*6/uL 4.2-5.4 [facility] Blood hemoglobin measurement (mass/volume)Ordered By: Floyd Sanchez on 03-19-2023 Hemoglobin (Bld) [Mass/Vol] 10.7 g/dL 12.0-15.0 [facility] Blood platelet mean volumeOr dered By: Floyd Sanhcez on 03-19-2023 Platelet mean volume (Bld) [Entitic vol] 9.2 fL 6.2-12.0 [facility] Determination of erythrocyte mean corpuscular volume (MCV)Ordered By: Floyd Sanchez on 03-19-2023 MCV (RBC) [Entitic vol] 86.1 fL 81-99 [facility] Hematocrit Auto (Bld) [Volum e fraction]Ordered By: Floyd Sanchez on 03-19-2023 Hematocrit (Bld) [Volume fraction] 34.6 % 37-47 [facility] - Chemistry and C hemistry - challengeOrdered By: Floyd Sanchez on 03-19-2023 CO2 [Moles/Vol] 27.0 mmol/L 21.0-32.0 [facility] Urea nitrogen/Creatinine [Mass ratio] 25.4 mg/mg 10-20 [facility] - Hematology and Cell countsOrdered By: Floyd Sanchez on 03-19-2023 Erythrocyte distribution width (RBC) [Entitic vol] 49.8 fL 35.1-43.9 [facility] Erythrocyte distribution width (RBC) [Ratio] 15.9 % 11.6-14.6 [facility] MCH (RBC) [Entitic mass] 26.6 pg 27.0-32.0 [facility] MCHC Auto (RBC) [Mass/Vol]Or dered By: Floyd Sanchez on 03-19-2023 MCHC (RBC) [Mass/Vol] 30.9 g/dL 32-36 [facility] No Panel InformationOrdered By: Floyd Sanchez on 03-19-2023 Estimated GFR (MDRD) Amer 56 mL/min >60 [facility] Comment on above: GFR Calc Estimated GFR (MDRD) Non-Af Amer 46 mL/min >60 [facility] Comment on above: Non- GFR Calc Platelets bldOrdered By: Pierre Sanchez on 03-19-2023 Platelets (Bld) [#/Vol] 335 10*3/uL 150-450 [facility] Serum or plasma calcium sheila urement (mass/volume)Ordered By: Floyd Sanchez on 03-19-2023 Calcium [Mass/Vol] 9.2 mg/dL 8.5-10.1 [facility] Serum or plasma creatinine m easurement (mass/volume)Ordered By: Floyd Sanchez on 03-19-2023 Creatinine [Mass/Vol] 1.18 mg/dL 0.55-1.02 [facility] Comment on above: The validity of the calculated GFR & GFRAA in patients over 70 years has not been determined. Clinical correlation is essential. Serum or plasma urea nitroge n measurement (mass/volume)Ordered By: Floyd Sanchez on 03-19-2023 Urea nitrogen [Mass/Vol] 30 mg/dL 7-18 [facility] Thin prep Papanicolaou smear with manual screeningOrdered By: Floyd Sanchez on 03-19-2023 Thin prep Papanicolaou smear with manual screening 7 5-15 [facility] Absolute lymphocyte countOrd ered By: Floyd Sanchez on 03-15-2023 Lymphocytes Auto (Unsp spec) [#/Vol] 1.51 10*3/uL 0.83-4.51 [facility] Basophil percentageOrdered B y: Floyd Sanchez on 03-15-2023 Basophils/100 WBC (Bld) 0.3 % 0-1 [facility] Chloride [Moles/Vol] 106 mmol/L 98-107 [facility] Eosinophils/100 WBC (Bld) 0.6 % 0-5 [facility] Glucose [Mass/Vol] 137 mg/dL 74-106 [facility] Comment on above: Fasting Glucose resu lt greater than or equal to 126 mg/dL suggests DIABETES MELLITUS per A.D.A. criteria. Neutrophils (Bld) [#/Vol] 7.2 10*3/uL 2.0-7.7 [facility] Neutrophils/100 WBC (Bld) 76.0 % 47-70 [facility] Potassium [Moles/Vol] 3.6 mmol/L 3.5-5.1 [facility] Sodium [Moles/Vol] 141 mmol/L 136-145 [facility] WBC (Bld) [#/Vol] 9.5 10*3/uL 4.4-11.0 [facility] Blood erythrocytes count (nu mber/volume)Ordered By: Floyd Sanchez on 03-15-2023 RBC (Bld) [#/Vol] 3.86 10*6/uL 4.2-5.4 [facility] Blood hemoglobin measurement (mass/volume)Ordered By: Floyd Sanchez on 03-15-2023 Hemoglobin (Bld) [Mass/Vol] 10.5 g/dL 12.0-15.0 [facility] Blood lymphocytes/100 leukoc ytesOrdered By: Floyd Sanchez on 03-15-2023 Lymphocytes/100 WBC (Bld) 16.0 % 19-41 [facility] Blood monocytes/100 leukocyt esOrdered By: Floyd Sanchez on 03-15-2023 Monocytes/100 WBC (Bld) 6.7 % 0-10 [facility] Blood platelet mean volumeOr dered By: Floyd Sanchez on 03-15-2023 Platelet mean volume (Bld) [Entitic vol] 9.4 fL 6.2-12.0 [facility] Determination of erythrocyte mean corpuscular volume (MCV)Ordered By: Floyd Sanchez on 03-15-2023 MCV (RBC) [Entitic vol] 88.1 fL 81-99 [facility] Hematocrit Auto (Bld) [Volum e fraction]Ordered By: Floyd Sanchez on 03-15-2023 Hematocrit (Bld) [Volume fraction] 34.0 % 37-47 [facility] - Chemistry and C hemistry - challengeOrdered By: Floyd Sanchez on 03-15-2023 CO2 [Moles/Vol] 29.0 mmol/L 21.0-32.0 [facility] Natriuretic peptide B (Bld) [Mass/Vol] 291.6 pg/mL 0-100 [facility] Urea nitrogen/Creatinine [Mass ratio] 22.7 mg/mg 10-20 [facility] - Hematology and Cell countsOrdered By: Floyd Sanchez on 03-15-2023 Erythrocyte distribution width (RBC) [Entitic vol] 52.1 fL 35.1-43.9 [facility] Erythrocyte distribution width (RBC) [Ratio] 16.1 % 11.6-14.6 [facility] Immature granulocytes/100 WBC (Bld) 0.400 % 0.0-0.9 [facility] Comment on above: IG% - Immature Granu locytes (promyelocytes, myelocytes and metamyelocytes) > 1% indicates that a LEFT SHIFT is Present. MCH (RBC) [Entitic mass] 27.2 pg 27.0-32.0 [facility] Nucleated RBC/100 WBC (Bld) [Ratio] 0 % 0-5 [facility] Auto (RBC) [Mass/Vol]Or dered By: Floyd Sanchez on 03-15-2023 MCHC (RBC) [Mass/Vol] 30.9 g/dL 32-36 [facility] No Panel InformationOrdered By: Floyd Sanchez on 03-15-2023 Estimated GFR (MDRD) Amer 61 mL/min >60 [facility] Comment on above: GFR Calc Estimated GFR (MDRD) Non-Af Amer 50 mL/min >60 [facility] Comment on above: Non- GFR Calc Platelets bldOrdered By: Pierre Sanchez on 03-15-2023 Platelets (Bld) [#/Vol] 292 10*3/uL 150-450 [facility] Serum or plasma calcium sheila urement (mass/volume)Ordered By: Floyd Sanchez on 03-15-2023 Calcium [Mass/Vol] 9.5 mg/dL 8.5-10.1 [facility] Serum or plasma creatinine m easurement (mass/volume)Ordered By: Floyd Sanchez on 03-15-2023 Creatinine [Mass/Vol] 1.10 mg/dL 0.55-1.02 [facility] Comment on above: The validity of the calculated GFR & GFRAA in patients over 70 years has not been determined. Clinical correlation is essential. Serum or plasma urea nitroge n measurement (mass/volume)Ordered By: Floyd Sanchez on 03-15-2023 Urea nitrogen [Mass/Vol] 25 mg/dL 7-18 [facility] Thin prep Papanicolaou smear with manual screeningOrdered By: Floyd Sanchez on 03-15-2023 Thin prep Papanicolaou smear with manual screening 6 5-15 [facility] Basophil percentageOrdered B y: Casey Smith on 12-28-2022 Chloride [Moles/Vol] 108 mmol/L 98-107 [facility] Glucose [Mass/Vol] 117 mg/dL 74-106 [facility] Comment on above: Fasting Glucose resu lt from 100 to 125 mg/dL suggests IMPAIRED HOMEOSTASIS per A.D.A. criteria. Potassium [Moles/Vol] 3.3 mmol/L 3.5-5.1 [facility] Sodium [Moles/Vol] 142 mmol/L 136-145 [facility] - Chemistry and C hemistry - challengeOrdered By: Casey Smith on 12-28-2022 CO2 [Moles/Vol] 25.0 mmol/L 21.0-32.0 [facility] Urea nitrogen/Creatinine [Mass ratio] 28.0 mg/mg 12-29 [facility] No Panel InformationOrdered By: Casey Smith on 12-28-2022 Estimated GFR (MDRD) Amer 62 mL/min >60 [facility] Comment on above: GFR Calc Estimated GFR (MDRD) Non-Af Amer 52 mL/min >60 [facility] Comment on above: Non- GFR Calc Serum or plasma calcium sheila urement (mass/volume)Ordered By: Casey Smith on 12-28-2022 Calcium [Mass/Vol] 9.0 mg/dL 8.5-10.1 [facility] Serum or plasma creatinine m easurement (mass/volume)Ordered By: Casey Smith on 12-28-2022 Creatinine [Mass/Vol] 1.07 mg/dL 0.55-1.02 [facility] Comment on above: The validity of the calculated GFR & GFRAA in patients over 70 years has not been determined. Clinical correlation is essential. Serum or plasma urea nitroge n measurement (mass/volume)Ordered By: Casey Smith on 12-28-2022 Urea nitrogen [Mass/Vol] 30 mg/dL -18 [facility] Thin prep Papanicolaou smear with manual screeningOrdered By: Casey Smith on 12-28-2022 Thin prep Papanicolaou smear with manual screening 9 - [facility] Whole blood hemoglobin A1c/t otal hemoglobin ratio (mass fraction)Ordered By: Casey Smith on 12-28-2022 HbA1c (Bld) [Mass fraction] 6.5 % 3.8-5.6 [facility] Comment on above: Normal < 5.7 % Predi abetic 5.7 - 6.4 % Diabetic >or= 6.5 % Please note range changes. Basophil percentageOrdered B y: Casey Smith on 09-28-2022 Chloride [Moles/Vol] 107 mmol/L 98-107 [facility] Glucose [Mass/Vol] 154 mg/dL 74-106 [facility] Comment on above: Fasting Glucose resu lt greater than or equal to 126 mg/dL suggests DIABETES MELLITUS per A.D.A. criteria. Potassium [Moles/Vol] 3.7 mmol/L 3.5-5.1 [facility] Sodium [Moles/Vol] 139 mmol/L 136-145 [facility] - Chemistry and C hemistry - challengeOrdered By: Casey Smith on 09-28-2022 CO2 [Moles/Vol] 26.0 mmol/L 21.0-32.0 [facility] Urea nitrogen/Creatinine [Mass ratio] 24.5 mg/mg 10- [facility] No Panel InformationOrdered By: Casey Smith on 09-28-2022 Estimated GFR (MDRD) Amer 61 mL/min >60 [facility] Comment on above: GFR Calc Estimated GFR (MDRD) Non-Af Amer 50 mL/min >60 [facility] Comment on above: Non- GFR Calc Serum or plasma calcium sheila urement (mass/volume)Ordered By: Casey Smith on 09-28-2022 Calcium [Mass/Vol] 9.1 mg/dL 8.5-10.1 [facility] Serum or plasma creatinine m easurement (mass/volume)Ordered By: Casey Smith on 09-28-2022 Creatinine [Mass/Vol] 1.10 mg/dL 0.55-1.02 [facility] Comment on above: The validity of the calculated GFR & GFRAA in patients over 70 years has not been determined. Clinical correlation is essential. Serum or plasma urea nitroge n measurement (mass/volume)Ordered By: Casey Smith on 09-28-2022 Urea nitrogen [Mass/Vol] 27 mg/dL 7-18 [facility] Thin prep Papanicolaou smear with manual screeningOrdered By: Casey Smith on 09-28-2022 Thin prep Papanicolaou smear with manual screening 6 5-15 [facility] Basophil percentageOrdered B y: Dr. Smith on 08-25-2022 Chloride [Moles/Vol] 107 mmol/L 98-107 [facility] Glucose [Mass/Vol] 138 mg/dL 74-106 [facility] Comment on above: Fasting Glucose resu lt greater than or equal to 126 mg/dL suggests DIABETES MELLITUS per A.D.A. criteria. Potassium [Moles/Vol] 3.6 mmol/L 3.5-5.1 [facility] Sodium [Moles/Vol] 141 mmol/L 136-145 [facility] - Chemistry and C hemistry - challengeOrdered By: Dr. Smith on 08-25-2022 CO2 [Moles/Vol] 26.0 mmol/L 21.0-32.0 [facility] Urea nitrogen/Creatinine [Mass ratio] 23.4 mg/mg 10-20 [facility] No Panel InformationOrdered By: Dr. Smith on 08-25-2022 Estimated GFR (MDRD) Amer 69 mL/min >60 [facility] Comment on above: GFR Calc Estimated GFR (MDRD) Non-Af Amer 57 mL/min >60 [facility] Comment on above: Non- GFR Calc Serum or plasma calcium sheila urement (mass/volume)Ordered By: Dr. Smith on 08-25-2022 Calcium [Mass/Vol] 9.3 mg/dL 8.5-10.1 [facility] Serum or plasma creatinine m easurement (mass/volume)Ordered By: Dr. Smith on 08-25-2022 Creatinine [Mass/Vol] 0.98 mg/dL 0.55-1.02 [facility] Comment on above: The validity of the calculated GFR & GFRAA in patients over 70 years has not been determined. Clinical correlation is essential. Serum or plasma urea nitroge n measurement (mass/volume)Ordered By: Dr. Smith on 08-25-2022 Urea nitrogen [Mass/Vol] 23 mg/dL 7-18 [facility] Thin prep Papanicolaou smear with manual screeningOrdered By: Dr. Smith on 08-25-2022 Thin prep Papanicolaou smear with manual screening 8 5-15 [facility] Basophil percentageOrdered B y: Dr. Smith on 07-19-2022 Chloride [Moles/Vol] 110 mmol/L 98-107 [facility] Glucose [Mass/Vol] 154 mg/dL 74-106 [facility] Comment on above: Fasting Glucose resu lt greater than or equal to 126 mg/dL suggests DIABETES MELLITUS per A.D.A. criteria. Potassium [Moles/Vol] 3.7 mmol/L 3.5-5.1 [facility] Sodium [Moles/Vol] 141 mmol/L 136-145 [facility] - Chemistry and C hemistry - challengeOrdered By: Dr. Smith on 07-19-2022 CO2 [Moles/Vol] 24.0 mmol/L 21.0-32.0 [facility] Natriuretic peptide B (Bld) [Mass/Vol] 236.2 pg/mL 0-100 [facility] Urea nitrogen/Creatinine [Mass ratio] 25.4 mg/mg 10-20 [facility] No Panel InformationOrdered By: Dr. Smith on 07-19-2022 Estimated GFR (MDRD) Amer 56 mL/min >60 [facility] Comment on above: GFR Calc Estimated GFR (MDRD) Non-Af Amer 46 mL/min >60 [facility] Comment on above: Non- GFR Calc Serum or plasma calcium sheila urement (mass/volume)Ordered By: Dr. Smith on 07-19-2022 Calcium [Mass/Vol] 9.1 mg/dL 8.5-10.1 [facility] Serum or plasma creatinine m easurement (mass/volume)Ordered By: Dr. Smith on 07-19-2022 Creatinine [Mass/Vol] 1.18 mg/dL 0.55-1.02 [facility] Comment on above: The validity of the calculated GFR & GFRAA in patients over 70 years has not been determined. Clinical correlation is essential. Serum or plasma urea nitroge n measurement (mass/volume)Ordered By: Dr. Smith on 07-19-2022 Urea nitrogen [Mass/Vol] 30 mg/dL 7-18 [facility] Thin prep Papanicolaou smear with manual screeningOrdered By: Dr. Smith on 07-19-2022 Thin prep Papanicolaou smear with manual screening 7 -15 [facility] Basophil percentageOrdered B y: Anjali Reeder on 06-24-2022 Chloride [Moles/Vol] 108 mmol/L 98-107 [facility] Glucose [Mass/Vol] 185 mg/dL 74-106 [facility] Comment on above: Fasting Glucose resu lt greater than or equal to 126 mg/dL suggests DIABETES MELLITUS per A.D.A. criteria. Potassium [Moles/Vol] 4.3 mmol/L 3.5-5.1 [facility] Comment on above: Slight Hemolysis, Re sult may be falsely increased. Sodium [Moles/Vol] 138 mmol/L 136-145 [facility] Laboratory - Chemistry and C hemistry - challengeOrdered By: Anjali Reeder on 06-24-2022 CO2 [Moles/Vol] 24.0 mmol/L 21.0-32.0 [facility] Urea nitrogen/Creatinine [Mass ratio] 24.2 mg/mg 10- [facility] No Panel InformationOrdered By: Anjali Reeder on 06-24-2022 Estimated GFR (MDRD) Amer 53 mL/min >60 [facility] Comment on above: GFR Calc Estimated GFR (MDRD) Non-Af Amer 44 mL/min >60 [facility] Comment on above: Non- GFR Calc Serum or plasma calcium sheila urement (mass/volume)Ordered By: Anjali Reeder on 06-24-2022 Calcium [Mass/Vol] 9.2 mg/dL 8.5-10.1 [facility] Serum or plasma creatinine m easurement (mass/volume)Ordered By: Anjali Reeder on 06-24-2022 Creatinine [Mass/Vol] 1.24 mg/dL 0.55-1.02 [facility] Comment on above: The validity of the calculated GFR & GFRAA in patients over 70 years has not been determined. Clinical correlation is essential. Serum or plasma urea nitroge n measurement (mass/volume)Ordered By: Anjali Reeder on 06-24-2022 Urea nitrogen [Mass/Vol] 30 mg/dL - [facility] Thin prep Papanicolaou smear with manual screeningOrdered By: Anjali Reeder on 06-24-2022 Thin prep Papanicolaou smear with manual screening 07-24 [facility] Absolute lymphocyte counton 11-23-2021 Lymphocytes Auto (Unsp spec) [#/Vol] 2.00 10*3/uL 0.83-4.51 [facility] Work Phone: Basophil percentageon 2021 Basophils/100 WBC (Bld) 0.6 % 0-1 [facility] Work Phone: [phone] Chloride [Moles/Vol] 106 mmol/L 98-107 [facility] Work Phone: [phone] Eosinophils/100 WBC (Bld) 1.4 % 0-5 [facility] Work Phone: Glucose [Mass/Vol] 124 mg/dL 74-106 [facility] Work Phone: [phone] Comment on above: Fasting Glucose resu lt from 100 to 125 mg/dL suggests IMPAIRED HOMEOSTASIS per A.D.A. criteria. Neutrophils (Bld) [#/Vol] 5.7 10*3/uL 2.0-7.7 [facility] Work Phone: Neutrophils/100 WBC (Bld) 66.4 % 47-70 [facility] Work Phone: Potassium [Moles/Vol] 3.7 mmol/L 3.5-5.1 [facility] Work Phone: Sodium [Moles/Vol] 138 mmol/L 136-145 [facility] Work Phone: WBC (Bld) [#/Vol] 8.6 10*3/uL 4.4-11.0 [facility] Work Phone: Blood erythrocytes count (nu mber/volume)on 11-23-2021 RBC (Bld) [#/Vol] 4.19 10*6/uL 4.2-5.4 [facility] Work Phone: Blood hemoglobin measurement (mass/volume)on 11-23-2021 Hemoglobin (Bld) [Mass/Vol] 12.5 g/dL 12.0-15.0 [facility] Work Phone: Blood lymphocytes/100 leukoc yteson 11-23-2021 Lymphocytes/100 WBC (Bld) 23.4 % 19-41 [facility] Work Phone: Blood monocytes/100 leukocyt eson 11-23-2021 Monocytes/100 WBC (Bld) 7.6 % 0-10 [facility] Work Phone: Blood platelet mean volumeon 11-23-2021 Platelet mean volume (Bld) [Entitic vol] 9.5 fL 6.2-12.0 [facility] Work Phone: Determination of erythrocyte mean corpuscular volume (MCV)on 11-23-2021 MCV (RBC) [Entitic vol] 91.4 fL 81-99 [facility] Work Phone: Hematocrit Auto (Bld) [Volum e fraction]on 11-23-2021 Hematocrit (Bld) [Volume fraction] 38.3 % 37-47 [facility] Work Phone: Laboratory - Chemistry and C hemistry - challengeon 11-23-2021 CO2 [Moles/Vol] 24.0 mmol/L 21.0-32.0 [facility] Work Phone: Natriuretic peptide B (Bld) [Mass/Vol] 132.4 pg/mL 0-100 [facility] Work Phone: Urea nitrogen/Creatinine [Mass ratio] 31.4 mg/mg 10-20 [facility] Work Phone: Laboratory - Hematology and Cell countson 11-23-2021 Erythrocyte distribution width (RBC) [Entitic vol] 52.2 fL 35.1-43.9 [facility] Work Phone: Erythrocyte distribution width (RBC) [Ratio] 15.6 % 11.6-14.6 [facility] Work Phone: Immature granulocytes/100 WBC (Bld) 0.600 % 0.0-0.9 [facility] Work Phone: Comment on above: IG% - Immature Granu locytes (promyelocytes, myelocytes and metamyelocytes) > 1% indicates that a LEFT SHIFT is Present. MCH (RBC) [Entitic mass] 29.8 pg 27.0-32.0 [facility] Work Phone: Nucleated RBC/100 WBC (Bld) [Ratio] 0 % 0-5 [facility] Work Phone: MCHC Auto (RBC) [Mass/Vol]on 11-23-2021 MCHC (RBC) [Mass/Vol] 32.6 g/dL 32-36 [facility] Work Phone: No Panel Informationon 11-23 Estimated GFR (MDRD) Amer 74 mL/min >60 [facility] Work Phone: Comment on above: GFR Calc Estimated GFR (MDRD) Non-Af Amer 61 mL/min >60 [facility] Work Phone: Comment on above: Non- GFR Calc Thyroid Stimulating Hormone (TSH) 2.29 uIU/mL 0.358-3.74 [facility] Work Phone: Platelets bldon 11-23-2021 Platelets (Bld) [#/Vol] 322 10*3/uL 150-450 [facility] Work Phone: Serum or plasma calcium sheila urement (mass/volume)on 11-23-2021 Calcium [Mass/Vol] 9.5 mg/dL 8.5-10.1 [facility] Work Phone: Serum or plasma creatinine m easurement (mass/volume)on 11-23-2021 Creatinine [Mass/Vol] 0.92 mg/dL 0.55-1.02 [facility] Work Phone: Comment on above: The validity of the calculated GFR & GFRAA in patients over 70 years has not been determined. Clinical correlation is essential. Serum or plasma urea nitroge n measurement (mass/volume)on 11-23-2021 Urea nitrogen [Mass/Vol] 29 mg/dL 7-18 [facility] Work Phone: Thin prep Papanicolaou smear with manual screeningon 11-23-2021 Thin prep Papanicolaou smear with manual screening 8 5-15 [facility] Work Phone: Basophil percentageon 2021 Chloride [Moles/Vol] 106 mmol/L 98-107 [facility] Work Phone: Cholesterol [Mass/Vol] 163 mg/dL <200 [facility] Work Phone: Comment on above: <200 mg/dL Desirable 200-240 mg/dL Borderline >240 mg/dL High Risk Glucose [Mass/Vol] 130 mg/dL 74-106 [facility] Work Phone: Comment on above: Fasting Glucose resu lt greater than or equal to 126 mg/dL suggests DIABETES MELLITUS per A.D.A. criteria. Potassium [Moles/Vol] 3.2 mmol/L 3.5-5.1 [facility] Work Phone: Sodium [Moles/Vol] 140 mmol/L 136-145 [facility] Work Phone: Triglyceride [Mass/Vol] 161 mg/dL [facility] Work Phone: Comment on above: The drugs N-Acetylcy steine and Metamizole may falsely depress this assay.Serum Triglycerides Reference Interval Normal <150 mg/dL Borderline high 150 - 199 mg/dL High 200 - 499 mg/dL Very High > or = 500 mg/dL Laboratory - Chemistry and C hemistry - challengeon 07-04-2021 CO2 [Moles/Vol] 27.0 mmol/L 21.0-32.0 [facility] Work Phone: Urea nitrogen/Creatinine [Mass ratio] 22.0 mg/mg 10-20 [facility] Work Phone: No Panel Informationon 07-04 Estimated GFR (MDRD) Amer 76 mL/min >60 [facility] Work Phone: Comment on above: GFR Calc Estimated GFR (MDRD) Non-Af Amer 63 mL/min >60 [facility] Work Phone: Comment on above: Non- GFR Calc Urine Microalbumin/Creatinine Ratio 8.6 mg/g CRE <30 [facility] Work Phone: Serum or plasma calcium sheila urement (mass/volume)on 07-04-2021 Calcium [Mass/Vol] 8.9 mg/dL 8.5-10.1 [facility] Work Phone: Serum or plasma cholesterol in HDL measurement (mass/volume)on 07-04-2021 Cholesterol in HDL [Mass/Vol] 49 mg/dL [facility] Work Phone: Comment on above: The drugs N-Acetylcy steine and Metamizole may falsely depress this assay. Reference Range HDL <40 mg/dL Low HDL Cholesterol HDL >or= 60 mg/dL High HDL Cholesterol Serum or plasma cholesterol in VLDL measurement (mass/volume)on 07-04-2021 Cholesterol in VLDL [Mass/Vol] 32 mg/dL 5-40 [facility] Work Phone: Serum or plasma creatinine m easurement (mass/volume)on 07-04-2021 Creatinine [Mass/Vol] 0.91 mg/dL 0.55-1.02 [facility] Work Phone: Comment on above: The validity of the calculated GFR & GFRAA in patients over 70 years has not been determined. Clinical correlation is essential. Serum or plasma low density lipoprotein (LDL) cholesterol measurement (mass/volume)on 07-04-2021 Cholesterol in LDL [Mass/Vol] 82 mg/dL 0-130 [facility] Work Phone: Serum or plasma urea nitroge n measurement (mass/volume)on 07-04-2021 Urea nitrogen [Mass/Vol] 20 mg/dL 7-18 [facility] Work Phone: Thin prep Papanicolaou smear with manual screeningon 07-04-2021 Thin prep Papanicolaou smear with manual screening 7 5-15 [facility] Work Phone: Thin prep Papanicolaou smear with manual screening 33.3 mg/L NO RANGE EST. [facility] Work Phone: Urine creatinine measurement (mass/volume)on 07-04-2021 Creatinine (U) [Mass/Vol] 385.00 mg/dL NO RANGE EST. [facility] Work Phone: Basophil percentageon 2021 Creatinine [Mass/Vol] 0.9 mg/dL 0.55-1.02 [facility] Work Phone: No Panel Informationon 04-18 Bedside Estimated GFR (eGFR) > 60.0000 mL/min >60 [facility] Work Phone: Vital Signs Date Time Vital Sign Value Performing Clinician Faci lity 07-21-2024 13:44-0400 Body height 160.[address] Casey Smith MD Work Phone: [facility] 07-21-2024 13:44-0400 Body mass index (BMI) [Ratio] 34.9 kg/m2 Dr. Casey Smith MD Work Phone: [facility] 07-21-2024 13:44-0400 Body weight 89.[address] Casey Smith MD Work Phone: [facility] 07-21-2024 13:44-0400 Diastolic blood pressure 69 mm[Hg] Dr. Casey Smith MD Work Phone: [facility] 07-21-2024 13:44-0400 Heart rate 70 /min Dr. Casey Smith MD Work Phone: [facility] 07-21-2024 13:44-0400 Respiratory rate 16 /min Dr. Casey Smith MD Work Phone: [facility] 07-21-2024 13:44-0400 Systolic blood pressure 114 mm[Hg] Dr. Casey Smith MD Work Phone: [facility] 04-05-2023 10:04-0500 Body height 160.[address] Casey Smith Work Phone: [facility] 04-05-2023 10:04-0500 Body mass index (BMI) [Ratio] 32.5 kg/m2 Dr. Casey Smith Work Phone: [facility] 04-05-2023 10:04-0500 Body weight 83.[address] Casey Smith Work Phone: [facility] 04-05-2023 10:04-0500 Diastolic blood pressure 77 mm[Hg] Dr. Casey Smith Work Phone: [facility] 04-05-2023 10:04-0500 Heart rate 69 /min Dr. Casey Smith Work Phone: [facility] 04-05-2023 10:04-0500 Respiratory rate 20 /min Dr. Casey Smith Work Phone: [facility] 04-05-2023 10:04-0500 SaO2% (BldA) [Mass fraction] 98 % Dr. Casey Smith Work Phone: [facility] 04-05-2023 10:04-0500 Systolic blood pressure 132 mm[Hg] Dr. Casey Smith Work Phone: [facility] 03-15-2023 11:29-0500 Body height 160.[address] Casey Smith Work Phone: [phone] [place] [address] 03-15-2023 11:29-0500 Body mass index (BMI) [Ratio] 33.1 kg/m2 Dr. Casey Smith Work Phone: [phone] [place] [address] 03-15-2023 11:29-0500 Body weight 84.[address] Casey Smith Work Phone: [facility] 03-15-2023 11:29-0500 Diastolic blood pressure 65 mm[Hg] Dr. Casey Smith Work Phone: [facility] 03-15-2023 11:29-0500 Heart rate 70 /min Dr. Casey Smith Work Phone: [facility] 03-15-2023 11:29-0500 Respiratory rate 18 /min Dr. Casey Smith Work Phone: [facility] 03-15-2023 11:29-0500 Systolic blood pressure 116 mm[Hg] Dr. Casey Smith Work Phone: [facility] 03-07-2023 15:39-0500 Body mass index (BMI) [Ratio] 33.3 kg/m2 Dr. Casey Smith Work Phone: [facility] 03-07-2023 15:39-0500 Body weight 85.[address] Casey Smith Work Phone: [facility] 03-07-2023 15:39-0500 Diastolic blood pressure 74 mm[Hg] Dr. Casey Smith Work Phone: [phone] [place] [address] 03-07-2023 15:39-0500 Heart rate 70 /min Dr. Casey Smith Work Phone: [phone] [place] [address] 03-07-2023 15:39-0500 Respiratory rate 16 /min Dr. Casey Smith Work Phone: [facility] 03-07-2023 15:39-0500 Systolic blood pressure 127 mm[Hg] Dr. Casey Smith Work Phone: [facility] 06-06-2022 11:17-0400 Body height 160.[address] Casey Smith Work Phone: [phone])854-851413 [address] 06-06-2022 11:16-0400 Body mass index (BMI) [Ratio] 33.1 kg/m2 Dr. Casey Smith Work Phone: [phone] [place] [address] 06-06-2022 11:16-0400 Body weight 84.[address] Casey Smith Work Phone: [facility] 06-06-2022 11:16-0400 Diastolic blood pressure 76 mm[Hg] Dr. Casey Smith Work Phone: [facility] 06-06-2022 11:16-0400 Heart rate 70 /min Dr. Casey Smith Work Phone: [phone])[phone] [place] [address] 06-06-2022 11:16-0400 Respiratory rate 18 /min Dr. Casey Smith Work Phone: [phone] [place] [address] 06-06-2022 11:16-0400 SaO2% (BldA) [Mass fraction] 97 % Dr. Casey Smith Work Phone: [facility] 06-06-2022 11:16-0400 Systolic blood pressure 130 mm[Hg] Dr. Casey Smith Work Phone: [facility] 11-23-2021 08:44-0400 Body height 160.[address] Casey Smith Work Phone: [facility] Work Phone: 11-23-2021 08:44-0400 Body mass index (BMI) [Ratio] 31.5 kg/m2 Dr. Casey Smith Work Phone: [facility] Work Phone: 11-23-2021 08:44-0400 Body weight 80.[address] Casey Smith Work Phone: [facility] Work Phone: 11-23-2021 08:44-0400 Diastolic blood pressure 84 mm[Hg] Dr. Casey Smith Work Phone: [facility] Work Phone: 11-23-2021 08:44-0400 Heart rate 78 /min Dr. Casey Smith Work Phone: [facility] Work Phone: 11-23-2021 08:44-0400 Respiratory rate 18 /min Dr. Casey Smith Work Phone: [facility] Work Phone: 11-23-2021 08:44-0400 SaO2% (BldA) [Mass fraction] 95 % Dr. Casey Smith Work Phone: [facility] Work Phone: 11-23-2021 08:44-0400 Systolic blood pressure 148 mm[Hg] Dr. Casey Smith Work Phone: [facility] Work Phone: Encounters Encounter Date Encounter Type Care Provider Facility Start: 10-07-2024 ambulatory Gregorio Umanzor Facility:[facility] Start: 10-07-[address] Gregorio Umanzor MD -Cardiovascular Services Work Phone: Start: 10-02-2024 End: 10-02-[address] Casey Smith MD -Laboratory [facility] Start: 10-02-2024 End: 10-02-2024 ambulatory Casey Smith Facility:[facility] Start: 09-24-2024 End: 09-24-[address] Casey Smith MD Work Phone: [facility] Start: 09-24-2024 End: 09-24-[address] Gregorio Umanzor MD -[facility] Work Phone: Start: 07-21-2024 End: 07-21-[address] Casey Smith MD Work Phone: [facility] Work Phone: Start: 07-21-2024 End: 07-21-2024 Patient encounter procedure Sharon Smyth -[facility] Work Phone: Start: 07-09-2024 End: 07-09-[address] Casey Smith MD -Radiology, [place] Work Phone: Start: 07-09-2024 End: 07-09-2024 ambulatory Casey Smith Facility:[facility] Start: 07-02-2024 End: 07-02-[address] [facility] Start: 07-02-2024 End: 07-02-2024 ambulatory Casey Smith Facility:[facility] Start: 06-25-2024 End: 06-25-2024 ambulatory Casey Smith Facility:[facility] Start: 06-25-2024 End: 06-25-[address] Gregorio Umanzor MD -[facility] Work Phone: Start: 05-19-2024 End: 05-19-[address] Casey Smith MD Work Phone: [facility] Work Phone: Start: 05-19-2024 End: 05-19-[address] Casey Smith MD -[facility] Work Phone: Start: 05-19-2024 End: 05-19-2024 ambulatory Casey Smith Facility:[facility] Start: 03-26-2024 End: 03-26-2024 ambulatory Casey Smith Facility:[facility] Start: 03-26-2024 End: 03-26-[address] Gregorio Umanzor MD -[facility] Work Phone: Start: 02-29-2024 End: 02-29-[address] Casey Smith MD -[facility] Start: 02-29-2024 End: 02-29-2024 ambulatory Casey Smith Facility:[facility] Start: 01-02-2024 End: 01-02-2024 ambulatory Casey Smith Facility:[facility] Start: 12-26-2023 End: 12-26-2023 ambulatory Casey Smith Facility:[facility] Start: 10-26-2023 End: 10-26-2023 ambulatory Casey Smith Facility:[facility] Start: 07-02-2023 End: 07-02-[address] Casey Smith Work Phone: [facility] Work Phone: Start: 07-02-2023 End: 07-02-[address] Casey Smith Work Phone: [facility] Start: 05-25-2023 End: 05-25-[address] Casey Smith Work Phone: [facility] Work Phone: Start: 04-05-2023 End: 04-05-[address] Casey Smith Work Phone: [facility] Work Phone: Start: 03-28-2023 End: 03-28-[address] Casey Smith Work Phone: [facility] Work Phone: Start: 03-19-2023 End: 03-19-[address] Casey Smith Work Phone: [facility] Work Phone: Start: 03-19-2023 End: 03-19-[address] Casey Smith Work Phone: [facility] Work Phone: Start: 03-15-2023 End: 03-15-[address] Casey Smith Work Phone: [facility] Work Phone: Start: 03-15-2023 End: 03-15-[address] Casey Smith Work Phone: [facility] Work Phone: Start: 03-15-2023 End: 03-15-[address] Casey Smith Work Phone: [facility] Work Phone: Start: 03-07-2023 End: 03-07-[address] Casey Smith Work Phone: [facility] Work Phone: Start: 03-07-2023 End: 03-07-[address] Casey Smith Work Phone: [facility] Work Phone: Start: 01-28-2023 End: 01-28-[address] Casey Smith Work Phone: [facility] Work Phone: Start: 12-28-2022 End: 12-28-2022 ambulatory [facility] Work Phone: Start: 12-28-2022 End: 12-28-2022 Patient encounter procedure [facility] Start: 09-28-2022 End: 09-28-2022 Patient encounter procedure [facility] Start: 08-25-2022 End: 08-25-[address] Casey Smith Work Phone: [facility] Work Phone: Start: 08-25-2022 End: 08-25-[address] Casey Smith Work Phone: [facility] Start: 07-19-2022 End: 07-19-[address] Casey Smith Work Phone: [facility] Start: 06-24-2022 End: 06-24-[address] Casey Smith Work Phone: [facility] Start: 06-06-2022 End: 06-06-[address] Casey Smith Work Phone: [facility] Start: 11-23-2021 End: 11-23-[address] Casey Smith Work Phone: [facility] Work Phone: Start: 11-23-2021 End: 11-23-[address] Casey Smith Work Phone: [facility] Start: 09-28-2021 End: 09-28-[address] Casey Smith Work Phone: [facility] Start: 07-04-2021 End: 07-04-[address] Casey Smith Work Phone: [facility] Start: 06-22-2021 End: 06-22-[address] Casey Smith Work Phone: [facility] Start: 04-18-2021 End: 04-18-[address] Casey Smith Work Phone: [facility] Start: 03-16-2021 End: 03-16-[address] Casey Smith Work Phone: [facility] Procedures Date Procedure Procedure Detail Performing Clinician Start: 07-09-2024 X-ray of knee, four or more views [address] Casey Smith MD Work Phone: Start: 05-19-2024 Plain X-ray of shoulder Dr. Casey Smith MD Work Phone: Start: 03-15-2023 Plain chest X-ray Dr. Augusta Smith Work Phone: Start: 03-07-2023 Plain chest X-ray Dr. Augusta Smith Work Phone: Start: 11-23-2021 Plain chest X-ray Dr. Augusta Smith Work Phone: Start: 04-18-2021 Computed tomography of abdomen and pelvis with contrast Dr. Casey Smith Work Phone: Start: 05-20-2018 History of placement of stent for coronary artery disease History of coronary artery stent placement Dr. Gregorio Umanzor MD Comment on above: [id number]-Hrtg RCA w/ 4.0 x 18 mm Resolute and JUJU-Mid RCA w/ 4.0 x 15 mm Resolute 05/20/18 Plan of Treatment Date Care Activity Detail Author Basic metabolic 2008 panel with ionized calcium - Serum or Plasma [facility] CBC W Auto Differential panel - Blood [facility] Work Phone: [facility] Payers Date Payer Category Payer Self-pay [id number] 2023 [employer] ( and others) [id number] 2023 Medicare [id number] [facility] ( and others) [facility] [id number] Unknown [id number] 62 Unknown [id number] [id number] 62 Unknown [id number] [id number] 62 Unknown [id number] [id number] 62 Unknown [id number] 2.16.840.1.841377.3.579.2.4 62 Unknown [id number] 2.16.840.1.807657.3.579.2.4 62 Unknown [id number] 2.16.840.1.296687.3.579.2.4 62 Unknown [id number] 2.16.840.1.311376.3.579.2.4 62 Unknown [id number] 2.16.840.1.987320.3.579.2.4 62 Unknown [id number] 2.16.840.1.819738.3.579.2.4 62 Unknown [id number] 2.16.840.1.053475.3.579.2.4 62 Unknown [id number] 2.16.840.1.790606.3.579.2.4 62 Unknown [id number] 2.16.840.1.068192.3.579.2.4 62 Unknown [id number] 2.16.840.1.854977.3.579.2.4 62 Unknown [id number] 2.16.840.1.812637.3.579.2.4 62 Unknown [id number] 2.16.840.1.127104.3.579.2.4 62 Unknown [id number] 2.16.840.1.137310.3.579.2.4 62 Unknown [id number] [id number] 62 Social History Date Type Detail Facility Start: 11-23-2020 End: 04-05-2023 Tobacco smoking status NHIS Unknown if ever smoked [facility] Start: 09-22-2019 None [facility] Start: 09-22-2019 Spouse/ Signif icant Other [facility] Start: 09-22-2019 Non-smoker [facility] Start: 1935 Sex Assigned At Female [facility] Start: 04-05-2023 Tobacco smoking status NHIS Never smoked tobacco (finding) [facility] [facility] Start: 05-29-2024 Sex Female (finding) [facility] Evaluation note 07-21-2024 Note Date & Type Note Facility 07-21-2024 Evaluation note Diagnosis Onset Date Resolution Atrial flutter acute July 21, 2024 1:02pm Third degree heart block acute July 21, 2024 1:02pm Presence of cardiac pacemaker chronic July 21, 2024 1:02pm CHF (congestive heart failure), NYHA class III acute July 21, 2024 1:15pm Encounter for monitoring diuretic therapy acute July 21, 2024 1:15pm Third degree heart block acute July 21, 2024 1:15pm Essential (primary) hypertension chronic July 21, 2024 1:15pm History of coronary artery stent placement May 20, 2018 chronic July 21, 2024 1:15pm Hyperlipidemia chronic July 21, 2024 1:15pm [facility] Work Phone: Procedure note 07-21-2024 Note Date & Type Note Facility 07-21-2024 Procedure note [facility] Radiology Diagnostic study note 05-19-2024 Note Date & Type Note Facility 05-19-2024 Radiology [address] study note [facility] [place] [address] Shoulder min 2 Views MR#: [id number] Acct: [id number] Name: NELSON STROUD Rep #: [id number] 31 : 1935 F 88 From: Nara Buitrago MD PCP: Dr. Casey Smith MD Status: CONSUELO HERNANDEZ Study:Shoulder min 2 Views Date of Exam: 05/19/24 Exam# [id number] Ordering Dr: Casey Smith MD EXAM: XR Right Shoulder Complete, 2 or More Views CLINICAL INDICATION: TECHNIQUE: Two or more views of the right shoulder. COMPARISON: No relevant prior studies available. FINDINGS: BONES/JOINTS: Moderate degenerative changes of the acromioclavicular and glenohumeral joints. No acute fracture. No dislocation. SOFT TISSUES: Unremarkable. RAD/Shoulder min 2 Views IMPRESSION: Degenerative changes as above. [facility] CC: Dr. Casey Smith MD ~ [employer] Equipment Erector: Signed [facility] Evaluation note 05-20-2018 Note Date & Type Note Facility 05-20-2018 Evaluation note Diagnosis Onset Date Atrial flutter acute PÉREZ (dyspnea on exertion) ac ana luisa Edema acute Essential (primary) hypertension chronic History of coronary artery stent placement May 20, 2018 chronic Hyperlipidemia chronic Presence of cardiac pacemaker chronic Atrial flutter acute PÉREZ (dyspnea on exertion) ac ana luisa Edema acute Essential (primary) hypertension chronic History of coronary artery stent placement May 20, 2018 chronic Hyperlipidemia chronic Presence of cardiac pacemaker [facility] Work Phone: Evaluation note 05-20-2018 Note Date & Type Note Facility 05-20-2018 Evaluation note Diagnosis Onset Date Atrial flutter acute PÉREZ (dyspnea on exertion) ac ana luisa Edema acute Essential (primary) hypertension chronic History of coronary artery stent placement May 20, 2018 chronic Hyperlipidemia chronic Presence of cardiac pacemaker chronic Atrial flutter acute Edema acute Essential (primary) hypertension chronic History of coronary artery stent placement May 20, 2018 chronic Hyperlipidemia chronic Presence of cardiac pacemaker [facility] Work Phone: Evaluation note Note Date & Type Note Facility Evaluation note Diagnosis Onset Date Third degree heart block acu te Presence of cardiac pacemaker chronic Third degree heart block acu te Presence of cardiac pacemaker [facility] Work Phone: Evaluation note Note Date & Type Note Facility Evaluation note Diagnosis Onset Date Third degree heart block acu te Presence of cardiac pacemaker chronic Atrial flutter acute PÉREZ (dyspnea on exertion) ac ana luisa Essential (primary) hypertension chronic History of coronary artery stent placement May 20, 2018 chronic Hyperlipidemia chronic Presence of cardiac pacemaker chronic [facility] Work Phone: Evaluation note Note Date & Type Note Facility Evaluation note Diagnosis Onset Date Atrial flutter acute Third degree heart block acu te Presence of cardiac pacemaker chronic Atrial flutter acute Edema acute Essential (primary) hypertension chronic History of coronary artery stent placement May 20, 2018 chronic Hyperlipidemia chronic Presence of cardiac pacemaker chronic [facility] Work Phone: Evaluation note Note Date & Type Note Facility Evaluation note No assessment information availa [facility] Work Phone: Reason for referral (narrative) Note Date & Type Note Facility Reason for referral (narrative) No reason for referral information available [facility] Work Phone: Chief Complaint and Reason for Visit Chief Complaint 3 mos remote PPM f/u PELVIC/ABD MASS 3 mos remote PPM f/u Reason for Visit Third degree heart b lock Presence of cardiac pacemaker Third degree heart block Presence of cardiac pacemaker Chief Complaint 3 mos remote PPM f/u 1 Y FU Reason for Visit Third degree heart b lock Presence of cardiac pacemaker Atrial flutter PÉREZ (dyspnea on exertion) Essential (primary) hypertension History of coronary artery stent placement Hyperlipidemia Presence of cardiac pacemaker Chief Complaint IN CLINIC CK PER MMM / MMM 11:30 2 MO F/U / FARHAT 11:00 EORDER Reason for Visit Atrial flutter Third degree heart block Presence of cardiac pacemaker Atrial flutter Edema Essential (primary) hypertension History of coronary artery stent placement Hyperlipidemia Presence of cardiac pacemaker Chief Complaint Pacer Check Remote 1 Y FU EORDER- CXR worsening SOB in spite of diuretic increase EORDER Reason for Visit Atrial flutter PÉREZ (dyspnea on exertion) Edema Essential (primary) hypertension History of coronary artery stent placement Hyperlipidemia Presence of cardiac pacemaker Atrial flutter PÉREZ (dyspnea on exertion) Edema Essential (primary) hypertension History of coronary artery stent placement Hyperlipidemia Presence of cardiac pacemaker Chief Complaint worsening SOB in spi te of diuretic increase EORDER Pacer Check Remote 1 M FU Pacer Check Remote Reason for Visit Atrial flutter PÉREZ (dyspnea on exertion) Edema Essential (primary) hypertension History of coronary artery stent placement Hyperlipidemia Presence of cardiac pacemaker Atrial flutter Edema Essential (primary) hypertension History of coronary artery stent placement Hyperlipidemia Presence of cardiac pacemaker Chief Complaint Admit Date Pacer Check Remote March 26, 2024 3 :01am RIGHT SHOULDER PAIN/ NOT FASTING May 102024 2:54pm Chief Complaint Admit Date Pacer Check Remote March 26, 2024 3 :01am RIGHT SHOULDER PAIN/ NOT FASTING May 102024 2:54pm Pacer Check Remote June 25, 2024 3:0 1am LEFT KNEE PAIN July 09, 2024 3:1 4pm 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 @ 3pm July 212024 1:02pm 1 Y FU PPM f/u @ 2:30 July 21, 2024 1:1 5pm Reason for Visit Admit Date Atrial flutter July 21, 2024 1:02p m Third degree heart block July 21, 2024 1:02pm Presence of cardiac pacemaker July 21, 2024 1:02pm CHF (congestive heart failure), NYHA cla ss III July 21, 2024 1:15pm Encounter for monitoring diuretic therap y July 21, 2024 1:15pm Third degree heart block July 21, 2024 1:15pm Essential (primary) hypertension July 1:15pm History of coronary artery stent placeme nt July 21, 2024 1:15pm Hyperlipidemia July 21, 2024 1:15p m Chief Complaint Admit Date RIGHT SHOULDER PAIN/ NOT FASTING May 102024 2:54pm Pacer Check Remote June 25, 2024 3:0 1am LEFT KNEE PAIN July 09, 2024 3:1 4pm Pacer Check Remote July 21, 2024 9:00a m 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 @ 3pm July 212024 1:02pm 1 Y FU PPM f/u @ 2:30 July 21, 2024 1:1 5pm Chief Complaint Admit Date Pacer Check Remote June 25, 2024 3:0 1am LEFT KNEE PAIN July 09, 2024 3:1 4pm Pacer Check Remote July 21, 2024 9:00a m 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 @ 3pm July 212024 1:02pm 1 Y FU PPM f/u @ 2:30 July 21, 2024 1:1 5pm Pacer Check Remote September 24, 2024 3:00 am Chief Complaint Admit Date Pacer Check Remote June 25, 2024 3:0 1am LEFT KNEE PAIN July 09, 2024 3:1 4pm Pacer Check Remote July 21, 2024 9:00a m 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 @ 3pm July 212024 1:02pm 1 Y FU PPM f/u @ 2:30 July 21, 2024 1:1 5pm Pacer Check Remote September 24, 2024 3:00 am DYSPNEA,SOB October 07, 2024 3:36 pm Advance Directives Advance Directive Response Recorded Date/ Time Advance Directives Yes February 14, 2017 1:54pm Living Will Yes September 22, 2019 2:37am Power of Crochet Machine Operator Yes September 21 0 2:37am Advance Directive Response Recorded Date/ Time Advance Directives Yes February 14, 2017 12:54pm Living Will Yes September 22, 2019 1:37am Power of Crochet Machine Operator Yes September 21 0 1:37am Advance Directive Response Recorded Date/ Time Advance Directives Yes February 14, 2017 1:54pm Advance Directive Response Recorded Date/ Time Living Will Yes September 22, 2019 2:37am Do you have a Healthcare Power of Crochet Machine Operator? Yes September 22, 2019 2:37am Advance Directives Yes February 14, 2017 1:54pm Summary Purpose Family History No Family History Records Found Additional Source Comments Goals (unrecognized section and content) Goals may be documented in a n alternate sectionGoals may be documented in an alternate sectionGoals may be documented in an alternate sectionGoals may be documented in an alternate sectionGoals may be documented in an alternate sectionGoals may be documented in an alternate sectionGoals may be documented in an alternate sectionGoals may be documented in an alternate sectionGoals may be documented in an alternate sectionGoals may be documented in an alternate sectionGoals may be documented in an alternate sectionGoals may be documented in an alternate section Care Teams (unrecognized sec tion and content) Team Status: Active Member Role Status Dates Dr. Casey Smith MD Family Provider Active Dr. Casey Smith MD Primary Care Provider Active Team Status: Inactive Member Role Status Dates Dr. Casey Smith MD Primary Care Provider, Referring Provider Active Sharon Smyth Active Dr. Gregorio Umanzor MD Attending Provider Active Team Status: Inactive Member Role Status Dates Dr. Casey Smith MD Primary Care Provider, Referring Provider Active Anjali Reeder PA, PA Attending Provider Active Team Status: Inactive Member Role Status Dates Dr. Casey Smith MD Primary Care Provider Active Anjali Reeder PA, PA Attending Provider, Referr ing Provider Active Team Status: Inactive Member Role Status Dates Dr. Casey Smith MD Primary Care Provider, Attending Provider Active Team Status: Inactive Member Role Status Dates Dr. Casey Smith MD Primary Care Provider, Referring Provider Active Floyd Sanchez COMPOSITOR APPRENTICE, COMPOSITOR APPRENTICE-C Attending Provider Active Team Status: Inactive Member Role Status Dates Dr. Casey Smith MD Primary Care Provider Active Dr. Gregorio Umanzor MD Attending Provider Active Team Status: Inactive Member Role Status Dates Dr. Casey Smith MD Primary Care Provider Active Floyd Sanchez COMPOSITOR APPRENTICE, COMPOSITOR APPRENTICE-C Attending Provider, Referring Pro vider Active Team Status: Active Member Role Status Dates Dr. Casey Smith MD Primary Care Provider Active Floyd Sanchez COMPOSITOR APPRENTICE, COMPOSITOR APPRENTICE-C Attending Provider, Referring Pro vider Active Team Status: Inactive Member Role Status Dates Dr. Casey Smith MD Primary Care Provider Active Start: February 29, 2024 End: February 29, 2024 Dr. Casey Smith MD Attending Provider Active Start: February 29, 2024 End: February 29, 2024 Dr. Casey Smith MD Referring Provider Active Start: February 29, 2024 End: February 29, 2024 Team Status: Inactive Member Role Status Dates Dr. Casey Smith MD Primary Care Provider Active Start: March 26, 2024 End: March 26, 2024 Dr. Gregorio Umanzor MD Attending Provider Active S tart: March 26, 2024 End: March 26, 2024 Team Status: Inactive Member Role Status Dates Dr. Casey Smith MD Primary Care Provider Active Start: May 19, 2024 End: May 19, 2024 Dr. Casey Smith MD Attending Provider Active Start: May 19, 2024 End: May 19, 2024 Dr. Casey Smith MD Referring Provider Active Start: May 19, 2024 End: May 19, 2024 Team Status: Active Member Role Status Dates Dr. Casey Smith MD Primary Care Provider Active Team Status: Inactive Member Role Status Dates Dr. Casey Smith MD Primary Care Provider Active Start: June 25, 2024 End: June 25, 2024 Dr. Gregorio Umanzor MD Attending Provider Active S tart: June 25, 2024 End: June 25, 2024 Team Status: Inactive Member Role Status Dates Dr. Casey Smith MD Primary Care Provider Active Start: July 02, 2024 End: July 02, 2024 Dr. Casey Smith MD Attending Provider Active Start: July 02, 2024 End: July 02, 2024 Dr. Casey Smith MD Referring Provider Active Start: July 02, 2024 End: July 02, 2024 Team Status: Inactive Member Role Status Dates Dr. Casey Smith MD Primary Care Provider Active Start: July 09, 2024 End: July 09, 2024 Dr. Casey Smith MD Attending Provider Active Start: July 09, 2024 End: July 09, 2024 Dr. Casey Smith MD Referring Provider Active Start: July 09, 2024 End: July 09, 2024 Team Status: Inactive Member Role Status Dates Dr. Casey Smith MD Primary Care Provider Active Start: July 21, 2024 End: July 21, 2024 Dr. Casey Smith MD Referring Provider Active Start: July 21, 2024 End: July 21, 2024 Sharon Smyth Attending Provider Active Start: 2024 End: July 21, 2024 Team Status: Inactive Member Role Status Dates Dr. Casey Smith MD Primary Care Provider Active Start: July 21, 2024 End: July 21, 2024 Dr. Casey Smith MD Referring Provider Active Start: July 21, 2024 End: July 21, 2024 Dr. Gregorio Umanzor MD Attending Provider Active S tart: July 21, 2024 End: July 21, 2024 Team Status: Inactive Member Role Status Dates Dr. Casey Smith MD Primary Care Provider Active Start: July 21, 2024 End: July 21, 2024 Dr. Gregorio Umanzor MD Attending Provider Active S tart: July 21, 2024 End: July 21, 2024 Team Status: Active Member Role/Relationship Status Dates Dr. Casey Smith MD Primary Care Provider Active Team Status: Inactive Member Role/Relationship Status Dates Dr. Casey Smith MD Primary Care Provider Active Start: June 25, 2024 End: June 25, 2024 Dr. Gregorio Umanzor MD Attending Provider Active S tart: June 25, 2024 End: June 25, 2024 Team Status: Inactive Member Role/Relationship Status Dates Dr. Casey Smith MD Primary Care Provider Active Start: July 02, 2024 End: July 02, 2024 Dr. Casey Smith MD Attending Provider Active Start: July 02, 2024 End: July 02, 2024 Dr. Casey Smith MD Referring Provider Active Start: July 02, 2024 End: July 02, 2024 Team Status: Inactive Member Role/Relationship Status Dates Dr. Casey Smith MD Primary Care Provider Active Start: July 09, 2024 End: July 09, 2024 Dr. Casey Smith MD Attending Provider Active Start: July 09, 2024 End: July 09, 2024 Dr. Casey Smith MD Referring Provider Active Start: July 09, 2024 End: July 09, 2024 Team Status: Inactive Member Role/Relationship Status Dates Dr. Casey Smith MD Primary Care Provider Active Start: July 21, 2024 End: July 21, 2024 Dr. Gregorio Umanzor MD Attending Provider Active S tart: July 21, 2024 End: July 21, 2024 Team Status: Inactive Member Role/Relationship Status Dates Dr. Casey Smith MD Primary Care Provider Active Start: July 21, 2024 End: July 21, 2024 Dr. Casey Smith MD Referring Provider Active Start: July 21, 2024 End: July 21, 2024 Dr. Gregorio Umanzor MD Attending Provider Active S tart: July 21, 2024 End: July 21, 2024 Team Status: Inactive Member Role/Relationship Status Dates Dr. Casey Smith MD Primary Care Provider Active Start: July 21, 2024 End: July 21, 2024 Dr. Casey Smith MD Referring Provider Active Start: July 21, 2024 End: July 21, 2024 Dr. Gregorio Umanzor MD Attending Provider Active S tart: July 21, 2024 End: July 21, 2024 Team Status: Inactive Member Role/Relationship Status Dates Dr. Casey Smith MD Primary Care Provider Active Start: September 24, 2024 End: September 24, 2024 Dr. Gregorio Umanzor MD Attending Provider Active S tart: September 24, 2024 End: September 24, 2024 Team Status: Inactive Member Role/Relationship Status Dates Dr. Casey Smith MD Primary Care Provider Active Start: October 02, 2024 End: October 02, 2024 Dr. Casey Smith MD Attending Provider Active Start: October 02, 2024 End: October 02, 2024 Dr. Casey Smith MD Referring Provider Active Start: October 02, 2024 End: October 02, 2024 Team Status: Active Member Role/Relationship Status Dates Dr. Casey Smith MD Primary Care Provider Active Start: October 07, 2024 Dr. Gregorio Umanzor MD Attending Provider Active S tart: October 07, 2024 Dr. Gregorio Umanzor MD Referring Provider Active S tart: October 07, 2024 INFORMATION SOURCE (unrecogn ized section and content) DATE CREATED AUTHOR 10/03/2024 [facility] FOR RECORDS PERTAINING TO PATIENTS WHO ARE OR HAVE BEEN ENROLLED IN A CHEMICAL DEPENDENCY/SUBSTANCEABUSE PROGRAM, SOME INFORMATION MAY BE OMITTED. This clinical summary was aggregated from multiple sources. Caution should be exercised in using it in the provision of clinical care. This summary normalizes information from multiple sources, and as a consequence, information in this document may materially change the coding, format and clinical context of patient data. In addition, data may be omitted in some cases. CLINICAL DECISIONS SHOULD BE BASED ON THE PRIMARY CLINICAL RECORDS. [employer] provides no warranty or guarantee of the accuracy or completeness of information in this document.
== END | disposition home or self-care (01) ==
LOC: CVS 15:39
PROVIDERS: PCP Family Medicine; Referring Provider Internal Medicine Cardiovascular Disease; Visit Provider Internal Medicine Cardiovascular Disease
DX: R06.09 Other forms of dyspnea (principal)
CPT/HCPCS: 93306

== ENCOUNTER → 2024-11-21 | Outpatient (CLI) | payer MEDICARE, OTHER, SELFPAY ==
[2018-05-20 11:33] VITALS: BMI 34.7
[2024-11-21 12:30] LABS: Hematocrit 40.6 % (37-47); Hemoglobin 12.9 g/dL (12.0-15.0); Immature Granulocytes Count 0.050 X10^3/uL (0.0-0.0); Mean Corp Hgb Conc 31.8 g/dL (32-36); Mean Corpuscular Volume 86.9 fL (81-99); Mean Platelet Vol. 9.7 fl (6.2-12.0); NRBC Flagged by Analyzer 0 % (0-5); Platelet Count 270 K/mm3 (150-450); RBC Distribution Width CV 18.6 % (11.6-14.6); RBC Distribution Width SD 58.5 fl (35.1-43.9); Red Blood Count 4.67 M/mm3 (4.2-5.4); White Blood Count 6.7 K/mm3 (4.4-11.0)
[2024-11-21 13:20] LABS: Anion Gap 13 (5-15); BUN 42 mg/dL (4-19); BUN/Creat Ratio 30.1 RATIO (10-20); Calcium,Total 9.8 mg/dL (7.6-11.0); Carbon Dioxide 24.1 mmol/L (21.0-32.0); Chloride 100 mmol/L (98-108); Glucose 116 mg/dL (70-99); Potassium 4.4 mmol/L (3.3-5.1)
== END | disposition home or self-care (01) ==
LOC: MFPLAB 10:44
PROVIDERS: Internal Medicine Cardiovascular Disease; PCP Family Medicine; Referring Provider Family Medicine; Visit Provider Family Medicine
DX: R60.9 Edema, unspecified (principal); Z95.5 Presence of coronary angioplasty implant and graft
CPT/HCPCS: 36415; 80048; 85025